=== PATIENT | female | born 1980 | race Caucasian/White ===

== ENCOUNTER 2024-08-20 13:45 | Outpatient (OUT) | payer OTHER, SELFPAY ==
[2024-08-20 15:03] LABS: Estimated Average Glucose 105 mg/dL; Glycohemoglobin A1C 5.3 % (4.5-6.2)
[2024-08-20 15:26] LABS: Alanine Aminotransferase 22 U/L (14-59); Albumin Globulin Ratio 0.9; Albumin Level 3.5 g/dL (3.4-5.0); Alkaline Phosphatase 108 U/L (46-116); Anion Gap 12.3; Aspartate Amino Transferase 14 U/L (15-37); BUN Creatinine Ratio 10.5; Bilirubin Total 0.4 mg/dL (0.2-1.0); Calcium 8.8 mg/dL (8.5-10.1); Carbon Dioxide 28.8 mmol/L (21.0-32.0); Chloride 105 mmol/L (98-107); Chol HDL Ratio 4.4; Cholesterol 207 mg/dL (<=200); Estimated GFR (African America >60 (>=60 mL/min/1.73m^2); Estimated GFR (Non-African Ame >60 (>=60 mL/min/1.73m^2); Globulin 3.8 g/dL; Glucose 90 mg/dL (74-106); HDL Cholesterol 47 mg/dL (40-60); Potassium 4.1 mmol/L (3.5-5.1); Sodium 142 mmol/L (136-145); Thyroid Stimulating Hormone 1.487 uIU/mL (0.358-3.740); Total Protein 7.3 g/dL (6.4-8.2); Triglycerides 109 mg/dL (<=150); VLDL CHOLESTEROL 21.8 mg/dL
[2024-08-21 03:07] LABS: Insulin 10.7 uIU/mL (2.6-24.9)
[2024-08-21 04:07] LABS: FSH 9.7 mIU/mL (.); Luteinizing Hormone(LH) 5.6 mIU/mL (.); Progesterone 0.1 ng/mL (.); Triiodothyronine (T3) 106 ng/dL (71-180)
== END 2024-08-20 13:46 | disposition home or self-care (01) ==
LOC: LAB 13:48
PROVIDERS: PCP Nurse Practitioner Family; Visit Provider Nurse Practitioner Family
DX: R63.5 Abnormal weight gain (principal)
CPT/HCPCS: 36415; 80053; 80061; 82533; 82670; 83001; 83002; 83036; 83525; 84144; 84436; 84443; 84480

== ENCOUNTER 2024-11-16 23:18 | Emergency (ER) | payer OTHER, SELFPAY ==
[2024-11-16 23:24] VITALS: BP 136/98; PULSE 78; TEMP 36.7; O2SAT 100; BMI 47.7
--- OUTSIDE RECORDS SUMMARY | 2024-11-16 23:24 | XMS_ITS | CCD ---
Author Organization [facility] Care Team Providers Care Bike Shop Manager Name Role Phone ANA CORDOVA Primary Care Unavailable MARKER, DR FREGOSO Admitting Unavailable MARKER, DR FREGOSO Attending Unavailable MARKER, DR FREGOSO Consulting Unavailable AHDOEREN CHET Consulting Unavailable ANA CORDOVA Admitting Unavailable ANA CORDOVA Attending Unavailable ANA CORDOVA Primary Care Unavailable ANA CORDOVA Consulting Unavailable Ana Cordova Unavailable Sheba Bustillo Unavailable ANA CORDOVA Primary Care Physician ANA CORDOVA Admitting Unavailable ANA CORDOVA Primary Care Unavailable ANA CORDOVA Attending Unavailable ANA CORDOVA Referring Unavailable ANA CORDOVA Admitting Unavailable ANA CORDOVA Attending Unavailable Nataprki, DO Teagan J. Referring Unavaila ANA Farley Primary Care Unavailable Nataprshaera, DO Teagan J. Admitting Unavaila ble Nataprawira, DO Teagan J. Attending Unavaila ble Nataprki DO Teagan J. Admitting Unavaila ble Nataprawira, DO Teagan J. Attending Unavaila ble Nataprawira, DO Teagan J. Referring Unavaila ANA Farley Primary Care Unavailable Rudy Taylor MD Primary Care Provider YOSELYN HALLMAN Attending Unavailable NATAPRTEAGAN EMERSON J Attending Unavailable NATAPRKI, TEAGAN J Attending Unavailable NATAPRKI, TEAGAN J Attending Unavailable Allergies Allergy Classification Reported Allergen(s) Allergy Type Date of Onset Reaction(s) Facility (1 source) natural latex rubber Drug allergy (disorder) [facility] Repository (7 sources) Latex; Translations: [Latex] Drug allergy Itching, Rash [facility] (1 source) No Known Medication Allergies; Translations: [No Known Medication Allergies] Propensity to adverse reactions (disorder) [facility] Repository Medications Current Medications Medication Drug Class(es) Dates Sig (Normalized) Sig (Original) [id number] 200 actuat albuterol 0.09 mg/actuat metered dose inhaler (1 source) beta2-Adrenergic Agonist Start: 07-24-2022 take 2 puff(s) by inhalation every four hours as needed Albuterol Sulfate HFA 108 (90 Base) MCG/ACT 2 puffs as needed Inhalation every 4 hrs Jul, Active amoxicillin 875 mg / clavulanate 125 mg oral tablet (2 sources) Penicillin-class Antibacterial Start: 10-06-2024 End: 10-16-2024 take 1 tablet by mouth in the morning amoxicillin-clav ulanate (Augmentin) 875-125 MG tablet Indications: Sinus pressure , Acute non-recurrent maxillary sinusitis Take 1 tablet (875 mg) by mouth in the morning and 1 tablet (875 mg) before bedtime. Do all this for 10 days. 20 tablet 10/06/2024 10/16/2024 Active clotrimazole 0.01 mg/mg topical ointment (4 sources) Azole Antifungal Start: 02-21-2021 Start: 02-21-2021 Alevazol 1 % 1 application Externally Twice a day for 10 day(s) Mar, Active DULoxetine 60 mg oral capsule (9 sources) Serotonin and Norepinephrine Reuptake Inhibitor Start: 02-16-2020 take 1 capsule by mouth twice daily DULoxetine HCl 60 MG 1 capsule Orally Twice a day for 90 days Feb, Active Start: 02-16-2020 DULoxetine (Cymb benjamin) [address] capsule 1 capsule 1 (one) time each day at the same time Active duloxetine 60 mg Cap-DR (2 sources) Start: 04-09-2024 take 1 tablet by mouth twice daily duloxetine 60 mg Cap-DR 1 tab, Oral, BID, Refills(s) 0, Anxiety Start Date: 04/09/24 Status: Ordered ergocalciferol 1.25 mg oral capsule (9 sources) Provitamin D2 Compound Start: 01-06-2024 ergocalciferol (Vitamin D-2) 1.25 MG (26230 UT) capsule 01/06/2024 Active Start: 06-13-2021 take 1 capsule by mo [facility] every week Ergocalciferol 1.25 MG (43059 UT) 1 capsule Orally weekly for 30 day(s) Jun, Active hydrOXYzine hydrochloride 25 mg oral tablet (11 sources) Antihistamine Start: 01-08-2024 take 1 tablet by mouth twice daily hydrOXYzine hydrochloride 25 mg Tab 25 mg = 1 tab(s), Oral, BID, Refills(s) 0, Anxiety Start Date: 04/09/24 Status: Ordered Start: 05-17-2020 hydrOXYzine HC l 10 MG as directed Orally at bedtime for 30 day(s) May, Not-Taking methylPREDNISolone 4 mg oral tablet (1 source) Corticosteroid Start: 07-24-2022 methylPREDNISolone 4 MG as directed Orally Once a day for 6 days Jul, Active OLANZapine 2.5 mg oral tablet (2 sources) Atypical Antipsychotic Start: 08-18-2024 OLANZapine (ZyPREXA) 2.5 MG tablet 1 (one) time each day at the same time 08/18/2024 Active Vitamin D (2 sources) Start: 04-09-2024 Vitamin D Oral, qWeek, Refills(s) 0, Prophylaxis Start Date: 04/09/24 Status: Ordered Completed/Discontinued Medications Medication Drug Class(es) Dates Sig (Normalized) Sig (Original) Dosoquin 5500-200 UNIT-MCG (5 sources) Start: 12-01-2019 Start: 12-01-2019 [facility] Dosoquin 5500-200 UNIT-MCG 1 tablet daily with food Orally daily for 90 days Nov, Not-Taking Folinic-Plus 4-50-2 MG (5 sources) take 1 tablet by mouth in the mo rning Folinic-Plus 4-50-2 MG 1 tablet Orally in the morning for 90 days Not-Taking Problems Active Problems Problem Classification Problem Date Documented Date Episodic/Chronic Allergic reactions (5 sources) Atopic dermatitis; Translations: [Other atopic dermatitis] Chronic Anxiety disorders (14 sources) Panic attack; Translations: [Panic disorder [episodic paroxysmal anxiety]] Onset: 06-13-2021 Resolved: 09-14-2021 Chronic Asthma (2 sources) Childhood asthma 04-09-2024 Chronic Chronic obstructive pulmonary disease and bronchiectasis (1 source) Bronchitis, not specified as acute or chronic Episodic Genitourinary symptoms and ill-defined conditions (3 sources) Dysuria; Translations: [Dysuria] Onset: 10-09-2021 Resolved: 10-09-2021 Episodic Immunizations and screening for infectious disease (3 sources) Contact with and (suspected) exposure to other viral communicable diseases; Translations: [Suspected clinical finding] Onset: 08-26-2021 Resolved: 08-26-2021 Episodic Influenza (1 source) Influenza due to other identified influenza virus with other respiratory manifestations Episodic Menstrual disorders (4 sources) Menorrhagia; Translations: [Excessive and frequent menstruation with regular cycle] 04-02-2024 Chronic Miscellaneous mental health disorders (4 sources) Psychophysiologic insomnia; Translations: [Psychophysiologic insomnia] Onset: 09-14-2021 Resolved: 09-14-2021 Chronic Nutritional deficiencies (7 sources) Vitamin D deficiency; Translations: [Vitamin D deficiency, unspecified] Onset: 06-13-2021 Resolved: 09-14-2021 Chronic Other diseases of kidney and ureters (1 source) Hydronephrosis with renal and ureteral calculous obstruction; Translations: [HYDRONPHROS RENL AND URETRL CALCUL OBST] Onset: 10-06-2021 Episodic Other nutritional; endocrine; and metabolic disorders (1 source) Body mass index (BMI) 45.0-49.9, adult; Translations: [BODY MASS INDEX BMI 45.0-49.9 ADULT] Onset: 10-06-2021 Chronic Other nutritional; endocrine; and metabolic disorders (1 source) Obesity, unspecified; Translations: [OBESITY UNSPECIFIED] Onset: 10-06-2021 Chronic Other upper respiratory disease (2 sources) Other specified disorders of nose and nasal sinuses; Translations: [Other disease of nasal cavity and sinuses] 10-06-2024 Episodic Other upper respiratory infections (3 sources) Acute upper respiratory infection, unspecified; Translations: [Acute maxillary sinusitis] Onset: 08-26-2021 Resolved: 08-26-2021 Episodic Residual codes; unclassified (5 sources) Insomnia; Translations: [Insomnia, unspecified] Episodic Substance-related disorders (1 source) Nicotine dependence, cigarettes, uncomplicated; Translations: [NICOTINE DEPEND CIGARETTES UNCOMP] Onset: 10-06-2021 Chronic Past or Other Problems Problem Classification Problem Date Documented Da te Episodic/Chronic Abdominal pain (5 sources) Right lower quadrant pain; Translations: [Pain in female pelvis] Onset: 10-04-2021 Episodic Calculus of urinary tract (2 sources) Personal history of urinary calculi; Translations: [PERSONAL HISTORY OF URINARY CALCULI] Onset: 10-06-2021 Resolved: 10-09-2021 Episodic Residual codes; unclassified (1 source) Insomnia, unspecified Onset: 06-13-2021 Resolved: 06-13-2021 Episodic Urinary tract infections (1 source) Acute cystitis with hematuria Onset: 10-09-2021 Resolved: 10-09-2021 Episodic Results Test Name Value Interpretation Reference Range Facility XR Chest 2 Viewson XR Chest 2 Views Exam Date/Time: 04/09/2024 09:07 EDT Reason for Exam: P.A.T. Report IMPRESSION: NO EVIDENCE OF ACTIVE CHEST DISEASE. CLINICAL HISTORY: P.A.T.. COMMENT: The heart is normal in size. The mediastinum is unremarkable. The lungs appear clear. No infiltration nor pleural effusion is evident. Ordering Provider: Varinder Guerrero FINAL REPORT Dictated: 04/13/2024 8:50 am Sushant Yu M.D. Signed (Electronic Signature): 04/13/2024 8:50 am Signed by: Sushant Yu M.D. Transcribed by: KEN Technologist: BONNIE Technical Comments Radiation Dose: Ka,r in mGy = na DAP = na Normal [facility] ABO/Rh Retypeon 04-09-2024 ABO/Rh Retype Interp Positive Invalid Interpretation Code [facility] Comment on above: Performed By: #### 1 [id number] #### [facility] [address] [place] [address] BLOOD BANKOrdered By: Debo Galindo on 04-09-2024 ABO/Rh Retype Interp Positive Invalid Interpretation Code [facility] BB Subsection BMPon 04-09-2024 Anion gap [Moles/Vol] 9 mmol/L Normal 6-16 [facility] Comment on above: Performed By: #### 2 [id number] #### [facility] [address] [place] [address] Calcium [Mass/Vol] 9.2 mg/dL Normal 8.9-11.1 [facility] Comment on above: Performed By: #### 2 [id number] #### [facility] [address] [place] [address] Chloride [Moles/Vol] 106 mmol/L Normal 101-111 [facility] Comment on above: Performed By: #### 2 513856 #### [facility] [address] [place] [address] CO2 [Moles/Vol] 27 mmol/L Normal 21-31 [facility] Comment on above: Performed By: #### 2 [id number] #### [facility] [address] [place] [address] Creatinine [Mass/Vol] 0.8 mg/dL Normal 0.5-1.3 [facility] Comment on above: Performed By: #### 2 [id number] #### [facility] [address] [place] [address] Glucose [Mass/Vol] 79 mg/dL Normal 55-199 [facility] Comment on above: Performed By: #### 2 [id number] #### [facility] [address] [place] [address] Potassium [Moles/Vol] 4.1 mmol/L Normal 3.5-5.3 [facility] Comment on above: Performed By: #### 2 358049 #### [facility] [address] [place] [address] Sodium [Moles/Vol] 138 mmol/L Normal 135-145 [facility] Comment on above: Performed By: #### 2 946927 #### [facility] [address] [place] [address] Urea nitrogen [Mass/Vol] 11 mg/dL Normal 5-21 [facility] Comment on above: Performed By: #### 2 [id number] #### [facility] [address] [place] [address] Urea nitrogen/Creatinine [Mass ratio] 14 No Units Normal 10-20 [facility] Comment on above: Performed By: #### 2 863272 #### [facility] [address] [place] [address] CBC w/ Auto Diffon 4 Basophils/100 WBC (Bld) 0.6 % Normal 0.0-2.0 [facility] Comment on above: Performed By: #### 2 309055 #### [facility] [address] [place] [address] Basophils/Leukocytes Auto (Bld) [Pure # fraction] 0.0 E9/L Normal 0.0-0.2 [facility] Comment on above: Performed By: #### 2 591119 #### [facility] [address] [place] [address] Eosinophils (Bld) [#/Vol] 0.2 E9/L Normal 0.0-0.5 [facility] Comment on above: Performed By: #### 2 709056 #### [facility] [address] [place] [address] Eosinophils/100 WBC (Bld) 2.5 % Normal 0.0-8.0 [facility] Comment on above: Performed By: #### 2 620875 #### [facility] [address] [place] [address] Erythrocyte distribution width (RBC) [Ratio] 13.6 % Normal 10.9-14.2 [facility] Comment on above: Performed By: #### 2 056155 #### [facility] [address] [place] [address] Hematocrit (Bld) [Volume fraction] 41.6 % Normal 34.0-46.0 [facility] Comment on above: Performed By: #### 2 747879 #### [facility] [address] [place] [address] Hemoglobin (Bld) [Mass/Vol] 13.8 g/dL Normal 12.0-16.0 [facility] Comment on above: Performed By: #### 2 847774 #### [facility] [address] [place] [address] Lymphocytes (Bld) [#/Vol] 2.2 E9/L Normal 1.0-4.0 [facility] Comment on above: Performed By: #### 2 080149 #### [facility] [address] [place] [address] Lymphocytes/100 WBC (Bld) 31.2 % Normal 14.0-50.0 [facility] Comment on above: Performed By: #### 2 257645 #### [facility] [address] [place] [address] MCH (RBC) [Entitic mass] 28.0 pg Normal 27.0-34.0 [facility] Comment on above: Performed By: #### 2 513798 #### [facility] [address] [place] [address] MCHC (RBC) [Mass/Vol] 33.1 g/dL Normal 31.4-36.0 [facility] Comment on above: Performed By: #### 2 615100 #### [facility] [address] [place] [address] MCV (RBC) [Entitic vol] 84.6 fL Normal 80.0-100.0 [facility] Comment on above: Performed By: #### 2 855866 #### [facility] [address] [place] [address] Monocytes (Bld) [#/Vol] 0.6 E9/L Normal 0.2-1.0 [facility] Comment on above: Performed By: #### 2 184082 #### [facility] [address] [place] [address] Neutrophils (Bld) [#/Vol] 3.9 E9/L Normal 2.0-7.5 [facility] Comment on above: Performed By: #### 2 232271 #### [facility] [address] [place] [address] Neutrophils/100 WBC (Bld) 56.5 % Normal 36.0-75.0 [facility] Comment on above: Performed By: #### 2 016471 #### [facility] [address] [place] [address] Platelet mean volume (Bld) [Entitic vol] 7.9 fL Normal 6.4-10.8 [facility] Comment on above: Performed By: #### 2 068709 #### [facility] [address] [place] [address] Platelets (Bld) [#/Vol] 339.0 E9/L Normal 150.0-500.0 [facility] Comment on above: Performed By: #### 2 210255 #### [facility] [address] [place] [address] RBC (Bld) [#/Vol] 4.9 E12/L Normal 4.3-5.9 [facility] Comment on above: Performed By: #### 2 716385 #### [facility] [address] [place] [address] WBC corrected for nucl RBC Auto (Bld) [#/Vol] 6.9 E9/L Normal 4.0-11.0 [facility] Comment on above: Performed By: #### 2 446028 #### [facility] [address] [place] [address] CHEMISTRYOrdered By: SYSTEM SYSTEM on 04-09-2024 Anion gap [Moles/Vol] 9 mmol/L Normal 6 - 16 mEq/L R emisol Chem Calcium [Mass/Vol] 9.2 mg/dL Normal 8.9 - 11. 1 mg/dL [facility] Chloride [Moles/Vol] 106 mmol/L Normal 101 - 1 11 mmol/L [facility] CO2 [Moles/Vol] 27 mmol/L Normal 21 - 31 mmol/L [facility] Creatinine [Mass/Vol] 0.8 mg/dL Normal 0.5 - 1.3 mg/dL [facility] eGFR 94 mL/min/1.73 m2 Normal >=59mL/min /1 .73 m2 [facility] Glucose [Mass/Vol] 79 mg/dL Normal 55 - 199 mg/dL [facility] Potassium [Moles/Vol] 4.1 mmol/L Normal 3.5 - 5.3 mmol/L [facility] Sodium [Moles/Vol] 138 mmol/L Normal 135 - 145 mmol/L [facility] Urea nitrogen [Mass/Vol] 11 mg/dL Normal 5 - 21 mg/dL [facility] Urea nitrogen/Creatinine [Mass ratio] 14 mg/mg Normal 10 - 20 [facility] HEMATOLOGYOrdered By: SYSTEM SYSTEM on 04-09-2024 Basophils/100 WBC (Bld) 0.6 % Normal 0.0 - 2.0 % [facility] Basophils/Leukocytes Auto (Bld) [Pure # fraction] 0.0 E9/L Normal 0.0 - 0.2 E9/L [facility] Eosinophils (Bld) [#/Vol] 0.2 E9/L Normal 0.0 - 0.5 E9/L [facility] Eosinophils/100 WBC (Bld) 2.5 % Normal 0.0 - 8.0 % [facility] Erythrocyte distribution width (RBC) [Ratio] 13.6 % Normal 10.9 - 14.2 % [facility] Hematocrit (Bld) [Volume fraction] 41.6 % Normal 34.0 - 46.0 % [facility] Hemoglobin (Bld) [Mass/Vol] 13.8 g/dL Normal 12.0 - 16.0 gm/dL [facility] Lymphocytes (Bld) [#/Vol] 2.2 E9/L Normal 1.0 - 4.0 E9/L [facility] Lymphocytes/100 WBC (Bld) 31.2 % Normal 14.0 - 50.0 % [facility] MCH (RBC) [Entitic mass] 28.0 pg Normal 27.0 - 34.0 pg [facility] MCHC (RBC) [Mass/Vol] 33.1 g/dL Normal 31.4 - 36.0 gm/dL [facility] MCV (RBC) [Entitic vol] 84.6 fL Normal 80.0 - 100.0 fL [facility] Monocytes (Bld) [#/Vol] 0.6 E9/L Normal 0.2 - 1.0 E9/L [facility] Monocytes/100 WBC (Bld) 9.2 % Normal 4.0 - 14.0 % [facility] Neutrophils (Bld) [#/Vol] 3.9 E9/L Normal 2.0 - 7.5 E9/L [facility] Neutrophils/100 WBC (Bld) 56.5 % Normal 36.0 - 75.0 % [facility] Platelet mean volume (Bld) [Entitic vol] 7.9 fL Normal 6.4 - 10.8 fL [facility] Platelets (Bld) [#/Vol] 339.0 E9/L Normal 150.0 - 500.0 E9/L [facility] RBC (Bld) [#/Vol] 4.9 E12/L Normal 4.3 - 5.9 E12/L [facility] WBC corrected for nucl RBC Auto (Bld) [#/Vol] 6.9 E9/L Normal 4.0 - 11.0 E9/L [facility] eGFRon 04-09-2024 eGFR 94 mL/min/1.73 m2 Normal >=59 [facility] Comment on above: Order Comment: Order added by Discern Expert. Performed By: #### 1 [id number] #### [facility] [address] [place] [address] US Pelvis Non-OB Completeon 10-22-2023 US Pelvis Non-OB Complete Exam Date/Time: 10/21/2023 12:23 EDT Reason for Exam: R10.2, N92.1, N94.6 Report IMPRESSION: NEGATIVE ULTRASOUND OF THE PELVIS. CLINICAL HISTORY: R10.2, N92.1, N94.6. Pelvic cramping. COMMENT: Transabdominal images were obtained. The uterus measurements and an estimated volume are: Uterus Length: 9.8 cm Uterus Width: 5.5 cm Uterus Height: 3.7 cm Uterus Volume: 103.0 cm3 Endometrium Thickness: 1.5 cm No abnormality of the echo pattern of the uterus is noted. No uterine mass is evident. The right ovary measurements and an estimated volume are: Right Ovary Length: 1.8 cm Right Ovary Width: 2.0 cm Right Ovary Height: 1.2 cm Right Ovary Volume: 2.2 cm3 The left ovary measurements and an estimated volume are: Left Ovary Length: 2.7 cm Left Ovary Width: 2.4 cm Left Ovary Height: 2.2 cm Left Ovary Volume: 7.6 cm3 There is an approximately 1 cm diameter left ovarian cyst. No large cyst nor adnexal mass is evident. On color flow Doppler images, there is vascular flow to each ovary. There is no free fluid in the cul-de-sac. Ordering Provider: , FINAL REPORT Dictated: 10/22/2023 2:10 pm Sushant Yu M.D. Signed (Electronic Signature): 10/22/2023 2:10 pm Signed by: Sushant Yu M.D. Transcribed by: KEN Technologist: MCKAYLA Technical Comments Transabdominal Ultrasound Performed Normal [facility] Physician Orderon 10-16-2023 Physician Order [id number] #[id number] Normal [facility] and [facility] 10-11-2023 Follitropin Qn 12.7 m[IU]/mL Invalid Interpretation Code [facility] Comment on above: Result Comment: Adul t Female Range Follicular phase 3.5 - 12.5 Ovulation phase 4.7 - 21.5 Luteal phase 1.7 - 7.7 Postmenopausal 25.8 - 134.8 Performed at: [address] [id number] PhD Ngozi Mendoza Performed By: #### 2 [id number], [id number], 0872187, 34985909, [id number] #### [facility] [address] [place] [address] Lutropin Qn 3.9 m[IU]/mL Invalid Interpretation Code [facility] Comment on above: Result Comment: Adul t Female Range Follicular phase 2.4 - 12.6 Ovulation phase 14.0 - 95.6 Luteal phase 1.0 - 11.4 Postmenopausal 7.7 - 58.5 Performed By: #### 2 468838, 57934459, 5823376, 49560261, 51736467 #### [facility] [address] [place] [address] CBC w/ Auto Diffon 03-06-202 4 Basophils/100 WBC (Bld) 0.4 % Normal 0.0-2.0 [facility] Comment on above: Performed By: #### 2 221716, 54520542, 0782208, 29678983, 45761760 #### [facility] [address] [place] [address] Basophils/Leukocytes Auto (Bld) [Pure # fraction] 0.0 E9/L Normal 0.0-0.2 [facility] Comment on above: Performed By: #### 2 432514, [id number], 2026860, 81054284, 81888645 #### [facility] [address] [place] [address] Eosinophils (Bld) [#/Vol] 0.1 E9/L Normal 0.0-0.5 [facility] Comment on above: Performed By: #### 2 709070, 87759855, 6544359, 84434280, 83369262 #### [facility] [address] [place] [address] Eosinophils/100 WBC (Bld) 1.1 % Normal 0.0-8.0 [facility] Comment on above: Performed By: #### 2 206860, 01229321, 6019442, 76899655, 71764715 #### [facility] [address] [place] [address] Erythrocyte distribution width (RBC) [Ratio] 15.3 % High 10.9-14.2 [facility] Comment on above: Performed By: #### 2 126862, 18973814, 9137820, 97175602, 84030262 #### [facility] [address] [place] [address] Hematocrit (Bld) [Volume fraction] 42.7 % Normal 34.0-46.0 [facility] Comment on above: Performed By: #### 2 409184, 10521703, 6076130, 81799330, 32318187 #### [facility] [address] [place] [address] Hemoglobin (Bld) [Mass/Vol] 13.6 g/dL Normal 12.0-16.0 [facility] Comment on above: Performed By: #### 2 155875, 32148535, 5282050, 09747682, 71431246 #### [facility] [address] [place] [address] Lymphocytes (Bld) [#/Vol] 1.9 E9/L Normal 1.0-4.0 [facility] Comment on above: Performed By: #### 2 473358, 81299767, 6788885, 97047175, 46518121 #### [facility] [address] [place] [address] Lymphocytes/100 WBC (Bld) 27.7 % Normal 14.0-50.0 [facility] Comment on above: Performed By: #### 2 954432, 02744564, 5821471, 95281934, 45860779 #### [facility] [address] [place] [address] MCH (RBC) [Entitic mass] 28.1 pg Normal 27.0-34.0 [facility] Comment on above: Performed By: #### 2 683413, 18504514, 9864680, 86088397, 94758094 #### [facility] [address] [place] [address] MCHC (RBC) [Mass/Vol] 31.8 g/dL Normal 31.4-36.0 [facility] Comment on above: Performed By: #### 2 114548, 97013594, 2890462, 05066993, 04273092 #### [facility] [address] [place] [address] MCV (RBC) [Entitic vol] 88.3 fL Normal 80.0-100.0 [facility] Comment on above: Performed By: #### 2 700145, 70691115, 4155041, 64798780, 73541253 #### [facility] [address] [place] [address] Monocytes (Bld) [#/Vol] 0.4 E9/L Normal 0.2-1.0 [facility] Comment on above: Performed By: #### 2 496221, 92533322, 9467816, 34774072, 03781940 #### [facility] [address] [place] [address] Neutrophils (Bld) [#/Vol] 4.5 E9/L Normal 2.0-7.5 [facility] Comment on above: Performed By: #### 2 678185, 65290046, 5017123, 52304051, 82845353 #### [facility] [address] [place] [address] Neutrophils/100 WBC (Bld) 65.3 % Normal 36.0-75.0 [facility] Comment on above: Performed By: #### 2 843789, 57116153, 5934425, 58662839, 65785770 #### [facility] [address] [place] [address] Platelet mean volume (Bld) [Entitic vol] 8.2 fL Normal 6.4-10.8 [facility] Comment on above: Performed By: #### 2 275350, 51173636, 2785612, 43831859, 48532101 #### [facility] [address] [place] [address] Platelets (Bld) [#/Vol] 372.0 E9/L Normal 150.0-500.0 [facility] Comment on above: Performed By: #### 2 757306, 40769089, 7630063, 91492243, 70244583 #### [facility] [address] [place] [address] RBC (Bld) [#/Vol] 4.8 E12/L Normal 4.3-5.9 [facility] Comment on above: Performed By: #### 2 476947, 73820903, 3804252, 71776553, 63461796 #### [facility] [address] [place] [address] WBC corrected for nucl RBC Auto (Bld) [#/Vol] 6.9 E9/L Normal 4.0-11.0 [facility] Comment on above: Performed By: #### 2 108020, 19662530, 8027816, 86856726, 08598688 #### [facility] [address] [place] [address] CMPon 10-09-2023 Albumin [Mass/Vol] 4.4 g/dL Normal 3.3-5.0 [facility] Comment on above: Performed By: #### 2 750710, 85787248, 9053486, 60752092, 33738353 #### [facility] [address] [place] [address] Albumin/Globulin (S) [Mass conc ratio] 1.8 Normal 1.1-2.2 [facility] Comment on above: Performed By: #### 2 832339, 91106683, 0787526, 45509854, 01166384 #### [facility] [address] [place], [place] [address] ALP [Catalytic activity/Vol] 82 Int._Unit/L Normal 21-98 [facility] Comment on above: Performed By: #### 2 611533, 51745184, 2061555, 39788186, [id number] #### [facility] [address] [place], [place] [id number] ALT No additional P-5'-P [Catalytic activity/Vol] 13 Int._Unit/L Normal 6-46 [facility] Comment on above: Performed By: #### 2 668225, [id number], 7738258, [id number], [id number] #### [facility] [address] [place] [address] Anion gap [Moles/Vol] 12 mmol/L Normal 6-16 [facility] Comment on above: Performed By: #### 2 944962, [id number], 0326453, 12144851, [id number] #### [facility] [address] [place] [address] AST [Catalytic activity/Vol] 14 Int._Unit/L Normal 5-43 [facility] Comment on above: Performed By: #### 2 123633, [id number], 6413362, 02081281, [id number] #### [facility] [address] [place] [address] Bilirubin [Mass/Vol] 0.4 mg/dL Normal 0.0-1.1 [facility] Comment on above: Performed By: #### 2 738593, 51356300, 7147623, 51411011, [id number] #### [facility] [address] [place] [address] Calcium [Mass/Vol] 9.4 mg/dL Normal 8.9-11.1 [facility] Comment on above: Performed By: #### 2 949176, 14262113, 2726096, 14091246, 58647117 #### [facility] [address] [place] [address] Chloride [Moles/Vol] 103 mmol/L Normal 101-111 [facility] Comment on above: Performed By: #### 2 826045, 04339148, 1769771, 62019326, [id number] #### [facility] [address] [place] [address] CO2 [Moles/Vol] 27 mmol/L Normal 21-31 [facility] Comment on above: Performed By: #### 2 809711, 04545521, 4855213, 99509422, 42631275 #### [facility] [address] [place] [address] Creatinine [Mass/Vol] 0.8 mg/dL Normal 0.5-1.3 [facility] Comment on above: Performed By: #### 2 907482, 08335205, 7360248, 98272578, [id number] #### [facility] [address] [place] [address] Globulin (S) [Mass/Vol] 2.5 g/dL Normal 1.4-4.0 [facility] Comment on above: Performed By: #### 2 821776, 78275131, 5298221, 72380731, 25967284 #### [facility] [address] [place] [address] Glucose [Mass/Vol] 86 mg/dL Normal 55-199 [facility] Comment on above: Performed By: #### 2 331996, 23343763, 7281391, 25762003, 06941642 #### [facility] [address] [place] [address] Potassium [Moles/Vol] 4.6 mmol/L Normal 3.5-5.3 [facility] Comment on above: Performed By: #### 2 959440, 05797630, 1330391, 90224935, 70614337 #### [facility] [address] [place] [address] Protein [Mass/Vol] 6.9 g/dL Normal 6.0-7.8 [facility] Comment on above: Performed By: #### 2 936032, 78375263, 5791588, 60362783, 78254220 #### [facility] [address] [place] [address] Sodium [Moles/Vol] 137 mmol/L Normal 135-145 [facility] Comment on above: Performed By: #### 2 801366, 81325770, 3928830, 36890154, 15527040 #### [facility] [address] [place] [address] Urea nitrogen [Mass/Vol] 12 mg/dL Normal 5-21 [facility] Comment on above: Performed By: #### 2 967143, 75992579, 9514119, 44035466, 97143023 #### [facility] [address] [place] [address] Urea nitrogen/Creatinine [Mass ratio] 15 No Units Normal 10-20 [facility] Comment on above: Performed By: #### 2 922557, 36105085, 2633581, 24541184, 10710651 #### [facility] [address] [place] [address] Physician Orderon 10-09-2023 Physician Order [id number] 2#[id number] Normal [facility] T4 & TSHon 10-09-2023 TSH Qn 1.72 m[IU]/L Normal 0.34-5.60 [facility] Comment on above: Performed By: #### 2 847842, 03247913, 9539513, 61858151, 99940292 #### [facility] [address] [place] [address] T4 [Mass/Vol] 10.1 microgram/dL High 4.6-9.1 [facility] Comment on above: Performed By: #### 2 577072, 86162932, 5439934, 25065758, 68389842 #### [facility] [address] [place] [address] eGFRon 10-09-2023 eGFR 94 mL/min/1.73 m2 Normal >=59 [facility] Comment on above: Order Comment: Order added by Discern Expert. Performed By: #### 2 322871, 08658548, 4482684, 23868361, 26418628 #### [facility] [address] [place] [address] COVID + FLU Quick Testingon 07-24-2022 SARS-CoV-2 (COVID-19) RNA YOUSUF+probe Ql (Unsp spec) Negative [employer] Other COVID + FLU Quick Testing Positive [employer] Other COVID + FLU Quick Testing Negative [employer] Other Urinalysis - AUTOMATEDon Appearance (U) cloudy [employer] Other Bilirubin Ql (U) Negative [employer] Other Color (U) dark yellow [employer] Other Glucose Ql (U) Negative [employer] Other Hemoglobin Ql (U) moderate Clean PET [employer] Other Ketones Ql (U) Negative [employer] Other Leukocyte esterase Test strip Ql (U) trace [employer] Other Nitrite Ql (U) Negative [employer] Other pH (U) 6.0 [pH] [employer] Other Protein Ql (U) Negative [employer] Other Specific gravity (U) [Rel density] 1.025 [employer] Other Urobilinogen (U) [Mass/Vol] 1.0 mg/dL [employer] Other Urinalysis - AUTOMATED [employer] Other CULTURE URINEon 10-07-2021 CULTURE URINE Isolate 1 Escherichia coli >100,000 cfu/mL of ORGANISM 1 Escherichia coli ANTIBIOTIC M.I.C RX STATUS Ampicillin 4 S F Ampicillin/Sulbactam <=2 S F Piperacillin/Tazobac castro <=4 S F Cefazolin <=4 S F Ceftazidime <=1 S F Ceftriaxone <=1 S F Ertapenem <=0.5 S F Imipenem <=0.25 S F Amikacin <=2 S F Gentamicin <=1 S F Tobramycin <=1 S F Ciprofloxacin <=0.25 S F Levofloxacin <=0.12 S F Nitrofurantoin <=16 S F Trimethoprim/Sulfame thoxazole <=20 S F Normal [facility] Comment on above: Performed By: #### U RCX #### [facility] [address] [place], [place] [id number] Dr. Jolanta Alvarado CT ABD/PELVIS WO CONon 10-05 CT ABD/PELVIS WO CON EXAMINATION: CT ABD/PELVIS WO CON, 10/04/2021 9:17 PM EST HISTORY: CALCULUS OF KIDNEY COMPARISON: None. TECHNIQUE: CT scan of the abdomen and pelvis was performed without IV contrast. CT dose reduction technique was used, including Automated Exposure Control. FINDINGS: The lung bases are clear. Heart size is normal. The liver, gallbladder, spleen, pancreas and bilateral adrenal glands appear unremarkable on this noncontrast examination. Mild right hydronephrosis and hydroureter is seen. A punctate calculus seen in the distal right ureter, best seen on image 55 of coronal series 5. Thickening of the urothelium of the right proximal and mid ureter is seen with adjacent mesenteric fat stranding and tiny adjacent free fluid, suggestive of inflammatory/infecti ous process and right ureteritis. Punctate calculus is seen in the midpole of the left kidney. The left kidney has an otherwise unremarkable noncontrast appearance. There is no evidence for left hydronephrosis. No left ureteral calculus is seen. The urinary bladder appears unremarkable. The stomach and duodenum appear unremarkable. Nonobstructive bowel pattern is seen. Normal-appearing appendix is visualized. No significant bowel wall thickening is seen. No abnormal fluid collection is seen in the abdomen and pelvis. The vascular structures demonstrate normal caliber. Tiny fat-containing umbilical hernia is seen. No acute osseous abnormality is seen. IMPRESSION: Mild right hydronephrosis and hydroureter is seen with a punctate calculus seen in the distal right ureter. Thickening of the urothelium of the right proximal and mid ureter is seen with adjacent mesenteric fat stranding and tiny adjacent free fluid, suggestive of inflammatory/infecti ous process and right ureteritis. Punctate nonobstructive left renal calculus. Normal-appearing appendix is visualized. Electronically authenticated by: CHET HARP Date: 2021-10-04 22:37 Normal [facility] ER URINE PROFILEon 2 Bilirubin Ql (U) Negative Normal NEGATIVE [facility] Comment on above: Performed By: #### U MICRO, ERUR, PREGU #### [facility] [address] [place], [place] [address] Dr. Jolanta Alvarado Clarity (U) SL CLOUDY Abnormal CLEAR [facility] Comment on above: Performed By: #### U MICRO, ERUR, PREGU #### [facility] [address] [place] [address] [address] Jolanta Alvarado Color (U) YELLOW Normal YELLOW [facility] Comment on above: Performed By: #### U MICRO, ERUR, PREGU #### [facility] [address] [place] [address] [address] Jolanta FOX A micrscopic examination will be performed if indicated. Normal [facility] Comment on above: Performed By: #### U MICRO, ERUR, PREGU #### [facility] [address] [place] [address] [address] Jolanta Alvarado Glucose Ql (U) Negative Normal NEGATIVE [facility] Comment on above: Performed By: #### U MICRO, ERUR, PREGU #### [facility] [address] [place] [address] [address] Jolanta Alvarado Hemoglobin Ql (U) LARGE Abnormal NEGATIVE [facility] Comment on above: Performed By: #### U MICRO, ERUR, PREGU #### [facility] [address] [place] [address] [address] Jolanta Alvarado Ketones Ql (U) TRACE Abnormal NEGATIVE [facility] Comment on above: Performed By: #### U MICRO, ERUR, PREGU #### [facility] [address] [place] [address] [address] Jolanta Alvarado LEUKOCYTES Negative Normal NEGATIVE [facility] Comment on above: Performed By: #### U MICRO, ERUR, PREGU #### [facility] [address] [place] [address] [address] Jolanta Alvarado Nitrite Ql (U) Positive Abnormal NEGATIVE [facility] Comment on above: Performed By: #### U MICRO, ERUR, PREGU #### [facility] [address] [place] [address] [address] Jolanta Alvarado pH (U) 5.5 [pH] Normal 5-9 [facility] Comment on above: Performed By: #### U MICRO, ERUR, PREGU #### [facility] [address] [place] [address] [address] Jolanta Alvarado SPEC GRAVITY >=1.030 Abnormal 1.005-<=1.02 5 [facility] Comment on above: Performed By: #### U MICRO, ERUR, PREGU #### [facility] [address] [place] [address] [address] Jolanta Alvarado UA PROTEIN TRACE Normal NEGATIVE/ TRACE [facility] Comment on above: Performed By: #### U MICRO, ERUR, PREGU #### [facility] [address] [place] [address] Dr. Jolanta Alvarado UR MICRO IND INDICATED Normal [facility] Comment on above: Performed By: #### U MICRO, ERUR, PREGU #### [facility] [address] [place] [address] Dr. Jolanta Alvarado Urobilinogen Qn (U) 0.2 {Loyd'U}/dL Normal 0.2 - 1. 0 [facility] Comment on above: Performed By: #### U MICRO, ERUR, PREGU #### [facility] [address] [place] [address] Dr. Jolanta Alvarado URon 10-04-2021 , QUAL Negative Normal NEGATIVE [facility] Comment on above: Performed By: #### U MICRO, ERUR, PREGU #### [facility] [address] [place] [address] Dr. Jolanta Alvarado URINE MICROSCOPIC ONLYon BACTERIA LARGE Abnormal NONE SEEN [facility] Comment on above: Performed By: #### U MICRO, ERUR, PREGU #### [facility] [address] [place] [address] Dr. Jolanta Alvarado Bacteria identified Cx Nom (U) INDICATED Normal [facility] Comment on above: Performed By: #### U MICRO, ERUR, PREGU #### [facility] [address] [place] [address] Dr. Jolanta Alvarado CAST NONE SEEN Normal NONE SEEN [facility] Comment on above: Performed By: #### U MICRO, ERUR, PREGU #### [facility] [address] [place] [address] [address] Jolanta Alvarado Crystals LM Nom (Urine sed) NONE SEEN Normal NONE SEEN [facility] Comment on above: Performed By: #### U MICRO, ERUR, PREGU #### [facility] [address] [place] [address] [address] Jolanta Alvarado Epithelial cells LM Ql (Urine sed) FEW Abnormal NONE SEEN /RARE [facility] Comment on above: Performed By: #### U MICRO, ERUR, PREGU #### [facility] [address] [place] [address] Dr. Jolanta Alvarado MUCOUS SMALL Abnormal NONE SEEN [facility] Comment on above: Performed By: #### U MICRO, ERUR, PREGU #### [facility] [address] [place] [address] Dr. Jolanta Alvarado RBC (U) [#/Vol] /uL Abnormal 0-2 [facility] Comment on above: Performed By: #### U MICRO, ERUR, PREGU #### [facility] [address] [place] [address] Dr. Jolanta Alvarado WBC 10-20 Abnormal NONE SEEN [facility] Comment on above: Performed By: #### U MICRO, ERUR, PREGU #### [facility] [address] [place] [address] Dr. Jolanta Alvarado COVID Quick Testingon 2021 Result Negative [employer] Other Quick Fluon 08-26-2021 FLUAV Ab CF (S) [Titer] Negative [facility] Other FLUBV Ab CF (S) [Titer] Negative [employer] Other FREE T4on 03-21-2021 Free T4 [Mass/Vol] 0.81 ng/dL Normal 0.78-2.19 [facility] Comment on above: Performed By: #### F T4 #### [facility] [address] [place] [address] Jojomaria victoria Simonen GLYCOHEMOGLOBIN A1Con 2020 ADA RECOMMENDATION ADA THERAPEUTIC TARGET 6.0 - 7.0 ACTION SUGGESTED > 7.0 Normal [facility] Comment on above: Performed By: #### A 1C #### [facility] [address] [place] [id number] Jojo Samia Glucose [Mass/Vol] 105 mg/dL Normal [facility] Comment on above: Performed By: #### A 1C #### [facility] [address] [place], [place] [address] Jojo Samia HbA1c (Bld) [Mass fraction] 5.3 % Normal <=6.0 [facility] Comment on above: Performed By: #### A 1C #### [facility] [address] [place] [id number] Jojo Samia LIPID PROFILEon 03-21-2021 CHOL-HDL RATIO NORM SEE BELOW Normal [facility] Comment on above: Result Comment: 3.3 - 4.4 LOW RISK 4.4 - 7.1 AVERAGE RISK 7.1 - 11.0 MODERATE RISK >11.0 HIGH RISK Performed By: #### C MP, LIPID, TSH #### [facility] [address] [address] Jojo Samia Cholesterol [Mass/Vol] 165 mg/dL Normal <=200 [facility] Comment on above: Performed By: #### C MP, LIPID, TSH #### [facility] [address] [place] [address] Jojo Samia Cholesterol in HDL [Mass/Vol] 42 mg/dL Normal [facility] Comment on above: Performed By: #### C MP, LIPID, TSH #### [facility] [address] [place] [address] Jojo Samia Cholesterol in LDL [Mass/Vol] 109.6 mg/dL Normal [facility] Comment on above: Performed By: #### C MP, LIPID, TSH #### [facility] [address] [address] Jojo Samia Cholesterol.total/Cho lesterol in HDL [Mass ratio] 3.9 {ratio} Normal [facility] Comment on above: Performed By: #### C MP, LIPID, TSH #### [facility] [address] [place] [address] Jojo Samia HDL NORMAL > or = 60 mg/dl - LOW CARDIOVASCULAR RISK <40 mg/dl - HIGH CARDIOVASCULAR RISK Normal [facility] Comment on above: Performed By: #### C MP, LIPID, TSH #### [facility] [address] [place] [address] Jojo Samia LDL CALC NORMAL SEE BELOW Normal [facility] Comment on above: Result Comment: <100 mg/dl OPTIMAL 100 - 129 mg/dl NEAR OR ABOVE OPTIMAL 130 - 159 mg/dl BORDERLINE HIGH 160 - 189 mg/dl HIGH >190 mg/dl VERY HIGH Performed By: #### C MP, LIPID, TSH #### [facility] [address] [address] Jojo Samia Triglyceride [Mass/Vol] 67 mg/dL Normal <=150 [facility] Comment on above: Performed By: #### C MP, LIPID, TSH #### [facility] [address] [place] [address] Jojo Samia VLDL CALC 13.4 mg/dL Normal [facility] Comment on above: Performed By: #### C MP, LIPID, TSH #### [facility] [address] [address] Jojomaria victoria Gracia PROF 14(COMP METB)on 021 Albumin [Mass/Vol] 3.7 g/dL Normal 3.5-5.0 [facility] Comment on above: Performed By: #### C MP, LIPID, TSH #### [facility] [address] [address] Jojo Samia Albumin/Globulin [Mass ratio] 1.0 {ratio} Normal [facility] Comment on above: Performed By: #### C MP, LIPID, TSH #### [facility] [address] [address] Jojo Samia ALP [Catalytic activity/Vol] 102 U/L Normal 38-126 [facility] Comment on above: Performed By: #### C MP, LIPID, TSH #### [facility] [address] [address] Jojo Samia ALT [Catalytic activity/Vol] 33 U/L Normal 9-52 [facility] Comment on above: Performed By: #### C MP, LIPID, TSH #### [facility] [address] [address] Jojo Samia Anion gap [Moles/Vol] 11.7 mmol/L Normal Th [facility] Comment on above: Performed By: #### C MP, LIPID, TSH #### [facility] [address] [address] Jjoo Samia AST [Catalytic activity/Vol] 24 U/L Normal 14-36 [facility] Comment on above: Performed By: #### C MP, LIPID, TSH #### [facility] [address] [place], [place] [address] Jojo Samia Bilirubin [Mass/Vol] 0.4 mg/dL Normal 0.2-1.3 [facility] Comment on above: Performed By: #### C MP, LIPID, TSH #### [facility] [address] [place] [address] Jojo Samia Calcium [Mass/Vol] 8.9 mg/dL Normal 8.4-10.2 [facility] Comment on above: Performed By: #### C MP, LIPID, TSH #### [facility] [address] [place], [place] [address] Jojo Samia Chloride [Moles/Vol] 103 mmol/L Normal 98-107 [facility] Comment on above: Performed By: #### C MP, LIPID, TSH #### [facility] [address] [place], [place] [address] Jojo Samia CO2 [Moles/Vol] 29.2 mmol/L Normal 22.0-30.0 [facility] Comment on above: Performed By: #### C MP, LIPID, TSH #### [facility] [address] [place], [place] [address] Jojo Samia Creatinine [Mass/Vol] 0.89 mg/dL Normal 0.52-1.04 [facility] Comment on above: Performed By: #### C MP, LIPID, TSH #### [facility] [address] [place], [place] [address] Jojo Samia EGFR-AF SLOVENIAN >60 Normal >=60 [facility] Comment on above: Performed By: #### C MP, LIPID, TSH #### [facility] [address] [place], [place] [address] Jojo Samia EGFR-NON AF SLOVENIAN >60 Normal >=60 [facility] Comment on above: Performed By: #### C MP, LIPID, TSH #### [facility] [address] [address] Jojo Samia Globulin (S) [Mass/Vol] 3.7 g/dL Normal [facility] Comment on above: Performed By: #### C MP, LIPID, TSH #### [facility] [address] [place] [address] Jojo Samia Glucose [Mass/Vol] 108 mg/dL Critically high 74-106 [facility] Comment on above: Performed By: #### C MP, LIPID, TSH #### [facility] [address] [place] [address] Jojo Samia Potassium [Moles/Vol] 3.9 mmol/L Normal 3.4-5.0 [facility] Comment on above: Performed By: #### C MP, LIPID, TSH #### [facility] [address] [place], [place] [address] Jojo Samia Protein [Mass/Vol] 7.4 g/dL Normal 6.1-8.2 [facility] Comment on above: Performed By: #### C MP, LIPID, TSH #### [facility] [address] [place], [place] [address] Jojo Samia Sodium [Moles/Vol] 140 mmol/L Normal 137-145 [facility] Comment on above: Performed By: #### C MP, LIPID, TSH #### [facility] [address] [place] [address] Jojo Samia Urea nitrogen [Mass/Vol] 12.0 mg/dL Normal 7.0-17.0 [facility] Comment on above: Performed By: #### C MP, LIPID, TSH #### [facility] [address] [place], [place] [address] Jojo Samia Urea nitrogen/Creatinine [Mass ratio] 13.5 mg/mg Normal [facility] Comment on above: Performed By: #### C MP, LIPID, TSH #### [facility] [address] [place], [place] [address] Jojo Gracia TSHon 03-21-2021 TSH 1.654 uIU/mL Normal 0.470-4.680 [facility] Comment on above: Performed By: #### C MP, LIPID, TSH #### [facility] [address] [place], [place] [address] Jojo Gracia TSH RANGE SEE BELOW Normal [facility] Comment on above: Result Comment: <0.3 4 UIU/ml HYPERTHYROID 0.34-5.60 UIU/ml EUTHYROID >5.60 UIU/ml HYPOTHYROID Performed By: #### C MP, LIPID, TSH #### [facility] [address] [place], [place] [address] Jojo Gracia Pap, GC/Chlam/Trich rfx HPV HRon 03-18-2021 PAP Chlamydia YOUSUF. Negative Normal Negative [facility] Comment on above: Order Comment: Reaso n for Exam Well woman exam with routine gynecological exam Specimen Comment: [id number] LMP OR MENOPAUSE DATE: 03/05/2021 Performed By: #### P AP [id number] #### [facility] , PAP Gonococcus. Negative Normal Negative [facility] Comment on above: Order Comment: Reaso n for Exam Well woman exam with routine gynecological exam Specimen Comment: [id number] LMP OR MENOPAUSE DATE: 03/05/2021 Performed By: #### P AP [id number] #### [facility] , Pap Image Guided Note Normal . [facility] Comment on above: Order Comment: Reaso n for Exam Well woman exam with routine gynecological exam Specimen Comment: [id number] LMP OR MENOPAUSE DATE: 03/05/2021 Result Comment: TEST S RESULT FLAG UNITS REF RANGE LAB Clinician Provided Cytology Information No. of containers..01 ThinPrep Vial DIAGNOSIS: 01 NEGATIVE FOR INTRAEPITHELIAL LESION OR MALIGNANCY. 01 Satisfactory for evaluation. No endocervical component is identified. 01 Adelaida Alfonso, Mainframe Architect (ASCP) 01 Note 01 The Pap smear is a screening test designed to aid in the detection of premalignant and malignant conditions of the uterine cervix. It is not a diagnostic procedure and should not be used as the sole means of detecting cervical cancer. Both false-positive and false-negative reports do occur. Test Methodology: Note 01 This liquid based ThinPrep(R) pap test was screened with the use of an image guided system. . 01 The HPV DNA reflex criteria were not met with this specimen result therefore, no HPV testing was performed. FLAG LEGEND: L-Low Normal,H-High Normal,LL-Alert Low,HH-Alert High <-Panic Low,>-Panic High,A-Abnormal,AA-Critical Abnormal Performed at: [address] [facility] [place] [address] Alona Silver MD, Performed By: #### P AP [id number] #### [facility] , PAP Trichomonas Vaginalis Negative Normal Negative [facility] Comment on above: Order Comment: Reaso n for Exam Well woman exam with routine gynecological exam Specimen Comment: [id number] LMP OR MENOPAUSE DATE: 03/05/2021 Result Comment: Perf ormed at: - [facility] [place] [id number] Mold Closer Helper: Alona Silver MD, Phone: [phone] Performed at: =[facility], [place] [id number] Mold Closer Helper: Alona Silver MD, Phone: [phone] PERFORMED BY: [place] [address] PATHOLOGIST FINANCIAL OPERATIONS CLERK BEAU VARGHESE M.D. Performed By: #### P AP [id number] #### [facility] , Aerobic Cultureon 02-21-2021 Aerobic Culture Reason for Exam Rash Buttock Result Tab Codes Heavy Mixed Allison Including Mixed Gram Negative Bacilli Reason for Exam Rash Buttock Light mixed anaerobic allison 3 Days Reason for Exam Rash Buttock Gram Stain Result 1+ Gram Positive Cocci Rare Gram Positive Bacilli PERFORMED BY: [place] [id number] PATHOLOGIST FINANCIAL OPERATIONS CLERK BEAU VARGHESE M.D. [facility] Comment on above: Performed By: #### A ERC, GS #### [place] [id number] [facility] Gram Stainon 02-21-2021 Microscopic observation Gram stain Nom (Unsp spec) Reason for Exam Rash Buttock Gram Stain Result 1+ Gram Positive Cocci Rare Gram Positive Bacilli PERFORMED BY: [place] [id number] PATHOLOGIST FINANCIAL OPERATIONS CLERK BEAU VARGHESE M.D. [facility] Comment on above: Performed By: #### A ERC, GS #### [place] [id number] [facility] Vital Signs Date Time Vital Sign Value Performing Clinician Facility 10-06-2024 16:03-0500 Body temperature 98.71 [degF] Yoselyn Hallman PETROLOGY TEACHER Work Phone: [facility] 10-06-2024 16:03-0500 Body weight 114.31 kg Yoselyn Hallman PETROLOGY TEACHER Work Phone: [facility] 10-06-2024 16:03-0500 Heart rate 88 /min Yoselyn Hallman PETROLOGY TEACHER Work Phone: [facility] 10-06-2024 16:03-0500 SaO2% (BldA) [Mass fraction] 98 % Yoselyn Hallman NP Work Phone: [facility] 04-09-2024 08:38-0400 Blood Pressure Location Teagan Nataprawira [facility] 04-09-2024 08:38-0400 Diastolic blood pressure 98 mm[Hg] Teagan Nataprawira [facility] 04-09-2024 08:38-0400 Heart rate 80 /min Teagan Nataprawira [facility] 04-09-2024 08:38-0400 Mean blood pressure 116 mm[Hg] Teagan Nataprawira [facility] 04-09-2024 08:38-0400 Systolic blood pressure 153 mm[Hg] Teagan Nataprawira [facility] 04-09-2024 08:37-0400 Heart rate 80 /min Teagan Nataprawira [facility] 04-09-2024 08:37-0400 SaO2% (BldA) [Mass fraction] 98 % Teagan Nataprawira [facility] 04-09-2024 08:37-0400 Respiratory rate 18 /min Teagan Nataprawira [facility] 04-09-2024 08:37-0400 Blood Pressure Location Teagan Nataprawira [facility] 04-09-2024 08:37-0400 Diastolic blood pressure 92 mm[Hg] Teagan Nataprawira [facility] 04-09-2024 08:37-0400 Mean blood pressure 112 mm[Hg] Teagan Nataprawira [facility] 04-09-2024 08:37-0400 Systolic blood pressure 152 mm[Hg] Teagan Nataprawira [facility] 04-09-2024 08:36-0400 Body temperature 97.88 [degF] Teagan Nataprawira [facility] 04-07-2024 08:34-0400 Body weight 109.77 kg Teagan Nataprawira DO Work Phone: [facility] 04-07-2024 08:34-0400 Diastolic blood pressure 80 mm[Hg] Teagan Nataprawira DO Work Phone: [facility] 04-07-2024 08:34-0400 Systolic blood pressure 132 mm[Hg] Teagan Nataprawira DO Work Phone: [facility] 07-24-2022 17:30-0500 Body height 154.94 cm Ana Cordova Other [facility] Other 07-24-2022 17:30-0500 Body mass index (BMI) [Ratio] 40.62 kg/m2 Ana Cordova Other [facility] Other 07-24-2022 17:30-0500 Body temperature 98.6 [degF] Ana Cordova Other [facility] Other 07-24-2022 17:30-0500 Body weight 97.52 kg Ana Cordova Other [facility] Other 07-24-2022 17:30-0500 Respiratory rate 18 /min Ana Cordova Other [facility] Other 07-24-2022 17:30-0500 SaO2% (BldA) [Mass fraction] 100 % Ana Cordova Other [facility] Other 10-09-2021 14:00-0500 Body height 154.94 cm Ana Cordova Other [facility] Other 10-09-2021 14:00-0500 Body mass index (BMI) [Ratio] 43.83 kg/m2 Ana Cordova Other [facility] Other 10-09-2021 14:00-0500 Body temperature 97.2 [degF] Ana Cordova Other [facility] Other 10-09-2021 14:00-0500 Body weight 105.24 kg Ana Cordova Other [facility] Other 10-09-2021 14:00-0500 Diastolic blood pressure 92 mm[Hg] Ana Cordova Other [facility] Other 10-09-2021 14:00-0500 Respiratory rate 18 /min Ana Cordova Other [facility] Other 10-09-2021 14:00-0500 SaO2% (BldA) [Mass fraction] 100 % Ana Cordova Other [facility] Other 10-09-2021 14:00-0500 Systolic blood pressure 141 mm[Hg] Ana Cordova Other [facility] Other 09-14-2021 11:30-0500 Body height 154.94 cm Ana Cordova Other [facility] Other 09-14-2021 11:30-0500 Body mass index (BMI) [Ratio] 45.34 kg/m2 Ana Tasha Other [facility] Other 09-14-2021 11:30-0500 Body temperature 96.8 [degF] Ana Cordova Other [facility] Other 09-14-2021 11:30-0500 Body weight 108.86 kg Ana Cordova Other [facility] Other 09-14-2021 11:30-0500 Diastolic blood pressure 84 mm[Hg] Ana Cordova Other [facility] Other 09-14-2021 11:30-0500 Respiratory rate 20 /min Ana Cordova Other [facility] Other 09-14-2021 11:30-0500 SaO2% (BldA) [Mass fraction] 99 % Ana Cordova Other [facility] Other 09-14-2021 11:30-0500 Systolic blood pressure 134 mm[Hg] Ana Cordova Other [facility] Other 08-26-2021 14:15-0500 Body height 154.94 cm Sheba Faithmond Other [facility] Other 08-26-2021 14:15-0500 Body mass index (BMI) [Ratio] 45.91 kg/m2 Sheba Iwona Other [facility] Other 08-26-2021 14:15-0500 Body temperature 97.7 [degF] Sheba Iwona Other [facility] Other 08-26-2021 14:15-0500 Body weight 110.22 kg Sheba Bustillo Other [facility] Other 08-26-2021 14:15-0500 Respiratory rate 18 /min Sheba Bustillo Other [facility] Other 08-26-2021 14:15-0500 SaO2% (BldA) [Mass fraction] 98 % Sheba Bustillo Other [facility] Other 06-13-2021 12:30-0500 Body height 154.94 cm Ana Wallaceault Other [facility] Other 06-13-2021 12:30-0500 Body mass index (BMI) [Ratio] 45.91 kg/m2 Ana Tasha Other [facility] Other 06-13-2021 12:30-0500 Body temperature 97.5 [degF] Ana Tasha Other [facility] Other 06-13-2021 12:30-0500 Body weight 110.22 kg Ana Tasha Other [facility] Other 06-13-2021 12:30-0500 Diastolic blood pressure 84 mm[Hg] Ana Tasha Other [facility] Other 06-13-2021 12:30-0500 Respiratory rate 18 /min Ana Tasha Other [facility] Other 06-13-2021 12:30-0500 SaO2% (BldA) [Mass fraction] 99 % Ana Cordova Other [facility] Other 06-13-2021 12:30-0500 Systolic blood pressure 136 mm[Hg] Ana Cordova Other [facility] Other Encounters Encounter Date Encounter Type Care Provider Facility Start: 10-06-2024 End: 10-06-2024 Office outpatient visit 25 minutes Yoselyn Hallman PETROLOGY TEACHER Work Phone: [facility] Comment on above: Sinus pressure (Prim juwan Dx); Acute non-recurrent maxillary sinusitis Start: 10-06-2024 End: 10-06-2024 ambulatory YOSELYN HALLMAN Not Available Start: 04-09-2024 End: 04-09-2024 ambulatory DO Teagan Gamez Facility:[facility] Start: 04-09-2024 End: 04-09-2024 Patient encounter procedure Teagan Gamez [facility] Start: 04-07-2024 End: 04-07-2024 Office outpatient visit 25 minutes Teagan Gamez DO Work Phone: [facility] Comment on above: Menorrhagia with reg ular cycle (Primary Dx); Dysmenorrhea; Pelvic pain in female; History of tubal ligation Start: 04-07-2024 End: 04-07-2024 ambulatory TEAGAN GAMEZ Not Available Start: 02-19-2024 End: 04-24-2024 Pre-admission assessment Teagan Gamez [facility] Start: 02-04-2024 End: 02-04-2024 ambulatory TEAGAN GAMEZ Not Available Start: 01-13-2024 End: 01-13-2024 ambulatory TEAGAN GAMEZ Not Available Start: 10-21-2023 End: 10-21-2023 ambulatory ANA CORDOVA Facility:[facility] Start: 10-21-2023 End: 10-21-2023 Patient encounter procedure ANA CORDOVA [facility] Start: 10-08-2023 End: 10-08-2023 ambulatory ANA TASHA Facility:[facility] Start: 07-24-2022 End: 07-24-2022 ambulatory Ana Tasha Other [facility] Other Start: 07-24-2022 Office outpatient vi sit 15 minutes Ana Cordova [facility] Start: 10-09-2021 End: 10-09-2021 ambulatory Ana Cordova Other [facility] Other Start: 10-09-2021 Office outpatient vi sit 15 minutes Anaalex Cordova [facility] Start: 10-04-2021 End: 10-05-2021 ambulatory ANA CORDOVA Facility: Start: 09-14-2021 End: 09-14-2021 ambulatory Ana Tasha Other [facility] Other Start: 09-14-2021 Office outpatient vi sit 15 minutes Ana Cordova [facility] Start: 08-26-2021 (URG) Urgent Care Visit Sheba mendoza [facility] Start: 08-26-2021 End: 08-26-2021 ambulatory Sheba Bustillo Other [facility] Other Start: 06-13-2021 End: 06-13-2021 ambulatory Ana Tasha Other [facility] Other Start: 06-13-2021 Office outpatient vi sit 15 minutes Anaalex Cordova [facility] Start: 04-09-2021 Encounter for gynecological examination (general) (routine) without abnormal findings ANA CORDOVA [facility] Start: 03-21-2021 End: 03-22-2021 ambulatory ANA CORDOVA Facility:[facility] Start: 03-21-2021 End: 03-22-2021 Encounter for gynecological examination (general) (routine) without abnormal findings ANA CORDOVA Facility:[facility] Procedures Date Procedure Procedure Detail Performing Clinician Start: 01-13-2024 Microscopic observat ion [Identifier] in Cervix by Cyto stain Teagan Gamez DO Work Phone: Bilateral tubal ligation Mauricio Gamez H/O: tubal ligation History of t ubal ligation Teagan Gamez DO Work Phone: Plan of Treatment Date Care Activity Detail Author Start: 01-12-2027 Screening for malign ant neoplasm of cervix [facility] Start: 05-28-2024 End: 05-28-2024 Patient encounter procedure 05/28/2024 3:15 PM EDT Office Visit [facility] [address] [facility] [address] [address] Teagan Gamez DO [address] [address] [facility] Start: 04-23-2024 End: 04-23-2024 Patient encounter procedure 04/23/2024 9:00 AM EDT Procedure Visit [facility] Teagan Gamez DO [address] [address] [facility] Start: 04-05-2024 Influenza vaccination Influenza Vacc ine (#1) [facility] Start: 2021 Screening for malign ant neoplasm of breast Mammogram [facility] Start: 12-08-2011 Screening for malign ant neoplasm of cervix HPV/Cotest [facility] Immunizations Immunization Date Immunization Notes Care Provider Fa cili 08-01-2007 influenza virus vaccine, unspecified formulation Teagan Gamez DO Work Phone: [facility] Payers Date Payer Category Payer Medicaid [employer] [place] [employer] [id number] 2024-Present [address] [place] [address] [id number] 2024 Medicaid (Managed Care) [employer] [id number] 2023 Medicaid [id number] 2023 Self-pay 1981 Unknown [id number] 1981 Unknown [id number] 1981 Unknown [id number] 7 1981 Unknown [id number] 727 1981 Unknown [id number] 72 1981 Unknown [id number] 72 1981 Unknown [id number] 9 1981 Unknown [id number]. 1259 1981 Unknown [id number]. 1259 1981 Unknown [id number] 1259 1959 Unknown [id number] Social History Date Type Detail Facility Start: 02-04-2024 End: 04-07-2024 Sex Assigned At [facility] Tobacco smoking status No Smokin g Status Entered [facility] Tobacco Current vaping o r e-cigarette use Smokeless Tobacco Use:. Vaping [facility] Start: 01-13-2024 Tobacco smoking stat us AZIS Ex-smoker [facility] Start: 2000 History of tobacco use Current smoke r [facility] Start: 2000 History of tobacco use Cigarette Smo ker [facility] Start: 01-13-2024 End: 02-04-2024 Cigarettes smoked current (pack per day) - Reported 2 [facility] Start: 01-13-2024 Tobacco use and exposure Smokeless tobacco non-user [facility] Start: 04-07-2024 End: 10-06-2024 Alcoholic beverage intake Current drinker of alcohol (finding) [facility] Start: 1981 Sex assigned at Female [facility] Start: 01-06-2024 Gender identity Identifies as female gender (finding) [facility] Functional Status Date Assessment Result Facility 04-09-2024 Functional Status No [facility] Clinical Notes 06-13-2021 to 10-06-2024 Yoselyn Hallman, PETROLOGY TEACHER - 10/06/2024 4:00 PM Nadia Gamez DO - 04/07/2024 8:30 AM EDT Note Date & Type Note Facility 10-06-2024 History of Presen t illness Narrative Images from the original note were not included. [address], [address] [facility], [address] P: [phone] F: [phone] HPI Historian of HPI: patient Yaquelin Hermosillo is a 43 y.o. female who presents today to the Urgent Care with the following complaints and denials which have been present for 3 week(s) pt denies any V/D/N at this time. Pt states her appetite has been normal and is pushing fluids. Pt states she did miss work today and will need a work note. C/O Denies Symptom Comments [x] [] Runny Nose [] [x] Difficulty Swallowing [] [x] Sore Throat [] [x] Cough [x] [] Ear Pain Left ear pain [x] [] Fever Low grade fevers on and off not currently [] [x] Chills [x] [] Nasal Congestion [x] [] Myalgia Just very tired [x] [] Sinus Pain [] [x] Sinus Pressure Additional Comments: pt has taken tylenol cold and flu OTC medication with relief ROS A complete system ROS was performed and negative aside from the pertinent positives noted in the HPI and PE. Visit Vitals Pulse 88 Temp 98.7 F Wt 252 lb SpO2 98% OB Status Having periods Smoking Status Former IH Testing: PHYSICAL EXAM Physical Exam Vitals reviewed. Constitutional: General: She is not in acute distress. Appearance: Normal appearance. HENT: Head: Normocephalic. Right Ear: Hearing, ear canal and external ear normal. A middle ear effusion is present. Left Ear: Hearing, tympanic membrane, ear canal and external ear normal. Nose: Nasal tenderness, congestion and rhinorrhea present. Rhinorrhea is purulent. Right Turbinates: Enlarged and swollen. Left Turbinates: Enlarged and swollen. Right Sinus: Maxillary sinus tenderness present. Left Sinus: Maxillary sinus tenderness and frontal sinus tenderness present. Mouth/Throat: Mouth: Mucous membranes are moist. Pharynx: Oropharynx is clear. Eyes: Extraocular Movements: Extraocular movements intact. Conjunctiva/sclera: Conjunctivae normal. Pupils: Pupils are equal, round, and reactive to light. Cardiovascular: Rate and Rhythm: Normal rate and regular rhythm. Pulses: Normal pulses. Heart sounds: Normal heart sounds. Pulmonary: Effort: Pulmonary effort is normal. No respiratory distress. Breath sounds: No wheezing, rhonchi or rales. Musculoskeletal: General: Normal range of motion. Cervical back: Normal range of motion and neck supple. Skin: General: Skin is warm and dry. Findings: No rash. Neurological: General: No focal deficit present. Mental Status: She is alert and oriented to person, place, and time. Psychiatric: Mood and Affect: Mood normal. TREATMENT PLAN 1. Sinus pressure (Primary) Symptoms x 3 weeks. New medication as directed. Acetaminophen or Ibuprofen for reduction of fever and pain. Increase fluids. Good handwashing. Discussed warning signs of worsening infection and when to report to ER. New toothbrush in 24 hours. Call office if symptoms have not started to improve within the next 72 hours. Patient verbalized understanding of instructions. Work note provided. - amoxicillin-clavulanate (Augmentin) 875-125 MG tablet; Take 1 tablet (875 mg) by mouth in the morning and 1 tablet (875 mg) before bedtime. Do all this for 10 days. Dispense: 20 tablet; Refill: 0 2. Acute non-recurrent maxillary sinusitis Will treat with ATBx given duration of sx. Medication, implications, and side effects discussed. Report any side effects to PCP immediately. Take with food. Change or sterilize toothbrush 24 hours after starting ATB. OTC meds symptomatically and push fluids. The patient will let us know if sx worsen, change, or fail to improve in the next 5-7 days. Signs/symptoms and red flags of when to seek emergent medical attention discussed. Patient expressed an understanding. - amoxicillin-clavulanate (Augmentin) 875-125 MG tablet; Take 1 tablet (875 mg) by mouth in the morning and 1 tablet (875 mg) before bedtime. Do all this for 10 days. Dispense: 20 tablet; Refill: 0 documented in this encounter [facility] 04-07-2024 History of Presen t illness Narrative Images from the original note were not included. Subjective Yaquelin Hermosillo is a 43 y.o. female HPI Chief Complaint Patient presents with Pre-op Visit Patient here for pre-op visit. Patient states that she would like to proceed with definitive surgical management with hysterectomy. Consent form signed and reviewed. LMP 03/20/24. Patient initially reports that she has a period every month lasting 6-7 days with heavy bleeding and severe cramping like labor pains. Changing tampons every 1-2 hours. Has her tubes tied after her last child. Denies any changes to urinary or bowel habits. Pelvic ultrasound done 10/21/23 at [facility] revealed uterus measuring 9.8x5.5x3.7cm. Endometrial thickness measuring 1.5cm. Right ovary measuring 1.8x2.0x1.2cm. Left ovary measuring 2.7x2.4x2.2cm. 1cm in diameter left ovarian cyst noted. No free fluid in the pelvis and good blood flow to both ovaries. NILM pap-smear with negative High risk HPV (01/13/2024) Benign endometrial pathology (02/04/2024) Past Medical History: Diagnosis Date Irregular menses October Urinary tract infection Past Surgical History: Procedure Laterality Date TUBAL LIGATION VAGINAL DELIVERY x3 Family History Problem Relation Name Age of Onset Migraines Mother Jigna Hermosillo Cancer Father Adam Hermosillo Social History Tobacco Use Smoking status: Former Current packs/day: 2.00 Average packs/day: 2.0 packs/day for 23.3 years (46.7 ttl pk-yrs) Types: Cigarettes Start date: 2000 Smokeless tobacco: Never Vaping Use Vaping status: Every Day Substances: Nicotine Substance Use Topics Alcohol use: Yes Alcohol/week: 1.0 standard drink of alcohol Types: 1 Glasses of wine per week Drug use: Never OB History Para Term AB Living 3 3 SAB IAB Ectopic Multiple Live Births # Outcome Date GA Lbr Godwin/2nd Weight Sex Type Anes PTL Lv 3 Para 2 Para 1 Para Allergies Allergen Reactions Latex Itching and Rash Current Outpatient Medications on File Prior to Visit Medication Sig Dispense Refill DULoxetine (Cymbalta) [address] capsule 1 capsule 1 (one) time each day at the same time ergocalciferol (Vitamin D-2) 1.25 MG (66260 UT) capsule hydrOXYzine HCl (Atarax) 25 MG tablet No current facility-administered medications on file prior to visit. Review of Systems Constitutional: Negative for chills and fever. Respiratory: Negative for shortness of breath. Cardiovascular: Negative for chest pain. Gastrointestinal: Negative for nausea and vomiting. Genitourinary: Negative for dysuria, pelvic pain and vaginal discharge. Neurological: Negative for dizziness and headaches. Objective BP 132/80 Wt 242 lb LMP 03/20/2024 Physical Exam Constitutional: Appearance: Normal appearance. She is well-developed. HENT: Head: Normocephalic and atraumatic. Cardiovascular: Rate and Rhythm: Normal rate and regular rhythm. Pulmonary: Effort: Pulmonary effort is normal. Breath sounds: Normal breath sounds. Musculoskeletal: Right lower leg: No edema. Left lower leg: No edema. Neurological: General: No focal deficit present. Mental Status: She is alert and oriented to person, place, and time. Skin: General: Skin is warm and dry. Psychiatric: Mood and Affect: Mood and affect normal. Assessment/Plan 1. Menorrhagia with regular cycle Robot Assisted Total Laparoscopic Hysterectomy with bilateral Salpingectomy procedure discussed. Risks of but not limited to pain, bleeding, infections, and injury to surrounding structures (bladder, bowel, ureter, vagina, etc.) discussed. Patient voiced understanding and informed consent signed 2. Dysmenorrhea 3. Pelvic pain in female 4. History of tubal ligation documented in this encounter [facility] 07-24-2022 Evaluation note Encounter Date Diagnosis Assessment Notes Jul, Contact with and (suspected) exposure to other viral communicable diseases (ICD-10 - Z20.828) Jul, Influenza A (ICD-10 - J10.1) Symptoms presented today are related to the Flu. May use OTC medications such as Mucinex DM, Flu meds, etc. Kids can use Dimatapp or Delsym. Continue tylenol/ibu for general discomfort. Encourage fluids. Antibiotics will not treat the flu. Symptoms should improve within the next 4-7 days., Influenza material was printed Jul, Bronchitis (ICD-10 - J40) Take medications as directed. Rest and increase fluid intake. Take meds with food to prevent stomach upset. Use inhaler as needed for coughing spells and SOB. It is better to use inhaler a few times a day over the next 2-3 days. Follow up with primary care provider if symptoms do not improve with treatment plan, although it may take a few weeks for the cough to go away [facility] Other 03-07-2022 Evaluation note* Encounter Date Diagnosis Assessment Notes Treatment Notes Treatment Clinical Notes Oct, Dysuria (ICD-10 - R30.0) Oct, Acute cystitis with hematuria (ICD-10 - N30.01) UA in office appears improved from ER visit. Patient states symptoms have greatly improved. Oct, H/O renal calculi (ICD-10 - Z87.442) Symptoms of pain have decreased greatly. Patient should contact office or seek emergency treatment of symptoms of pain, unable to urinate were to return [facility] Other 02-10-2022 Evaluation note* Encounter Date Diagnosis Assessment Notes Treatment Notes Treatment Clinical Notes Sep, YAMINI (generalized anx iety disorder) (ICD-10 - F41.1) Today during the appointment we discussed depression and emotions. We talked about treatment options that include both counseling and medication interventions. When we first start treatment, it is common to have to be seen more frequently as we figure out the best treatment regimen that fits you as an individual. We will be able to space out appointments more once we find what works for you. If at any time you feel like your symptoms have increased in severity or you want to hurt yourself, please never hesitate to contact us and we will get you in to be seen. Also always know the [facility] Emergency Number is 24 hours a day available, even on holidays there is someone you can reach out to. Also we will check other labs yearly to screen for other health issues. Please remember we are a team and your opinion is very important in all of your healthcare decisions Sep, Vitamin D deficiency (ICD-10 - E55.9) Sep, Psychophysiological insomnia (ICD-10 - F51.04) [facility] Other 11-09-2021 Evaluation note* Encounter Date Diagnosis Assessment Notes Treatment Notes Treatment Clinical Notes Jun, Vitamin D deficiency (ICD-10 - E55.9) Jun, Insomnia, unspecified type (ICD-10 - G47.00) Jun, YAMINI (generalized anxiety disorder) (ICD-10 - F41.1) Today during the appointment we discussed depression and emotions. We talked about treatment options that include both counseling and medication interventions. When we first start treatment, it is common to have to be seen more frequently as we figure out the best treatment regimen that fits you as an individual. We will be able to space out appointments more once we find what works for you. If at any time you feel like your symptoms have increased in severity or you want to hurt yourself, please never hesitate to contact us and we will get you in to be seen. Also always know the [facility] Emergency Number is 24 hours a day available, even on holidays there is someone you can reach out to. Also we will check other labs yearly to screen for other health issues. Please remember we are a team and your opinion is very important in all of your healthcare decisions [facility] Other Evaluation + Plan note No data available for this section [facility] Future Appointments Appointment Date:04/23/2024 09:00:00 AM Scheduled Provider: Location:[facility] App[facility] Type:[facility] [facility] Evaluation noteNort [employer] Other Evaluation note* Diagnosis Menorrhagia with regular cycle- Primary Dysmenorrhea Pelvic pain in female Unspecified symptom associated with female genital organs History of tubal ligation Tubal ligation status documented in this encounter [facility] Diagnosis Sinus pressure- Primary Other diseases of nasal cavity and sinuses Acute non-recurrent maxillary sinusitis documented in this encounter [facility] HealthcareHistory general Narrative - Reported* Type Description Date Medical History anxiety Surgical History tubal ligation [facility] Other History general Narrative - ReportedNortD[facility] Other Hospital Discharge instructions No data available for this section [facility] No data available for this section [facility] Summary Purpose Family History No Family History Records FoundNo Family History Records Found No data available for this section No Family History Records FoundNo Family History Records FoundNo Family History Records FoundNo Family History Records Found No data available for this section No data available for this section No Family History Records FoundNo Family History Records Found Advance Directives No Advanced Directives Records FoundNo Advanced Directives Records FoundNo Advanced Directives Records FoundNo Advanced Directives Records FoundNo Advanced Directives Records FoundNo Advanced Directives Records FoundNo Advanced Directives Records FoundNo Advanced Directives Records Found Additional Source Comments INFORMATION SOURCE (unrecogn ized section and content) DATE CREATED AUTHOR 09/20/2021 [facility] DATE CREATED AUTHOR AUTHOR'S ORGANIZ ATION 10/07/2021 [facility] DATE CREATED AUTHOR AUTHOR'S ORGANIZ ATION 04/10/2024 [place] [facility] DATE CREATED AUTHOR AUTHOR'S ORGANIZ ATION 04/11/2024 [place] [facility] ical Center DATE CREATED AUTHOR AUTHOR'S ORGANIZ ATION 05/10/2024 [place] [facility] ica Center DATE CREATED AUTHOR AUTHOR'S ORGANIZ ATION 10/08/2024 [facility] Specialists EPIC REASON FOR VISIT (unrecogniz ed section and content) Reason Comments Pre-op Visit Patient here for pre -op visit. Patient states that she would like to proceed with definitive surgical management with hysterectomy. Consent form signed and reviewed. LMP 03/20/24.Patient initially reports that she has a period every month lasting 6-7 days with heavy bleeding and severe cramping like labor pains. Changing tampons every 1-2 hours. Has her tubes tied after her last child. Denies any changes to urinary or bowel habits. Patient Care team informatio n (unrecognized section and content) Bike Shop Manager Relationship Specialty Start Date End Date Rudy Taylor MD [address] [place] [address] PCP - General Family Medicine 01/13/24 Bike Shop Manager Relationship Specialty Start Date End Date Rudy Taylor MD [address] [place] [address] PCP - General Family Medicine 01/13/24 FOR RECORDS PERTAINING TO PATIENTS WHO ARE OR HAVE BEEN ENROLLED IN A CHEMICAL DEPENDENCY/SUBSTANCEABUSE PROGRAM, SOME INFORMATION MAY BE OMITTED. This clinical summary was aggregated from multiple sources. Caution should be exercised in using it in the provision of clinical care. This summary normalizes information from multiple sources, and as a consequence, information in this document may materially change the coding, format and clinical context of patient data. In addition, data may be omitted in some cases. CLINICAL DECISIONS SHOULD BE BASED ON THE PRIMARY CLINICAL RECORDS. [facility] [employer] [facility]. provides no warranty or guarantee of the accuracy or completeness of information in this document.
--- NOTE | 2024-11-17 01:28 | ED.FEMALEGU1 ---
HPI - Female Genitourinary General Chief complaint: Urogenital-Female Stated complaint: VAGINAL FOREIGN OBJECT Time Seen by Provider: 11/17/24 01:18 Source: patient Mode of arrival: walk-in Limitations: no limitations History of Present Illness HPI Narrative: patient presents concerned she may have tampon stuck in her vagina since yesterday AM. She admits she is not certain the tampon is there but wanted to be checked. States she is also bleeding again. Denies due to past tubal ligation. Mild abdominal cramping. No fever and doesn't feel ill Related Data Allergies Allergy/AdvReac Type Severity Reaction Status Date / Time latex AdvReac Mild itching Verified 11/16/24 23:24 Review of Systems ROS Status of ROS 10 or more systems reviewed and unremarkable except as noted in history and below Exam Constitutional Vital Signs, click to edit/add: Last Vital Signs Temp 98.0 F 11/16/24 23:24 Pulse 78 11/16/24 23:24 Resp 18 11/16/24 23:24 BP 136/98 H 11/16/24 23:24 Pulse Ox 100 11/16/24 23:24 O2 Del Method Room Air 11/16/24 23:24 Common normals: no apparent distress, average body habitus, oriented x3, no limitations, healthy appearing, alert and well nourished [facility] Common normals: normocephalic and head/scalp atraumatic Respiratory Common normals: normal respiratory effort, no retractions, no use of accessory muscles and clear to auscultation bilaterally Cardio Common normals: regular rate, regular rhythm, S1 normal heart sound and S2 normal heart sound GI Common normals: Normal to inspection, nondistended, normoactive bowel sounds present, soft to palpation and non-tender Common normals: external appearance normal Other: small amount of blood noted. No FB seen Extremity Common normals: normal to inspection and full ROM Neuro Common normals: oriented x3, CN's II-XII intact bilaterally, moves all extremities and no focal motor deficits Psych Appearance: grossly normal Course Vital Signs Vital signs: Vital Signs Temperature 98.0 F 11/16/24 23:24 Pulse Rate 78 11/16/24 23:24 Respiratory Rate 18 11/16/24 23:24 Blood Pressure 136/98 H 11/16/24 23:24 Pulse Oximetry 100 11/16/24 23:24 Oxygen Delivery Method Room Air 11/16/24 23:24 Temperature 98.0 F 11/16/24 23:24 Pulse Rate 78 11/16/24 23:24 Respiratory Rate 18 11/16/24 23:24 Blood Pressure 136/98 H 11/16/24 23:24 Pulse Oximetry 100 11/16/24 23:24 Oxygen Delivery Method Room Air 11/16/24 23:24 MDM - Female Genitourinary MDM Narrative Medical decision making narrative: patient presents with abnormal vaginal bleed. States this is her 2nd menstrual bleed this month. Has mild abdominal cramping . Unsure if she left a tampon in her vagina. Exam of the vagina neg for FB and only small amount of blood. Patient discharged home in good condition to follow up with her clinical appeals specialist Discharge Plan Discharge Chief Complaint: Urogenital-Female Clinical Impression: Vaginal bleeding Patient Disposition: Home, Self-Care Print Language: Swedish Instructions: Abnormal (Dysfunctional) Uterine Bleeding (ED) Additional Instructions: follow up with your clinical appeals specialist Referrals: JAYSHREE CORDOVA [Primary Care Provider] - 1 week
[2024-11-17 01:50] VITALS: BP 134/74; PULSE 74; O2SAT 99
[2024-11-17 01:51] VITALS: O2SAT 99
== END 2024-11-17 01:54 | disposition home or self-care (01) ==
PROVIDERS: Emergency Provider Internal Medicine; PCP Nurse Practitioner Family
DX: N93.9 Abnormal uterine and vaginal bleeding, unspecified (principal)
CPT/HCPCS: 99284

== ENCOUNTER 2025-02-01 14:10 | Outpatient (REF) | payer OTHER, SELFPAY ==
--- OUTSIDE RECORDS SUMMARY | 2025-02-01 15:30 | XMS_ITS | Encounter Summary ---
Author Organization [facility] Address [address] [place] [address] Care Team Providers Care Dry Sand Molder Name Role Phone Rudy Taylor MD Primary Care Provider [phone] Reason for Visit * Reason Comments Pre-op Visit EMBX Encounter Details Date Type Department Care Team ([facility] st Contact Info) Description 02/01/2025 3:30 PM EDT Procedure Visit [facility] [address] [place] [phone] Misael Mahajan, DO [address] [place] [address] Pre-op examination; Menorrhagia with regular cycle; Pelvic pain; Abnormal uterine bleeding (AUB) Social History Tobacco Use Types Packs/Day Years Used Date Smoking Tobacco: Former Cigarettes 2 24.2 S tarted: 2000 Smokeless Tobacco: Never Alcohol Use Standard Drinks/Week Comments Yes 1 (1 standard drink = 0.6 oz pur e alcohol) PHQ-2 Answer Date Recorded Patient Health Questionnaire-2 Score 0 02/04/2024 Comments No Sex and Gender Information Value Date Recorded Sex Assigned at Female 01/06/2024 12:12 PM EDT Legal Sex Female 10:59 PM EDT Gender Identity Female 01/06/2024 12:12 PM EDT Sexual Orientation Not on file documented as of this encounter Last Filed Vital Signs Vital Sign Reading Time Taken Comments Blood Pressure 130/80 02/01/2025 3:47 PM EDT Pulse - - Temperature - - Respiratory Rate - - Oxygen Saturation - - Inhaled Oxygen Concentration - - Weight 118 kg (259 lb 1.9 oz) 02/01/2025 3:47 PM EDT Height - - Body Mass Index 47.39 12/23/2024 1:36 PM EDT documented in this encounter Progress Notes * María Valery - 02/01/2025 3:30 PM EDT Reason for Appointment: Patient ID: Yaquelin Hermosillo is a 44 y.o. female who presents for Pre-op Visit and EMBX Patient presents today for Pre Op/Endometrial Biopsy appointment. Patient is scheduled to undergo Endometrial Ablation with Jamia on 02-26-[address] Mahajan at [facility]. MEDICATIONS Current Outpatient Medications Medication Instructions DULoxetine (Cymbalta) [address] capsule 1 capsule, Every 24 hours ergocalciferol (Vitamin D-2) 1.25 MG (64431 UT) capsule hydrOXYzine HCl (Atarax) 25 MG tablet OLANZapine (ZyPREXA) 2.5 MG tablet Every 24 hours ALLERGIES Allergies Allergen Reactions Latex Itching and Rash PROBLEMS Active Ambulatory Problems Diagnosis Date Noted No Active Ambulatory Problems Resolved Ambulatory Problems Diagnosis Date Noted No Resolved Ambulatory Problems Past Medical History: Diagnosis Date Irregular menses October Urinary tract infection HISTORY PAST MEDICAL HISTORY SOCIAL HISTORY Past Medical History: Diagnosis Date Irregular menses October Urinary tract infection Social History Tobacco Use Smoking status: Former Current packs/day: 2.00 Average packs/day: 2.0 packs/day for 24.2 years (48.3 ttl pk-yrs) Types: Cigarettes Start date: 2000 Smokeless tobacco: Never Vaping Use Vaping status: Every Day Substances: Nicotine Substance Use Topics Alcohol use: Yes Alcohol/week: 1.0 standard drink of alcohol Types: 1 Glasses of wine per week Drug use: Never FAMILY HISTORY Family History Problem Relation Name Age of Onset Migraines Mother Jigna Hermosillo Cancer Father Adam Hermosillo SURGICAL HISTORY Past Surgical History: Procedure Laterality Date DILATION AND CURETTAGE OF UTERUS TUBAL LIGATION VAGINAL DELIVERY x3 REVIEW OF SYSTEMS Review of Systems: Review of Systems Constitutional: Negative. HENT: Negative. Eyes: Negative. Respiratory: Negative. Cardiovascular: Negative. Gastrointestinal: Negative. Genitourinary: Negative. Musculoskeletal: Negative. Skin: Negative. Neurological: Negative. All other systems reviewed and are negative. Hematological: Negative. Endocrine: Negative. Allergic/Immunologic: Negative. OBJECTIVE Objective: OBGyn Exam Vitals: Estimated body mass index is 48.43 kg/m?? as calculated from the following: Height as of 12/23/24: 5' 2 . Weight as of 12/23/24: 264 lb 12.8 oz. BP: No LMP recorded. ASSESSMENT & PLAN ICD-10-CM 1. Pre-op examination Z01.818 2. Menorrhagia with regular cycle N92.0 3. Pelvic pain R10.2 4. Abnormal uterine bleeding (AUB) N93.9 Documented by Samia Clancy LPN on behalf of: Misael Mahajan DO documented in this encounter Plan of Treatment Upcoming Encounters Date Type Department Care Team (Late st Contact Info) Description 03/15/2025 3:30 PM EDT Office Visit [facility] [address] [place] [address] Candy Lindsey PA [address] [place] [address] Scheduled Orders Name Type Priority Associated Diagnoses Orde r Schedule Biopsy endometrium Procedures Routine Menorrhagia with regular cycle Pelvic pain Abnormal uterine bleeding (AUB) Ordered: 02/01/2025 documented as of this encounter Procedures Procedure Name Priority Date/Time Associated Diagnosis Comments POCT , URINE Routine 02/01/2025 3:56 PM EDT Menorrhagia with regular cycle documented in this encounter Results * POCT , urine manually resulted (02/01/2025 3:56 PM EDT) Preg Test, Ur Negative Negative Urine 02/01/2025 3:56 PM EDT Misael Mahajan DO POINT OF CARE TEST ENTER/EDIT OR DERABLES Final Result documented in this encounter Visit Diagnoses Diagnosis Pre-op examination Menorrhagia with regular cycle Pelvic pain Abnormal uterine bleeding (AUB) documented in this encounter Care Teams Dry Sand Molder Relationship Specialty Start Date End Date Rudy Taylor MD [address] [place] [address] PCP - General Family Medicine 01/13/24 documented as of this encounter
--- OUTSIDE RECORDS SUMMARY | 2025-02-02 20:34 | XMS_ITS | Continuity of Care Document ---
Author Organization [facility] Address [address] [place] [address] Phone Care Team Providers Care Vp Scientific Name Role Phone Misael Mahajan DO Attending Provider [phone] Care Teams Patient Care Team Team Status: Inactive Member Role Status Dates Misael Mahajan DO Attending Provider Active Start : February 01, 2025 End: February 01, 2025 Chief Complaint and Reason for Visit Chief Complaint Admit Date Unknown February 01, 2025 9:00 am Social History Smoking Status Unknown if ever smoked Observation Status Observation Response Date of Response Legal Sex Female (finding) Sex Assigned At Female [birth year] 07[birth year] 982 Family History Relationship Condition Age at Onset Recorded Date/T bernardo father Hypertension Unknown Advance Directives Advance Directive Response Recorded Date/ Time Advance Directives No October 26 9:26am Insurance Providers Guarantor Brennen Wyman Address [address] [address] Contact Info. Home Phone: Payer Policy Id Subscriber's Name Subscriber Id Effectiv e Date Expiration Date [employer] [id number] Encounters Encounter Location(s) Arrival/Admit Date Discharge/Depart Date Provider(s) Departed Referred -LAB [facility] February 01, 2025 9:00am February 01, 2025 9:01am Misael Mahajan Plan of Treatment Future Tests Future scheduled test information is unavailable Pending Tests Test Name Ordered Date Scheduled Date Miscellaneous Pathology Test February 01, 2025 12: 00am Future Visits Future appointment information is unavailable Referrals to Other Providers Referral information is unavailable Future Procedures Procedure Name Ordered Date Scheduled Date Pathology Request for Lab El[facility] February 02, 2025 1: 35pm February 01, 2025 12:00am Future Medications Future medication information is unavailable Patient Instructions Patient instructions are unavailable
--- OUTSIDE RECORDS SUMMARY | 2025-02-10 14:30 | XMS_ITS | Encounter Summary ---
Author Organization [facility] Address [address] [facility] [place] [address] Care Team Providers Care Nutrition Teacher Name Role Phone Rudy Taylor MD Primary Care Provider [phone] Encounter Details Date Type Department Care Team (Late Contact Info) Description 02/01/2025 External Result Encounter [facility] External Department Unsolicited Misael Mahajan, DO [address] [place] [address] Social History Tobacco Use Types Packs/Day Years [...] on file documented as of this encounter Plan of Treatment Upcoming Encounters Date Type Department Care Team (Late Contact Info) Description 03/15/2025 3:30 PM EDT Office Visit [facility] [address] [place] [phone] Candy Lindsey PA [address] [place] [address] documented as of this encounter Procedures Procedure Name Priority Date/Time Associated Diagnosis Comments PATHOLOGY REQUEST FOR LAB ARLIN Routine 02/01/2025 12:00 AM EDT documented in this encounter Results * PATHOLOGY REQUEST FOR LAB ARLIN (02/01/2025 12:00 AM EDT) PATHOLOGY REQUEST FOR LAB ARLIN 02/09/2025 7:56 AM EDT [facility] Comment:See report. Scanned copy available in EMR. Other Topography unknown / Unknown 02/01/2025 02/02/2025 1:34 PM EDT Narrative [facility] - 02/09/2025 7:56 AM EDT EMB us Misael Keyshawn DO LAB BLOOD ORDERABLES Final Resul t [facility] [address] [place] [address], [facility] [address] [place] [address] documented in this encounter Visit Diagnoses Not on filedocumented in this encounter Care Teams Nutrition Teacher Relationship Specialty Start Date End Date Rudy Taylor MD [address] [place] [address] PCP - General Family Medicine 01/13/24 documented as of this encounter
--- OUTSIDE RECORDS SUMMARY | 2025-02-10 14:30 | XMS_ITS | Encounter Summary ---
Author Organization [facility] Address [address] [place] [facility] [place] [place] [address] Care Team Providers Care Information Management Officer Name Role Phone Rudy Taylor MD Primary Care Provider [phone] Encounter Details Date Type Department Care Team (Late Contact Info) Description 02/11/2024 Orders Only [facility] [address] MARISA Be [address] [phone] Connie Mesa MA History of tubal ligation Social History Tobacco Use Types Packs/Day Years [...] EDT Office Visit [facility] [address] [place] [phone] Candy Lindsey PA [address] [place] [address] documented as of this encounter Visit Diagnoses Diagnosis History of tubal ligation Tubal ligation status documented in this encounter Care Teams Information Management Officer Relationship Specialty Start Date End Date Rudy Taylor MD [address] [place] [address] PCP - General Family Medicine 01/13/24 documented as of this encounter
--- OUTSIDE RECORDS SUMMARY | 2025-02-10 14:30 | XMS_ITS | Clinical Summary ---
Author Organization [facility] Address [address] [place] [address] Care Team Providers Care Tea Plantation Worker Name Role Phone Rudy Taylor MD Primary Care Provider [phone] Allergies Active Allergy Reactions Criticality Noted Date Comments Latex Itching,Rash Low 01/06/2024 Medications ergocalciferol (Vitamin D-2) 1.25 MG (70973 UT) capsule 01/06/2024 Active DULoxetine (Cymbalta) [address] capsule 1 capsule 1 (one) time each day at the same time Active hydrOXYzine HCl (Atarax) 25 MG tablet 01/08/2024 Active OLANZapine (ZyPREXA) 2.5 MG tablet 1 (one) time each day at the same time 08/18/2024 Active Encounters Date Type Department Care Team Description 02/01/2025 3:30 PM EDT Procedure Visit [facility] [address] [place] [address] Misael Mahajan DO Pre-op examination; Menorrhagia with regular cycle; Pelvic pain; Abnormal uterine bleeding (AUB) 02/01/2025 External Result Encounter [facility] External Department Unsolicited Misael Mahajan DO 12/24/2024 Abstract [facility] [address] [place] [address] Misael Mahajan DO 12/23/2024 1:10 PM EDT Office Visit [facility] [address] [facility] [place] [address] Misael Mahajan DO Menorrhagia with irregular cycle 12/23/2024 Bamboo flowsheet [facility] [address] [place] [address] Misael Mahajan DO from Last 3 Months Family History Medical History Relation Name Comments Cancer Father Adam Hermosillo Migraines Mother Jigna Hermosillo Relation Name Status Comments Father Adam Hermosillo Alive Mother Jigna Hermosillo Alive Social History Tobacco Use Types Packs/Day Years Used Date Smoking Tobacco: Former Cigarettes 2 24.2 S tarted: 2000 Smokeless Tobacco: Never Tobacco Cessation:Counseling Given: Not Answered Alcohol Use Standard Drinks/Week Comments Yes 1 (1 standard drink = 0.6 oz pur e alcohol) PHQ-2 Answer Date Recorded Patient Health Questionnaire-2 Score 0 02/04/2024 Comments No Sex and Gender Information Value Date Recorded Sex Assigned at Female 01/06/2024 12:12 PM EDT Legal Sex Female 10:59 PM EDT Gender Identity Female 01/06/2024 12:12 PM EDT Sexual Orientation Not on file Last Filed Vital Signs Vital Sign Reading Time Taken Comments Blood Pressure 130/80 02/01/2025 3:47 PM EDT Pulse 88 10/06/2024 4:03 PM EST Temperature 37.1 C (98.7 F) 10/06/2024 4:03 PM EST Respiratory Rate - - Oxygen Saturation 98% 10/06/2024 4:03 PM EST Inhaled Oxygen Concentration - - Weight 118 kg (259 lb 1.9 oz) 02/01/2025 3:47 PM EDT Height 157.5 cm (5' 2 ) 12/23/2024 1:36 PM EDT Body Mass Index 47.39 12/23/2024 1:36 PM EDT Plan of Treatment Upcoming Encounters Date Type Department Care Team (Late st Contact Info) Description 03/15/2025 3:30 PM EDT Office Visit [facility] [address] [facility] [place] [address] Candy Lindsey PA [address] [place] [address] [place] [address] Health Maintenance Due Date Last Done Comments HPV/Cotest 12/08/2011 Mammogram 2021 Influenza Vaccine (#1) 2025 08/01/2007 Cervical Cancer Screening 01/12/2027 Pap Smear 01/12/2027 01/13/2024 Procedures Procedure Name Priority Date/Time Associated Diagnosis Comments POCT , URINE Routine 02/01/2025 3:56 PM EDT Menorrhagia with regular cycle PATHOLOGY REQUEST FOR LAB [facility] Routine 02/01/2025 12:00 AM EDT POCT URINALYSIS DIPSTICK Routine 12/23/2024 1:43 PM EDT Menorrhagia with irregular cycle THINPREP TIS PAP AND HPV MRNA E6/E7 WITH REFLEX TO HPV 16,18/45 Routine 01/13/2024 12:00 AM EDT Screening for malignant neoplasm of cervix Encounter for screening for human papillomavirus (HPV) from Last 3 Months or Most Recently Relevant to Health Maintenance Results * POCT , urine manually resulted (02/01/2025 3:56 PM EDT) Preg Test, Ur Negative Negative Urine 02/01/2025 3:56 PM EDT Misael Mahajan DO POINT OF CARE TEST ENTER/EDIT OR DERABLES Final Result * PATHOLOGY REQUEST FOR LAB ARLIN (02/01/2025 12:00 AM EDT) PATHOLOGY REQUEST FOR LAB ARLIN 02/09/2025 7:56 AM EDT [facility] Comment:See report. Scanned copy available in EMR. Other Topography unknown / Unknown 02/01/2025 02/02/2025 1:34 PM EDT Narrative [facility] 02/09/2025 7:56 AM EDT EMB Misael Mahajan DO LAB BLOOD ORDERABLES Final Resul t [facility] [address] [place] [address], [facility] [address] [place] [address] * (ABNORMAL) POCT urinalysis dipstick manually resulted (12/23/2024 1:43 PM EDT) Color, UA Yellow Clarity, UA Clear Glucose, UA Negative Negative - 2000(110) ++++ mg/dL Bilirubin, UA Negative Negative - 4(70) +++ mg/dL Ketones, UA Negative Negative - 160(16) ++++ mg/dL Spec Grav, UA 1.020 1 - 1.03 Blood, UA Positive Negative - 50 Jah/mcL Comment:trace-intact pH, UA 7.5 5 - 9 Protein, UA Negative Negative - 2000(20) ++++ mg/dL Urobilinogen, UA 1.0 0.2 - 12 mg/dL Leukocytes, UA Negative Negative - 500+++ Amy/mcL Nitrite, UA Negative Negative - Positive Urine 12/23/2024 1:43 PM EDT Misael Mahajan DO POINT OF CARE TEST ENTER/EDIT OR DERABLES Final Result * THINPREP TIS PAP AND HPV MRNA E6/E7 WITH REFLEX TO HPV 16,18/45 (01/13/2024 12:00 AM EDT) CLINICAL INFORMATION [facility] Comment:None given LMP [facility] Comment:None given PREV. PAP [facility] Comment:None given PREV. BX [facility] Comment:None given SOURCE [facility] Comment:None given STATEMENT OF ADEQUACY [facility] Comment: Satisfactory for evaluation. Endocervical/transformation zone component present. INTERPRETATION/RESU LT [facility] Comment: Cytology Results: Negative for intraepithelial lesion or malignancy. COMMENT [facility] Comment: This Pap test has been evaluated with computer assisted technology. POWER PLANT SUPERVISOR [facility] Comment: SPS, CT(ASCP) CT Screening Location: [facility], [address] [place] [address], [place] [address] (ALWAYS MESSAGE) [facility] Comment: EXPLANATORY NOTE: The Pap is a screening test for cervical cancer. It is not a diagnostic test and is subject to false negative and false positive results. It is most reliable when a satisfactory sample, regularly obtained, is submitted with relevant clinical findings and history, and when the Pap result is evaluated along with historic and current clinical information. HPV MRNA E6/E7 Not Detected Not Detected [facility] Comment: Methodology: Clearing Supervisor-Mediated Amplification This assay detects E6/E7 viral messenger RNA (mRNA) from 14 high-risk HPV types (16,18,31,33,35,39,45,51,52,56,58,59,66,68). Cervical sources are required for HPV testing. If a vaginal source from a patient who has had a total hysterectomy with removal of cervix was submitted, please contact the testing laboratory for alternative testing options. For additional information, please refer to http://education.[employer]/faq/HLR208o0 (This link if provided for information/ educational purposes only.) Swab (specimen) 01/13/2024 4 2:42 AM EDT Narrative Resulting Agency Comment Performing Organization Information Site ID: [id number] Name: [facility] Address: [address] [place] [address], [address] [place] [id number] Director: Ranjeet Palumbo MD Teagan Gamez DO LAB CYTOLOGY ORDERABLES Fi nal Result [facility] from Last 3 Months or Most Recently Relevant to Health Maintenance Insurance [employer] Care Teams Tea Plantation Worker Relationship Specialty Start Date End Date Rudy Taylor MD [address] [facility] [address] [place] [address] PCP - General Family Medicine 01/13/24
--- OUTSIDE RECORDS SUMMARY | 2025-02-10 14:30 | XMS_ITS | Patient Health Record ---
Author Organization [facility] Address [address] [place] [address] Care Team Providers Care Fitter'S Assistant Name Role Phone Vernell Hopper Primary Care Provider DorianAna Unavailable [phone] Allergies No Known Allergies Results Component Value Reference Range Notes Urinalysis automated Reviewed date:03/23/2024 09:52:36 AM Interpretation: Performing Lab: Notes/Report: Urine-Color yellow Appearance clear Specific [place] 1.030 pH 5.5 Glucose neg Protein neg Occult Blood neg Bilirubin neg Urobilinogen,Semi-Qn 0.2 Nitrite, Urine neg Ketones 5mg/dl WBC Esterase 15 brian/ul GNURI - Genitourinary Infect ion (HTRx) Reviewed date:03/25/2024 07:41:11 AM Interpretation: Performing Lab: Notes/Report: Real-Time polymerase chain reaction (TaqMan qPCR) was utilized for detection for all tested organisms and resistance genes. COVID-19 testing separately performed using [employer]Path COVID-19 Combo kit. Initiation of antimicrobial therapy prior to testing may affect results and can lead to the detection of non-living microorganisms. Detection of microbes must be correlated with current/recent antibiotic usage and patient signs and symptoms. Microbial sensitivity testing is not performed at this lab. Liner Helper to CFU/mL equivalent thresholds were established based on studies using known CFU/mL urine specimens performed at [facility] in [place], [place]. Testing performed by [facility] ([address] [place] [address]; CLIA# [id number]; Personnel Security Specialist Denice Ortega, PhD, [facility])). This test was developed, and its performance characteristics determined by [facility]. It has not been cleared or approved by the FDA. However, such approval/clearance is not required, as the laboratory is regulated and qualified under CLIA to perform high-complexity testing. This test is used for clinical purposes and should not be regarded as investigational or for research. *Approximate copies of target nucleic acid per &micro;L (Low: <2,500 copies/&micro;L, Moderate: 2,500-50,000 copies/&micro;L, High: >50,000 copies/&micro;L) National Infectious Disease Consensus Data Potentially effective oral antibiotics, based on presence of detected microbes, antimicrobial resistance genes, and national antimicrobial sensitivity data (see Summary Antibiogram). Acinetobacter baumannii 0.000 19.961 - 24.689 p pm Acinetobacter baumannii Not Detected 19.961 - 24.689 p pm Atopobium vaginae 0.000 19.961 - 24.689 ppm Atopobium vaginae Not Detected 19.961 - 24.689 ppm BVAB 2,3 (bacterial vaginosi s associated bacteria 2, 3); Mobiluncus spp 0.000 19.961 - 24.689 ppm BVAB 2,3 (bacterial vaginosi s associated bacteria 2, 3); Mobiluncus spp Not Detected 19.961 - 24.689 ppm Melissa albicans, parapsilosis, tropicalis 0.000 19.961 - 30.770 ppm Melissa albicans, parapsilosis, tropicalis Not Detecte d 19.961 - 30.770 ppm Melissa glabrata 0.000 23.000 - 32.138 ppm Melissa glabrata Not Detected 23.000 - 32.138 ppm Melissa krusei 0.000 23.000 - 32.271 ppm Melissa krusei Not Detected 23.000 - 32.271 ppm Chlamydia trachomatis 0.000 23.000 - 31.467 ppm Chlamydia trachomatis Not Detected 23.000 - 31.467 ppm Citrobacter freundii 0.000 23.000 - 31.881 ppm Citrobacter freundii Not Detected 23.000 - 31.881 ppm Enterobacter aerogenes, cloacae 0.000 23.000 - 31.535 ppm Enterobacter aerogenes, cloacae Not Detected 23.000 - 31.535 ppm Enterococcus faecalis, faecium 0.000 26.000 - 3 1.575 ppm Enterococcus faecalis, faecium Not Detected 26.000 - 3 1.575 ppm Escherichia coli 19.451 23.000 - 28.500 ppm Escherichia coli Detected 23.000 - 28.500 ppm Gardnerella vaginalis 0.000 19.961 - 24.689 ppm Gardnerella vaginalis Not Detected 19.961 - 24.689 ppm Klebsiella pneumoniae, oxytoca 0.000 23.000 - 3 0.500 ppm Klebsiella pneumoniae, oxytoca Not Detected 23.000 - 3 0.500 ppm Megasphaera (Types 1, 2) 0.000 19.961 - 24.689 ppm Megasphaera (Types 1, 2) Not Detected 19.961 - 24.689 ppm Morganella morganii 0.000 19.961 - 24.689 ppm Morganella morganii Not Detected 19.961 - 24.689 ppm Neisseria gonorrhoeae 0.000 23.000 - 32.117 ppm Neisseria gonorrhoeae Not Detected 23.000 - 32.117 ppm Proteus mirabilis, vulgaris 0.000 23.000 - 28.5 00 ppm Proteus mirabilis, vulgaris Not Detected 23.000 - 28.5 00 ppm Pseudomonas aeruginosa 0.000 23.000 - 28.500 pp m Pseudomonas aeruginosa Not Detected 23.000 - 28.500 pp m Serratia marcescens 0.000 23.000 - 31.204 ppm Serratia marcescens Not Detected 23.000 - 31.204 ppm Staphylococcus aureus 0.000 26.000 - 30.902 ppm Staphylococcus aureus Not Detected 26.000 - 30.902 ppm Streptococcus agalactiae (Group B Strep) 0.000 26.000 - 32.222 ppm Streptococcus agalactiae (Group B Strep) Not Detected 26.000 - 32.222 ppm Streptococcus pyogenes (Group A strep) 0.000 19 .961 - 24.689 ppm Streptococcus pyogenes (Group A strep) Not Detected 19 .961 - 24.689 ppm Trichomonas vaginalis 0.000 23.000 - 32.119 ppm Trichomonas vaginalis Not Detected 23.000 - 32.119 ppm tet B, tet M 26.649 23.000 - 27.778 ppm tet B, tet M Detected 23.000 - 27.778 ppm Staphylococcus epidermidis, haemolyticus, lugdunensis 0.000 19.961 - 24.689 ppm Staphylococcus epidermidis, haemolyticus, lugdunensis Not Detected 19.961 - 24.689 ppm Staphylococcus saprophyticus 0.000 19.961 - 24. 689 ppm Staphylococcus saprophyticus Not Detected 19.961 - 24. 689 ppm Mycoplasma genitalium 0.000 19.961 - 24.689 ppm Mycoplasma genitalium Not Detected 19.961 - 24.689 ppm Mycoplasma hominis 0.000 19.961 - 24.689 ppm Mycoplasma hominis Not Detected 19.961 - 24.689 ppm Ureaplasma parvum 29.027 19.961 - 24.689 ppm Ureaplasma parvum Detected 19.961 - 24.689 ppm Ureaplasma urealyticum 0.000 19.961 - 24.689 pp m Ureaplasma urealyticum Not Detected 19.961 - 24.689 pp m Insulin Lvl Reviewed date:09/20/2024 09:40:24 AM Interpretation: Performing Lab: Notes/Report: HgbA1c Reviewed date:09/20/2024 09:41:39 AM Interpretation: Performing Lab: Notes/Report: CMP Reviewed date:09/20/2024 09:41:09 AM Interpretation: Performing Lab: Notes/Report: Reason For Referral No Information Medications Medication SIG (Take, Route, Frequency, Duration) Notes Start Date End Date Status Trulicity 0.75 MG/0.5ML 1 dose Subcutane ous once week; Duration: 28 days 12/15/2024 06/01/2025 Active hydrOXYzine HCl 25 MG 1-2 tablets as nee ded Orally twice a day; Duration: 30 days 11/14/2022 Active DULoxetine HCl 60 MG 1 capsule Orally Tw ice a day; Duration: 30 days Active OLANZapine 2.5 MG 1 tablet Orally Once a day; Duration: 30 days 08/18/2024 Active Cortisporin-TC 3.3-3-10-0.5 MG/ML 5 drops into affected ear Otic twice a day; Duration: 10 days 01/22/2025 Active Vitamin D (Ergocalciferol) 1.25 MG (70707 UT) Take 1 capsule by mouth once a week; Duration: 28 days Active Spironolactone 100 MG 1 tablet Orally On ce a day; Duration: 30 days 10/20/2024 06/13/2025 Active Social History Tobacco Use: Social History Observation Description Date Details (start date - stop date) Unknown AUDIT-C (Standard) Question Answer Notes Did you have a drink containing alcohol in the p ast year? No Points 0 Interpretation Negative Tobacco Control (Standard) Question Answer Notes Tobacco use: Uses tobacco in other forms Section Notes: Vapes. Vapes. Vapes. Vapes. Vapes. Vapes. Vapes. Vapes. Vapes. Vapes. Vapes. Problems Problem Type SNOMED Code ICD Code Onset Dates Problem Status W/U Status Risk Notes Problem Tobacco user (641736736) Nicotine dependence, unspecified, uncomplicated (F17.200) Active confirmed Problem Left side sciatica (605451431135634) Sciatica, left side (M54.32) Active confirmed Problem Dysmenorrhea (082724311) Dysmenorrhea (N94.6) Active confirmed Problem Intermenstrual bleeding - irregular (50972676) Menorrhagia with irregular cycle (N92.1) Active confirmed Problem Generalized anxiety disorder (11587665) YAMINI (generalized anxiety disorder) (F41.1) Active confirmed Problem Hyperinsulinemia (33596652) Hyperinsulinemia (E16.1) Active confirmed Vital Signs Heart Rate 91 /min 01/22/2025 Temperature 98 degrees Fahrenheit 01/22/2025 Respiratory Rate 20 /min 01/22/2025 Oximetry 95 % 01/22/2025 Blood pressure diastolic 89 mm Hg 01/22/2025 Height 62 in 01/22/2025 Blood pressure systolic 143 mm Hg 01/22/2025 Weight 260 lbs 01/22/2025 BMI 47.55 kg/m2 01/22/2025 Encounters Encounter Location Date Provider Diagnosis [facility] [address] [place] [address] 03/23/2024 Ana Alarcon UTI symptoms R39.9 ; Nicotine dependence, unspecified, uncomplicated F17.200 ; YAMINI (generalized anxiety disorder) F41.1 ; Menorrhagia with irregular cycle N92.1 and Acute diffuse otitis externa of both ears H60.313 [address] [place] [address] 08/18/2024 Ana Alarcon Unintended weight ga in R63.5 ; YAMINI (generalized anxiety disorder) F41.1 and Nicotine dependence, unspecified, uncomplicated F17.200 [address] [place] [address] 10/20/2024 Ana Alarcon Nicotine dependence, unspecified, uncomplicated F17.200 ; YAMINI (generalized anxiety disorder) F41.1 ; Menorrhagia with irregular cycle N92.1 ; Dysmenorrhea N94.6 and Hyperinsulinemia E16.1 [address] [place] [address] 12/15/2024 Ana Alarcon Hyperinsulinemia E16 .1 ; Menorrhagia with irregular cycle N92.1 and Nicotine dependence, unspecified, uncomplicated F17.200 [address] [place] [address] 01/22/2025 Vernell Hopper YAMINI (generalized anx iety disorder) F41.1 ; Ear itching L29.9 and Hyperinsulinemia E16.1 [facility] [address] [place] [address] 01/25/2025 Vernell Hopper YAMINI (generalized anx iety disorder) F41.1 [facility] [address] [place] [address] 01/26/2025 Vernell Hopper Ear itching L29.9 [facility] [address] [place] [address] 01/29/2025 Vernell Hopper YAMINI (generalized anx iety disorder) F41.1 [facility] [address] [place] [address] 07/24/2024 Ana Alarcon YAMINI (generalized anx iety disorder) F41.[address] [place] [address] 07/30/2024 Ana Alarcon YAMINI (generalized anx iety disorder) F41.1 [address] [place] [address] 08/27/2024 Ana [facility] [address] [place] [address] 09/20/2024 [facility] [address] [place] [address] 12/23/2024 Anaalex Alarcon [facility] [address] [place] [address] 01/08/2025 Vernell Hopper YAMINI (generalized anx iety disorder) F41.1 [facility] [address] [place] [address] 02/21/2024 Ana Alarcon YAMINI (generalized anx iety disorder) F41.1 Assessments Encounter Date Diagnosis (ICD Code) Assessment Notes Treatment Notes Treatment Clinical Notes Section Notes 02/21/2024 YAMINI (generalized anxiety disorder) (ICD-10 - F41.1) 03/23/2024 Nicotine dependence, unspecified, uncomplicated (ICD-10 - F17.200) 03/23/2024 UTI symptoms (ICD-10 - R39.9) Take medication as directed. Urine analysis shows abnormalities today in office. Urine culture will be sent to lab. Will call with results if resistance present to antibiotic. Increase fluid intake. Follow hygiene guidelines such as wiping front to back, avoid using perfumed lotions, bath beads, bubble bath. Prevention tips include urinating after sexual intercourse. Follow up with our office or microfilming document preparer if no improvement of symptoms. 08/18/2024 YAMINI (generalized anxiety disorder) (ICD-10 - F41.1) Made changes to medications as we discussed to help with increased symptoms. Will have patient follow up in 2-3 months or sooner if she feels needed. 08/18/2024 Unintended weight gain (ICD-10 - R63.5) Discussed weigh issues, problems with losing weight, history of diets tried, lifestyle changes that they have tried over the years and successful weight loss and how much and how long the weight has stayed off. Discussed tests, treatment options and costs. Patient states understanding. Today we plan on doing labwork here in office as first steps. 10/20/2024 Nicotine dependence, unspecified, uncomplicated (ICD-10 - F17.200) 07/24/2024 YAMINI (generalized anxiety disorder) (ICD-10 - F41.1) 07/30/2024 YAMINI (generalized anxiety disorder) (ICD-10 - F41.1) 10/20/2024 YAMINI (generalized anxiety disorder) (ICD-10 - F41.1) Will continue medications today since patient states that she feels stable on doses 12/15/2024 Hyperinsulinemia (ICD-10 - E16.1) Continue medication as discussed and making better choices and lifestyle changes. Encouraged to gently push yourself with increasing activity and trying healthy lifestyle options. FOllow up in 3 month as discussed 01/08/2025 YAMINI (generalized anxiety disorder) (ICD-10 - F41.1) 01/22/2025 Ear itching (ICD-10 - L29.9) Exam consistent with eczema. Ear drops prescribed and educated to use as directed. Patient verbalized understanding. 01/22/2025 YAMINI (generalized anxiety disorder) (ICD-10 - F41.1) Anxiety stable. Will continue current medication. F/U 3 months & PRN 01/25/2025 YAMINI (generalized anxiety disorder) (ICD-10 - F41.1) 01/26/2025 Ear itching (ICD-10 - L29.9) 01/29/2025 YAMINI (generalized anxiety disorder) (ICD-10 - F41.1) 10/20/2024 Menorrhagia with irregular cycle (ICD-10 - N92.1) Continue to follow up with INDEX EDITOR due to severity of bleeding 12/15/2024 Menorrhagia with irregular cycle (ICD-10 - N92.1) Keep appt with INDEX EDITOR as we discussed today in office as they can best discuss the best measures to help with the symptoms you are experiencing 01/22/2025 Hyperinsulinemia (ICD-10 - E16.1) Continue medication treatment. Follow up in 3 months. 08/18/2024 Nicotine dependence, unspecified, uncomplicated (ICD-10 - F17.200) 03/23/2024 YAMINI (generalized anxiety disorder) (ICD-10 - F41.1) Will continue medications today since patient states that she feels stable on doses 03/23/2024 Menorrhagia with irregular cycle (ICD-10 - N92.1) Patient has scheduled hysterectomy next month 10/20/2024 Dysmenorrhea (ICD-10 - N94.6) Recommend follow up with microfilming document preparer and discussed severity of pain and effect on daily living 12/15/2024 Nicotine dependence, unspecified, uncomplicated (ICD-10 - F17.200) 10/20/2024 Hyperinsulinemia (ICD-10 - E16.1) Obesity medication as discussed and making better choices and lifestyle changes. Encouraged to gently push yourself with increasing activity and trying healthy lifestyle options. FOllow up in 2 month as discussed 03/23/2024 Acute diffuse otitis externa of both ears (ICD-10 - H60.313) 03/23/2024 Other Body Mass Index : Care Instructions material was printed 08/18/2024 Other Body Mass Index : Care Instructions material was printed 10/20/2024 Other Body Mass Index : Care Instructions material was printed 12/15/2024 Other Body Mass Index : Care Instructions material was printed Plan Of Treatment Pending Test Test Name Order Date Cortisol 08/18/2024 Estradiol 08/18/2024 FSH and LH 08/18/2024 Lipid Panel 08/18/2024 Progesterone 08/18/2024 T3 Total 08/18/2024 T4 & TSH 08/18/2024 Next Appt Details Provider Name:Vernell Hopper, 03/17/2025 03:45:00 PM, [address] [place], [address], Insurance Providers Payer Name Payer Address Payer Phone Subscriber Number Group Number Insured Name Patient Relationship to Insured Coverage Start Date Coverage End Date [employer] [place] Medicaid [address] [place] [address] [id number] NAYE REED Self - patient is the insured 4 4 [employer] [place] Medicaid [address] CLAIMS [place] [address] [id number] NAYE REED Self - patient is the insured 4 [employer] [facility] [address] [place] [address] [id number] JEREMYSTELLA NAYE Self - patient is the insured 4 4 [employer] [facility] [address] [place] [address] [id number] NAYE REED Self - patient is the insured 4 [place] [address] [place] [address] [phone] [id number] NAYE REED Self - patient is the insured 4 Medical (General) History Medical History History ICD Code PANIC ATTACKS dysmenorrhea hyperinsulinemia sciatica Surgical History Surgery Date(Month/Year) TUBAL LIGATION Hospitalization History Reason Date(Month/Year) child x3 see surgical
--- OUTSIDE RECORDS SUMMARY | 2025-02-10 14:30 | XMS_ITS | Encounter Summary ---
Author Organization [facility] Address [address] [facility] [place] [address] Care Team Providers Care Collision Estimator Name Role Phone Rudy Taylor MD Primary Care Provider [phone]- [phone] Encounter Details Date Type Department Care Team (Late Contact Info) Description 12/24/2024 Abstract [facility] [address] [facility] [place] [phone] Misael Mahajan, [address] [place] [address] Social History Tobacco Use Types Packs/Day Years [...] 03/15/2025 3:30 PM EDT Office Visit [facility] [address] [facility] [place] [phone] Candy Lindsey PA [address] [place] [address] [place] [address] documented as of this encounter Visit Diagnoses Not on filedocumented in this encounter Care Teams Collision Estimator Relationship Specialty Start Date End Date Rudy Taylor MD [address] [facility] [address] [place] [address] PCP - General Family Medicine 01/13/24 documented as of this encounter
--- OUTSIDE RECORDS SUMMARY | 2025-02-10 14:30 | XMS_ITS | Encounter Summary ---
Author Organization [facility] Address [address] [place] [address] Care Team Providers Care Transfer Station Operator Name Role Phone Rudy Taylor MD Primary Care Provider [phone]- [phone] Encounter Details Date Type Department Care Team (Late Contact Info) Description 04/15/2024 Orders Only [facility] [address] MARISA D [address] [phone] Teagan Gamez, DO [address] [phone] Social History Tobacco Use Types Packs/Day Years [...] EDT Office Visit [facility] [address] [place] [phone] Candy Lindsey PA [address] [facility] [place] [address] documented as of this encounter Procedures Procedure Name Priority Date/Time Associated Diagnosis Comments CBC WITH AUTO DIFFERENTIAL Routine 04/09/2024 7:56 AM EDT COMPREHENSIVE METABOLIC PANEL Routine 04/09/2024 7:56 AM EDT documented in this encounter Results * CBC auto differential (04/09/2024 7:56 AM EDT) Blood Venous blood specimen / Unknown Teagan Gamez DO LAB BLOOD ORDERABLES Final Result * Comprehensive metabolic panel (04/09/2024 7:56 AM EDT) Blood Venous blood specimen / Unknown Teagan J Natradha DO LAB BLOOD ORDERABLES Final Result documented in this encounter Visit Diagnoses Not on filedocumented in this encounter Care Teams Transfer Station Operator Relationship Specialty Start Date End Date Rudy Taylor MD [address] [place] [address] PCP - General Family Medicine 01/13/24 documented as of this encounter
--- OUTSIDE RECORDS SUMMARY | 2025-02-10 20:57 | XMS_ITS | CCD ---
Author Organization [facility] Care Team Providers Care Grain Buyer Name Role Phone ANA CORDOVA Primary Care Unavailable MARKER, DR FREGOSO Admitting Unavailable MARKER, DR FREGOSO Attending Unavailable MARKER, DR FREGOSO Consulting Unavailable CHET HARP Consulting Unavailable ANA CORDOVA Admitting Unavailable ANA CORDOVA Attending Unavailable ANA CORDOVA Primary Care Unavailable ANA CORDOVA Consulting Unavailable Ana Cordova Unavailable Sheba Bustillo Unavailable ANA CORDOVA Primary Care Physician ANA CORDOVA Admitting Unavailable ANA CORDOVA Primary Care Unavailable ANA CORDOVA Attending Unavailable ANA CORDOVA Referring Unavailable ANA CORDOVA Admitting Unavailable ANA CORDOVA Attending Unavailable DO Teagan Gamez Referring Unavaila ANA Farley Primary Care Unavailable DO Teagan Gamez. Admitting Unavaila DO Teagan Gastelum. Attending Unavaila DO Teagan Gastelum. Admitting Unavaila ble DO Teagan Gamez. Attending Unavaila ble DO Teagan Gamez Referring Unavaila ANA Farley Primary Care Unavailable Claudia BLUNT, Rduy Zhang Primary Care Provider [phone] YOSELYN HALLMAN Attending Unavailable DENINS MAHAJAN Attending Unavailable TEAGAN GAMEZ Attending Unavailable TEAGAN GAMEZ Attending Unavailable DENNIS MAHAJAN Attending Unavailable Dennis Mahajan DO Attending Provider [phone] Dennis Mahajan Attending Unavailable Dennis Mahajan Admitting Unavailable Allergies Allergy Classification Reported Allergen(s) Allergy Type Date of Onset Reaction(s) Facility (1 source) natural latex rubber Drug allergy (disorder) [facility] Repository (11 sources) Latex; Translations: [Latex] Drug allergy 4 Itching, Rash [facility] (1 source) No Known Medication Allergies; Translations: [No Known Medication Allergies] Propensity to adverse reactions (disorder) [facility] Repository Medications Current Medications Medication Drug Class(es) Dates Sig (Normalized) Sig (Original) [id number] 200 actuat albuterol 0.09 mg/actuat metered dose [...] Mar, Active DULoxetine 60 mg oral capsule (13 sources) Serotonin and Norepinephrine Reuptake Inhibitor Start: [...] Status: Ordered ergocalciferol 1.25 mg oral capsule (13 sources) Provitamin D2 Compound Start: 01-06-2024 ergocalciferol (Vitamin D-2) 1.25 MG (83860 UT) capsule 01/06/2024 Active Start: 06-13-2021 take 1 capsule by mo [facility] every week Ergocalciferol 1.25 MG (20468 UT) 1 capsule Orally weekly for 30 day(s) Jun, Active hydrOXYzine hydrochloride 25 mg oral tablet (15 sources) Antihistamine Start: 01-08-2024 hydrOXYzine HC l (Atarax) 25 MG tablet 01/08/2024 Active Start: 05-17-2020 hydrOXYzine HC l 10 MG as directed Orally at bedtime for 30 day(s) May, Not-Taking methylPREDNISolone 4 mg oral tablet (1 source) Corticosteroid Start: 07-24-2022 methylPREDNISolone 4 MG as directed Orally Once a day for 6 days Jul, Active OLANZapine 2.5 mg oral tablet (6 sources) Atypical Antipsychotic Start: 08-18-2024 OLANZapine (ZyPREXA) 2.5 MG tablet 1 (one) time each day at the same time 08/18/2024 Active Vitamin D (2 sources) Start: 04-09-2024 Vitamin D Oral, qWeek, Refills(s) 0, Prophylaxis Start Date: 04/09/24 Status: Ordered Completed/Discontinued Medications Medication Drug Class(es) Dates Sig (Normalized) Sig (Original) Dosoquin 5500-200 UNIT-MCG (5 sources) Start: 12-01-2019 Start: 12-01-2019 take 1 tablet by [facility] once daily at mealtime Dosoquin 5500-200 UNIT-MCG 1 tablet daily with food Orally daily for 90 days Nov, Not-Taking Folinic-Plus 4-50-2 MG (5 sources) take 1 tablet by mouth in the mo rning Folinic-Plus 4-50-2 MG 1 tablet Orally in the morning for 90 days Not-Taking Problems Active Problems Problem Classification Problem Date Documented Date Episodic/Chronic Abdominal pain (6 sources) Right lower quadrant pain; Translations: [Pain in female pelvis] Onset: 10-04-2021 Episodic Allergic reactions (5 sources) Atopic dermatitis; Translations: [...] with other respiratory manifestations Episodic Menstrual disorders (7 sources) Menorrhagia; Translations: [Excessive and frequent menstruation [...] URETRL CALCUL OBST] Onset: 10-06-2021 Episodic Other female genital disorders (1 source) Abnormal uterine bleeding; Translations: [Abnormal uterine and vaginal bleeding, unspecified] 02-01-2025 Chronic Other nutritional; endocrine; and metabolic disorders [...] Classification Problem Date Documented Da te Episodic/Chronic Calculus of urinary tract (2 sources) Personal history of urinary calculi; Translations: [PERSONAL HISTORY OF URINARY CALCULI] Onset: 10-06-2021 Resolved: 10-09-2021 Episodic Residual codes; unclassified (1 source) Insomnia, unspecified Onset: 06-13-2021 Resolved: 06-13-2021 Episodic Urinary tract infections (1 source) Acute cystitis with hematuria Onset: 10-09-2021 Resolved: 10-09-2021 Episodic Results Test Name Value Interpretation Reference Range Facility HCG ( test) Ql (U)O rdered By: Arely Sosa on 02-01-2025 Interpretation and review of laboratory results Normal [facility] Healthcare Work Phone: Preg Test, Ur Negative Negative [facility] Health care Work Phone: [facility] Work Phone: Urinalysis macro (dipstick) panel (U)on 12-23-2024 Bilirubin, UA Negative Negative - 4(70) +++ mg/dL [facility] Blood, UA Positive Negative - 50 Jah/mcL [facility] Comment on above: trace-intact Clarity, UA Clear [facility] Color, UA Yellow [facility] Glucose, UA Negative Negative - 1999(110) ++++ mg/dL [facility] Interpretation and review of laboratory results Abnormal [facility] Ketones, UA Negative Negative - 160(16) ++++ mg/dL [facility] Leukocytes, UA Negative Negative - 500+++ Amy/mcL [facility] Nitrite, UA Negative Negative - Positive [facility] pH, UA 7.5 5 - 9 [facility] Protein, UA Negative Negative - 1999(20) ++++ mg/dL [facility] Spec Grav, UA 1.02 1 - 1.03 [facility] Urobilinogen, UA 1.0 0.2 - 12 mg/dL [facility] XR Chest 2 Viewson 4 XR Chest 2 Views Exam Date/Time: 04/09/2024 [...] mGy = na DAP = na Normal [facility] ABO/Rh Retypeon 04-09-2024 ABO/Rh Retype Interp Positive Invalid Interpretation Code [facility] Comment on above: Performed By: #### 1 [id number] #### [facility] [address] [place] [address] BLOOD BANKOrdered By: Debo Galindo on 04-09-2024 ABO/Rh Retype Interp Positive Invalid Interpretation Code [facility] BB Subsection BMPon 04-09-2024 Anion gap [Moles/Vol] 9 mmol/L Normal 6-16 [facility] Comment on above: Performed By: #### 2 [id number] #### [facility] [address] [place] [address] Calcium [Mass/Vol] 9.2 mg/dL Normal 8.9-11.1 [facility] Comment on above: Performed By: #### 2 147214 #### [facility] [address] [place] [address] Chloride [Moles/Vol] 106 mmol/L Normal 101-111 [facility] Comment on above: Performed By: #### 2 425729 #### [facility] [address] [place] [address] CO2 [Moles/Vol] 27 mmol/L Normal 21-31 [facility] Comment on above: Performed By: #### 2 736880 #### [facility] [address] [place] [address] Creatinine [Mass/Vol] 0.8 mg/dL Normal 0.5-1.3 [facility] Comment on above: Performed By: #### 2 309634 #### [facility] [address] [place] [address] Glucose [Mass/Vol] 79 mg/dL Normal 55-199 [facility] Comment on above: Performed By: #### 2 706273 #### [facility] [address] [place] [address] Potassium [Moles/Vol] 4.1 mmol/L Normal 3.5-5.3 [facility] Comment on above: Performed By: #### 2 192551 #### [facility] [address] [place] [address] Sodium [Moles/Vol] 138 mmol/L Normal 135-145 [facility] Comment on above: Performed By: #### 2 075845 #### [facility] [address] [place] [address] Urea nitrogen [Mass/Vol] 11 mg/dL Normal 5-21 [facility] Comment on above: Performed By: #### 2 674156 #### [facility] [address] [place] [address] Urea nitrogen/Creatinine [Mass ratio] 14 No Units Normal 10-20 [facility] Comment on above: Performed By: #### 2 046957 #### [facility] [address] [place] [address] CBC w/ Auto Diffon 4 Basophils/100 WBC (Bld) 0.6 % Normal 0.0-2.0 [facility] Comment on above: Performed By: #### 2 146958 #### [facility] [address] [place] [address] Basophils/Leukocytes Auto (Bld) [Pure # fraction] 0.0 E9/L Normal 0.0-0.2 [facility] Comment on above: Performed By: #### 2 698882 #### [facility] [address] [place] [address] Eosinophils (Bld) [#/Vol] 0.2 E9/L Normal 0.0-0.5 [facility] Comment on above: Performed By: #### 2 812796 #### [facility] [address] [place] [address] Eosinophils/100 WBC (Bld) 2.5 % Normal 0.0-8.0 [facility] Comment on above: Performed By: #### 2 489755 #### [facility] [address] [place] [address] Erythrocyte distribution width (RBC) [Ratio] 13.6 % Normal 10.9-14.2 [facility] Comment on above: Performed By: #### 2 214325 #### [facility] [address] [place] [address] Hematocrit (Bld) [Volume fraction] 41.6 % Normal 34.0-46.0 [facility] Comment on above: Performed By: #### 2 974747 #### [facility] [address] [place] [address] Hemoglobin (Bld) [Mass/Vol] 13.8 g/dL Normal 12.0-16.0 [facility] Comment on above: Performed By: #### 2 442340 #### [facility] [address] [place] [address] Lymphocytes (Bld) [#/Vol] 2.2 E9/L Normal 1.0-4.0 [facility] Comment on above: Performed By: #### 2 096962 #### [facility] [address] [place] [address] Lymphocytes/100 WBC (Bld) 31.2 % Normal 14.0-50.0 [facility] Comment on above: Performed By: #### 2 983684 #### [facility] [address] [place] [address] MCH (RBC) [Entitic mass] 28.0 pg Normal 27.0-34.0 [facility] Comment on above: Performed By: #### 2 925937 #### [facility] [address] [place] [address] MCHC (RBC) [Mass/Vol] 33.1 g/dL Normal 31.4-36.0 [facility] Comment on above: Performed By: #### 2 955646 #### [facility] [address] [place] [address] MCV (RBC) [Entitic vol] 84.6 fL Normal 80.0-100.0 [facility] Comment on above: Performed By: #### 2 336915 #### [facility] [address] [place] [address] Monocytes (Bld) [#/Vol] 0.6 E9/L Normal 0.2-1.0 [facility] Comment on above: Performed By: #### 2 403927 #### [facility] [address] [place] [address] Neutrophils (Bld) [#/Vol] 3.9 E9/L Normal 2.0-7.5 [facility] Comment on above: Performed By: #### 2 421448 #### [facility] [address] [place] [address] Neutrophils/100 WBC (Bld) 56.5 % Normal 36.0-75.0 [facility] Comment on above: Performed By: #### 2 760289 #### [facility] [address] [place] [address] Platelet mean volume (Bld) [Entitic vol] 7.9 fL Normal 6.4-10.8 [facility] Comment on above: Performed By: #### 2 771936 #### [facility] [address] [place] [address] Platelets (Bld) [#/Vol] 339.0 E9/L Normal 150.0-500.0 [facility] Comment on above: Performed By: #### 2 195943 #### [facility] [address] [place] [address] RBC (Bld) [#/Vol] 4.9 E12/L Normal 4.3-5.9 [facility] Comment on above: Performed By: #### 2 076164 #### [facility] [address] [place] [address] WBC corrected for nucl RBC Auto (Bld) [#/Vol] 6.9 E9/L Normal 4.0-11.0 [facility] Comment on above: Performed By: #### 2 369005 #### [facility] [address] [place] [address] CHEMISTRYOrdered By: SYSTEM SYSTEM on 04-09-2024 Anion [...] Chem eGFR 94 mL/min/1.73 m2 Normal >=59mL/min /1. 73 m2 Remisol Chem Glucose [Mass/Vol] 79 mg/dL [...] 04-09-2024 eGFR 94 mL/min/1.73 m2 Normal >=59 [facility] Comment on above: Order Comment: Order added by Discern Expert. Performed By: #### 1 [id number] #### [facility] [address] [place] [address] US Pelvis Non-OB Completeon 10-22-2023 US Pelvis [...] MCKAYLA Technical Comments Transabdominal Ultrasound Performed Normal [facility] Physician Orderon 10-16-2023 Physician Order [id number]#[id number] Normal [facility] FSH and LHon 10-11-2023 Follitropin Qn 12.7 m[IU]/mL Invalid Interpretation Code [facility] Comment on above: Result Comment: Adul t Female Range Follicular phase 3.5 - 12.5 Ovulation phase 4.7 - 21.5 Luteal phase 1.7 - 7.7 Postmenopausal 25.8 - 134.8 Performed at: [address] [id number] PhD Ngozi Mendoza Performed By: #### 2 390779, [id number], 8759718, 18576580, 16461609 #### [facility] [address] [place] [address] Lutropin Qn 3.9 m[IU]/mL Invalid Interpretation Code [facility] Comment on above: Result Comment: Adul t Female Range Follicular phase 2.4 - 12.6 Ovulation phase 14.0 - 95.6 Luteal phase 1.0 - 11.4 Postmenopausal 7.7 - 58.5 Performed By: #### 2 528072, 56893055, 9240676, 26366786, 09166091 #### [facility] [address] [place] [address] CBC w/ Auto Diffon 4 Basophils/100 WBC (Bld) 0.4 % Normal 0.0-2.0 [facility] Comment on above: Performed By: #### 2 661328, 33692889, 0242845, 34782704, 61146030 #### [facility] [address] [place] [address] Basophils/Leukocytes Auto (Bld) [Pure # fraction] 0.0 E9/L Normal 0.0-0.2 [facility] Comment on above: Performed By: #### 2 109819, 17688473, 4277710, 34282750, 11846187 #### [facility] [address] [place] [address] Eosinophils (Bld) [#/Vol] 0.1 E9/L Normal 0.0-0.5 [facility] Comment on above: Performed By: #### 2 470607, 91344224, 4904691, 58214064, 62950030 #### [facility] [address] [place] [address] Eosinophils/100 WBC (Bld) 1.1 % Normal 0.0-8.0 [facility] Comment on above: Performed By: #### 2 735159, 46763175, 2545116, 43893835, 32071898 #### [facility] [address] [place] [address] Erythrocyte distribution width (RBC) [Ratio] 15.3 % High 10.9-14.2 [facility] Comment on above: Performed By: #### 2 980502, 73548104, 1107780, 32456177, 62423034 #### [facility] [address] [place] [address] Hematocrit (Bld) [Volume fraction] 42.7 % Normal 34.0-46.0 [facility] Comment on above: Performed By: #### 2 143464, 41560153, 3336481, 66381201, 64061892 #### [facility] [address] [place] [address] Hemoglobin (Bld) [Mass/Vol] 13.6 g/dL Normal 12.0-16.0 [facility] Comment on above: Performed By: #### 2 224283, 17748804, 5896314, 10088697, 22789486 #### [facility] [address] [place] [address] Lymphocytes (Bld) [#/Vol] 1.9 E9/L Normal 1.0-4.0 [facility] Comment on above: Performed By: #### 2 810754, 08315838, 7476183, 32877677, 74638596 #### [facility] [address] [place] [address] Lymphocytes/100 WBC (Bld) 27.7 % Normal 14.0-50.0 [facility] Comment on above: Performed By: #### 2 733765, 89142303, 5149000, 78000647, 48517934 #### [facility] [address] [place] [address] MCH (RBC) [Entitic mass] 28.1 pg Normal 27.0-34.0 [facility] Comment on above: Performed By: #### 2 318118, 61788847, 7245059, 13781278, 68719988 #### [facility] [address] [place] [address] MCHC (RBC) [Mass/Vol] 31.8 g/dL Normal 31.4-36.0 [facility] Comment on above: Performed By: #### 2 920198, 62815311, 1066654, 31052053, 63086043 #### [facility] [address] [place] [address] MCV (RBC) [Entitic vol] 88.3 fL Normal 80.0-100.0 [facility] Comment on above: Performed By: #### 2 548483, 96527236, 2340786, 96071501, 80758613 #### [facility] [address] [place], [place] [address] Monocytes (Bld) [#/Vol] 0.4 E9/L Normal 0.2-1.0 [facility] Comment on above: Performed By: #### 2 535718, 16987985, 9432805, 36703777, 44810920 #### [facility] [address] [place] [address] Neutrophils (Bld) [#/Vol] 4.5 E9/L Normal 2.0-7.5 [facility] Comment on above: Performed By: #### 2 931854, 12940137, 3982906, 44802119, 57875128 #### [facility] [address] [place] [address] Neutrophils/100 WBC (Bld) 65.3 % Normal 36.0-75.0 [facility] Comment on above: Performed By: #### 2 214388, 66182989, 1740121, 91955690, 30222787 #### [facility] [address] [place] [address] Platelet mean volume (Bld) [Entitic vol] 8.2 fL Normal 6.4-10.8 [facility] Comment on above: Performed By: #### 2 804828, 27210833, 1085753, 77187261, 01967853 #### [facility] [address] [place] [address] Platelets (Bld) [#/Vol] 372.0 E9/L Normal 150.0-500.0 [facility] Comment on above: Performed By: #### 2 295734, 29793912, 7968884, 39498467, 71008322 #### [facility] [address] [place] [address] RBC (Bld) [#/Vol] 4.8 E12/L Normal 4.3-5.9 [facility] Comment on above: Performed By: #### 2 023570, 94045093, 8765182, 00774543, 09852481 #### [facility] [address] [place] [address] WBC corrected for nucl RBC Auto (Bld) [#/Vol] 6.9 E9/L Normal 4.0-11.0 [facility] Comment on above: Performed By: #### 2 424103, 27197048, 3661172, 55110305, 82384899 #### [facility] [address] [place] [address] CMPon 10-09-2023 Albumin [Mass/Vol] 4.4 g/dL Normal 3.3-5.0 [facility] Comment on above: Performed By: #### 2 005499, 62882367, 8724496, 46469710, 27897342 #### [facility] [address] [place] [address] Albumin/Globulin (S) [Mass conc ratio] 1.8 Normal 1.1-2.2 [facility] Comment on above: Performed By: #### 2 914991, 48383522, 2722228, 20017942, 63472645 #### [facility] [address] [place] [address] ALP [Catalytic activity/Vol] 82 Int._Unit/L Normal 21-98 [facility] Comment on above: Performed By: #### 2 011431, 86370734, 8054481, 05665425, 22277416 #### [facility] [address] [place] [address] ALT No additional P-5'-P [Catalytic activity/Vol] 13 Int._Unit/L Normal 6-46 [facility] Comment on above: Performed By: #### 2 491531, 44326845, 4309987, 97816198, 17073399 #### [facility] [address] [place] [address] Anion gap [Moles/Vol] 12 mmol/L Normal 6-16 [facility] Comment on above: Performed By: #### 2 026645, 66663913, 1502697, 77765355, 26908445 #### [facility] [address] [place] [address] AST [Catalytic activity/Vol] 14 Int._Unit/L Normal 5-43 [facility] Comment on above: Performed By: #### 2 839354, 25103085, 8629377, 95543477, 07006973 #### [facility] [address] [place] [address] Bilirubin [Mass/Vol] 0.4 mg/dL Normal 0.0-1.1 [facility] Comment on above: Performed By: #### 2 758106, 42168800, 3073014, 98276668, 63231861 #### [facility] [address] [place] [address] Calcium [Mass/Vol] 9.4 mg/dL Normal 8.9-11.1 [facility] Comment on above: Performed By: #### 2 478422, 28395856, 9025165, 66959671, 69269270 #### [facility] [address] [place] [address] Chloride [Moles/Vol] 103 mmol/L Normal 101-111 [facility] Comment on above: Performed By: #### 2 229050, 12222597, 3607295, 62906796, 32237127 #### [facility] [address] [place] [address] CO2 [Moles/Vol] 27 mmol/L Normal 21-31 [facility] Comment on above: Performed By: #### 2 198854, 30579814, 4014566, 43778884, 69056985 #### [facility] [address] [place] [address] Creatinine [Mass/Vol] 0.8 mg/dL Normal 0.5-1.3 [facility] Comment on above: Performed By: #### 2 667681, 79323281, 2180365, 19895316, 65183146 #### [facility] [address] [place] [address] Globulin (S) [Mass/Vol] 2.5 g/dL Normal 1.4-4.0 [facility] Comment on above: Performed By: #### 2 630726, 79266579, 9010741, 98154506, 81132804 #### [facility] [address] [place] [address] Glucose [Mass/Vol] 86 mg/dL Normal 55-199 [facility] Comment on above: Performed By: #### 2 959421, 38266091, 3747157, 08525104, 62336311 #### [facility] [address] [place] [address] Potassium [Moles/Vol] 4.6 mmol/L Normal 3.5-5.3 [facility] Comment on above: Performed By: #### 2 650034, 04818200, 1744755, 65041862, 94468627 #### [facility] [address] [place] [address] Protein [Mass/Vol] 6.9 g/dL Normal 6.0-7.8 [facility] Comment on above: Performed By: #### 2 105281, 04615585, 0527739, 02127222, 26464385 #### [facility] [address] [place] [address] Sodium [Moles/Vol] 137 mmol/L Normal 135-145 [facility] Comment on above: Performed By: #### 2 001836, 87658476, 0585150, 31674911, 95765224 #### [facility] [address] [place] [address] Urea nitrogen [Mass/Vol] 12 mg/dL Normal 5-21 [facility] Comment on above: Performed By: #### 2 294135, 38503609, 3188920, 71245951, 40382590 #### [facility] [address] [place] [address] Urea nitrogen/Creatinine [Mass ratio] 15 No Units Normal 10-20 [facility] Comment on above: Performed By: #### 2 358053, 67602773, 5336091, 32288648, 03192999 #### [facility] [address] [place] [address] Physician Orderon 10-09-2023 Physician Order [id number] Normal [facility] T4 & TSHon 10-09-2023 TSH Qn 1.72 m[IU]/L Normal 0.34-5.60 [facility] Comment on above: Performed By: #### 2 932226, 98748577, 0541054, 35819166, 86713958 #### [facility] [address] [place] [address] T4 [Mass/Vol] 10.1 microgram/dL High 4.6-9.1 [facility] Comment on above: Performed By: #### 2 837463, 52035020, 1079551, 63306548, 24416683 #### [facility] [address] [place] [address] eGFRon 10-09-2023 eGFR 94 mL/min/1.73 m2 Normal >=59 [facility] Comment on above: Order Comment: Order added by Discern Expert. Performed By: #### 2 042371, 12825916, 0891882, 71062674, 84559598 #### [facility] [address] [place] [address] COVID + FLU Quick Testingon 07-24-2022 SARS-CoV-2 (COVID-19) RNA YOUSUF+probe Ql (Unsp spec) Negative [employer] Other COVID + FLU Quick Testing Positive [employer] Other COVID + FLU Quick Testing Negative [employer] Other Urinalysis - AUTOMATEDon Appearance (U) cloudy [employer] Other Bilirubin Ql (U) Negative [employer] Other Color (U) dark yellow [employer] Other Glucose Ql (U) Negative [employer] Other Hemoglobin Ql (U) moderate [employer] Other Ketones Ql (U) Negative [employer] Other Leukocyte esterase Test strip Ql (U) trace [employer] Other Nitrite Ql (U) Negative [employer] Other pH (U) 6.0 [pH] [employer] Other Protein Ql (U) Negative [employer] Other Specific gravity (U) [Rel density] 1.025 [employer] Other Urobilinogen (U) [Mass/Vol] 1.0 mg/dL [employer] Other Urinalysis - AUTOMATED [employer] Other CULTURE URINEon 10-07-2021 CULTURE URINE Isolate 1 Escherichia coli >100,000 cfu/mL of ORGANISM 1 Escherichia coli ANTIBIOTIC M.I.C RX STATUS Ampicillin 4 S F Ampicillin/Sulbact am <=2 S F Piperacillin/Tazob actam <=4 S F Cefazolin <=4 S F Ceftazidime <=1 S F Ceftriaxone <=1 S F Ertapenem <=0.5 S F Imipenem <=0.25 S F Amikacin <=2 S F Gentamicin <=1 S F Tobramycin <=1 S F Ciprofloxacin <=0.25 S F Levofloxacin <=0.12 S F Nitrofurantoin <=16 S F Trimethoprim/Sulfa methoxazole <=20 S F Normal [facility] Comment on above: Performed By: #### U RCX #### [facility] [address] [place] [address] ABD/PELVIS WO CONon [...] and tiny adjacent free fluid, suggestive of inflammatory/infec tious process and right ureteritis. Punctate calculus is [...] and tiny adjacent free fluid, suggestive of inflammatory/infec tious process and right ureteritis. Punctate nonobstructive left renal calculus. Normal-appearing appendix is visualized. Electronically authenticated by: CHET HARP Date: 2021-10-04 22:37 Normal [facility] ER URINE PROFILEon 2 Bilirubin Ql (U) Negative Normal NEGATIVE The [facility] [place] Comment on above: Performed By: #### U MICRO, ERUR, PREGU #### [facility] [address] [address] [address] Jolanta Alvarado Clarity (U) SL CLOUDY Abnormal CLEAR [facility] Comment on above: Performed By: #### U MICRO, ERUR, PREGU #### [facility] [address] [address] [address] Jolanta Alvarado Color (U) YELLOW Normal YELLOW [facility] Comment on above: Performed By: #### U MICRO, ERUR, PREGU #### [facility] [address] [address] [address] Jolanta Alvarado ERUAHD A micrscopic examination will be performed if indicated. Normal [facility] Comment on above: Performed By: #### U MICRO, ERUR, PREGU #### [facility] [address] [address] [address] Jolanta Alvarado Glucose Ql (U) Negative Normal NEGATIVE The [facility] [place] Comment on above: Performed By: #### U MICRO, ERUR, PREGU #### [facility] [address] [address] [address] Jolanta Alvarado Hemoglobin Ql (U) LARGE Abnormal NEGATIVE The [facility] Comment on above: Performed By: #### U MICRO, ERUR, PREGU #### [facility] [address] [address] [address] Jolanta Alvarado Ketones Ql (U) TRACE Abnormal NEGATIVE The [facility] [place] Comment on above: Performed By: #### U MICRO, ERUR, PREGU #### [facility] [address] [address] [address] Jolanta Alvarado LEUKOCYTES Negative Normal NEGATIVE [facility] Comment on above: Performed By: #### U MICRO, ERUR, PREGU #### [facility] [address] [address] [address] Jolanta Alvarado Nitrite Ql (U) Positive Abnormal NEGATIVE The [facility] [place] Comment on above: Performed By: #### U MICRO, ERUR, PREGU #### [facility] [address] [address] [address] Jolanta Alvarado pH (U) 5.5 [pH] Normal 5-9 [facility] Comment on above: Performed By: #### U MICRO, ERUR, PREGU #### [facility] [address] [address] [address] Jolanta Alvarado SPEC GRAVITY >=1.030 Abnormal 1.005-<=1.025 The [place] [facility] Comment on above: Performed By: #### U MICRO, ERUR, PREGU #### [facility] [address] [address] [address] Jolanta Alvarado UA PROTEIN TRACE Normal NEGATIVE/ TRACE [facility] Comment on above: Performed By: #### U MICRO, ERUR, PREGU #### [facility] [address] [address] [address] Jolanta Alvarado UR MICRO IND INDICATED Normal [facility] Comment on above: Performed By: #### U MICRO, ERUR, PREGU #### [facility] [address] [place] [address] Dr. Jolanta Alvarado Urobilinogen Qn (U) 0.2 {Loyd'U}/dL Normal 0.2 - 1. 0 [facility] Comment on above: Performed By: #### U MICRO, ERUR, PREGU #### [facility] [address] [place] [address] Dr. Jolanta Alvarado URon 10-04-2021 , QUAL Negative Normal NEGATIVE The [place] [facility] Comment on above: Performed By: #### U MICRO, ERUR, PREGU #### [facility] [address] [place] [address] Dr. Jolanta Alvarado URINE MICROSCOPIC ONLYon BACTERIA LARGE Abnormal NONE SEEN [facility] Comment on above: Performed By: #### U MICRO, ERUR, PREGU #### [facility] [address] [place] [address] Dr. Jolanta Alvarado Bacteria identified Cx Nom (U) INDICATED Normal [facility] Comment on above: Performed By: #### U MICRO, ERUR, PREGU #### [facility] [address] [place] [address] Dr. Jolanta Alvarado CAST NONE SEEN Normal NONE SEEN [facility] Comment on above: Performed By: #### U MICRO, ERUR, PREGU #### [facility] [address] [place] [address] Dr. Jolanta Alvarado Crystals LM Nom (Urine sed) NONE SEEN Normal NONE SEEN [facility] Comment on above: Performed By: #### U MICRO, ERUR, PREGU #### [facility] [address] [place] [address] Dr. Jolanta Alvarado Epithelial cells LM Ql (Urine sed) FEW Abnormal NONE SEEN /RARE [facility] Comment on above: Performed By: #### U MICRO, ERUR, PREGU #### [facility] [address] [place] [address] Dr. Jolanta Alvarado MUCOUS SMALL Abnormal NONE SEEN [facility] Comment on above: Performed By: #### U MICRO, ERUR, PREGU #### [facility] [address] [place] [address] Dr. Jolanta Alvarado RBC (U) [#/Vol] /uL Abnormal 0-2 The [place] [facility] Comment on above: Performed By: #### U MICRO, ERUR, PREGU #### [facility] [address] [place] [address] Dr. Jolanta Alvarado WBC 10-20 Abnormal NONE SEEN [facility] Comment on above: Performed By: #### U MICRO, ERUR, PREGU #### [facility] [address] [place] [address] Dr. Jolanta Alvarado COVID Quick Testingon 2021 Result Negative Cognection [facility] [employer] Other Quick Fluon 08-26-2021 FLUAV Ab CF (S) [Titer] Negative [facility] Other FLUBV Ab CF (S) [Titer] Negative [facility] Other FREE T4on 03-21-2021 Free T4 [Mass/Vol] 0.81 ng/dL Normal 0.78-2.19 The [place] [facility] Comment on above: Performed By: #### F T4 #### [facility] [address] [place] [address] Jojo Samia GLYCOHEMOGLOBIN A1Con 2020 ADA RECOMMENDATION ADA THERAPEUTIC TARGET 6.0 - 7.0 ACTION SUGGESTED > 7.0 Normal [facility] Comment on above: Performed By: #### A 1C #### [facility] [address] [place] [address] Jojo Samia Glucose [Mass/Vol] 105 mg/dL Normal [facility] [place] [facility] Comment on above: Performed By: #### A 1C #### [facility] [address] [place] [address] Jojo Samia HbA1c (Bld) [Mass fraction] 5.3 % Normal <=6.0 [facility] Comment on above: Performed By: #### A 1C #### [facility] [address] [place], [place] [address] Jojo Samia LIPID PROFILEon 03-21-2021 CHOL-HDL RATIO NORM SEE BELOW Normal [facility] Comment on above: Result Comment: 3.3 - 4.4 LOW RISK 4.4 - 7.1 AVERAGE RISK 7.1 - 11.0 MODERATE RISK >11.0 HIGH RISK Performed By: #### C MP, LIPID, TSH #### [facility] [address] [place], [place] [address] Jojo Samia Cholesterol [Mass/Vol] 165 mg/dL Normal <=200 [facility] Comment on above: Performed By: #### C MP, LIPID, TSH #### [facility] [address] [place], [place] [address] Jojo Samia Cholesterol in HDL [Mass/Vol] 42 mg/dL Normal [facility] Comment on above: Performed By: #### C MP, LIPID, TSH #### [facility] [address] [place], [place] [address] Jojo Samia Cholesterol in LDL [Mass/Vol] 109.6 mg/dL Normal [facility] Comment on above: Performed By: #### C MP, LIPID, TSH #### [facility] [address] [place], [place] [address] Jojo Samia Cholesterol.total/Cho lesterol in HDL [Mass ratio] 3.9 {ratio} Normal [facility] Comment on above: Performed By: #### C MP, LIPID, TSH #### [facility] [address] [place], [place] [address] Jojo Samia HDL NORMAL > or = 60 mg/dl - LOW CARDIOVASCULAR RISK <40 mg/dl - HIGH CARDIOVASCULAR RISK Normal [facility] Comment on above: Performed By: #### C MP, LIPID, TSH #### [facility] [address] [place], [place] [address] Jojo Samia LDL CALC NORMAL SEE BELOW Normal [facility] Comment on above: Result Comment: <100 mg/dl OPTIMAL 100 - 129 mg/dl NEAR OR ABOVE OPTIMAL 130 - 159 mg/dl BORDERLINE HIGH 160 - 189 mg/dl HIGH >190 mg/dl VERY HIGH Performed By: #### C MP, LIPID, TSH #### [facility] [address] [place], [place] [address] Jojo Samia Triglyceride [Mass/Vol] 67 mg/dL Normal <=150 [facility] Comment on above: Performed By: #### C MP, LIPID, TSH #### [facility] [address] [place], [place] [address] Jojo Samia VLDL CALC 13.4 mg/dL Normal [facility] Comment on above: Performed By: #### C MP, LIPID, TSH #### [facility] [address] [place], [place] [address] Jojo Samia PROF 14(COMP METB)on 021 Albumin [Mass/Vol] 3.7 g/dL Normal 3.5-5.0 [facility] Comment on above: Performed By: #### C MP, LIPID, TSH #### [facility] [address] [id number] Jojo Samia Albumin/Globulin [Mass ratio] 1.0 {ratio} Normal [facility] Comment on above: Performed By: #### C MP, LIPID, TSH #### [facility] [address] [id number] Jojo Samia ALP [Catalytic activity/Vol] 102 U/L Normal 38-126 [facility] Comment on above: Performed By: #### C MP, LIPID, TSH #### [facility] [address] [id number] Jojo Samia ALT [Catalytic activity/Vol] 33 U/L Normal 9-52 [facility] Comment on above: Performed By: #### C MP, LIPID, TSH #### [facility] [address] [place], [place] [address] Jojo Samia Anion gap [Moles/Vol] 11.7 mmol/L Normal [facility] Comment on above: Performed By: #### C MP, LIPID, TSH #### [facility] [address] [place], [place] [address] Jojo Samia AST [Catalytic activity/Vol] 24 U/L Normal 14-36 [facility] Comment on above: Performed By: #### C MP, LIPID, TSH #### [facility] [address] [id number] Jojo Samia Bilirubin [Mass/Vol] 0.4 mg/dL Normal 0.2-1.3 [facility] Comment on above: Performed By: #### C MP, LIPID, TSH #### [facility] [address] [place] [address] Jojo Samia Calcium [Mass/Vol] 8.9 mg/dL Normal 8.4-10.2 [facility] Comment on above: Performed By: #### C MP, LIPID, TSH #### [facility] [address] [place] [address] Jojo Samia Chloride [Moles/Vol] 103 mmol/L Normal 98-107 [facility] Comment on above: Performed By: #### C MP, LIPID, TSH #### [facility] [address] [place] [address] Jojo Samia CO2 [Moles/Vol] 29.2 mmol/L Normal 22.0-30.[address] [facility] Comment on above: Performed By: #### C MP, LIPID, TSH #### [facility] [address] [place] [address] Jojo Samia Creatinine [Mass/Vol] 0.89 mg/dL Normal 0.52-1.04 [facility] Comment on above: Performed By: #### C MP, LIPID, TSH #### [facility] [address] [place] [address] Jojo Samia EGFR-AF LITHUANIAN >60 Normal >=60 [facility] [place] Comment on above: Performed By: #### C MP, LIPID, TSH #### [facility] [address] [place] [address] Jojo Samia EGFR-NON AF LITHUANIAN >60 Normal >=60 [facility] Comment on above: Performed By: #### C MP, LIPID, TSH #### [facility] [address] [place] [address] Jojo Samia Globulin (S) [Mass/Vol] 3.7 g/dL Normal [facility] Comment on above: Performed By: #### C MP, LIPID, TSH #### [facility] [address] [place] [address] Jojo Samia Glucose [Mass/Vol] 108 mg/dL Critically high 74-106 [facility] Comment on above: Performed By: #### C MP, LIPID, TSH #### [facility] [address] [place] [address] Jojo Samia Potassium [Moles/Vol] 3.9 mmol/L Normal 3.4-5.0 [facility] Comment on above: Performed By: #### C MP, LIPID, TSH #### [facility] [address] [place] [address] Jojo Samia Protein [Mass/Vol] 7.4 g/dL Normal 6.1-8.2 [facility] Comment on above: Performed By: #### C MP, LIPID, TSH #### [facility] [address] [place] [address] Jojo Samia Sodium [Moles/Vol] 140 mmol/L Normal 137-145 [facility] Comment on above: Performed By: #### C MP, LIPID, TSH #### [facility] [address] [place] [address] Jojo Samia Urea nitrogen [Mass/Vol] 12.0 mg/dL Normal 7.0-17.0 [facility] Comment on above: Performed By: #### C MP, LIPID, TSH #### [facility] [address] [place] [address] Jojo Samia Urea nitrogen/Creatinine [Mass ratio] 13.5 mg/mg Normal [facility] Comment on above: Performed By: #### C MP, LIPID, TSH #### [facility] [address] [place], [place] [id number] Jojo Samia TSHon 03-21-2021 TSH 1.654 uIU/mL Normal 0.470-4.680 [facility] Comment on above: Performed By: #### C MP, LIPID, TSH #### [facility] [address] [place] [address] Jojo Samia TSH RANGE SEE BELOW Normal [facility] Comment on above: Result Comment: <0.3 4 UIU/ml HYPERTHYROID 0.34-5.60 UIU/ml EUTHYROID >5.60 UIU/ml HYPOTHYROID Performed By: #### C MP, LIPID, TSH #### [facility] [address] [place], [place] [address] Jojo Gracia Vital Signs Date Time Vital Sign Value Performing Clinician Facility 02-01-2025 15:47-0400 Body mass index (BMI) [Ratio] 47.39 kg/m2 Dennis Keyshawn DO Work Phone: [facility] 02-01-2025 15:47-0400 Body weight 117.54 kg Dennis Keyshawn DO Work Phone: [facility] 02-01-2025 15:47-0400 Diastolic blood pressure 80 mm[Hg] Dennis Keyshawn DO Work Phone: [facility] 02-01-2025 15:47-0400 Systolic blood pressure 130 mm[Hg] Dennis Keyshawn DO Work Phone: [facility] 12-23-2024 13:36-0400 Body height 157.5 cm Dennis Keyshawn DO Work Phone: [facility] 12-23-2024 13:36-0400 Body mass index (BMI) [Ratio] 48.43 kg/m2 Dennis Keyshawn DO Work Phone: [facility] 12-23-2024 13:36-0400 Body weight 120.11 kg Dennis Keyshawn DO Work Phone: [facility] 12-23-2024 13:36-0400 Diastolic blood pressure 82 mm[Hg] Dennis Keyshawn DO Work Phone: [facility] 12-23-2024 13:36-0400 Systolic blood pressure 120 mm[Hg] Dennis Keyshawn DO Work Phone: [facility] 10-06-2024 16:03-0500 Body temperature 98.71 [degF] Yoselyn Halmlan FUR MACHINE OPERATOR Work Phone: [facility] 10-06-2024 16:03-0500 Body weight 114.31 kg Yoselyn Hallman FUR MACHINE OPERATOR Work Phone: [facility] 10-06-2024 16:03-0500 Heart rate 88 /min Yoselyn Hallman FUR MACHINE OPERATOR Work Phone: [facility] 10-06-2024 16:03-0500 SaO2% (BldA) [Mass fraction] 98 % Yoselyn Hallman FUR MACHINE OPERATOR Work Phone: [facility] 04-09-2024 08:38-0400 Blood Pressure Location Teagan Nataprawira [facility] 04-09-2024 08:38-0400 Diastolic blood pressure 98 mm[Hg] Teagan Nataprawira [facility] 04-09-2024 08:38-0400 Heart rate 80 /min Teagan Nataprawira [facility] 04-09-2024 08:38-0400 Mean blood pressure 116 mm[Hg] Teagan Nataprawira [facility] 04-09-2024 08:38-0400 Systolic blood pressure 153 mm[Hg] Teagan Nataprawira [facility] 04-09-2024 08:37-0400 Heart rate 80 /min Teagan Nataprawira [facility] 04-09-2024 08:37-0400 SaO2% (BldA) [Mass fraction] 98 % Teagan Nataprawira [facility] 04-09-2024 08:37-0400 Respiratory rate 18 /min Teagan Nataprawira [facility] 04-09-2024 08:37-0400 Blood Pressure Location Teagan Nataprawira [facility] 04-09-2024 08:37-0400 Diastolic blood pressure 92 mm[Hg] Teagan Nataprawira [facility] 04-09-2024 08:37-0400 Mean blood pressure 112 mm[Hg] Teagan Nataprawira [facility] 04-09-2024 08:37-0400 Systolic blood pressure 152 mm[Hg] Teagan Nataprawira [facility] 04-09-2024 08:36-0400 Body temperature 97.88 [degF] Teagan Nataprawira [facility] 04-07-2024 08:34-0400 Body weight 109.77 kg Teagan Nataprawira DO Work Phone: [facility] 04-07-2024 08:34-0400 Diastolic blood pressure 80 mm[Hg] Teagan Nataprawira DO Work Phone: [facility] 04-07-2024 08:34-0400 Systolic blood pressure 132 mm[Hg] Teagan Nataprawira DO Work Phone: [facility] [employer] 07-24-2022 17:30-0500 Body height 154.94 cm Ana Cordova Other [facility] Other 07-24-2022 17:30-0500 Body mass index (BMI) [Ratio] 40.62 kg/m2 Ana Cordova Other [facility] Other 07-24-2022 17:30-0500 Body temperature 98.6 [degF] Ana Cordova Other [facility] Other 07-24-2022 17:30-0500 Body weight 97.52 kg Ana Cordova Other [facility] Other 07-24-2022 17:30-0500 Respiratory rate 18 /min Ana Cordova Other [facility] Other 07-24-2022 17:30-0500 SaO2% (BldA) [Mass fraction] 100 % Ana Cordova Other [facility] Other 10-09-2021 14:00-0500 Body height 154.94 cm Ana Cordova Other [facility] Other 10-09-2021 14:00-0500 Body mass index (BMI) [Ratio] 43.83 kg/m2 Ana Cordova Other [facility] Other 10-09-2021 14:00-0500 Body temperature 97.2 [degF] Ana Cordova Other [facility] Other 10-09-2021 14:00-0500 Body weight 105.24 kg Ana Cordova Other [facility] Other 10-09-2021 14:00-0500 Diastolic blood pressure 92 mm[Hg] Ana Cordova Other [facility] Other 10-09-2021 14:00-0500 Respiratory rate 18 /min Ana Cordova Other [facility] Other 10-09-2021 14:00-0500 SaO2% (BldA) [Mass fraction] 100 % Ana Woodwardault Other [facility] Other 10-09-2021 14:00-0500 Systolic blood pressure 141 mm[Hg] Ana Woodwardault Other [facility] Other 09-14-2021 11:30-0500 Body height 154.94 cm Ana Cordova Other [facility] Other 09-14-2021 11:30-0500 Body mass index (BMI) [Ratio] 45.34 kg/m2 Ana Cordova Other [facility] Other 09-14-2021 11:30-0500 Body temperature 96.8 [degF] Ana Cordova Other [facility] Other 09-14-2021 11:30-0500 Body weight 108.86 kg Ana Cordova Other [facility] Other 09-14-2021 11:30-0500 Diastolic blood pressure 84 mm[Hg] Ana Cordova Other [facility] Other 09-14-2021 11:30-0500 Respiratory rate 20 /min Ana Cordova Other [facility] Other 09-14-2021 11:30-0500 SaO2% (BldA) [Mass fraction] 99 % Ana Cordova Other [facility] Other 09-14-2021 11:30-0500 Systolic blood pressure 134 mm[Hg] Ana Cordova Other [facility] Other 08-26-2021 14:15-0500 Body height 154.94 cm Sheba Bustillo Other [facility] Other 08-26-2021 14:15-0500 Body mass index (BMI) [Ratio] 45.91 kg/m2 Sheba Bustillo Other [facility] Other 08-26-2021 14:15-0500 Body temperature 97.7 [degF] Sheba Bustillo Other [facility] Other 08-26-2021 14:15-0500 Body weight 110.22 kg Sheba Bustillo Other [facility] Other 08-26-2021 14:15-0500 Respiratory rate 18 /min Sheba Bustillo Other [facility] Other 08-26-2021 14:15-0500 SaO2% (BldA) [Mass fraction] 98 % Sheba Bustillo Other [facility] Other 06-13-2021 12:30-0500 Body height 154.94 cm Ana Woodwardault Other [facility] Other 06-13-2021 12:30-0500 Body mass index (BMI) [Ratio] 45.91 kg/m2 Ana Tasha Other [facility] Other 06-13-2021 12:30-0500 Body temperature 97.5 [degF] Ana Tasha Other [facility] Other 06-13-2021 12:30-0500 Body weight 110.22 kg Ana Tasha Other [facility] Other 06-13-2021 12:30-0500 Diastolic blood pressure 84 mm[Hg] Ana Tasha Other [facility] Other 06-13-2021 12:30-0500 Respiratory rate 18 /min Ana Cordova Other [facility] Other 06-13-2021 12:30-0500 SaO2% (BldA) [Mass fraction] 99 % Ana Cordova Other [facility] Other 06-13-2021 12:30-0500 Systolic blood pressure 136 mm[Hg] Ana Cordova Other [facility] Other Encounters Encounter Date Encounter Type Care Provider Facility Start: 02-01-2025 End: 02-01-2025 Office outpatient visit 15 minutes Dennis Keyshawn DO Work Phone: [facility] Comment on above: Pre-op examination; Menorrhagia with regular cycle; Pelvic pain; Abnormal uterine bleeding (AUB) Start: 02-01-2025 End: 02-01-2025 Preprocedural examination done Dennis Keyshawn DO Work Phone: [facility] Start: 02-01-2025 End: 02-01-2025 ambulatory DENNIS KEYSHAWN Not Available Start: 02-01-2025 End: 02-01-2025 Departed Referred Dennis Keyshawn -[facility] Start: 12-23-2024 End: 12-23-2024 Bamboo flowsheet Dennis Keyshawn DO Work Phone: [facility] Start: 12-23-2024 End: 12-23-2024 Bamboo flowsheet Dennis Keyshawn DO Work Phone: [facility] Start: 12-23-2024 End: 12-23-2024 ambulatory DENNIS KEYSHAWN Not Available Start: 12-23-2024 End: 12-23-2024 Office outpatient visit 15 minutes Dennis Keyshawn DO Work Phone: [facility] Comment on above: Menorrhagia with irr egular cycle Start: 10-06-2024 End: 10-06-2024 Office outpatient visit 25 minutes Yoselyn Hallman FUR MACHINE OPERATOR Work Phone: [facility] Comment on above: Sinus pressure (Prim juwan Dx); Acute non-recurrent maxillary sinusitis Start: 10-06-2024 End: 10-06-2024 ambulatory YOSELYN Hubert HALLMAN Not Available Start: 04-09-2024 End: 04-09-2024 ambulatory DO Teagan Gamez Facility:[facility] Start: 04-09-2024 End: 04-09-2024 Patient encounter procedure Teagan Gamez [facility] Start: 04-07-2024 End: 04-07-2024 Office outpatient visit 25 minutes Teagan Gamez DO Work Phone: [facility] Comment on above: Menorrhagia with reg ular cycle (Primary Dx); Dysmenorrhea; Pelvic pain in female; History of tubal ligation Start: 04-07-2024 End: 04-07-2024 ambulatory TEAGAN GAMEZ Not Available Start: 02-19-2024 End: 04-24-2024 Pre-admission assessment Teagan Vargasshae [facility] Start: 02-04-2024 End: 02-04-2024 ambulatory TEAGAN GAMEZ Not Available Start: 10-21-2023 End: 10-21-2023 ambulatory ANA CORDOVA Facility:[facility] Start: 10-21-2023 End: 10-21-2023 Patient encounter procedure ANA CORDOVA [facility] Start: 10-08-2023 End: 10-08-2023 ambulatory ANA CORDOVA Facility:[facility] Start: 07-24-2022 End: 07-24-2022 ambulatory Ana Cordova Other [facility] Other Start: 07-24-2022 Office outpatient vi sit 15 minutes Ana Cordova [facility] Start: 10-09-2021 End: 10-09-2021 ambulatory Ana Cordova Other [facility] Other Start: 10-09-2021 Office outpatient vi sit 15 minutes Ana Tasha [facility] Start: 10-04-2021 End: 10-05-2021 ambulatory ANA TASHA Facility:[facility] Start: 09-14-2021 End: 09-14-2021 ambulatory Anajosr Cordova Other [facility] Other Start: 09-14-2021 Office outpatient vi sit 15 minutes Ana Tasha [facility] Start: 08-26-2021 (URG) Urgent Care Visit Sheba Lavinia mendoza [facility] Start: 08-26-2021 End: 08-26-2021 ambulatory Sheba Bustillo Other [facility] Other Start: 06-13-2021 End: 06-13-2021 ambulatory Ana Cordova Other [facility] Other Start: 06-13-2021 Office outpatient vi sit 15 minutes Ana Tasha [facility] Family Medicine Varinder Start: 04-09-2021 Encounter for gynecological examination (general) (routine) without abnormal findings ANA CORDOVA [facility] Start: 03-21-2021 End: 03-22-2021 ambulatory ANA WOODWARDAULT Facility:H1 Start: 03-21-2021 End: 03-22-2021 Encounter for gynecological examination (general) (routine) without abnormal findings ANA CORDOVA Facility:H1 Procedures Date Procedure Procedure Detail Performing Clinician Start: 02-01-2025 Urine test visual color cmprsn meths Dennis Keyshawn DO Work Phone: Start: 12-23-2024 Urnls dip stick/tabl et rgnt non-auto w/o micrscp Dennis Keyshawn DO Work Phone: Start: 01-13-2024 Microscopic observat ion [Identifier] in Cervix by Cyto stain Teagan Vera DO Work Phone: Bilateral tubal ligation Mauricio zhang Aliciashae H/O: tubal ligation History of t ubal ligation Teagan Nuñez Vera DO Work Phone: Plan of Treatment Date Care Activity Detail Author Start: 01-12-2027 Screening for malign ant neoplasm of cervix [facility] Start: 04-05-2025 Influenza vaccination [facility] Start: 03-15-2025 End: 03-15-2025 Patient encounter procedure 03/15/2025 3:30 PM EDT Office Visit [facility] [address] [place] [address] Candy Lindsey PA [address] [place], [place] [address] [facility] Start: 02-01-2025 End: 02-01-2025 Patient encounter procedure 02/01/2025 3:30 PM EDT Procedure Visit [facility] [address] [place] [address] Dennis Mahajan DO [address] Thomas Hernandez, [facility] Start: 02-01-[address] [facility] Start: 05-28-2024 End: 05-28-2024 Patient encounter procedure 05/28/2024 3:15 PM EDT Office Visit [facility] [address] MARISA D [address] [address] Teagan Gamez DO [address] [address] [facility] Start: 04-23-2024 End: 04-23-2024 Patient encounter procedure 04/23/2024 9:00 AM EDT Procedure Visit [facility] EXT DEP Nataprawira, Teagan J, DO [address] [address] [facility] Start: 04-05-2024 Influenza vaccination Influenza Vacc ine (#1) [facility] Start: 2021 Screening for malign ant neoplasm of breast Mammogram [facility] Start: 12-08-2011 Screening for malign ant neoplasm of cervix HPV/Cotest [facility] Biopsy endometrium Biopsy endome trium Procedures Routine Menorrhagia with regular cycle Pelvic pain Abnormal uterine bleeding (AUB) Ordered: 02/01/2025 [facility] Work Phone: Comment on above: Ordered: 02/01/2025 Immunizations Immunization Date Immunization Notes Care Provider Fa [facility] 08-01-2007 influenza virus vaccine, unspecified formulation Teagan Gamez DO Work Phone: [facility] Payers Date Payer Category Payer Medicaid [employer] [place] [employer] [id number] 2024-Present [address] [place] [id number] 2024 Medicaid (Managed Care) [facility] MEDICAID [id number] 2023 Medicaid [id number] 2023 Self-pay 1981 Unknown [id number]. 593 1981 Unknown [id number] 2.16.840.1.615824.3.579.2. 593 1981 Unknown [id number] 2.16.840.1.857945.3.579.2. 727 1981 Unknown [id number] 2.16.840.1.554752.3.579.2. 727 1981 Unknown [id number] 2.16.840.1.635819.3.579.2. 727 1981 Unknown [id number] 2.16.840.1.333243.3.579.2. 72 1981 Unknown [id number] 2.16.840.1.713281.3.579.2. 1259 1981 Unknown [id number] 2.16.840.1.604706.3.579.2. 1258 1981 Unknown [id number] 2.16.840.1.723296.3.579.2. 9 1981 Unknown [id number] 2.16.840.1.860877.3.579.2. 1258 1981 Unknown [id number] 2.16.840.1.375794.3.579.2. 1259 1959 Unknown [id number] Unknown [id number] [id number]. 531 Social History Date Type Detail Facility Start: 02-04-2024 End: 04-07-2024 Sex Assigned At [facility] Tobacco smoking status No Smokin g Status Entered [facility] Tobacco Current vaping o r e-cigarette use Smokeless Tobacco Use:. Vaping [facility] Start: 01-13-2024 [facility] Start: 2000 History of tobacco use Current smoke r [facility] Start: 2000 History of tobacco use Cigarette Smo ker [facility] Start: 01-13-2024 End: 02-04-2024 Cigarettes smoked current (pack per day) - Reported 2 [facility] Start: 01-13-2024 Tobacco use and exposure Smokeless tobacco non-user [facility] Start: 04-07-2024 End: 02-01-2025 Alcoholic beverage intake Current drinker of alcohol (finding) [facility] Start: 1980 Sex assigned at Female [facility] Start: 01-06-2024 Gender identity Identifies as female gender (finding) [facility] Tobacco smoking stat [facility] Unknown if ever smoked [facility] Work Phone: Sex Female (finding) [facility] Functional Status Date Assessment Result Facility 04-09-2024 Functional Status No [facility] Clinical Notes 06-13-2021 to 02-01-2025 María Rasmussen - 02/01/2025 3:30 PM Luisito Clancy LPN - 12/23/2024 1:10 PM Katharine Hallman NP - 10/06/2024 4:00 PM Nadia Gamez DO - 04/07/2024 8:30 AM EDT Note Date & Type Note Facility 02-01-2025 History of Presen t illness Narrative Reason for Appointment: Patient ID: Yaquelin Hermosillo is a 44 y.o. female who presents for Pre-op Visit and EMBX Patient presents today for Pre Op/Endometrial Biopsy appointment. Patient is scheduled to undergo Endometrial Ablation with Jamia on 02-26-[address] Mahajan at [facility]. MEDICATIONS Current Outpatient Medications Medication Instructions DULoxetine (Cymbalta) [address] capsule 1 capsule, Every 24 hours ergocalciferol (Vitamin D-2) 1.25 MG (26934 UT) capsule hydrOXYzine HCl (Atarax) 25 MG tablet OLANZapine (ZyPREXA) 2.5 MG tablet Every 24 hours ALLERGIES Allergies Allergen Reactions Latex Itching and Rash PROBLEMS Active Ambulatory Problems Diagnosis Date Noted No Active Ambulatory Problems Resolved Ambulatory Problems Diagnosis Date Noted No Resolved Ambulatory Problems Past Medical History: Diagnosis Date Irregular menses March Urinary tract infection HISTORY PAST MEDICAL HISTORY SOCIAL HISTORY Past Medical History: Diagnosis Date Irregular menses March Urinary tract infection Social History Tobacco Use [...] Vitals: Estimated body mass index is 48.43 kg/m as calculated from the following: Height as of 12/23/24: 5' 2 . Weight as of 12/23/24: 264 lb 12.8 oz. BP: No LMP recorded. ASSESSMENT & PLAN ICD-10-CM 1. Pre-op examination Z01.818 2. Menorrhagia with regular cycle N92.0 3. Pelvic pain R10.2 4. Abnormal uterine bleeding (AUB) N93.9 Documented by Samia Clancy LPN on behalf of: Dennis Mahajan DO documented in this encounter [facility] 12-23-2024 History of Presen t illness Narrative Reason for Appointment: Patient ID: Yaquelin Hermosillo is a 44 y.o. female who presents for Menstrual Problem Patient presents today for Acute Visit. and Consult appointment. MEDICATIONS Current Outpatient Medications Medication Instructions DULoxetine (Cymbalta) [address] capsule 1 capsule, Every 24 hours ergocalciferol (Vitamin D-2) 1.25 MG (02806 UT) capsule hydrOXYzine HCl (Atarax) 25 MG [...] packs/day: 2.00 Average packs/day: 2.0 packs/day for 24.0 years (48.1 ttl pk-yrs) Types: Cigarettes Start date: 2000 [...] Respiratory: Negative. Cardiovascular: Negative. Gastrointestinal: Negative. Genitourinary: Positive for menstrual problem. Musculoskeletal: Negative. Skin: Negative. Neurological: Negative. All other systems reviewed and are negative. Hematological: Negative. Endocrine: Negative. Allergic/Immunologic: Negative. OBJECTIVE Objective: Physical Exam Constitutional: Appearance: Normal appearance. She is well-developed. Cardiovascular: Rate and Rhythm: Normal rate and regular rhythm. Pulmonary: Effort: Pulmonary effort is normal. Breath sounds: Normal breath sounds. Abdominal: General: Bowel sounds are normal. There is no distension. Palpations: Abdomen is soft. Tenderness: There is no abdominal tenderness. There is no guarding or rebound. Musculoskeletal: General: No swelling. Normal range of motion. Right lower leg: No edema. Left lower leg: No edema. Neurological: Mental Status: She is alert and oriented to person, place, and time. Skin: General: Skin is warm and dry. Psychiatric: Mood and Affect: Mood normal. Behavior: Behavior normal. Vitals and nursing note reviewed. Exam conducted with a tooth cutter present. Vitals: Estimated body mass index is 48.43 kg/m as calculated from the following: Height as of this encounter: 5' 2 . Weight as of this encounter: 264 lb 12.8 oz. BP: 120/82 Patient's last menstrual period was 12/11/2024. ASSESSMENT & PLAN ICD-10-CM 1. Menorrhagia with irregular cycle N92.1 POCT urinalysis dipstick manually resulted Pt presents with complaints of heavy menstrual periods. Pt had labs and ultrasound done will get results. Pt desires surgical management. Pt to be scheduled for endometrial ablation, and return for preop/embx. Pt considering future hysterectomy. Documented by Samia Clancy LPN on behalf of: Dennis Mahajan DO documented in this encounter [facility] 10-06-2024 History of Presen t illness Narrative Images from the original note were not included. [address] , [address] [facility], [address] P: [phone] F: [phone] HPI Historian of HPI: patient Yaquelin Hermosillo [...] tablet; Refill: 0 documented in this encounter [facility] 04-07-2024 History of Presen t illness Narrative [...] bowel habits. Pelvic ultrasound done 10/21/23 at [facility] revealed uterus measuring 9.8x5.5x3.7cm. Endometrial thickness measuring 1.5cm. Right ovary measuring 1.8x2.0x1.2cm. Left ovary measuring 2.7x2.4x2.2cm. 1cm in diameter left ovarian cyst noted. No free fluid in the pelvis and good blood flow to both ovaries. NILM pap-smear with negative High risk HPV (01/13/2024) Benign endometrial pathology (02/04/2024) Past Medical History: Diagnosis Date Irregular menses March Urinary tract infection Past Surgical History: Procedure [...] same time ergocalciferol (Vitamin D-2) 1.25 MG (23379 UT) capsule hydrOXYzine HCl (Atarax) 25 MG [...] of tubal ligation documented in this encounter [facility] 07-24-2022 Evaluation note Encounter Date Diagnosis Assessment [...] weeks for the cough to go away [employer] Other 03-07-2022 Evaluation note* Encounter Date Diagnosis [...] pain, unable to urinate were to return [employer] Other 02-10-2022 Evaluation note* Encounter Date Diagnosis [...] to be seen. Also always know the [facility] Emergency Number is 24 hours a day available, even on holidays there is someone you can reach out to. Also we will check other labs yearly to screen for other health issues. Please remember we are a team and your opinion is very important in all of your healthcare decisions Sep, Vitamin D deficiency (ICD-10 - E55.9) Sep, Psychophysiological insomnia (ICD-10 - F51.04) [facility] Other 11-09-2021 Evaluation note* Encounter Date Diagnosis [...] to be seen. Also always know the [facility] Emergency Number is 24 hours a day available, even on holidays there is someone you can reach out to. Also we will check other labs yearly to screen for other health issues. Please remember we are a team and your opinion is very important in all of your healthcare decisions [facility] Other Evaluation + Plan note No data available for this section [facility] Future Appointments Appointment Date:04/23/2024 09:00:00 AM Scheduled Provider: Location:[facility] Appointment Type:Surgery FT [facility] Evaluation noteNort [employer] Other Evaluation note* Diagnosis Menorrhagia with regular cycle- Primary Dysmenorrhea Pelvic pain in female Unspecified symptom associated with female genital organs History of tubal ligation Tubal ligation status documented in this encounter [facility]* Diagnosis Sinus pressure- Primary Other diseases of nasal cavity and sinuses Acute non-recurrent maxillary sinusitis documented in this encounter [facility] Healthcare[facility] note* Diagnosis Menorrhagia with irregular cycle documented in this encounter [facility] HealthcareEvaluation noteNo assessment information available[facility] [employer] Work Phone: Evaluation note* Diagnosis Pre-op examination Menorrhagia with regular cycle Pelvic pain Abnormal uterine bleeding (AUB) documented in this [facility] Narrative - Reported* Type Description Date Medical History anxiety Surgical History tubal ligation [facility] [employer] Other History general [facility] - [facility] [employer] Other Hospital Discharge instructions No data available for this section [facility] No data available for this section [facility]Reason for referral (narrative)No reason for referral information availableMarietta [facility] Work Phone: Summary Purpose Family History Relationship Condition Age at Onset Recorded Date/T bernardo father Hypertension Unknown Advance Directives Advance Directive Response Recorded Date/ Time Advance Directives No October 26, 020 9:26am Additional Source Comments INFORMATION SOURCE (unrecogn ized section and content) DATE CREATED AUTHOR 10/07/2021 [facility] pital DATE CREATED AUTHOR AUTHOR'S ORGANIZ ATION 04/10/2024 [employer] [facility] DATE CREATED AUTHOR AUTHOR'S ORGANIZ ATION 04/11/2024 [place] [facility] DATE CREATED AUTHOR AUTHOR'S ORGANIZ ATION 05/10/2024 [place] [facility] DATE CREATED AUTHOR AUTHOR'S ORGANIZ ATION 02/02/2025 [facility] DATE CREATED AUTHOR AUTHOR'S ORGANIZ ATION 02/04/2025 [facility] REASON FOR VISIT (unrecogniz ed section and [...] any changes to urinary or bowel habits. Reason Comments Menstrual Problem Reason Comments Pre-op Visit EMBX Patient Care team informatio n (unrecognized section and content) Grain Buyer Relationship Specialty Start Date End Date Rudy Taylor MD [address] [place] [address] PCP - General Family Medicine 01/13/24 Grain Buyer Relationship Specialty Start Date End Date Rudy Taylor MD [address] [place] [address] PCP - General Family Medicine 01/13/24 Grain Buyer Relationship Specialty Start Date End Date Rudy Taylor MD [address] [place] [address] PCP - General Family Medicine 01/13/24 Grain Buyer Relationship Specialty Start Date End Date Rudy Taylor MD [address] [place] [address] PCP - General Family Medicine 01/13/24 Team Status: Inactive Member Role Status Dates Dennis Mahajan DO Attending Provider Active Start : February 01, 2025 End: February 01, 2025 Grain Buyer Relationship Specialty Start Date End Date Rudy Taylor MD [address] [place] [address] PCP - General Family Medicine 01/13/24 Goals (unrecognized section and content) Goals may be documented in a n alternate section FOR RECORDS PERTAINING TO PATIENTS WHO ARE [...] BE BASED ON THE PRIMARY CLINICAL RECORDS. [facility]. provides no warranty or guarantee of the accuracy or completeness of information in this document.
== END 2025-02-01 14:11 | disposition home or self-care (01) ==
LOC: LAB 14:10
PROVIDERS: PCP Family Medicine; Visit Provider Obstetrics & Gynecology
DX: N92.1 Excessive and frequent menstruation with irregular cycle (principal)

== ENCOUNTER 2025-02-18 12:26 | Outpatient (OUT) | payer OTHER, SELFPAY ==
--- OUTSIDE RECORDS SUMMARY | 2025-02-18 12:30 | XMS_ITS | Clinical Summary ---
Author Organization [facility] Address [address] [place] [address] Care Team Providers Care Admissions Manager Name Role Phone Rudy Taylor MD Primary Care Provider Allergies Active Allergy Reactions Criticality Noted Date Comments Latex Itching,Rash Low 01/06/2024 Medications ergocalciferol (Vitamin D-2) 1.25 MG (46229 UT) capsule 01/06/2024 Active DULoxetine (Cymbalta) [address] capsule 1 capsule 1 (one) time each day at the same time Active hydrOXYzine HCl (Atarax) 25 MG tablet 01/08/2024 Active OLANZapine (ZyPREXA) 2.5 MG tablet 1 (one) time each day at the same time 08/18/2024 Active Encounters Date Type Department Care Team Description 02/17/2025 Telephone [facility] [address] [phone] Yaquelin Simon LPN 02/10/2025 Abstract [facility] [address] [place] [address] Felicita Duarte MA 02/01/2025 3:30 PM EDT Procedure Visit [facility] [address] [place] [address] Misael Mahajan DO Pre-op examination; Menorrhagia with regular cycle; Pelvic pain; Abnormal uterine bleeding (AUB) 02/01/2025 External Result Encounter [facility] External Department Unsolicited Misael Mahajan DO 12/24/2024 Abstract [facility]OM[facility] [address] [place] [address] Misael Mahajan DO 12/23/2024 1:10 PM EDT Office Visit [facility] [address] [place] [address] Misael Mahajan DO Menorrhagia with irregular cycle 12/23/2024 Bamboo flowsheet NOM[facility] [address] [place] [address] Misael Mahajan DO from Last 3 Months [...] [facility] [place] [address] Candy Lindsey PA [address] [place] [address] Health Maintenance Due Date Last Done Comments [...] Negative Urine 02/01/2025 3:56 PM EDT Misael Keyshawn DO POINT OF CARE TEST ENTER/EDIT OR DERABLES Final Result * PATHOLOGY REQUEST FOR LAB ARLIN (02/01/2025 12:00 AM EDT) Pathologist [facility] PATHOLOGY REQUEST FOR LAB ARLIN 02/09/2025 7:56 AM EDT [facility] Comment:See report. Scanned copy available in EMR. Other Topography unknown / Unknown 02/01/2025 02/02/2025 1:34 PM EDT Narrative [facility] - 02/09/2025 7:56 AM EDT EMB Misael Keyshawn DO LAB BLOOD ORDERABLES Final Resul t [facility] [address] [place] [address], [facility] [address] [place] [id number] * (ABNORMAL) POCT urinalysis dipstick manually resulted (12/23/2024 1:43 PM EDT) [facility] Color, UA Yellow Clarity, UA Clear Glucose, [...] - Positive Urine 12/23/2024 1:43 PM EDT Swipesensezio DO POINT OF CARE TEST ENTER/EDIT OR DERABLES Final Result * THINPREP TIS PAP AND HPV MRNA E6/E7 WITH REFLEX TO HPV 16,18/45 (01/13/2024 12:00 AM EDT) Pathologist [facility] CLINICAL INFORMATION [facility] Comment:None given LMP [facility] Comment:None given PREV. PAP [facility] Comment:None given PREV. BX [facility] Comment:None given SOURCE [facility] Comment:None given STATEMENT OF ADEQUACY [facility] Comment: Satisfactory for evaluation. Endocervical/transformation zone component present. INTERPRETATION/RESU LT [facility] Comment: Cytology Results: Negative for intraepithelial lesion or malignancy. COMMENT [facility] Comment: This Pap test has been evaluated with computer assisted technology. HOSE SEAMER [facility] Comment: SPS, CT(ASCP) CT Screening Location: [facility], [address] [place] [id number] (ALWAYS MESSAGE) [facility] Comment: EXPLANATORY NOTE: The [...] Not Detected Not Detected [facility] Comment: Methodology: Assistant Refinery Operator-Mediated Amplification This assay detects E6/E7 viral messenger RNA (mRNA) from 14 high-risk HPV types (16,18,31,33,35,39,45,51,52,56,58,59,66,68). Cervical sources are required for HPV testing. If a vaginal source from a patient who has had a total hysterectomy with removal of cervix was submitted, please contact the testing laboratory for alternative testing options. For additional information, please refer to http://education.Gravity R&D/faq/WEJ746j5 (This link if provided for information/ educational purposes only.) Swab (specimen) 01/13/2024 4 2:42 AM EDT Narrative Resulting Agency Comment Performing Organization Information Site ID: [id number] Name: [facility] Address: [address] [place] [address], [address] [place] [id number] Director: Ranjeet Palumbo MD us Teagan Gamez DO LAB CYTOLOGY ORDERABLES Fi nal Result [facility] from Last 3 Months or Most Recently Relevant to Health Maintenance Insurance [employer] Care Teams Admissions Manager Relationship Specialty Start Date End Date Rudy Taylor MD [address] [place] [address] PCP - General Family Medicine 01/13/24
--- OUTSIDE RECORDS SUMMARY | 2025-02-18 12:30 | XMS_ITS | Encounter Summary ---
Author Organization [facility] Address [address] [facility] [place] [address] Care Team Providers Care Soap Slabber Name Role Phone Rudy Taylor MD Primary Care Provider [phone] Encounter Details Date Type Department Care Team (Late Contact Info) Description 02/01/2025 External Result Encounter [facility] External Department Unsolicited Misael Mahajan, DO [address] [place] [address] Social History Tobacco Use Types Packs/Day Years [...] EDT Office Visit [facility] [address] [facility] [place] [phone] Candy Lindsey PA [address] [place] [address] documented as of this encounter Procedures Procedure Name Priority Date/Time Associated Diagnosis Comments PATHOLOGY REQUEST FOR LAB ARLIN Routine 02/01/2025 12:00 AM EDT documented in this encounter Results * PATHOLOGY REQUEST FOR LAB ARLIN (02/01/2025 12:00 AM EDT) PATHOLOGY REQUEST FOR LAB ARLIN 02/09/2025 7:56 AM EDT [facility] Comment:See report. Scanned copy available in EMR. Other Topography unknown / Unknown 02/01/2025 02/02/2025 1:34 PM EDT Narrative [facility] - 02/09/2025 7:56 AM EDT EMB us Misael Keyshawn DO LAB BLOOD ORDERABLES Final Resul t [facility] [address] [place] [address], [facility] [address] [place] [address] documented in this encounter Visit Diagnoses Not on filedocumented in this encounter Care Teams Soap Slabber Relationship Specialty Start Date End Date Rudy Taylor MD [address] [place] [address] PCP - General Family Medicine 01/13/24 documented as of this encounter
--- OUTSIDE RECORDS SUMMARY | 2025-02-18 12:30 | XMS_ITS | Encounter Summary ---
Author Organization [facility] Address [address] [facility] [place] [address] Care Team Providers Care Ebd Teacher Name Role Phone Rudy Taylor MD Primary Care Provider +1- [phone] Encounter Details Date Type Department Care Team (Late Contact Info) Description 12/24/2024 Abstract [facility] [address] [facility] [place] [phone] Misael Mahajan, [address] [place] [address] Social History Tobacco Use Types Packs/Day Years [...] 03/15/2025 3:30 PM EDT Office Visit [facility] [address] [facility] [place] [address] Candy Lindsey PA [address] [place] [address] [place] [address] documented as of this encounter Visit Diagnoses Not on filedocumented in this encounter Care Teams Ebd Teacher Relationship Specialty Start Date End Date Rudy Taylor MD [address] [facility] [address] [place] [address] PCP - General Family Medicine 01/13/24 documented as of this encounter
--- OUTSIDE RECORDS SUMMARY | 2025-02-18 12:30 | XMS_ITS | Encounter Summary ---
Author Organization [facility] Address [address] [place] [address] Care Team Providers Care Food Taster Name Role Phone Rudy Taylor MD Primary Care Provider [phone]- [phone] Encounter Details Date Type Department Care Team ([facility] Contact Info) Description 02/17/2025 Telephone [facility] OB [address] [place] D [address] [phone] Yaquelin Simon LPN Social History Tobacco Use Types Packs/Day Years [...] on file documented as of this encounter Miscellaneous Notes * Telephone Encounter - Yaquelin Simon LPN - 02/17/2025 11:12 AM EDT Erroneous encounter documented in this encounter Plan of Treatment Upcoming Encounters Date Type Department Care Team ([facility] st Contact Info) Description 03/15/2025 3:30 PM EDT Office Visit [facility] OB [address] [facility] [place] [phone] Candy Lindsey PA [address] [facility] [place] [address] documented as of this encounter Visit Diagnoses Not on filedocumented in this encounter Care Teams Food Taster Relationship Specialty Start Date End Date Rudy Taylor MD [address] [place] [address] PCP - General Family Medicine 01/13/24 documented as of this encounter
--- OUTSIDE RECORDS SUMMARY | 2025-02-18 12:30 | XMS_ITS | Encounter Summary ---
Author Organization [facility] Address [address] [place] [address] Care Team Providers Care Modeler Name Role Phone Rudy Taylor MD Primary Care Provider +1- [phone] Encounter Details Date Type Department Care Team (Late Contact Info) Description 04/15/2024 Orders Only [facility] OB [address] MARISA D [address] [phone] Teagan Gamez, DO [address] [phone] Social History Tobacco Use Types Packs/Day Years [...] BCP OB [address] [place] [address] Candy Lindsey PA [address] [facility] [place] [address] documented as of this encounter Procedures Procedure [...] on filedocumented in this encounter Care Teams Modeler Relationship Specialty Start Date End Date Rudy Taylor MD [address] [place] [address] PCP - General Family Medicine 01/13/24 documented as of this encounter
--- OUTSIDE RECORDS SUMMARY | 2025-02-18 12:30 | XMS_ITS | Encounter Summary ---
Author Organization [facility] Address [address] [place] [facility] [address] Care Team Providers Care Tool Maker Name Role Phone Rudy Taylor MD Primary Care Provider +1- [phone] Encounter Details Date Type Department Care Team (Late Contact Info) Description 02/11/2024 Orders Only [facility] OB [address] MARISA Be [address] [phone] Connie Mesa MA History of tubal ligation [...] EDT Office Visit [facility] OB [address] [facility] [place] [phone] Candy Lindsey PA [address] [facility] [place] [address] documented as of this encounter Visit Diagnoses Diagnosis History of tubal ligation Tubal ligation status documented in this encounter Care Teams Tool Maker Relationship Specialty Start Date End Date Rudy Taylor MD [address] [place] [address] PCP - General Family Medicine 01/13/24 documented as of this encounter
--- OUTSIDE RECORDS SUMMARY | 2025-02-18 12:30 | XMS_ITS | Encounter Summary ---
Author Organization [facility] Address [address] [place] [facility] [place] [address] Care Team Providers Care Narrow Gauge Brakeman Name Role Phone Rudy Taylor MD Primary Care Provider +1- [phone] Encounter Details Date Type Department Care Team (Late Contact Info) Description 02/10/2025 Abstract [facility] OB [address] [facility] [place] [address] Felicita Duarte MA Social History Tobacco Use Types Packs/Day Years [...] 03/15/2025 3:30 PM EDT Office Visit [facility] [address] [place] [address] Candy Lindsey PA [address] [facility] [address] [place], [place] [phone] documented as of this encounter Visit Diagnoses Not on filedocumented in this encounter Care Teams Narrow Gauge Brakeman Relationship Specialty Start Date End Date Rudy Taylor MD [address] [place] [address] PCP - General Family Medicine 01/13/24 documented as of this encounter
--- NOTE | 2025-02-18 12:39 | XR_ITS ---
The [address] [address] Patient Name: NAYE REED MRN: [id number] date: 1980 Sex: F Assigned Patient Location: [facility] Current Patient Location: [facility] Accession/Order Number: [id number] Exam Date: 02/18/2025 14:56 Report Date: 02/18/2025 14:56 At the request of: DENNIS GEORGE DO Procedure: XR chest 2V PA AND LATERAL CHEST: CLINICAL HISTORY: Preop exam COMPARISON: None FINDINGS: Unremarkable cardiomediastinal. Lungs clear. No effusion or pneumothorax. XR/XR chest 2V IMPRESSION: NO ACUTE CARDIOPULMONARY ABNORMALITY. Impression dictated by: Jean Villarreal M.D. 02/18/2025 2:56 PM Dictation Location: [place] [address] Electronically authenticated by: [id number] Date: 02/18/2025 14:56
--- OUTSIDE RECORDS SUMMARY | 2025-02-18 12:50 | XMS_ITS | CCD ---
Author Organization [facility] Care Team Providers Care Inspector [employer] Name Role Phone ANA CORDOVA Primary Care Unavailable MARKER, DR FREGOSO Admitting Unavailable MARKER, DR FREGOSO Attending Unavailable MARKER, DR FREGOSO Consulting Unavailable CHET HARP Consulting Unavailable ANA CORDOVA Admitting Unavailable ANA CORDOVA Attending Unavailable ANA CORDOVA Primary Care Unavailable ANA CORDOVA Consulting Unavailable Ana Cordova Unavailable Sheba Bustillo Unavailable ANA CORDOVA Primary Care Physician [phone] ANA CORDOVA Admitting Unavailable ANA CORDOVA Primary [...] ANA Farley Primary Care Unavailable Claudia BLUNT, Rudy Fuentes Primary Care Provider [phone] YOSELYN HALLMAN Attending Unavailable DENNIS MAHAJAN Attending Unavailable TEAGAN GAMEZ Attending Unavailable TEAGAN GAMEZ Attending Unavailable DENNIS MAHAJAN Attending Unavailable Dennis Mahajan DO Attending Provider Dennis Mahajan Attending Unavailable Dennis Mahajan Admitting Unavailable Allergies Allergy Classification Reported Allergen(s) Allergy Type Date of Onset Reaction(s) Facility (1 source) natural latex rubber Drug allergy (disorder) [facility] Repository (12 sources) Latex; Translations: [Latex] Drug allergy Itching, Rash [facility] (1 source) No Known Medication Allergies; Translations: [No Known Medication Allergies] Propensity to adverse reactions (disorder) [facility] Repository Medications Current Medications Medication Drug Class(es) Dates Sig (Normalized) Sig (Original) [id number] 200 actuat albuterol 0.09 mg/actuat metered dose [...] Mar, Active DULoxetine 60 mg oral capsule (14 sources) Serotonin and Norepinephrine Reuptake Inhibitor Start: [...] Status: Ordered ergocalciferol 1.25 mg oral capsule (14 sources) Provitamin D2 Compound Start: 01-06-2024 ergocalciferol (Vitamin D-2) 1.25 MG (72553 UT) capsule 01/06/2024 Active Start: 06-13-2021 take 1 capsule by mo [facility] every week Ergocalciferol 1.25 MG (16394 UT) 1 capsule Orally weekly for 30 day(s) Jun, Active hydrOXYzine hydrochloride 25 mg oral tablet (16 sources) Antihistamine Start: 01-08-2024 hydrOXYzine HC l (Atarax) 25 MG tablet 01/08/2024 Active Start: 05-17-2020 hydrOXYzine HC l 10 MG as directed Orally at bedtime for 30 day(s) May, Not-Taking methylPREDNISolone 4 mg oral tablet (1 source) Corticosteroid Start: 07-24-2022 methylPREDNISolone 4 MG as directed Orally Once a day for 6 days Jul, Active OLANZapine 2.5 mg oral tablet (7 sources) Atypical Antipsychotic Start: 08-18-2024 OLANZapine (ZyPREXA) 2.5 MG tablet 1 (one) time each day at the same time 08/18/2024 Active Vitamin D (2 sources) Start: 04-09-2024 Vitamin D Oral, qWeek, Refills(s) 0, Prophylaxis Start Date: 04/09/24 Status: Ordered Completed/Discontinued Medications Medication Drug Class(es) Dates Sig (Normalized) Sig (Original) Dosoquin 5500-200 UNIT-MCG (5 sources) Start: 12-01-2019 Start: 12-01-2019 [facility] 1 tablet by [facility] daily at mealtime Dosoquin 5500-200 [...] Test Name Value Interpretation Reference Range Facility PATHOLOGY REQUEST FOR LAB CO RPon 02-09-2025 PATHOLOGY REQUEST FOR LAB ARLIN [facility] Comment on above: See report. Scanned copy available in EMR. EMB [facility] HCG ( test) Ql (U)O rdered By: Arely Sosa on 02-01-2025 Interpretation and review of laboratory results Normal [facility] Work Phone: Preg Test, Ur Negative Negative [facility] Health care Work Phone: [facility] [employer] Work Phone: Pathology Request for Lab Co rpon 02-01-2025 Pathology Request for Lab Arlin Normal [facility] Comment on above: Order Comment: EMB Result Comment: See report. Scanned copy available in EMR. PERFORMED BY: [place] [address] PATHOLOGIST CORPORATE RELATIONS DIRECTOR LUIS ANTONIO OLEA M.D. Performed By: #### P ATH TO [facility] #### [address] Urinalysis macro (dipstick) panel (U)on 12-23-2024 Bilirubin, UA Negative Negative - 4(70) +++ mg/dL [facility] Blood, UA Positive Negative - 50 Jah/mcL [facility] Comment on above: trace-intact Clarity, UA Clear [facility] re Color, UA Yellow [facility] Health[facility] e Glucose, UA Negative Negative - 1999(110) ++++ mg/dL [facility] Interpretation and review of laboratory results Abnormal [facility] Ketones, UA Negative Negative - 160(16) ++++ mg/dL [facility] Leukocytes, UA Negative Negative - 500+++ Amy/mcL [facility] Nitrite, UA Negative Negative - Positive [facility] pH, UA 7.5 5 - 9 [facility] e Protein, UA Negative Negative - 1999(20) ++++ mg/dL [facility] Spec Grav, UA 1.02 1 - 1.03 [facility] Urobilinogen, UA 1.0 0.2 - 12 mg/dL [facility] Health[facility] e XR Chest 2 Viewson XR Chest 2 [...] mGy = na DAP = na Normal [facility] ABO/Rh Retypeon 04-09-2024 ABO/Rh Retype Interp Positive Invalid Interpretation Code [facility] Comment on above: Performed By: #### 1 [id number] #### [facility] Laboratory [address] [place] [address] BLOOD BANKOrdered By: Debo Galindo on 04-09-2024 ABO/Rh Retype Interp Positive Invalid Interpretation Code [facility] BB Subsection BMPon 04-09-2024 Anion gap [Moles/Vol] 9 mmol/L Normal 6-16 [facility] Comment on above: Performed By: #### 2 [id number] #### [facility] Laboratory [address] [place] [address] Calcium [Mass/Vol] 9.2 mg/dL Normal 8.9-11.1 [facility] Comment on above: Performed By: #### 2 315245 #### [facility] Laboratory [address] [place] [address] Chloride [Moles/Vol] 106 mmol/L Normal 101-111 [facility] Comment on above: Performed By: #### 2 112010 #### [facility] Laboratory [address] [place] [address] CO2 [Moles/Vol] 27 mmol/L Normal 21-31 [facility] Comment on above: Performed By: #### 2 562762 #### [facility] Laboratory [address] [place] [address] Creatinine [Mass/Vol] 0.8 mg/dL Normal 0.5-1.3 [facility] Comment on above: Performed By: #### 2 203009 #### [facility] Laboratory [address] [place] [address] Glucose [Mass/Vol] 79 mg/dL Normal 55-199 [facility] Comment on above: Performed By: #### 2 677060 #### [facility] Laboratory [address] [place] [address] Potassium [Moles/Vol] 4.1 mmol/L Normal 3.5-5.3 [facility] Comment on above: Performed By: #### 2 579249 #### [facility] Laboratory [address] [place] [address] Sodium [Moles/Vol] 138 mmol/L Normal 135-145 [facility] Comment on above: Performed By: #### 2 553234 #### [facility] Laboratory [address] [place] [address] Urea nitrogen [Mass/Vol] 11 mg/dL Normal 5-21 [facility] Comment on above: Performed By: #### 2 142038 #### [facility] Laboratory [address] [place] [address] Urea nitrogen/Creatinine [Mass ratio] 14 No Units Normal 10-20 [facility] Comment on above: Performed By: #### 2 088669 #### [facility] Laboratory [address] [place] [address] CBC w/ Auto Diffon 4 Basophils/100 WBC (Bld) 0.6 % Normal 0.0-2.0 [facility] Comment on above: Performed By: #### 2 251647 #### [facility] Laboratory [address] [place] [address] Basophils/Leukocytes Auto (Bld) [Pure # fraction] 0.0 E9/L Normal 0.0-0.2 [facility] Comment on above: Performed By: #### 2 752491 #### [facility] Laboratory [address] [place] [address] Eosinophils (Bld) [#/Vol] 0.2 E9/L Normal 0.0-0.5 [facility] Comment on above: Performed By: #### 2 290836 #### [facility] Laboratory [address] [place] [address] Eosinophils/100 WBC (Bld) 2.5 % Normal 0.0-8.0 [facility] Comment on above: Performed By: #### 2 291153 #### [facility] Laboratory [address] [place] [address] Erythrocyte distribution width (RBC) [Ratio] 13.6 % Normal 10.9-14.2 [facility] Comment on above: Performed By: #### 2 881523 #### [facility] Laboratory [address] [place] [address] Hematocrit (Bld) [Volume fraction] 41.6 % Normal 34.0-46.0 [facility] Comment on above: Performed By: #### 2 133273 #### [facility] Laboratory [address] [place] [address] Hemoglobin (Bld) [Mass/Vol] 13.8 g/dL Normal 12.0-16.0 [facility] Comment on above: Performed By: #### 2 895852 #### [facility] Laboratory [address] [place] [address] Lymphocytes (Bld) [#/Vol] 2.2 E9/L Normal 1.0-4.0 [facility] Comment on above: Performed By: #### 2 799716 #### [facility] Laboratory [address] [place] [address] Lymphocytes/100 WBC (Bld) 31.2 % Normal 14.0-50.0 [facility] Comment on above: Performed By: #### 2 440274 #### [facility] Laboratory [address] [place] [address] MCH (RBC) [Entitic mass] 28.0 pg Normal 27.0-34.0 [facility] Comment on above: Performed By: #### 2 503282 #### [facility] Laboratory [address] [place] [address] MCHC (RBC) [Mass/Vol] 33.1 g/dL Normal 31.4-36.0 [facility] Comment on above: Performed By: #### 2 268887 #### [facility] Laboratory [address] [place] [address] MCV (RBC) [Entitic vol] 84.6 fL Normal 80.0-100.0 [facility] Comment on above: Performed By: #### 2 017341 #### [facility] Laboratory [address] [place] [address] Monocytes (Bld) [#/Vol] 0.6 E9/L Normal 0.2-1.0 [facility] Comment on above: Performed By: #### 2 841525 #### [facility] Laboratory [address] [place] [address] Neutrophils (Bld) [#/Vol] 3.9 E9/L Normal 2.0-7.5 [facility] Comment on above: Performed By: #### 2 487342 #### [facility] Laboratory [address] [place] [address] Neutrophils/100 WBC (Bld) 56.5 % Normal 36.0-75.0 [facility] Comment on above: Performed By: #### 2 755102 #### [facility] Laboratory [address] [place] [address] Platelet mean volume (Bld) [Entitic vol] 7.9 fL Normal 6.4-10.8 [facility] Comment on above: Performed By: #### 2 819482 #### [facility] Laboratory [address] [place] [address] Platelets (Bld) [#/Vol] 339.0 E9/L Normal 150.0-500.0 [facility] Comment on above: Performed By: #### 2 026301 #### [facility] Laboratory [address] [place] [address] RBC (Bld) [#/Vol] 4.9 E12/L Normal 4.3-5.9 [facility] Comment on above: Performed By: #### 2 490747 #### [facility] Laboratory [address] [place] [address] WBC corrected for nucl RBC Auto (Bld) [#/Vol] 6.9 E9/L Normal 4.0-11.0 [facility] Comment on above: Performed By: #### 2 987996 #### [facility] Laboratory [address] [place] [address] CHEMISTRYOrdered By: SYSTEM SYSTEM on 04-09-2024 Anion [...] 04-09-2024 eGFR 94 mL/min/1.73 m2 Normal >=59 [facility] Comment on above: Order Comment: Order added by Discern Expert. Performed By: #### 1 [id number] #### [facility] Laboratory [address] [place] [address] US Pelvis Non-OB Completeon 10-22-2023 US Pelvis [...] MCKAYLA Technical Comments Transabdominal Ultrasound Performed Normal [facility] Physician Orderon 10-16-2023 Physician Order [id number] Normal [facility] FSH and LHon 10-11-2023 Follitropin Qn 12.7 m[IU]/mL Invalid Interpretation Code [facility] Comment on above: Result Comment: Adul t Female Range Follicular phase 3.5 - 12.5 Ovulation phase 4.7 - 21.5 Luteal phase 1.7 - 7.7 Postmenopausal 25.8 - 134.8 Performed at: [address] [id number] PhD Ngozi Mendoza Performed By: #### 2 822669, 91481295, 5883762, 87968348, 77418538 #### [facility] Laboratory [address] [place] [address] Lutropin Qn 3.9 m[IU]/mL Invalid Interpretation Code [facility] Comment on above: Result Comment: Adul t Female Range Follicular phase 2.4 - 12.6 Ovulation phase 14.0 - 95.6 Luteal phase 1.0 - 11.4 Postmenopausal 7.7 - 58.5 Performed By: #### 2 155649, 80168275, 1765192, 35189725, 55526355 #### [facility] Laboratory [address] [place] [address] CBC w/ Auto Diffon 4 Basophils/100 WBC (Bld) 0.4 % Normal 0.0-2.0 [facility] Comment on above: Performed By: #### 2 885884, 80777196, 8827049, 30848584, 75900810 #### [facility] Laboratory [address] [place] [address] Basophils/Leukocytes Auto (Bld) [Pure # fraction] 0.0 E9/L Normal 0.0-0.2 [facility] Comment on above: Performed By: #### 2 145446, 44354973, 0640082, 08636086, 99195993 #### [facility] Laboratory [address] [place] [address] Eosinophils (Bld) [#/Vol] 0.1 E9/L Normal 0.0-0.5 [facility] Comment on above: Performed By: #### 2 700026, 14364635, 9642151, 13003107, 81699439 #### [facility] Laboratory [address] [place], [place] [address] Eosinophils/100 WBC (Bld) 1.1 % Normal 0.0-8.0 [facility] Comment on above: Performed By: #### 2 071040, 27872340, 2566028, 30059942, 01257275 #### [facility] Laboratory [address] [place], [place] [address] Erythrocyte distribution width (RBC) [Ratio] 15.3 % High 10.9-14.2 [facility] Comment on above: Performed By: #### 2 318203, 66196178, 0705467, 39127005, 95800684 #### [facility] Laboratory [address] [place], [place] [address] Hematocrit (Bld) [Volume fraction] 42.7 % Normal 34.0-46.0 [facility] Comment on above: Performed By: #### 2 136542, 73816778, 8679207, 76089219, 17696961 #### [facility] Laboratory [address] [place] [address] Hemoglobin (Bld) [Mass/Vol] 13.6 g/dL Normal 12.0-16.0 [facility] Comment on above: Performed By: #### 2 584767, 15113652, 7473175, 49152956, 55492335 #### [facility] Laboratory [address] [place] [address] Lymphocytes (Bld) [#/Vol] 1.9 E9/L Normal 1.0-4.0 [facility] Comment on above: Performed By: #### 2 654697, 95176580, 1824143, 85163565, 29624551 #### [facility] Laboratory [address] [place] [address] Lymphocytes/100 WBC (Bld) 27.7 % Normal 14.0-50.0 [facility] Comment on above: Performed By: #### 2 852281, 89693537, 8214631, 79982744, 37667451 #### [facility] Laboratory [address] [place] [address] MCH (RBC) [Entitic mass] 28.1 pg Normal 27.0-34.0 [facility] Comment on above: Performed By: #### 2 138889, 23751168, 8708240, 52145477, 45015392 #### [facility] Laboratory [address] [place] [address] MCHC (RBC) [Mass/Vol] 31.8 g/dL Normal 31.4-36.0 [facility] Comment on above: Performed By: #### 2 553422, 11210373, 4170405, 04404769, 65537070 #### [facility] Laboratory [address] [place] [address] MCV (RBC) [Entitic vol] 88.3 fL Normal 80.0-100.0 [facility] Comment on above: Performed By: #### 2 074520, 68490186, 7573081, 26135512, 50050453 #### [facility] Laboratory [address] [place] [address] Monocytes (Bld) [#/Vol] 0.4 E9/L Normal 0.2-1.0 [facility] Comment on above: Performed By: #### 2 259985, 76309023, 6525287, 65895553, 26432816 #### [facility] Laboratory [address] [place] [address] Neutrophils (Bld) [#/Vol] 4.5 E9/L Normal 2.0-7.5 [facility] Comment on above: Performed By: #### 2 165906, 78473082, 3654606, 12980091, 23949114 #### [facility] Laboratory [address] [place] [address] Neutrophils/100 WBC (Bld) 65.3 % Normal 36.0-75.0 [facility] Comment on above: Performed By: #### 2 130580, 88850341, 8638977, 28672695, 34953861 #### [facility] Laboratory [address] [place] [address] Platelet mean volume (Bld) [Entitic vol] 8.2 fL Normal 6.4-10.8 [facility] Comment on above: Performed By: #### 2 406276, 22798261, 2382068, 30655058, 43004296 #### [facility] Laboratory [address] [place] [address] Platelets (Bld) [#/Vol] 372.0 E9/L Normal 150.0-500.0 [facility] Comment on above: Performed By: #### 2 659897, 79977923, 4200479, 23504735, 92479593 #### [facility] Laboratory [address] [place] [address] RBC (Bld) [#/Vol] 4.8 E12/L Normal 4.3-5.9 [facility] Comment on above: Performed By: #### 2 870761, 55884400, 0237767, 32655057, 96431429 #### [facility] Laboratory [address] [place] [address] WBC corrected for nucl RBC Auto (Bld) [#/Vol] 6.9 E9/L Normal 4.0-11.0 [facility] Comment on above: Performed By: #### 2 671596, 62023144, 7360664, 93422330, 75154238 #### [facility] Laboratory [address] [address] CMPon 10-09-2023 Albumin [Mass/Vol] 4.4 g/dL Normal 3.3-5.0 [facility] Comment on above: Performed By: #### 2 389009, 29617266, 9756465, 61515398, 93420035 #### [facility] Laboratory [address] [place] [address] Albumin/Globulin (S) [Mass conc ratio] 1.8 Normal 1.1-2.2 [facility] Comment on above: Performed By: #### 2 493827, 45176779, 0207509, 83097711, 97939226 #### [facility] Laboratory [address] [place], [place] [address] ALP [Catalytic activity/Vol] 82 Int._Unit/L Normal 21-98 [facility] Comment on above: Performed By: #### 2 509288, 78842218, 5855476, 89539021, 53264486 #### [facility] Laboratory [address] [place] [address] ALT No additional P-5'-P [Catalytic activity/Vol] 13 Int._Unit/L Normal 6-46 [facility] Comment on above: Performed By: #### 2 461136, 60172540, 8994077, 42721938, 54477652 #### [facility] Laboratory [address] [place] [address] Anion gap [Moles/Vol] 12 mmol/L Normal 6-16 [facility] Comment on above: Performed By: #### 2 607011, 64642400, 1654795, 58538359, 89988802 #### [facility] Laboratory [address] [place] [address] AST [Catalytic activity/Vol] 14 Int._Unit/L Normal 5-43 [facility] Comment on above: Performed By: #### 2 770403, 45476993, 4037581, 42439274, 62039268 #### [facility] Laboratory [address] [place] [address] Bilirubin [Mass/Vol] 0.4 mg/dL Normal 0.0-1.1 [facility] Comment on above: Performed By: #### 2 010582, 97559253, 0361727, 13990600, 00560587 #### [facility] Laboratory [address] [place] [address] Calcium [Mass/Vol] 9.4 mg/dL Normal 8.9-11.1 [facility] Comment on above: Performed By: #### 2 944424, 24703553, 9457215, 09888452, 10637647 #### [facility] Laboratory [address] [place] [address] Chloride [Moles/Vol] 103 mmol/L Normal 101-111 [facility] Comment on above: Performed By: #### 2 033736, 06379585, 9861206, 29923919, 24019714 #### [facility] Laboratory [address] [place] [address] CO2 [Moles/Vol] 27 mmol/L Normal 21-31 [facility] Comment on above: Performed By: #### 2 567744, 70868827, 0319172, 38449408, 52763156 #### [facility] Laboratory [address] [place] [address] Creatinine [Mass/Vol] 0.8 mg/dL Normal 0.5-1.3 [facility] Comment on above: Performed By: #### 2 121627, 14327506, 6354099, 06893679, 64340499 #### [facility] Laboratory [address] [place] [address] Globulin (S) [Mass/Vol] 2.5 g/dL Normal 1.4-4.0 [facility] Comment on above: Performed By: #### 2 907565, 56633099, 3153554, 12065382, 20092533 #### [facility] Laboratory [address] [place] [address] Glucose [Mass/Vol] 86 mg/dL Normal 55-199 [facility] Comment on above: Performed By: #### 2 193796, 92086163, 3057799, 99157562, 15884023 #### [facility] Laboratory [address] [place] [address] Potassium [Moles/Vol] 4.6 mmol/L Normal 3.5-5.3 [facility] Comment on above: Performed By: #### 2 212732, 06229965, 2037555, 79847605, 71867261 #### [facility] Laboratory [address] [place] [address] Protein [Mass/Vol] 6.9 g/dL Normal 6.0-7.8 [facility] Comment on above: Performed By: #### 2 089173, 71347568, 3143026, 35625298, 64036339 #### [facility] Laboratory [address] [place] [address] Sodium [Moles/Vol] 137 mmol/L Normal 135-145 [facility] Comment on above: Performed By: #### 2 283533, 36991348, 7686332, 81960681, 42810613 #### [facility] Laboratory [address] [place] [address] Urea nitrogen [Mass/Vol] 12 mg/dL Normal 5-21 [facility] Comment on above: Performed By: #### 2 [id number], [id number] #### [facility] [address] [place] [address] Urea nitrogen/Creatinine [Mass ratio] 15 No Units Normal 10-20 [facility] Comment on above: Performed By: #### 2 [id number], [id number], [id number], [id number] #### [facility] [address] [place] [address] Physician Orderon 10-09-2023 Physician Order [id number] Normal [facility] T4 & TSHon 10-09-2023 TSH Qn 1.72 m[IU]/L Normal 0.34-5.60 [facility] Comment on above: Performed By: #### 2 [id number] #### [facility] [address] [place] [address] T4 [Mass/Vol] 10.1 microgram/dL High 4.6-9.1 [facility] Comment on above: Performed By: #### 2 [id number], [id number], [id number] #### [facility] [address] [place] [address] eGFRon 10-09-2023 eGFR 94 mL/min/1.73 m2 Normal >=59 [facility] Comment on above: Order Comment: Order added by Discern Expert. Performed By: #### 2 [id number], [id number] #### [facility] [address] [place] [address] COVID + FLU Quick Testingon 07-24-2022 SARS-CoV-2 (COVID-19) RNA YOUSUF+probe Ql (Unsp spec) Negative [facility] Other COVID + FLU Quick Testing Positive [facility] Other COVID + FLU Quick Testing Negative [facility] Other Urinalysis - AUTOMATEDon Appearance (U) cloudy [employer] Other Bilirubin Ql (U) Negative [employer] Other Color (U) dark yellow [facility] Other Glucose Ql (U) Negative [employer] Other Hemoglobin Ql (U) moderate [employer] Other Ketones Ql (U) Negative [employer] Other Leukocyte esterase Test strip Ql (U) trace [employer] Other Nitrite Ql (U) Negative [employer] Other pH (U) 6.0 [pH] [employer] Other Protein Ql (U) Negative [employer] Other Specific gravity (U) [Rel density] 1.025 [employer] Other Urobilinogen (U) [Mass/Vol] 1.0 mg/dL [facility] Other Urinalysis - AUTOMATED [facility] Other CULTURE URINEon 10-07-2021 CULTURE URINE Isolate [...] F Trimethoprim/Sulfa methoxazole <=20 S F Normal [facility] Comment on above: Performed By: #### U RCX #### [facility] [address] [place], [place] [address] ABD/PELVIS WO CONon [...] CHET HARP Date: 2021-10-04 22:37 Normal The [facility] ER URINE PROFILEon 2 Bilirubin Ql (U) Negative Normal NEGATIVE The [facility] Comment on above: Performed By: #### U MICRO, ERUR, PREGU #### [facility] [address] [address] [address] Jolanta Alvarado Clarity (U) SL CLOUDY Abnormal CLEAR The [facility] Comment on above: Performed By: #### U MICRO, ERUR, PREGU #### [facility] [address] [address] [address] Jolanta Alvarado Color (U) YELLOW Normal YELLOW The [facility] Comment on above: Performed By: #### U MICRO, ERUR, PREGU #### [facility] [address] [address] [address] Jolanta FOX A micrscopic examination will be performed if indicated. Normal The [facility] Comment on above: Performed By: #### U MICRO, ERUR, PREGU #### [facility] [address] [place] [address] Dr. Jolanta Alvarado Glucose Ql (U) Negative Normal NEGATIVE The [facility] Comment on above: Performed By: #### U MICRO, ERUR, PREGU #### [facility] [address] [address] [address] Jolanta Alvarado Hemoglobin Ql (U) LARGE Abnormal NEGATIVE The [facility] Comment on above: Performed By: #### U MICRO, ERUR, PREGU #### [facility] [address] [place] [address] Dr. Jolanta Alvarado Ketones Ql (U) TRACE Abnormal NEGATIVE The [facility] Comment on above: Performed By: #### U MICRO, ERUR, PREGU #### [facility] [address] [address] [address] Jolanta Alvarado LEUKOCYTES Negative Normal NEGATIVE The [facility] Comment on above: Performed By: #### U MICRO, ERUR, PREGU #### [facility] [address] [address] [address] Jolanta Alvarado Nitrite Ql (U) Positive Abnormal NEGATIVE The [facility] Comment on above: Performed By: #### U MICRO, ERUR, PREGU #### [facility] [address] [place] [address] Dr. Jolanta Alvarado pH (U) 5.5 [pH] Normal 5-9 [facility] Comment on above: Performed By: #### U MICRO, ERUR, PREGU #### [facility] [address] [address] [address] Jolanta Alvarado SPEC GRAVITY >=1.030 Abnormal 1.005-<=1.025 The [facility] Comment on above: Performed By: #### U MICRO, ERUR, PREGU #### [facility] [address] [address] [address] Jolanta Alvarado UA PROTEIN TRACE Normal NEGATIVE/ TRACE The [facility] Comment on above: Performed By: #### U MICRO, ERUR, PREGU #### [facility] [address] [address] [address] Jolanta Alvarado UR MICRO IND INDICATED Normal The [facility] Comment on above: Performed By: #### U MICRO, ERUR, PREGU #### [facility] [address] [place] [address] Dr. Jolanta Alvarado Urobilinogen Qn (U) 0.2 {Loyd'U}/dL Normal 0.2 - 1. 0 [facility] Comment on above: Performed By: #### U MICRO, ERUR, PREGU #### [facility] [address] [address] [address] Jolanta Alvarado URon 10-04-2021 , QUAL Negative Normal NEGATIVE The [facility] Comment on above: Performed By: #### U MICRO, ERUR, PREGU #### [facility] [address] [address] [address] Jolanta Alvarado URINE MICROSCOPIC ONLYon BACTERIA LARGE Abnormal NONE SEEN The [facility] Comment on above: Performed By: #### U MICRO, ERUR, PREGU #### [facility] [address] [address] [address] Jolanta Alvarado Bacteria identified Cx Nom (U) INDICATED Normal The [facility] Comment on above: Performed By: #### U MICRO, ERUR, PREGU #### [facility] [address] [address] [address] Joalnta Alvarado CAST NONE SEEN Normal NONE SEEN The [facility] Comment on above: Performed By: #### U MICRO, ERUR, PREGU #### [facility] [address] [address] [address] Jolanta Alvarado Crystals LM Nom (Urine sed) NONE SEEN Normal NONE SEEN The [facility] Comment on above: Performed By: #### U MICRO, ERUR, PREGU #### [facility] [address] [address] [address] Jolanta Alvarado Epithelial cells LM Ql (Urine sed) FEW Abnormal NONE SEEN /RARE The [facility] Comment on above: Performed By: #### U MICRO, ERUR, PREGU #### [facility] [address] [place] [address] Dr. Jolanta Alvarado MUCOUS SMALL Abnormal NONE SEEN [facility] Comment on above: Performed By: #### U MICRO, ERUR, PREGU #### [facility] [address] [place] [address] Dr. Jolanta Alvarado RBC (U) [#/Vol] /uL Abnormal 0-2 The [facility] Comment on above: Performed By: #### U MICRO, ERUR, PREGU #### [facility] [address] [place] [address] Dr. Jolanta Alvarado WBC 10-20 Abnormal NONE SEEN The [facility] Comment on above: Performed By: #### U MICRO, ERUR, PREGU #### [facility] [address] [place] [address] Dr. Jolanta Alvarado COVID Quick Testingon 2021 Result Negative [facility] Other Quick Fluon 08-26-2021 FLUAV Ab CF (S) [Titer] Negative [facility] Other FLUBV Ab CF (S) [Titer] Negative [facility] Other FREE T4on 03-21-2021 Free T4 [Mass/Vol] 0.81 ng/dL Normal 0.78-2.19 [facility] Comment on above: Performed By: #### F T4 #### [facility] [address] [place] [address] Jojo Gracia GLYCOHEMOGLOBIN A1Con 2020 ADA RECOMMENDATION ADA THERAPEUTIC TARGET 6.0 - 7.0 ACTION SUGGESTED > 7.0 Normal [facility] Comment on above: Performed By: #### A 1C #### [facility] [address], [place] [address] Jojo Gracia Glucose [Mass/Vol] 105 mg/dL Normal [facility] Comment on above: Performed By: #### A 1C #### [facility] [address], [place] [address] Jojo Gracia HbA1c (Bld) [Mass fraction] 5.3 % Normal <=6.0 [facility] Comment on above: Performed By: #### A 1C #### [facility] [address], [place] [address] Jojo Gracia LIPID PROFILEon 03-21-2021 CHOL-HDL RATIO NORM SEE BELOW Normal [facility] Comment on above: Result Comment: 3.3 - 4.4 LOW RISK 4.4 - 7.1 AVERAGE RISK 7.1 - 11.0 MODERATE RISK >11.0 HIGH RISK Performed By: #### C MP, LIPID, TSH #### [facility] [address], [place] [address] Jojo Samia Cholesterol [Mass/Vol] 165 mg/dL Normal <=200 [facility] Comment on above: Performed By: #### C MP, LIPID, TSH #### [facility] [address], [place] [address] Jojo Samia Cholesterol in HDL [Mass/Vol] 42 mg/dL Normal [facility] Comment on above: Performed By: #### C MP, LIPID, TSH #### [facility] [address], [place] [address] Jojo Samia Cholesterol in LDL [Mass/Vol] 109.6 mg/dL Normal [facility] Comment on above: Performed By: #### C MP, LIPID, TSH #### [facility] [address], [place] [address] Jojo Samia Cholesterol.total/Cho lesterol in HDL [Mass ratio] 3.9 {ratio} Normal [facility] Comment on above: Performed By: #### C MP, LIPID, TSH #### [facility] [address] [id number] Jojo Samia HDL NORMAL > or = 60 mg/dl - LOW CARDIOVASCULAR RISK <40 mg/dl - HIGH CARDIOVASCULAR RISK Normal [facility] Comment on above: Performed By: #### C MP, LIPID, TSH #### [facility] [address] [id number] Jojo Samia LDL CALC NORMAL SEE BELOW Normal The [facility] Comment on above: Result Comment: <100 mg/dl OPTIMAL 100 - 129 mg/dl NEAR OR ABOVE OPTIMAL 130 - 159 mg/dl BORDERLINE HIGH 160 - 189 mg/dl HIGH >190 mg/dl VERY HIGH Performed By: #### C MP, LIPID, TSH #### [facility] [address] [address] Jojo Samia Triglyceride [Mass/Vol] 67 mg/dL Normal <=150 [facility] Comment on above: Performed By: #### C MP, LIPID, TSH #### [facility] [address] [address] Jojo Samia VLDL CALC 13.4 mg/dL Normal [facility] Comment on above: Performed By: #### C MP, LIPID, TSH #### [facility] [address] [id number] Jojo Samia PROF 14(COMP METB)on 021 Albumin [Mass/Vol] 3.7 g/dL Normal 3.5-5.0 [facility] Comment on above: Performed By: #### C MP, LIPID, TSH #### [facility] [address] [place], [place] [id number] Jojo Samia Albumin/Globulin [Mass ratio] 1.0 {ratio} Normal [facility] Comment on above: Performed By: #### C MP, LIPID, TSH #### [facility] [address] [place] [address] Jojo Samia ALP [Catalytic activity/Vol] 102 U/L Normal 38-126 [facility] Comment on above: Performed By: #### C MP, LIPID, TSH #### [facility] [address] [address] Jojo Samia ALT [Catalytic activity/Vol] 33 U/L Normal 9-52 [facility] Comment on above: Performed By: #### C MP, LIPID, TSH #### [facility] [address] [id number] Jojo Samia Anion gap [Moles/Vol] 11.7 mmol/L Normal Th e [facility] Comment on above: Performed By: #### C MP, LIPID, TSH #### [facility] [address] [address] Jojo Samia AST [Catalytic activity/Vol] 24 U/L Normal 14-36 [facility] Comment on above: Performed By: #### C MP, LIPID, TSH #### [facility] [address] [address] Jojo Samia Bilirubin [Mass/Vol] 0.4 mg/dL Normal 0.2-1.3 [facility] Comment on above: Performed By: #### C MP, LIPID, TSH #### [facility] [address] [address] Jojo Samia Calcium [Mass/Vol] 8.9 mg/dL Normal 8.4-10.2 [facility] [place] [facility] Comment on above: Performed By: #### C MP, LIPID, TSH #### [facility] [address] [address] Jojo Samia Chloride [Moles/Vol] 103 mmol/L Normal 98-107 [facility] Comment on above: Performed By: #### C MP, LIPID, TSH #### [facility] [address] [place] [address] Jojo Samia CO2 [Moles/Vol] 29.2 mmol/L Normal 22.0-30.[address] [facility] Comment on above: Performed By: #### C MP, LIPID, TSH #### [facility] [address] [address] Jojo Samia Creatinine [Mass/Vol] 0.89 mg/dL Normal 0.52-1.04 [facility] Comment on above: Performed By: #### C MP, LIPID, TSH #### [facility] [address], [place] [address] Jojo Samia EGFR-AF CZECH >60 Normal >=60 [facility] Comment on above: Performed By: #### C MP, LIPID, TSH #### [facility] [address] [id number] Jojo Samia EGFR-NON AF CZECH >60 Normal >=60 [facility] Comment on above: Performed By: #### C MP, LIPID, TSH #### [facility] [address] [id number] Jojo Samia Globulin (S) [Mass/Vol] 3.7 g/dL Normal [facility] Comment on above: Performed By: #### C MP, LIPID, TSH #### [facility] [address] [address] Jojo Samia Glucose [Mass/Vol] 108 mg/dL Critically high 74-106 T [facility] Comment on above: Performed By: #### C MP, LIPID, TSH #### [facility] [address] [address] Jojo Samia Potassium [Moles/Vol] 3.9 mmol/L Normal 3.4-5.0 [facility] Comment on above: Performed By: #### C MP, LIPID, TSH #### [facility] [address] [id number] Jojo Samia Protein [Mass/Vol] 7.4 g/dL Normal 6.1-8.2 [facility] [place] [facility] Comment on above: Performed By: #### C MP, LIPID, TSH #### [facility] [address] [id number] Jojo Samia Sodium [Moles/Vol] 140 mmol/L Normal 137-145 [facility] [place] [facility] Comment on above: Performed By: #### C MP, LIPID, TSH #### [facility] [address] [id number] Jojo Samia Urea nitrogen [Mass/Vol] 12.0 mg/dL Normal 7.0-17.0 [facility] Comment on above: Performed By: #### C MP, LIPID, TSH #### [facility] [address], [place] [address] Jojo Gracia Urea nitrogen/Creatinine [Mass ratio] 13.5 mg/mg Normal [facility] Comment on above: Performed By: #### C MP, LIPID, TSH #### [facility] [address], [place] [address] Jojo Gracia TSHon 03-21-2021 TSH 1.654 uIU/mL Normal 0.470-4.680 [facility] Comment on above: Performed By: #### C MP, LIPID, TSH #### [facility] [address], [place] [address] Jojo Gracia TSH RANGE SEE BELOW Normal [facility] Comment on above: Result Comment: <0.3 4 UIU/ml HYPERTHYROID 0.34-5.60 UIU/ml EUTHYROID >5.60 UIU/ml HYPOTHYROID Performed By: #### C MP, LIPID, TSH #### [facility] [address], [place] [address] Jojo Gracia Vital Signs Date Time Vital Sign Value Performing Clinician Facility 02-01-2025 15:47-0400 Body mass index (BMI) [Ratio] 47.39 kg/m2 [employer] Work Phone: [facility] 02-01-2025 15:47-0400 Body weight 117.54 kg [employer] Work Phone: [facility] 02-01-2025 15:47-0400 Diastolic blood pressure 80 mm[Hg] [employer] Work Phone: [facility] 02-01-2025 15:47-0400 Systolic blood pressure 130 mm[Hg] [employer] Work Phone: [facility] 12-23-2024 13:36-0400 Body height 157.5 cm [employer] Work Phone: [facility] 12-23-2024 13:36-0400 Body mass index (BMI) [Ratio] 48.43 kg/m2 [employer] Work Phone: [facility] 12-23-2024 13:36-0400 Body weight 120.11 kg Dennis Keyshawn DO Work Phone: [facility] 12-23-2024 13:36-0400 Diastolic blood pressure 82 mm[Hg] Dennis Keyshawn DO Work Phone: [facility] 12-23-2024 13:36-0400 Systolic blood pressure 120 mm[Hg] Dennis Keyshawn DO Work Phone: [facility] 10-06-2024 16:03-0500 Body temperature 98.71 [degF] Yoselyn Hallman GENERAL AGENT Work Phone: [facility] 10-06-2024 16:03-0500 Body weight 114.31 kg Yoselyn Hallman GENERAL AGENT Work Phone: [facility] 10-06-2024 16:03-0500 Heart rate 88 /min Yoselyn Hallman GENERAL AGENT Work Phone: [facility] 10-06-2024 16:03-0500 SaO2% (BldA) [Mass fraction] 98 % Yoselyn Hallman GENERAL AGENT Work Phone: [facility] 04-09-2024 08:38-0400 Blood Pressure Location Teagan Nataprawira [facility] 04-09-2024 08:38-0400 Diastolic blood pressure 98 mm[Hg] Teagan Nataprawira [facility] 04-09-2024 08:38-0400 Heart rate 80 /min Teagan Nataprawira [facility] 04-09-2024 08:38-0400 Mean blood pressure 116 mm[Hg] Teagan Nataprawira [facility] 04-09-2024 08:38-0400 Systolic blood pressure 153 mm[Hg] Teagan Nataprawira [facility] 04-09-2024 08:37-0400 Heart rate 80 /min Teagan Nataprawira [facility] 04-09-2024 08:37-0400 SaO2% (BldA) [Mass fraction] 98 % Teagan Nataprawira [facility] 04-09-2024 08:37-0400 Respiratory rate 18 /min Teagan Nataprawira [facility] 04-09-2024 08:37-0400 Blood Pressure Location Teagan Nataprawira [facility] 04-09-2024 08:37-0400 Diastolic blood pressure 92 mm[Hg] Teagan Nataprawira [facility] 04-09-2024 08:37-0400 Mean blood pressure 112 mm[Hg] Teagan Nataprawira [facility] 04-09-2024 08:37-0400 Systolic blood pressure 152 mm[Hg] Teagan Nataprawira [facility] 04-09-2024 08:36-0400 Body temperature 97.88 [degF] Teagan Nataprawira [facility] 04-07-2024 08:34-0400 Body weight 109.77 kg Teagan Nataprawira DO Work Phone: [facility] 04-07-2024 08:34-0400 Diastolic blood pressure 80 mm[Hg] Teagan Nataprawira DO Work Phone: [facility] 04-07-2024 08:34-0400 Systolic blood pressure 132 mm[Hg] Teagan Nataprawira DO Work Phone: [facility] 07-24-2022 17:30-0500 Body height 154.94 cm Ana Cordova Other [facility] Other 07-24-2022 17:30-0500 Body mass index (BMI) [Ratio] 40.62 kg/m2 Ana Cordova Other [facility] Other 07-24-2022 17:30-0500 Body temperature 98.6 [degF] Ana Cordova Other [facility] Other 07-24-2022 17:30-0500 Body weight 97.52 kg Ana Cordova Other [facility] Other 07-24-2022 17:30-0500 Respiratory rate 18 /min Ana Cordova Other [facility] Other 07-24-2022 17:30-0500 SaO2% (BldA) [Mass fraction] 100 % Ana Cordova Other [facility] Other 10-09-2021 14:00-0500 Body height 154.94 cm Ana Cordova Other [facility] Other 10-09-2021 14:00-0500 Body mass index (BMI) [Ratio] 43.83 kg/m2 Ana Cordova Other [facility] Other 10-09-2021 14:00-0500 Body temperature 97.2 [degF] Ana Cordova Other [facility] Other 10-09-2021 14:00-0500 Body weight 105.24 kg Ana Cordova Other [facility] Other 10-09-2021 14:00-0500 Diastolic blood pressure 92 mm[Hg] Ana Cordova Other [facility] Other 10-09-2021 14:00-0500 Respiratory rate 18 /min Ana Cordova Other [facility] Other 10-09-2021 14:00-0500 SaO2% (BldA) [Mass fraction] 100 % Ana Cordova Other [facility] Other 10-09-2021 14:00-0500 Systolic blood pressure 141 mm[Hg] Ana Cordova Other [employer] Other 09-14-2021 11:30-0500 Body height 154.94 cm Ana Cordova Other [facility] Other 09-14-2021 11:30-0500 Body mass index (BMI) [Ratio] 45.34 kg/m2 Ana Cordova Other [facility] Other 09-14-2021 11:30-0500 Body temperature 96.8 [degF] Ana Cordova Other [facility] Other 09-14-2021 11:30-0500 Body weight 108.86 kg Ana Cordova Other [employer] Other 09-14-2021 11:30-0500 Diastolic blood pressure 84 mm[Hg] Ana Cordova Other [employer] Other 09-14-2021 11:30-0500 Respiratory rate 20 /min Ana Cordova Other [facility] Other 09-14-2021 11:30-0500 SaO2% (BldA) [Mass fraction] 99 % Ana Woodwardault Other [facility] Other 09-14-2021 11:30-0500 Systolic blood pressure 134 mm[Hg] Ana Tasha Other [facility] Other 08-26-2021 14:15-0500 Body height 154.94 cm Sheba Bustillo Other [facility] Other 08-26-2021 14:15-0500 Body mass index (BMI) [Ratio] 45.91 kg/m2 Sheba Bustillo Other [facility] Other 08-26-2021 14:15-0500 Body temperature 97.7 [degF] Sheba Bustillo Other [facility] Other 08-26-2021 14:15-0500 Body weight 110.22 kg Sheba Bustillo Other [facility] Other 08-26-2021 14:15-0500 Respiratory rate 18 /min Sheba Bustillo Other [facility] Other 08-26-2021 14:15-0500 SaO2% (BldA) [Mass fraction] 98 % Sheba Bustillo Other [facility] Other 06-13-2021 12:30-0500 Body height 154.94 cm Ana Tasha Other [facility] Other 06-13-2021 12:30-0500 Body mass index (BMI) [Ratio] 45.91 kg/m2 Ana Cordova Other [facility] Other 06-13-2021 12:30-0500 Body temperature 97.5 [degF] Ana Cordova Other [facility] Other 06-13-2021 12:30-0500 Body weight 110.22 kg Ana Cordova Other [facility] Other 06-13-2021 12:30-0500 Diastolic blood pressure 84 mm[Hg] Ana Cordova Other [facility] Other 06-13-2021 12:30-0500 Respiratory rate 18 /min Ana Cordova Other [facility] Other 06-13-2021 12:30-0500 SaO2% (BldA) [Mass fraction] 99 % Ana Cordova Other [facility] Other 06-13-2021 12:30-0500 Systolic blood pressure 136 mm[Hg] Ana Cordova Other [employer] Other Encounters Encounter Date Encounter Type Care Provider Facility Start: 02-01-2025 End: 02-01-2025 Office outpatient visit 15 minutes Dennis Keyshawn DO Work Phone: [facility] Comment on above: Pre-op examination; Menorrhagia with regular cycle; Pelvic pain; Abnormal uterine bleeding (AUB) Start: 02-01-2025 End: 02-01-2025 Preprocedural examination done Dennis Keyshawn DO Work Phone: [facility] Start: 02-01-2025 End: 02-09-2025 External Result Encounter Dennis Keyshawn DO Work Phone: [facility] Unsolicited Start: 02-01-2025 End: 02-09-2025 External Result Encounter Dennis Keyshawn DO Work Phone: [facility] Unsolicited Start: 02-01-2025 End: 02-01-2025 ambulatory DENNIS KEYSHAWN Not Available Start: 02-01-2025 End: 02-01-2025 Departed Referred Dennis Keyshawn -LAB [facility] Start: 12-23-2024 End: 12-23-2024 Bamboo flowsheet Dennis Keyshawn DO Work Phone: [facility] Start: 12-23-2024 End: 12-23-2024 Bamboo flowsheet Dennis Keyshawn DO Work Phone: [facility] Start: 12-23-2024 End: 12-23-2024 ambulatory DENNIS KEYSHAWN Not Available Start: 12-23-2024 End: 12-23-2024 Office outpatient visit 15 minutes Dennis Keyshawn DO Work Phone: [facility] Comment on above: Menorrhagia with irr egular cycle Start: 10-06-2024 End: 10-06-2024 Office outpatient visit 25 minutes Yoselyn Hallman GENERAL AGENT Work Phone: [facility] Comment on above: Sinus pressure (Prim juwan Dx); Acute non-recurrent maxillary sinusitis Start: 10-06-2024 End: 10-06-2024 ambulatory YOSELYN HALLMAN Not Available Start: 04-09-2024 End: 04-09-2024 ambulatory DO Teagan Gamez Facility:[facility] Start: 04-09-2024 End: 04-09-2024 Patient encounter procedure Teagan Gamez [facility] Start: 04-07-2024 End: 04-07-2024 Office outpatient visit 25 minutes Teagan Gamez DO Work Phone: [facility] Comment on above: Menorrhagia with reg ular cycle (Primary Dx); Dysmenorrhea; Pelvic pain in female; History of tubal ligation Start: 04-07-2024 End: 04-07-2024 ambulatory TEAGAN GAMEZ Not Available Start: 02-19-2024 End: 04-24-2024 Pre-admission assessment Teagan Prater Aliciashae [facility] Start: 02-04-2024 End: 02-04-2024 ambulatory TEAGAN GAMEZ Not Available Start: 10-21-2023 End: 10-21-2023 ambulatory ANA CORDOVA Facility:[facility] Start: 10-21-2023 End: 10-21-2023 Patient encounter procedure ANA CORDOVA [facility] Start: 10-08-2023 End: 10-08-2023 ambulatory ANAJOSR CORDOVA Facility:[facility] Start: 07-24-2022 End: 07-24-2022 ambulatory Ana Tasha Other [facility] Other Start: 07-24-2022 Office outpatient vi sit 15 minutes Ana Tasha [facility] Start: 10-09-2021 End: 10-09-2021 ambulatory Ana Tasha Other [facility] Other Start: 10-09-2021 Office outpatient vi sit 15 minutes Ana Tasha [facility] Start: 10-04-2021 End: 10-05-2021 ambulatory ANA TASHA Facility: Start: 09-14-2021 End: 09-14-2021 ambulatory Ana Tasha Other [facility] Other Start: 09-14-2021 Office outpatient vi sit 15 minutes Ana Tasha [facility] Start: 08-26-2021 (URG) Urgent Care Visit Sheba Lavinia mendoza [facility] Start: 08-26-2021 End: 08-26-2021 ambulatory Sheba Bustillo Other [facility] Other Start: 06-13-2021 End: 06-13-2021 ambulatory Ana Tasha Other [facility] [employer] Other Start: 06-13-2021 Office outpatient vi sit 15 minutes Ana Cordova [facility] Start: 04-09-2021 Encounter for gynecological examination (general) (routine) without abnormal findings ANA CORDOVA [facility] Start: 03-21-2021 End: 03-22-2021 ambulatory ANA TASHA Facility:[facility] Start: 03-21-2021 End: 03-22-2021 Encounter for gynecological examination (general) (routine) without abnormal findings ANA TASHA Facility:[facility] Procedures Date Procedure Procedure Detail Performing Clinician Start: 02-01-2025 Urine test visual color cmprsn meths [facility] DO Work Phone: Start: 02-01-2025 PATHOLOGY REQUEST FO R LAB ARLIN [employer] [facility] DO Work Phone: Start: 12-23-2024 Urnls dip stick/tabl et rgnt non-auto w/o micrscp [employer] [facility] DO Work Phone: Start: 01-13-2024 Microscopic observat ion [Identifier] in Cervix by Cyto stain Teagan Gamez DO Work Phone: Bilateral tubal ligation Mauricio Gamez H/O: tubal ligation History of t ubal ligation Teagan Gamez DO Work Phone: Plan of Treatment Date Care Activity Detail Author Start: 01-12-2027 Screening for malign ant neoplasm of cervix [facility] Start: 04-05-2025 Influenza vaccination [facility] Start: 03-15-2025 End: 03-15-2025 Patient encounter procedure 03/15/2025 3:30 PM EDT Office Visit [facility] [address] [place] [address] Candy Lindsey PA [address] [place] [address] [facility] Start: 02-01-2025 End: 02-01-2025 Patient encounter procedure 02/01/2025 3:30 PM EDT Procedure Visit [facility] [address] [place] [address] Dennis Mahajan DO [address] [place] [address] [facility] Start: 02-01-2025 [facility] Start: 05-28-2024 End: 05-28-2024 Patient encounter procedure 05/28/2024 3:15 PM EDT [facility] [address] [facility] [address] [address] Teagan Gamez DO [address] [facility] D [address] [address] [facility] Start: 04-23-2024 End: 04-23-2024 Patient encounter procedure 04/23/2024 9:00 AM EDT Procedure Visit [facility] Teagan Gamez DO [address] [facility] D [address] [address] [facility] Start: 04-05-2024 Influenza vaccination Influenza Vacc ine (#1) [facility] Start: 2021 Screening for malign ant neoplasm of breast Mammogram [facility] Start: 12-08-2011 Screening for malign ant neoplasm of cervix HPV/Cotest [facility] Biopsy endometrium Biopsy endome trium Procedures Routine Menorrhagia with regular cycle Pelvic pain Abnormal uterine bleeding (AUB) Ordered: 02/01/2025 [facility] Work Phone: Comment on above: Ordered: 02/01/2025 Immunizations Immunization Date Immunization Notes Care Provider Fa [facility] 08-01-2007 influenza virus vaccine, unspecified formulation Teagan Gamez DO Work Phone: [facility] Payers Date Payer Category Payer Medicaid [facility] MEDICAID [facility] MEDICAID [id number] 2024-Present [address] [place] [address] [id number] 2024 Medicaid (Managed Care) [facility] MEDICAID [id number] 2023 Medicaid [id number] 2023 Self-pay 1980 Unknown [id number]. 593 1981 Unknown [id number] [id number]. 593 1981 Unknown [id number] [id number]. 72 1981 Unknown [id number] [id number]. 72 1981 Unknown [id number] [id number]. 72 1981 Unknown [id number] [id number]. 72 1981 Unknown [id number] [id number]. 1259 1981 Unknown [id number] [id number]. 1259 1981 Unknown [id number] 2.16.840.1.969675.3.579.2. 1258 1981 Unknown [id number] 2.16.840.1.469637.3.579.2. 1258 1981 Unknown [id number] [id number]. 1259 1959 Unknown [id number] Unknown [id number]. 531 Social History Date Type Detail Facility Start: 02-04-2024 End: 04-07-2024 Sex Assigned At [facility] Tobacco smoking status No Smokin g Status Entered [facility] Tobacco Current vaping o r e-cigarette use Smokeless Tobacco Use:. Vaping [facility] Start: 01-13-2024 Tobacco smoking stat [facility] Ex-smoker [facility] Start: 2000 History of tobacco use Current smoke r [facility] Start: 2000 History of tobacco use Cigarette Smo ker [facility] Start: 01-13-2024 End: 02-04-2024 Cigarettes smoked current (pack per day) - Reported 2 [facility] Start: 01-13-2024 Tobacco use and exposure Smokeless tobacco non-user [facility] Start: 04-07-2024 End: 02-01-2025 Alcoholic beverage intake Current drinker of alcohol (finding) [facility] Start: 1980 Sex assigned at Female [facility] Start: 01-06-2024 Gender identity Identifies as female gender (finding) [facility] Tobacco smoking stat [facility] Unknown if ever smoked [facility] Work Phone: Sex Female (finding) [facility] Functional Status Date Assessment Result Facility 04-09-2024 Functional Status No [facility] Clinical Notes 06-13-2021 to 02-01-2025 María Rasmussen - 02/01/2025 3:30 PM Luisito Clancy LPN - 12/23/2024 1:10 PM Katharine Hallman, ELENA - 10/06/2024 4:00 PM Nadia Gamez DO [...] on 02-26-[address] Mahajan at [facility]. MEDICATIONS Current Outpatient Medications Medication Instructions DULoxetine (Cymbalta) [address] capsule 1 capsule, Every 24 hours ergocalciferol (Vitamin D-2) 1.25 MG (79789 UT) capsule hydrOXYzine HCl (Atarax) 25 MG [...] Dennis Mahajan DO documented in this encounter [facility] 12-23-2024 History of Presen t illness Narrative Reason for Appointment: Patient ID: Yaquelin Hermosillo is a 44 y.o. female who presents for Menstrual Problem Patient presents today for Acute Visit. and Consult appointment. MEDICATIONS Current Outpatient Medications Medication Instructions DULoxetine (Cymbalta) [address] capsule 1 capsule, Every 24 hours ergocalciferol (Vitamin D-2) 1.25 MG (47333 UT) capsule hydrOXYzine HCl (Atarax) 25 MG [...] nursing note reviewed. Exam conducted with a paint maker present. Vitals: Estimated body mass index is [...] Dennis Mahajan DO documented in this encounter [facility] 10-06-2024 History of Presen t illness Narrative Images from the original note were not included. [address] , [address] [facility], [address] P: [phone] F: [phone] [facility] Historian of HPI: patient Yaqueiln Hermosillo is a 43 y.o. female who [...] tablet; Refill: 0 documented in this encounter [facility] 04-07-2024 History of Presen [...] bowel habits. Pelvic ultrasound done 10/21/23 at [facility] revealed uterus measuring 9.8x5.5x3.7cm. Endometrial thickness measuring [...] same time ergocalciferol (Vitamin D-2) 1.25 MG (31358 UT) capsule hydrOXYzine HCl (Atarax) 25 MG [...] of tubal ligation documented in this encounter [facility] 07-24-2022 Evaluation note Encounter [...] weeks for the cough to go away [facility] Other 03-07-2022 Evaluation note* Encounter Date Diagnosis [...] pain, unable to urinate were to return [facility] Other 02-10-2022 Evaluation note* Encounter Date Diagnosis [...] to be seen. Also always know the [facility] Emergency Number is 24 hours a [...] E55.9) Sep, Psychophysiological insomnia (ICD-10 - F51.04) [facility] Other 11-09-2021 Evaluation note* Encounter Date Diagnosis [...] to be seen. Also always know the [facility] Emergency Number is 24 hours a day available, even on holidays there is someone you can reach out to. Also we will check other labs yearly to screen for other health issues. Please remember we are a team and your opinion is very important in all of your healthcare decisions [facility] Other Evaluation + Plan note No data available for this section [facility] Future Appointments Appointment Date:04/23/2024 09:00:00 AM Scheduled Provider: Location:[facility] Services Appointment Type:Surgery FT [facility] Evaluation noteNort [employer] Other Evaluation note* Diagnosis Menorrhagia with regular cycle- Primary Dysmenorrhea Pelvic pain in female Unspecified symptom associated with female genital organs History of tubal ligation Tubal ligation status documented in this encounter [facility] note* Diagnosis Sinus pressure- Primary Other diseases of nasal cavity and sinuses Acute non-recurrent maxillary sinusitis documented in this encounter [facility] Healthcare[facility] note* Diagnosis Menorrhagia with irregular cycle documented in this encounter [facility] HealthcareEvaluation noteNo assessment information availablePromedica Defiance [facility] Work Phone: Evaluation note* Diagnosis Pre-op examination Menorrhagia with regular cycle Pelvic pain Abnormal uterine bleeding (AUB) [facility] N[facility]ative - Reported* Type Description Date Medical History anxiety Surgical History tubal ligation [facility] Other History general Narrative - ReportedNort [employer] Other Hospital Discharge instructions No data available for this section [facility] No data available for this section [facility] for referral (narrative)No reason for referral information availablePromedica Defiance Regional Hospital Work Phone: Summary Purpose Family History No Family History Records Found Relationship Condition Age at Onset Recorded Date/T bernardo father Hypertension Unknown Advance Directives No Advanced Directives Records Found Advance Directive Response Recorded Date/ Time Advance Directives No October 26, 2 020 9:26am Additional Source Comments INFORMATION SOURCE (unrecogn ized section and content) DATE CREATED AUTHOR 10/07/2021 [facility] DATE CREATED AUTHOR AUTHOR'S ORGANIZ ATION 04/10/2024 [facility] DATE CREATED AUTHOR AUTHOR'S ORGANIZ ATION 04/11/2024 [facility] DATE CREATED AUTHOR AUTHOR'S ORGANIZ ATION 05/10/2024 [facility] DATE CREATED AUTHOR AUTHOR'S ORGANIZ ATION 02/02/2025 [facility] EPIC DATE CREATED AUTHOR AUTHOR'S ORGANIZ ATION 02/13/2025 [facility] REASON FOR VISIT (unrecogniz ed [...] team informatio n (unrecognized section and content) [employer] Relationship Specialty Start Date End Date Rudy Taylor MD [address] [place] [address] PCP - General Family Medicine 01/13/24 [employer] Relationship Specialty Start Date End Date Rudy Taylor MD [address] [place] [address] PCP - General Family Medicine 01/13/24 [employer] Relationship Specialty Start Date End Date Rudy Taylor MD [address] [place] [address] PCP - General Family Medicine 01/13/24 [employer] Relationship Specialty Start Date End Date Rudy Taylor MD [address] [facility] [place] [address] PCP - General Family Medicine 01/13/24 Team Status: Inactive Member Role Status Dates Dennis Mahajan DO Attending Provider Active Start : February 01, 2025 End: February 01, 2025 [employer] Relationship Specialty Start Date End Date Rudy Taylor MD [address] [address] PCP - General Family Medicine 01/13/24 [employer] Relationship Specialty Start Date End Date Rudy Taylor MD [address] [address] PCP - General Family Medicine 01/13/24 Goals [...] BE BASED ON THE PRIMARY CLINICAL RECORDS. [facility]. provides no warranty or guarantee of the accuracy or completeness of information in this document.
--- NOTE | 2025-02-18 13:04 | ECG_ITS ---
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
[2025-02-18 13:41] LABS: Anion Gap 7.6; Blood Urea Nitrogen 11.0 mg/dL (7.0-18.0); Calcium 8.9 mg/dL (8.5-10.1); Carbon Dioxide 28.8 mmol/L (21.0-32.0); Chloride 105 mmol/L (98-107); Estimated GFR (African America >60 (>=60 mL/min/1.73m^2); Estimated GFR (Non-African Ame >60 (>=60 mL/min/1.73m^2); Glucose 91 mg/dL (74-106); Potassium 4.4 mmol/L (3.5-5.1); Sodium 137 mmol/L (136-145)
== END 2025-02-18 12:27 | disposition home or self-care (01) ==
PROVIDERS: PCP Student in an Organized Health Care Education/Training Program; Visit Provider Obstetrics & Gynecology
DX: Z01.810 Encounter for preprocedural cardiovascular examination (principal); Z01.812 Encounter for preprocedural laboratory examination; N92.0 Excessive and frequent menstruation with regular cycle; N93.9 Abnormal uterine and vaginal bleeding, unspecified; R10.2 Pelvic and perineal pain
CPT/HCPCS: 71046; 80048; 93005

== ENCOUNTER 2025-02-26 08:00 | Day surgery (SDC) | payer OTHER, SELFPAY ==
[2025-02-18 12:53] VITALS: BP 138/98; PULSE 87; TEMP 36.5; O2SAT 98; BMI 48.3
[2025-02-26 08:06] VITALS: BP 159/100; PULSE 78; TEMP 36.1; O2SAT 98; BMI 47.8
[2025-02-26 08:08] LABS: Hematocrit 42.6 % (36.0-48.0); Hemoglobin 14.0 g/dL (12.0-16.0); Immature Granulocytes Abs Auto 0.02 10^3/uL (0.00-0.03); Immature Granulocytes Pct Auto 0.2 % (0.0-0.5); Lymphocytes Absolute Auto 3.6 10^3/uL (1.2-3.8); Mean Corpuscular HGB Conc 32.9 g/dL (29.9-35.2); Mean Corpuscular Hemoglobin 28.7 pg (26.7-34.0); Mean Corpuscular Volume 87.3 fL (81.0-99.0); Platelet Count 358 10^3/uL (150-450); Red Blood Count 4.88 10^6/uL (4.20-5.40); White Blood Count 8.3 10^3/uL (4.0-11.0)
--- OUTSIDE RECORDS SUMMARY | 2025-02-26 08:11 | XMS_ITS | CCD ---
Author Organization [facility] Care Team Providers Care Edge Worker Name Role Phone ANA CORDOVA Primary Care Unavailable MARKER, DR FREGOSO Admitting Unavailable MARKER, DR FREGOSO Attending Unavailable MARKER, DR FREGOSO Consulting Unavailable CHET HARP Consulting Unavailable ANA CORDOVA Admitting Unavailable ANA CORDOVA Attending Unavailable ANA CORDOVA Primary Care Unavailable ANA CORDOVA Consulting Unavailable Ana Cordova Unavailable Sheba Bustillo Unavailable ANA CORDOVA Primary Care Physician [phone] ANA CORDOVA Admitting Unavailable ANA CORDOVA Primary [...] Claudia BLUNT, Rudy Fuentes Primary Care Provider YOSELYN HALLMAN Attending Unavailable DENNIS MAHAJAN Attending Unavailable TEAGAN GAMEZ Attending Unavailable TEAGAN GAMEZ Attending Unavailable DENNIS MAHAJAN Attending Unavailable Dennis Mahajan DO Attending Provider [phone] Dennis Mahajan Attending Unavailable Dennis Mahajan Admitting Unavailable Allergies Allergy Classification Reported Allergen(s) Allergy Type Date of Onset Reaction(s) Facility (1 source) natural latex rubber Drug allergy (disorder) [facility] Repository (15 sources) Latex; Translations: [Latex] Drug allergy Itching, Rash [facility] (1 source) No Known Medication Allergies; Translations: [No Known Medication Allergies] Propensity to adverse reactions (disorder) [facility] Repository Medications Current Medications Medication Drug Class(es) Dates Sig (Normalized) Sig (Original) [id number] actuat albuterol 0.09 mg/actuat metered dose [...] Mar, Active DULoxetine 60 mg oral capsule (17 sources) Serotonin and Norepinephrine Reuptake Inhibitor Start: [...] Status: Ordered ergocalciferol 1.25 mg oral capsule (17 sources) Provitamin D2 Compound Start: 01-06-2024 ergocalciferol (Vitamin D-2) 1.25 MG (86410 UT) capsule 01/06/2024 Active Start: 06-13-2021 take 1 capsule by mo [facility] every week Ergocalciferol 1.25 MG (82108 UT) 1 capsule Orally weekly for 30 day(s) Jun, Active hydrOXYzine hydrochloride 25 mg oral tablet (19 sources) Antihistamine Start: 01-08-2024 hydrOXYzine HC l (Atarax) 25 MG tablet 01/08/2024 Active Start: 05-17-2020 hydrOXYzine HC l 10 MG as directed Orally at bedtime for 30 day(s) May, Not-Taking methylPREDNISolone 4 mg oral tablet (1 source) Corticosteroid Start: 07-24-2022 methylPREDNISolone 4 MG as directed Orally Once a day for 6 days Jul, Active OLANZapine 2.5 mg oral tablet (10 sources) Atypical Antipsychotic Start: 08-18-2024 OLANZapine (ZyPREXA) 2.5 MG tablet 1 (one) time each day at the same time 08/18/2024 Active Vitamin D (2 sources) Start: 04-09-2024 Vitamin D Oral, qWeek, Refills(s) 0, Prophylaxis Start Date: 04/09/24 Status: Ordered Completed/Discontinued Medications Medication Drug Class(es) Dates Sig (Normalized) Sig (Original) Dosoquin 5500-200 UNIT-MCG (5 sources) Start: 12-01-2019 Start: 12-01-2019 take 1 tablet by [facility] once daily at mealtime Dosoquin 5500-200 UNIT-MCG [...] Test Name Value Interpretation Reference Range Facility ECG 12-LEADon 02-19-2025 [place] [address] Electrocardiograph Report Signed Patient: YAQUELIN REED MR#: [id number] : 1980 Acct:[id number] Age/Sex: 44 / F ADM Date: 02/18/25 Loc: PST Attending Dr: Dennis Mahajan D.O. Ordering Physician: Dennis Mahajan D.O. Date of Service: 02/18/25 Procedure(s): ECG 12 lead Accession Number(s): [id number] cc: [facility] Test Date: 2025-02-18 Pat Name: YAQUELIN REED Department: Room: - Gender: Female Medical Concierge: : 1980 Requested By: DENNIS MAHAJAN Order Number: [id number] Reading MD: ZEB OLIVEIRA Measurements Intervals [place] Rate: 61 P: 39 SC: 185 QRS: 30 QRSD: 102 T: 50 QT: 425 QTc: 430 Interpretive Statements SINUS RHYTHM No previous ECG available for comparison Electronically Signed On 02-19-2025 9:59:38 EDT by ZEB OLIVEIRA Dictated By: Zeb Oliveira M.D. Signed By: 02/19/25 0959 DD/ 06 TD/TT: Master Sonar Technician: [facility] Radiology, Radiologist, - 02/19/2025 [place] [address] Electrocardiograph Report Signed Patient: YAQUELIN REED MR#: [id number] : 1980 Acct:[id number] Age/Sex: 44 / F ADM Date: 02/18/25 Loc: PST Attending Dr: Dennis Mahajan D.O. Ordering Physician: Dennis Mahajan D.O. Date of Service: 02/18/25 Procedure(s): ECG 12 lead Accession Number(s): [id number] cc: [facility] Test Date: 2025-02-18 Pat Name: YAQUELIN REED Department: Room: - Gender: Female Medical Concierge: : 1980 Requested By: DENNIS MAHAJAN Order Number: [id number] Reading MD: ZEB OLIVEIRA Measurements Intervals [place] Rate: 61 P: 39 SC: 185 QRS: 30 QRSD: 102 T: 50 QT: 425 QTc: 430 Interpretive Statements SINUS RHYTHM No previous ECG available for comparison Electronically Signed On 02-19-2025 9:59:38 EDT by ZEB OLIVEIRA Dictated By: Zeb Oliveira M.D. Signed By: 02/19/25 0959 DD/ 06 TD/TT: Master Sonar Technician: [facility] ECG 12-LEADOrdered By: Radio logist Radiology on 02-19-2025 [facility] [employer] Work Phone: ALL BASIC METABOLIC PANELon 02-18-2025 Anion gap [Moles/Vol] 7.6 mmol/L [facility] Calcium [Mass/Vol] 8.9 mg/dL 8.5 - 10. 1 mg/dL [facility] Chloride [Moles/Vol] 105 mmol/L 98 - 10 7 mmol/L [facility] CO2 [Moles/Vol] 28.8 mmol/L 21.0 - 32.0 mmol/L [facility] Creatinine [Mass/Vol] 0.74 mg/dL 0.55 - 1.02 mg/dL [facility] GFR/1.73 sq M.predicted CKD-EPI (S/P/Bld) [Vol rate/Area] >60 >=60 mL/min/1.73m 2 [facility] Glucose [Mass/Vol] 91 mg/dL 74 - 106 mg/dL [facility] Potassium [Moles/Vol] 4.4 mmol/L 3.5 - 5.1 mmol/L [facility] Sodium [Moles/Vol] 137 mmol/L 136 - 145 mmol/L [facility] TBH EGFR-NON AF [place] >60 >=60 mL/min/1.73m 2 [facility] Urea nitrogen [Mass/Vol] 11 mg/dL 7.0 - 18.0 mg/dL [facility] Urea nitrogen/Creatinine [Mass ratio] 14.9 mg/mg [facility]-18-[facility]25 Radiology Study observation (narrative) [facility] XR CHEST 2Von 02-18-2025 [place] [address] XRay Report Signed Patient: YAQUELIN REED MR#: [id number] : 1980 Acct:[id number] Age/Sex: 44 / F ADM Date: 02/18/25 Loc: [facility] Attending Dr: Dennis Mahajan D.O. Ordering Physician: Dennis Mahajan D.O. Date of Service: 02/18/25 Procedure(s): XR chest 2V Accession Number(s): [id number] cc: Dennis Mahajan D.O.; SHAMA SLAUGHTER [place] [id number] Patient Name: YAQUELIN REED MRN: [id number] date: 1980 Sex: F Assigned Patient Location: [facility] Current Patient Location: [facility] Accession/Order Number: [id number] Exam Date: 02/18/2025 14:56 Report Date: 02/18/2025 14:56 At the request of: DENNIS MAHAJAN DO Procedure: XR chest 2V PA AND LATERAL CHEST: CLINICAL HISTORY: Preop exam COMPARISON: None FINDINGS: Unremarkable cardiomediastinal. Lungs clear. No effusion or pneumothorax. XR/XR chest 2V IMPRESSION: NO ACUTE CARDIOPULMONARY ABNORMALITY. Impression dictated by: Jean Villarreal M.D. 02/18/2025 2:56 PM Dictation Location: [place] [address] Electronically authenticated by: [id number] Y Date: 02/18/2025 14:56 Dictated By: Jean Villarreal M.D. Signed By: 02/18/25 1459 DD/ 1456 TD/TT: Master Sonar Technician: [facility] Radiology, Radiologist, MD - 02/18/2025 [place] [address] XRay Report Signed Patient: YAQUELIN REED MR#: [id number] : 1980 Acct:[id number] Age/Sex: 44 / F ADM Date: 02/18/25 Loc: [facility] Attending Dr: Dennis Mahajan D.O. Ordering Physician: Dennis Mahajan D.O. Date of Service: 02/18/25 Procedure(s): XR chest 2V Accession Number(s): [id number] cc: Dennis Mahajan D.O.; SHAMA SLAUGHTER [place] [id number] Patient Name: YAQUELIN REED MRN: [facility]:[id number] date: 1980 Sex: F Assigned Patient Location: [facility] Current Patient Location: [facility] Accession/Order Number: [id number] Exam Date: 02/18/2025 14:56 Report Date: 02/18/2025 14:56 At the request of: DENNIS MAHAJAN DO Procedure: XR chest 2V PA AND LATERAL CHEST: CLINICAL HISTORY: Preop exam COMPARISON: None FINDINGS: Unremarkable cardiomediastinal. Lungs clear. No effusion or pneumothorax. XR/XR chest 2V IMPRESSION: NO ACUTE CARDIOPULMONARY ABNORMALITY. Impression dictated by: Jean Villarreal M.D. 02/18/2025 2:56 PM Dictation Location: [place] [address] Electronically authenticated by: [id number] Y Date: 02/18/2025 14:56 Dictated By: Jean Villarreal M.D. Signed By: 02/18/25 1459 DD/ 1456 TD/TT: Master Sonar Technician: [facility] Radiology Study observation (narrative) [facility] XR CHEST 2VOrdered By: Radio logist Radiology on 02-18-2025 [facility] Work Phone: PATHOLOGY REQUEST FOR LAB CO RPon 02-09-2025 PATHOLOGY REQUEST FOR LAB ARLIN [facility] [employer] Comment on above: See report. Scanned copy available in EMR. EMB [facility] HCG ( test) Ql (U)O rdered By: Arely Sosa on 02-01-2025 Interpretation and review of laboratory results Normal [facility] Work Phone: Preg Test, Ur Negative Negative [facility] Health care Work Phone: [employer] [facility] Work Phone: Pathology Request for Lab Co rpon 02-01-2025 Pathology Request for Lab Arlin Normal [facility] Comment on above: Order Comment: EMB Result Comment: See report. Scanned copy available in EMR. PERFORMED BY: [place] [address] PATHOLOGIST BOILER HOUSE OPERATOR LUIS ANTONIO OLEA M.D. Performed By: #### P ATH TO [facility] #### [address] Urinalysis macro (dipstick) panel (U)on 12-23-2024 Bilirubin, UA Negative Negative - 4(70) +++ mg/dL [facility] Blood, UA Positive Negative - 50 Jah/mcL [facility] Comment on above: trace-intact Clarity, UA Clear [facility] Color, UA Yellow [facility] Glucose, UA Negative Negative - 2000(110) ++++ mg/dL [facility] Interpretation and review of laboratory results Abnormal [facility] Ketones, UA Negative Negative - 160(16) ++++ mg/dL [facility] Leukocytes, UA Negative Negative - 500+++ Amy/mcL [facility] Nitrite, UA Negative Negative - Positive [facility] pH, UA 7.5 5 - 9 [facility] Protein, UA Negative Negative - 1999(20) ++++ mg/dL [facility] Spec Grav, UA 1.02 1 - 1.03 [facility] Urobilinogen, UA 1.0 0.2 - 12 mg/dL [facility] XR Chest 2 Viewson XR [...] mGy = na DAP = na Normal [facility] ABO/Rh Retypeon 04-09-2024 ABO/Rh Retype Interp Positive Invalid Interpretation Code [facility] Comment on above: Performed By: #### 1 [id number] #### [facility] [address] [place] [address] BLOOD BANKOrdered By: Debo Galindo on 04-09-2024 ABO/Rh Retype Interp Positive Invalid Interpretation Code [facility] BB Subsection BMPon 04-09-2024 Anion gap [Moles/Vol] 9 mmol/L Normal 6-16 [facility] Comment on above: Performed By: #### 2 [id number] #### [facility] [address] [place] [address] Calcium [Mass/Vol] 9.2 mg/dL Normal 8.9-11.1 [facility] Comment on above: Performed By: #### 2 252014 #### [facility] [address] [place] [address] Chloride [Moles/Vol] 106 mmol/L Normal 101-111 [facility] Comment on above: Performed By: #### 2 415524 #### [facility] [address] [place] [address] CO2 [Moles/Vol] 27 mmol/L Normal 21-31 [facility] Comment on above: Performed By: #### 2 585553 #### [facility] [address] [place] [address] Creatinine [Mass/Vol] 0.8 mg/dL Normal 0.5-1.3 [facility] Comment on above: Performed By: #### 2 058361 #### [facility] [address] [place] [address] Glucose [Mass/Vol] 79 mg/dL Normal 55-199 [facility] Comment on above: Performed By: #### 2 123711 #### [facility] [address] [place] [address] Potassium [Moles/Vol] 4.1 mmol/L Normal 3.5-5.3 [facility] Comment on above: Performed By: #### 2 682211 #### [facility] [address] [place] [address] Sodium [Moles/Vol] 138 mmol/L Normal 135-145 [facility] Comment on above: Performed By: #### 2 015872 #### [facility] [address] [place] [address] Urea nitrogen [Mass/Vol] 11 mg/dL Normal 5-21 [facility] Comment on above: Performed By: #### 2 126232 #### [facility] [address] [place] [address] Urea nitrogen/Creatinine [Mass ratio] 14 No Units Normal 10-20 [facility] Comment on above: Performed By: #### 2 187274 #### [facility] [address] [place] [address] CBC w/ Auto Diffon 4 Basophils/100 WBC (Bld) 0.6 % Normal 0.0-2.0 [facility] Comment on above: Performed By: #### 2 460411 #### [facility] [address] [place] [address] Basophils/Leukocytes Auto (Bld) [Pure # fraction] 0.0 E9/L Normal 0.0-0.2 [facility] Comment on above: Performed By: #### 2 525813 #### [facility] [address] [place] [address] Eosinophils (Bld) [#/Vol] 0.2 E9/L Normal 0.0-0.5 [facility] Comment on above: Performed By: #### 2 542722 #### [facility] [address] [place] [address] Eosinophils/100 WBC (Bld) 2.5 % Normal 0.0-8.0 [facility] Comment on above: Performed By: #### 2 477791 #### [facility] [address] [place] [address] Erythrocyte distribution width (RBC) [Ratio] 13.6 % Normal 10.9-14.2 [facility] Comment on above: Performed By: #### 2 064314 #### [facility] [address] [place] [address] Hematocrit (Bld) [Volume fraction] 41.6 % Normal 34.0-46.0 [facility] Comment on above: Performed By: #### 2 701989 #### [facility] [address] [place] [address] Hemoglobin (Bld) [Mass/Vol] 13.8 g/dL Normal 12.0-16.0 [facility] Comment on above: Performed By: #### 2 502624 #### [facility] [address] [place] [address] Lymphocytes (Bld) [#/Vol] 2.2 E9/L Normal 1.0-4.0 [facility] Comment on above: Performed By: #### 2 461243 #### [facility] [address] [place] [address] Lymphocytes/100 WBC (Bld) 31.2 % Normal 14.0-50.0 [facility] Comment on above: Performed By: #### 2 373985 #### [facility] [address] [place] [address] MCH (RBC) [Entitic mass] 28.0 pg Normal 27.0-34.0 [facility] Comment on above: Performed By: #### 2 875650 #### [facility] [address] [place] [address] MCHC (RBC) [Mass/Vol] 33.1 g/dL Normal 31.4-36.0 [facility] Comment on above: Performed By: #### 2 124358 #### [facility] [address] [place] [address] MCV (RBC) [Entitic vol] 84.6 fL Normal 80.0-100.0 [facility] Comment on above: Performed By: #### 2 376124 #### [facility] [address] [place] [address] Monocytes (Bld) [#/Vol] 0.6 E9/L Normal 0.2-1.0 [facility] Comment on above: Performed By: #### 2 880164 #### [facility] [address] [place] [address] Neutrophils (Bld) [#/Vol] 3.9 E9/L Normal 2.0-7.5 [facility] Comment on above: Performed By: #### 2 465526 #### [facility] [address] [place] [address] Neutrophils/100 WBC (Bld) 56.5 % Normal 36.0-75.0 [facility] Comment on above: Performed By: #### 2 397455 #### [facility] [address] [place] [address] Platelet mean volume (Bld) [Entitic vol] 7.9 fL Normal 6.4-10.8 [facility] Comment on above: Performed By: #### 2 479843 #### [facility] [address] [place] [address] Platelets (Bld) [#/Vol] 339.0 E9/L Normal 150.0-500.0 [facility] Comment on above: Performed By: #### 2 986662 #### [facility] [address] [place] [address] RBC (Bld) [#/Vol] 4.9 E12/L Normal 4.3-5.9 [facility] Comment on above: Performed By: #### 2 963075 #### [facility] [address] [place] [address] WBC corrected for nucl RBC Auto (Bld) [#/Vol] 6.9 E9/L Normal 4.0-11.0 [facility] Comment on above: Performed By: #### 2 285324 #### [facility] [address] [place] [address] CHEMISTRYOrdered By: SYSTEM SYSTEM on 04-09-2024 Anion [...] 04-09-2024 eGFR 94 mL/min/1.73 m2 Normal >=59 [facility] Comment on above: Order Comment: Order added by Discern Expert. Performed By: #### 1 [id number] #### [facility] [address] [place] [address] US Pelvis Non-OB Completeon 10-22-2023 US Pelvis [...] MCKAYLA Technical Comments Transabdominal Ultrasound Performed Normal [facility] Physician Orderon 10-16-2023 Physician Order [id number]#[id number] Normal [facility] FSH and LHon 10-11-2023 Follitropin Qn 12.7 m[IU]/mL Invalid Interpretation Code [facility] Comment on above: Result Comment: Adul t Female Range Follicular phase 3.5 - 12.5 Ovulation phase 4.7 - 21.5 Luteal phase 1.7 - 7.7 Postmenopausal 25.8 - 134.8 Performed at: [address] [id number] PhD Ngozi Mendoza Performed By: #### 2 529192, 65408529, 7400115, 93533671, 69683260 #### [facility] [address] [place] [address] Lutropin Qn 3.9 m[IU]/mL Invalid Interpretation Code [facility] Comment on above: Result Comment: Adul t Female Range Follicular phase 2.4 - 12.6 Ovulation phase 14.0 - 95.6 Luteal phase 1.0 - 11.4 Postmenopausal 7.7 - 58.5 Performed By: #### 2 670197, 80301211, 9469007, 23167342, 59955667 #### [facility] [address] [place] [address] CBC w/ Auto Diffon 4 Basophils/100 WBC (Bld) 0.4 % Normal 0.0-2.0 [facility] Comment on above: Performed By: #### 2 263981, 85313681, 5085938, 01340111, 81766686 #### [facility] [address] [place] [address] Basophils/Leukocytes Auto (Bld) [Pure # fraction] 0.0 E9/L Normal 0.0-0.2 [facility] Comment on above: Performed By: #### 2 540561, 24490308, 0869839, 70458455, 76588600 #### [facility] [address] [place] [address] Eosinophils (Bld) [#/Vol] 0.1 E9/L Normal 0.0-0.5 [facility] Comment on above: Performed By: #### 2 760325, 07653825, 3535413, 05502993, 11965361 #### [facility] [address] [place] [address] Eosinophils/100 WBC (Bld) 1.1 % Normal 0.0-8.0 [facility] Comment on above: Performed By: #### 2 064111, 05183537, 0371636, 76980869, 96065344 #### [facility] [address] [place] [address] Erythrocyte distribution width (RBC) [Ratio] 15.3 % High 10.9-14.2 [facility] Comment on above: Performed By: #### 2 449062, 88858031, 1720423, 79831915, 74050374 #### [facility] [address] [place] [address] Hematocrit (Bld) [Volume fraction] 42.7 % Normal 34.0-46.0 [facility] Comment on above: Performed By: #### 2 437192, 88367516, 2242516, 71820191, 96984396 #### [facility] [address] [place] [address] Hemoglobin (Bld) [Mass/Vol] 13.6 g/dL Normal 12.0-16.0 [facility] Comment on above: Performed By: #### 2 731268, 34835940, 5322390, 72858234, 06347900 #### [facility] [address] [place] [address] Lymphocytes (Bld) [#/Vol] 1.9 E9/L Normal 1.0-4.0 [facility] Comment on above: Performed By: #### 2 079402, 38437435, 3794235, 49213215, 93577767 #### [facility] [address] [place] [address] Lymphocytes/100 WBC (Bld) 27.7 % Normal 14.0-50.0 [facility] Comment on above: Performed By: #### 2 598374, 06425682, 3707135, 00404590, 75589706 #### [facility] [address] [place], [place] [address] MCH (RBC) [Entitic mass] 28.1 pg Normal 27.0-34.0 [facility] Comment on above: Performed By: #### 2 276417, 65688779, 6981918, 52978312, 80137272 #### [facility] [address] [place] [address] MCHC (RBC) [Mass/Vol] 31.8 g/dL Normal 31.4-36.0 [facility] Comment on above: Performed By: #### 2 937966, 53651255, 4046494, 65355038, 79950218 #### [facility] [address] [place], [place] [address] MCV (RBC) [Entitic vol] 88.3 fL Normal 80.0-100.0 [facility] Comment on above: Performed By: #### 2 001722, 50785777, 4022335, 29234149, 90126073 #### [facility] [address] [place] [address] Monocytes (Bld) [#/Vol] 0.4 E9/L Normal 0.2-1.0 [facility] Comment on above: Performed By: #### 2 775563, 51055114, 3235121, 51683459, 41480416 #### [facility] [address] [place] [address] Neutrophils (Bld) [#/Vol] 4.5 E9/L Normal 2.0-7.5 [facility] Comment on above: Performed By: #### 2 538789, 67407904, 0151757, 70722964, 09290102 #### [facility] [address] [place] [address] Neutrophils/100 WBC (Bld) 65.3 % Normal 36.0-75.0 [facility] Comment on above: Performed By: #### 2 041698, 18001057, 7619607, 77972598, 50187090 #### [facility] [address] [place] [address] Platelet mean volume (Bld) [Entitic vol] 8.2 fL Normal 6.4-10.8 [facility] Comment on above: Performed By: #### 2 934175, 53077533, 2471757, 96516224, 61035749 #### [facility] [address] [place] [address] Platelets (Bld) [#/Vol] 372.0 E9/L Normal 150.0-500.0 [facility] Comment on above: Performed By: #### 2 433728, 32058705, 2653268, 30930545, 16183598 #### [facility] [address] [place] [address] RBC (Bld) [#/Vol] 4.8 E12/L Normal 4.3-5.9 [facility] Comment on above: Performed By: #### 2 795428, 75642340, 9324962, 46375595, 92504231 #### [facility] [address] [place] [address] WBC corrected for nucl RBC Auto (Bld) [#/Vol] 6.9 E9/L Normal 4.0-11.0 [facility] Comment on above: Performed By: #### 2 415513, 96021314, 6710680, 07663073, 94926498 #### [facility] [address] [place] [address] CMPon 10-09-2023 Albumin [Mass/Vol] 4.4 g/dL Normal 3.3-5.0 [facility] Comment on above: Performed By: #### 2 432797, 32206582, 2529388, 71971905, 37580060 #### [facility] [address] [place] [address] Albumin/Globulin (S) [Mass conc ratio] 1.8 Normal 1.1-2.2 [facility] Comment on above: Performed By: #### 2 955991, 32802164, 5568049, 94462753, 30734439 #### [facility] [address] [place] [address] ALP [Catalytic activity/Vol] 82 Int._Unit/L Normal 21-98 [facility] Comment on above: Performed By: #### 2 217201, 76597346, 5732796, 62712558, 64269782 #### [facility] [address] [place] [address] ALT No additional P-5'-P [Catalytic activity/Vol] 13 Int._Unit/L Normal 6-46 [facility] Comment on above: Performed By: #### 2 [id number], [id number], 8901589, [id number], [id number] #### [facility] [address] [place] [address] Anion gap [Moles/Vol] 12 mmol/L Normal 6-16 [facility] Comment on above: Performed By: #### 2 040614, [id number], 8921545, [id number], [id number] #### [facility] [address] [place] [address] AST [Catalytic activity/Vol] 14 Int._Unit/L Normal 5-43 [facility] Comment on above: Performed By: #### 2 712019, [id number], 2343975, [id number], [id number] #### [facility] [address] [place] [address] Bilirubin [Mass/Vol] 0.4 mg/dL Normal 0.0-1.1 [facility] Comment on above: Performed By: #### 2 454188, [id number], 3975048, 19944040, [id number] #### [facility] [address] [place] [address] Calcium [Mass/Vol] 9.4 mg/dL Normal 8.9-11.1 [facility] Comment on above: Performed By: #### 2 473758, 93375707, 0788230, 74998482, 88446238 #### [facility] [address] [place] [address] Chloride [Moles/Vol] 103 mmol/L Normal 101-111 [facility] Comment on above: Performed By: #### 2 543712, 95314525, 6868770, 18194314, 73335023 #### [facility] [address] [place] [address] CO2 [Moles/Vol] 27 mmol/L Normal 21-31 [facility] Comment on above: Performed By: #### 2 763343, 66127047, 6832597, 82676088, 94593690 #### [facility] [address] [place] [address] Creatinine [Mass/Vol] 0.8 mg/dL Normal 0.5-1.3 [facility] Comment on above: Performed By: #### 2 642842, 61202155, 0459192, 99806414, 88966868 #### [facility] [address] [place] [address] Globulin (S) [Mass/Vol] 2.5 g/dL Normal 1.4-4.0 [facility] Comment on above: Performed By: #### 2 442606, 87108216, 6113901, 67594285, [id number] #### [facility] [address] [place] [address] Glucose [Mass/Vol] 86 mg/dL Normal 55-199 [facility] Comment on above: Performed By: #### 2 901623, 90664169, 1395387, 85303554, [id number] #### [facility] [address] [place] [address] Potassium [Moles/Vol] 4.6 mmol/L Normal 3.5-5.3 [facility] Comment on above: Performed By: #### 2 062985, 73020091, 5047647, 34765461, [id number] #### [facility] [address] [place] [address] Protein [Mass/Vol] 6.9 g/dL Normal 6.0-7.8 [facility] Comment on above: Performed By: #### 2 086337, 16805698, 3715106, 86589742, 13064462 #### [facility] [address] [place] [address] Sodium [Moles/Vol] 137 mmol/L Normal 135-145 [facility] Comment on above: Performed By: #### 2 667916, 21066759, 0572135, 62770242, 78215343 #### [facility] [address] [place] [address] Urea nitrogen [Mass/Vol] 12 mg/dL Normal 5-21 [facility] Comment on above: Performed By: #### 2 460271, 06671613, 6053091, 04245889, 75447951 #### [facility] [address] [place] [address] Urea nitrogen/Creatinine [Mass ratio] 15 No Units Normal 10-20 [facility] Comment on above: Performed By: #### 2 241318, 34243405, 1952932, 49277190, 31022896 #### [facility] [address] [place] [address] Physician Orderon 10-09-2023 Physician Order [id number] Normal [facility] T4 & TSHon 10-09-2023 TSH Qn 1.72 m[IU]/L Normal 0.34-5.60 [facility] Comment on above: Performed By: #### 2 843130, 31058845, 4572979, 54380160, 53063253 #### [facility] [address] [place] [address] T4 [Mass/Vol] 10.1 microgram/dL High 4.6-9.[address] [facility] Comment on above: Performed By: #### 2 272722, 52654343, 8869778, 76052215, [id number] #### [facility] [address] [place] [address] eGFRon 10-09-2023 eGFR 94 mL/min/1.73 m2 Normal >=59 [facility] Comment on above: Order Comment: Order added by Discern Expert. Performed By: #### 2 603520, 27219449, 8075577, 91907437, [id number] #### [facility] [address] [place] [address] COVID + FLU Quick Testingon 07-24-2022 SARS-CoV-2 (COVID-19) RNA YOUSUF+probe Ql (Unsp spec) Negative [employer] Other COVID + FLU Quick Testing Positive [employer] Other COVID + FLU Quick Testing Negative [employer] Other Urinalysis - AUTOMATEDon Appearance (U) cloudy [employer] Other Bilirubin Ql (U) Negative [employer] Other Color (U) dark yellow [employer] Other Glucose Ql (U) Negative [employer] Other Hemoglobin Ql (U) moderate [facility] [employer] Other Ketones Ql (U) Negative [employer] Other Leukocyte esterase Test strip Ql (U) trace [employer] Other Nitrite Ql (U) Negative [employer] Other pH (U) 6.0 [pH] [employer] Other Protein Ql (U) Negative [employer] Other Specific gravity (U) [Rel density] 1.025 [employer] Other Urobilinogen (U) [Mass/Vol] 1.0 mg/dL [employer] Other Urinalysis - AUTOMATED [employer] Other CULTURE URINEon 10-07-2021 CULTURE URINE Isolate 1 Escherichia coli >100,000 cfu/mL of ORGANISM 1 Escherichia coli ANTIBIOTIC M.I.C RX STATUS Ampicillin 4 S F Ampicillin/Sulbacta m <=2 S F Piperacillin/Tazoba ctam <=4 S F Cefazolin <=4 S F Ceftazidime <=1 S F Ceftriaxone <=1 S F Ertapenem <=0.5 S F Imipenem <=0.25 S F Amikacin <=2 S F Gentamicin <=1 S F Tobramycin <=1 S F Ciprofloxacin <=0.25 S F Levofloxacin <=0.12 S F Nitrofurantoin <=16 S F Trimethoprim/Sulfam ethoxazole <=20 S F Normal [facility] Comment on above: Performed By: #### U RCX #### [facility] [address] [place] [address] ABD/PELVIS WO CONon [...] and tiny adjacent free fluid, suggestive of inflammatory/infect ious process and right ureteritis. Punctate calculus is [...] and tiny adjacent free fluid, suggestive of inflammatory/infect ious process and right ureteritis. Punctate nonobstructive left renal calculus. Normal-appearing appendix is visualized. Electronically authenticated by: CHET HARP Date: 2021-10-04 22:37 Normal [facility] ER URINE PROFILEon 2 Bilirubin Ql (U) Negative Normal NEGATIVE The [facility] Comment on above: Performed By: #### U MICRO, ERUR, PREGU #### [facility] [address] [place], [place] [address] Dr. Jolanta Alvarado Clarity (U) SL CLOUDY Abnormal CLEAR [facility] Comment on above: Performed By: #### U MICRO, ERUR, PREGU #### [facility] [address] [place], [place] [address] Dr. Jolanta Alvarado Color (U) YELLOW Normal YELLOW [facility] Comment on above: Performed By: #### U MICRO, ERUR, PREGU #### [facility] [address] [place] [address] [address] Jolanta FOX A micrscopic examination will be performed if indicated. Normal [facility] Comment on above: Performed By: #### U MICRO, ERUR, PREGU #### [facility] [address] [address] [address] Jolanta Alvarado Glucose Ql (U) Negative Normal NEGATIVE The [facility] Comment on above: Performed By: #### U MICRO, ERUR, PREGU #### [facility] [address] [address] [address] Jolanta Alvarado Hemoglobin Ql (U) LARGE Abnormal NEGATIVE The [facility] Comment on above: Performed By: #### U MICRO, ERUR, PREGU #### [facility] [address] [place] [address] Dr. Jolanta Alvarado Ketones Ql (U) TRACE Abnormal NEGATIVE [facility] Comment on above: Performed By: #### U MICRO, ERUR, PREGU #### [facility] [address] [place] [address] Dr. Jolanta Alvarado LEUKOCYTES Negative Normal NEGATIVE [facility] Comment on above: Performed By: #### U MICRO, ERUR, PREGU #### [facility] [address] [place] [address] Dr. Jolanta Alvarado Nitrite Ql (U) Positive Abnormal NEGATIVE [facility] Comment on above: Performed By: #### U MICRO, ERUR, PREGU #### [facility] [address] [address] [address] Jolanta Alvarado pH (U) 5.5 [pH] Normal 5-9 [facility] Comment on above: Performed By: #### U MICRO, ERUR, PREGU #### [facility] [address] [place] [address] Dr. Jolanta Alvarado SPEC GRAVITY >=1.030 Abnormal 1.005-<=1.02 5 [facility] Comment on above: Performed By: #### U MICRO, ERUR, PREGU #### [facility] [address] [address] [address] Jolanta Alvarado UA PROTEIN TRACE Normal NEGATIVE/ TRACE [facility] Comment on above: Performed By: #### U MICRO, ERUR, PREGU #### [facility] [address] [place] [address] Dr. Jolanta Alvarado UR MICRO IND INDICATED Normal [facility] Comment on above: Performed By: #### U MICRO, ERUR, PREGU #### [facility] [address] [place] [address] Dr. Jolanta Alvarado Urobilinogen Qn (U) 0.2 {Loyd'U}/dL Normal 0.2 - 1. 0 [facility] Comment on above: Performed By: #### U MICRO, ERUR, PREGU #### [facility] [address] [place] [address] Dr. Jolanta Alvarado URon 10-04-2021 , QUAL Negative Normal NEGATIVE The [facility] Comment on above: Performed By: #### U MICRO, ERUR, PREGU #### [facility] [address] [place] [address] Dr. Jolanta Alvarado URINE MICROSCOPIC ONLYon BACTERIA LARGE Abnormal NONE SEEN [facility] Comment on above: Performed By: #### U MICRO, ERUR, PREGU #### [facility] [address] [place] [address] Dr. Jolanta Alvarado Bacteria identified Cx Nom (U) INDICATED Normal [facility] Comment on above: Performed By: #### U MICRO, ERUR, PREGU #### [facility] [address] [place] [address] Dr. Jolanta Alvarado CAST NONE SEEN Normal NONE SEEN [facility] Comment on above: Performed By: #### U MICRO, ERUR, PREGU #### [facility] [address] [place] [address] Dr. Jolanta Alvarado Crystals LM Nom (Urine sed) NONE SEEN Normal NONE SEEN [facility] Comment on above: Performed By: #### U MICRO, ERUR, PREGU #### [facility] [address] [place] [address] Dr. Jolanta Alvarado Epithelial cells LM Ql (Urine sed) FEW Abnormal NONE SEEN /RARE [facility] Comment on above: Performed By: #### U MICRO, ERUR, PREGU #### [facility] [address] [place] [address] Dr. Jolanta Alvarado MUCOUS SMALL Abnormal NONE SEEN [facility] Comment on above: Performed By: #### U MICRO, ERUR, PREGU #### [facility] [address] [place] [address] [address] Jolanta Alvarado RBC (U) [#/Vol] /uL Abnormal 0-2 [facility] Comment on above: Performed By: #### U MICRO, ERUR, PREGU #### [facility] [address] [place] [address] Dr. Jolanta Alvarado WBC 10-20 Abnormal NONE SEEN [facility] Comment on above: Performed By: #### U MICRO, ERUR, PREGU #### [facility] [address] [place] [address] Dr. Jolanta Alvarado COVID Quick Testingon 2021 Result Negative [employer] Other Quick Fluon 08-26-2021 FLUAV Ab CF (S) [Titer] Negative [employer] Other FLUBV Ab CF (S) [Titer] Negative [employer] Other FREE T4on 03-21-2021 Free T4 [Mass/Vol] 0.81 ng/dL Normal 0.78-2.[address] [facility] Comment on above: Performed By: #### F T4 #### [facility] [address] [place] [address] Jojo Samia GLYCOHEMOGLOBIN A1Con 2020 ADA RECOMMENDATION ADA THERAPEUTIC TARGET 6.0 - 7.0 ACTION SUGGESTED > 7.0 Normal [facility] Comment on above: Performed By: #### A 1C #### [facility] [address] [place] [address] Jojo Samia Glucose [Mass/Vol] 105 mg/dL Normal [facility] Comment on above: Performed By: #### A 1C #### [facility] [address] [place], [place] [address] Jojo Samia HbA1c (Bld) [Mass fraction] 5.3 % Normal <=6.0 [facility] Comment on above: Performed By: #### A 1C #### [facility] [address] [place], [place] [address] Jojo Samia LIPID PROFILEon 03-21-2021 CHOL-HDL RATIO NORM SEE BELOW Normal [facility] Comment on above: Result Comment: 3.3 - 4.4 LOW RISK 4.4 - 7.1 AVERAGE RISK 7.1 - 11.0 MODERATE RISK >11.0 HIGH RISK Performed By: #### C MP, LIPID, TSH #### [facility] [address] [place] [address] Jojo Samia Cholesterol [Mass/Vol] 165 mg/dL Normal <=200 [facility] Comment on above: Performed By: #### C MP, LIPID, TSH #### [facility] [address] [place] [address] Jojo Samia Cholesterol in HDL [Mass/Vol] 42 mg/dL Normal [facility] Comment on above: Performed By: #### C MP, LIPID, TSH #### [facility] [address] [place], [place] [address] Jojo Samia Cholesterol in LDL [Mass/Vol] 109.6 mg/dL Normal [facility] Comment on above: Performed By: #### C MP, LIPID, TSH #### [facility] [address] [place] [id number] Jojo Samia Cholesterol.total/Cho lesterol in HDL [Mass ratio] 3.9 {ratio} Normal [facility] Comment on above: Performed By: #### C MP, LIPID, TSH #### [facility] [address] [place] [id number] Jojo Samia HDL NORMAL > or = 60 mg/dl - LOW CARDIOVASCULAR RISK <40 mg/dl - HIGH CARDIOVASCULAR RISK Normal [facility] Comment on above: Performed By: #### C MP, LIPID, TSH #### [facility] [address] [place], [place] [address] Jojo Samia LDL CALC NORMAL SEE BELOW Normal [facility] Comment on above: Result Comment: <100 mg/dl OPTIMAL 100 - 129 mg/dl NEAR OR ABOVE OPTIMAL 130 - 159 mg/dl BORDERLINE HIGH 160 - 189 mg/dl HIGH >190 mg/dl VERY HIGH Performed By: #### C MP, LIPID, TSH #### [facility] [address] [place], [place] [address] Jojo Samia Triglyceride [Mass/Vol] 67 mg/dL Normal <=150 [facility] Comment on above: Performed By: #### C MP, LIPID, TSH #### [facility] [address] [place], [place] [address] Jojo Samia VLDL CALC 13.4 mg/dL Normal [facility] Comment on above: Performed By: #### C MP, LIPID, TSH #### [facility] [address] [place] [id number] Jojomaria victoria Gracia PROF 14(COMP METB)on 021 Albumin [Mass/Vol] 3.7 g/dL Normal 3.5-5.0 [facility] Comment on above: Performed By: #### C MP, LIPID, TSH #### [facility] [address] [id number] Jojo Samia Albumin/Globulin [Mass ratio] 1.0 {ratio} Normal [facility] Comment on above: Performed By: #### C MP, LIPID, TSH #### [facility] [address] [place] [id number] Jojo Samia ALP [Catalytic activity/Vol] 102 U/L Normal 38-126 [facility] Comment on above: Performed By: #### C MP, LIPID, TSH #### [facility] [address] [place] [phone] Jojo Samia ALT [Catalytic activity/Vol] 33 U/L Normal 9-52 [facility] Comment on above: Performed By: #### C MP, LIPID, TSH #### [facility] [address] [place], [place] [address] Jojo Samia Anion gap [Moles/Vol] 11.7 mmol/L Normal [facility] Comment on above: Performed By: #### C MP, LIPID, TSH #### [facility] [address] [place] [phone] Jojo Samia AST [Catalytic activity/Vol] 24 U/L Normal 14-36 [facility] Comment on above: Performed By: #### C MP, LIPID, TSH #### [facility] [address] [place] [phone] Jojo Samia Bilirubin [Mass/Vol] 0.4 mg/dL Normal 0.2-1.3 [facility] Comment on above: Performed By: #### C MP, LIPID, TSH #### [facility] [address] [place] [phone] Jojo Samia Calcium [Mass/Vol] 8.9 mg/dL Normal 8.4-10.2 [facility] Comment on above: Performed By: #### C MP, LIPID, TSH #### [facility] [address] [place] [address] Jojo Samia Chloride [Moles/Vol] 103 mmol/L Normal 98-107 [facility] Comment on above: Performed By: #### C MP, LIPID, TSH #### [facility] [address] [phone] Jojo Samia CO2 [Moles/Vol] 29.2 mmol/L Normal 22.0-30.0 [facility] Comment on above: Performed By: #### C MP, LIPID, TSH #### [facility] [address] [phone] Jojo Samia Creatinine [Mass/Vol] 0.89 mg/dL Normal 0.52-1.04 [facility] Comment on above: Performed By: #### C MP, LIPID, TSH #### [facility] [address] [place], [place] [address] Jojo Samia EGFR-AF MOROCCAN >60 Normal >=60 [facility] Comment on above: Performed By: #### C MP, LIPID, TSH #### [facility] [address] [phone] Jojo Samia EGFR-NON AF MOROCCAN >60 Normal >=60 [facility] Comment on above: Performed By: #### C MP, LIPID, TSH #### [facility] [address] [place], [place] [address] Jojo Samia Globulin (S) [Mass/Vol] 3.7 g/dL Normal [facility] Comment on above: Performed By: #### C MP, LIPID, TSH #### [facility] [address] [place] [phone] Jojo Samia Glucose [Mass/Vol] 108 mg/dL Critically high 74-106 [facility] Comment on above: Performed By: #### C MP, LIPID, TSH #### [facility] [address] [phone] Jojo Samia Potassium [Moles/Vol] 3.9 mmol/L Normal 3.4-5.0 [facility] Comment on above: Performed By: #### C MP, LIPID, TSH #### [facility] [address] [place] [address] Jojo Samia Protein [Mass/Vol] 7.4 g/dL Normal 6.1-8.2 [facility] Comment on above: Performed By: #### C MP, LIPID, TSH #### [facility] [address] [place], [place] [address] Jojo Samia Sodium [Moles/Vol] 140 mmol/L Normal 137-145 [facility] Comment on above: Performed By: #### C MP, LIPID, TSH #### [facility] [address] [place] [address] Jojo Samia Urea nitrogen [Mass/Vol] 12.0 mg/dL Normal 7.0-17.0 [facility] Comment on above: Performed By: #### C MP, LIPID, TSH #### [facility] [address] [place], [place] [address] Jojo Samia Urea nitrogen/Creatinine [Mass ratio] 13.5 mg/mg Normal [facility] Comment on above: Performed By: #### C MP, LIPID, TSH #### [facility] [address] [phone] Jojo Samia TSHon 08-17-2021 TSH 1.654 uIU/mL Normal 0.470-4.680 [facility] Comment on above: Performed By: #### C MP, LIPID, TSH #### [facility] [address] [place], [place] [address] Jojo Gracia TSH RANGE SEE BELOW Normal [facility] Comment on above: Result Comment: <0.3 4 UIU/ml HYPERTHYROID 0.34-5.60 UIU/ml EUTHYROID >5.60 UIU/ml HYPOTHYROID Performed By: #### C MP, LIPID, TSH #### [facility] [address] [place], [place] [address] Jojo Gracia Vital Signs Date Time Vital Sign Value Performing Clinician Facility 02-01-2025 15:47-0400 Body mass index (BMI) [Ratio] 47.39 kg/m2 Dennis Keyshawn DO Work Phone: [facility] 02-01-2025 15:47-0400 Body weight 117.54 kg Dennis Keyshawn DO Work Phone: [facility] 02-01-2025 15:47-0400 Diastolic blood pressure 80 mm[Hg] Dennis Keyshawn DO Work Phone: [facility] 02-01-2025 15:47-0400 Systolic blood pressure 130 mm[Hg] Dennis Keyshawn DO Work Phone: [facility] 12-23-2024 13:36-0400 Body height 157.5 cm Dennis Keyshawn DO Work Phone: [facility] 12-23-2024 13:36-0400 Body mass index (BMI) [Ratio] 48.43 kg/m2 Dennis Keyshawn DO Work Phone: [facility] 12-23-2024 13:36-0400 Body weight 120.11 kg Dennis Keyshawn DO Work Phone: [facility] 12-23-2024 13:36-0400 Diastolic blood pressure 82 mm[Hg] Dennis Keyshawn DO Work Phone: [facility] 12-23-2024 13:36-0400 Systolic blood pressure 120 mm[Hg] Dennis Mahajan DO Work Phone: [facility] 10-06-2024 16:03-0500 Body temperature 98.71 [degF] Yoselyn Hallman BLEACH MACHINE OPERATOR Work Phone: [facility] 10-06-2024 16:03-0500 Body weight 114.31 kg Yoselyn Hallman BLEACH MACHINE OPERATOR Work Phone: [facility] 10-06-2024 16:03-0500 Heart rate 88 /min Yoselyn Hallman BLEACH MACHINE OPERATOR Work Phone: [facility] 10-06-2024 16:03-0500 SaO2% (BldA) [Mass fraction] 98 % Yoselyn Hallman BLEACH MACHINE OPERATOR Work Phone: [facility] 04-09-2024 08:38-0400 Blood Pressure Location Teagan Nataprawira [facility] 04-09-2024 08:38-0400 Diastolic blood pressure 98 mm[Hg] Teagan Nataprawira [facility] 04-09-2024 08:38-0400 Heart rate 80 /min Teagan Nataprawira [facility] 04-09-2024 08:38-0400 Mean blood pressure 116 mm[Hg] Teagan Nataprawira [facility] 04-09-2024 08:38-0400 Systolic blood pressure 153 mm[Hg] Teagan Nataprawira [facility] 04-09-2024 08:37-0400 Heart rate 80 /min Teagan Nataprawira [facility] 04-09-2024 08:37-0400 SaO2% (BldA) [Mass fraction] 98 % Teagan Nataprawira [facility] 04-09-2024 08:37-0400 Respiratory rate 18 /min Teagan Nataprawira [facility] 04-09-2024 08:37-0400 Blood Pressure Location Teagan Nataprawira [facility] 04-09-2024 08:37-0400 Diastolic blood pressure 92 mm[Hg] Teagan Nataprawira [facility] 04-09-2024 08:37-0400 Mean blood pressure 112 mm[Hg] Teagan Nataprawira [facility] 04-09-2024 08:37-0400 Systolic blood pressure 152 mm[Hg] Teagan Nataprawira [facility] 04-09-2024 08:36-0400 Body temperature 97.88 [degF] Teagan Nataprawira [facility] 04-07-2024 08:34-0400 Body weight 109.77 kg Teagan Nataprawira DO Work Phone: [facility] 04-07-2024 08:34-0400 Diastolic blood pressure 80 mm[Hg] Teagan Nataprawira DO Work Phone: [facility] 04-07-2024 08:34-0400 Systolic blood pressure 132 mm[Hg] Teagan Nataprawira DO Work Phone: [facility] 07-24-2022 17:30-0500 Body height 154.94 cm Ana Cordova Other [employer] [facility] Other 07-24-2022 17:30-0500 Body mass index (BMI) [Ratio] 40.62 kg/m2 Ana Cordova Other [employer] Other 07-24-2022 17:30-0500 Body temperature 98.6 [degF] Ana Cordova Other [employer] Other 07-24-2022 17:30-0500 Body weight 97.52 kg Ana Cordova Other [employer] Other 07-24-2022 17:30-0500 Respiratory rate 18 /min Ana Cordova Other [employer] Other 07-24-2022 17:30-0500 SaO2% (BldA) [Mass fraction] 100 % Ana Cordova Other [employer] [employer] Other 10-09-2021 14:00-0500 Body height 154.94 cm Ana Cordova Other [employer] Other 10-09-2021 14:00-0500 Body mass index (BMI) [Ratio] 43.83 kg/m2 Ana Cordova Other [employer] Other 10-09-2021 14:00-0500 Body temperature 97.2 [degF] Ana Cordova Other [employer] Other 10-09-2021 14:00-0500 Body weight 105.24 kg Ana Cordova Other [employer] Other 10-09-2021 14:00-0500 Diastolic blood pressure 92 mm[Hg] Ana Cordova Other [employer] Other 10-09-2021 14:00-0500 Respiratory rate 18 /min Ana Woodwardault Other [employer] Other 10-09-2021 14:00-0500 SaO2% (BldA) [Mass fraction] 100 % Ana Woodwardault Other [employer] Other 10-09-2021 14:00-0500 Systolic blood pressure 141 mm[Hg] Ana Cordova Other [employer] Other 09-14-2021 11:30-0500 Body height 154.94 cm Ana Cordova Other [employer] Other 09-14-2021 11:30-0500 Body mass index (BMI) [Ratio] 45.34 kg/m2 Ana Cordova Other [employer] Other 09-14-2021 11:30-0500 Body temperature 96.8 [degF] Ana Cordova Other [employer] Other 09-14-2021 11:30-0500 Body weight 108.86 kg Ana Cordova Other [employer] Other 09-14-2021 11:30-0500 Diastolic blood pressure 84 mm[Hg] Ana Cordova Other [employer] Other 09-14-2021 11:30-0500 Respiratory rate 20 /min Ana Cordova Other [employer] Other 09-14-2021 11:30-0500 SaO2% (BldA) [Mass fraction] 99 % Ana Cordova Other [employer] Other 09-14-2021 11:30-0500 Systolic blood pressure 134 mm[Hg] Ana Woodwardault Other [employer] Other 08-26-2021 14:15-0500 Body height 154.94 cm Sheba Bustillo Other [employer] Other 08-26-2021 14:15-0500 Body mass index (BMI) [Ratio] 45.91 kg/m2 Sheba Bustillo Other [employer] Other 08-26-2021 14:15-0500 Body temperature 97.7 [degF] Sheba Bustillo Other [employer] Other 08-26-2021 14:15-0500 Body weight 110.22 kg Sheba Bustillo Other [employer] Other 08-26-2021 14:15-0500 Respiratory rate 18 /min Sheba Bustillo Other [employer] Other 08-26-2021 14:15-0500 SaO2% (BldA) [Mass fraction] 98 % Sheba Bustillo Other [employer] Other 06-13-2021 12:30-0500 Body height 154.94 cm Ana Tasha Other [employer] Other 06-13-2021 12:30-0500 Body mass index (BMI) [Ratio] 45.91 kg/m2 Ana Cordova Other [employer] Other 06-13-2021 12:30-0500 Body temperature 97.5 [degF] Ana Cordova Other [employer] Other 06-13-2021 12:30-0500 Body weight 110.22 kg Ana Cordova Other [employer] Other 06-13-2021 12:30-0500 Diastolic blood pressure 84 mm[Hg] Ana Cordova Other [employer] Other 06-13-2021 12:30-0500 Respiratory rate 18 /min Ana Cordova Other [employer] Other 06-13-2021 12:30-0500 SaO2% (BldA) [Mass fraction] 99 % Ana Cordova Other [employer] Other 06-13-2021 12:30-0500 Systolic blood pressure 136 mm[Hg] Ana Cordova Other [employer] Other Encounters Encounter Date Encounter Type Care Provider Facility Start: 02-18-2025 End: 02-19-2025 Clinisync Result Encounter Dennis Keyshawn DO Work Phone: [facility] External Department Unsolicited Start: 02-18-2025 End: 02-19-2025 Clinisync Result Encounter Dennis Keyshawn DO Work Phone: [facility] External Department Unsolicited Start: 02-01-2025 End: 02-01-2025 Office outpatient visit 15 minutes Dennis Keyshawn DO Work Phone: [facility] Comment on above: Pre-op examination; Menorrhagia with regular cycle; Pelvic pain; Abnormal uterine bleeding (AUB) Start: 02-01-2025 End: 02-01-2025 Preprocedural examination done Dennis Keyshawn DO Work Phone: [facility] Start: 02-01-2025 End: 02-09-2025 External Result Encounter Dennis Keyshawn DO Work Phone: [facility] External Department Unsolicited Start: 02-01-2025 End: 02-09-2025 External Result Encounter Dennis Keyshawn DO Work Phone: [facility] External Department Unsolicited Start: 02-01-2025 End: 02-01-2025 [...] Office outpatient visit 25 minutes Yoselyn Hallman BLEACH MACHINE OPERATOR Work Phone: [facility] Comment on above: Sinus pressure (Prim juwan Dx); Acute non-recurrent maxillary sinusitis Start: 10-06-2024 End: 10-06-2024 ambulatory YOSELYN HALLMAN Not Available Start: 04-09-2024 End: 04-09-2024 ambulatory DO Teagan Gamez Facility:[facility] Start: 04-09-2024 End: 04-09-2024 Patient encounter procedure Teagan Gamez [facility] Start: 04-07-2024 End: 04-07-2024 Office outpatient visit 25 minutes Teagan Gamez DO Work Phone: [facility] Comment on above: Menorrhagia with reg ular cycle (Primary Dx); Dysmenorrhea; Pelvic pain in female; History of tubal ligation Start: 04-07-2024 End: 04-07-2024 ambulatory TEAGAN GAMEZ Not Available Start: 02-19-2024 End: 04-24-2024 Pre-admission assessment Teagan JKallie Gamez [facility] Start: 02-04-2024 End: 02-04-2024 ambulatory TEAGAN ROGERSCKKI Not Available Start: 10-21-2023 End: 10-21-2023 ambulatory ANA CORDOVA Facility:[facility] Start: 10-21-2023 End: 10-21-2023 Patient encounter procedure ANA CORDOVA [facility] Start: 10-08-2023 End: 10-08-2023 ambulatory ANAJOSR CORDOVA Facility:[facility] Start: 07-24-2022 End: 07-24-2022 ambulatory Ana Tasha Other [employer] Other Start: 07-24-2022 Office outpatient vi sit 15 minutes Ana Tasha [facility] Start: 10-09-2021 End: 10-09-2021 ambulatory Ana Tasha Other [employer] Other Start: 10-09-2021 Office outpatient vi sit 15 minutes Ana Tasha [facility] Start: 10-04-2021 End: 10-05-2021 ambulatory ANA TASHA Facility: Start: 09-14-2021 End: 09-14-2021 ambulatory Ana Tasha Other [employer] Other Start: 09-14-2021 Office outpatient vi sit 15 minutes Ana Tasha [facility] Start: 08-26-2021 (URG) Urgent Care Visit Shebailan mendoza [facility] Start: 08-26-2021 End: 08-26-2021 ambulatory Sheba Bustillo Other [employer] Other Start: 06-13-2021 End: 06-13-2021 ambulatory Ana Tasha Other [facility] Other Start: 06-13-2021 Office outpatient vi sit 15 minutes Ana Cordova [facility] Start: 04-09-2021 Encounter for gynecological examination (general) (routine) without abnormal findings ANA CORDOVA [facility] Start: 03-21-2021 End: 03-22-2021 ambulatory ANA CORDOVA Facility:[facility] Start: 03-21-2021 End: 03-22-2021 Encounter for gynecological examination (general) (routine) without abnormal findings ANA CORDOVA Facility: Procedures Date Procedure Procedure Detail Performing Clinician Start: 02-18-2025 XR CHEST 2V DennisPoikos o DO Work Phone: Start: 02-18-2025 ALL BASIC METABOLIC PANEL Dennis Keyshawn DO Work Phone: Start: 02-18-2025 ECG 12-LEAD idio DO Work Phone: Start: 02-01-2025 Urine test visual color cmprsn meths Dennis Keyshawn DO Work Phone: Start: 02-01-2025 PATHOLOGY REQUEST FO R LAB ARLIN Dennis Keyshawn DO Work Phone: Start: 12-23-2024 [...] EDT Office Visit [facility] [address] [address] Candy Lindsey PA [address] [place], [place] [id number] [facility] Start: 02-01-2025 End: 02-01-2025 Patient encounter procedure 02/01/2025 3:30 PM EDT Procedure Visit [facility] [address] [phone] Dennis Mahajan DO [address] [place], [place] [id number] [facility] Start: 02-01-2025 [facility] Start: 05-28-2024 End: 05-28-2024 Patient encounter procedure 05/28/2024 3:15 PM EDT Office Visit [facility] [address] [phone] Teagan Gamez DO [address] [phone] [facility] Start: 04-23-2024 End: 04-23-2024 Patient encounter procedure 04/23/2024 9:00 AM EDT Procedure Visit [facility] EXT DEP Teagan Gamez DO [address] [phone] [facility] Start: 04-05-2024 Influenza vaccination Influenza Vacc ine (#1) [facility] Start: 2021 Screening for malign ant neoplasm of breast Mammogram [facility] Start: 12-08-2011 Screening for malign ant neoplasm of cervix HPV/Cotest [facility] Biopsy endometrium Biopsy endome trium Procedures Routine Menorrhagia with regular cycle Pelvic pain Abnormal uterine bleeding (AUB) Ordered: 02/01/2025 [facility] Work Phone: Comment on above: Ordered: 02/01/2025 Immunizations Immunization Date Immunization Notes Care Provider Nidia spain 08-01-2007 influenza virus vaccine, unspecified formulation Teagan Gamez DO Work Phone: [facility] Payers Date Payer Category Payer Medicaid [employer] [place] [employer] [id number] 2024-Present [address] [facility] [place] [address] [id number] 2024 Medicaid (Managed Care) [employer] [id number] 2023 Medicaid [id number] 2023 Self-pay 1980 Unknown [id number]. 1981 Unknown [id number] 59 1981 Unknown [id number] 1981 Unknown [id number] 2.840.1.689662.3.579.2 1981 Unknown [id number] .[id number] 1981 Unknown [id number] [id number]. 727 1981 Unknown [id number] 2.16.840.1.155551.3.579.2. 1258 1981 Unknown [id number] 2.16.840.1.550954.3.579.2. 1258 1981 Unknown [id number] 2.16.840.1.076029.3.579.2. 1258 1981 Unknown [id number] 2.16.840.1.733823.3.579.2. 1258 1981 Unknown [id number] [id number]. 9 1959 Unknown [id number] Unknown [id number]. 531 Social History Date Type Detail Facility Start: 02-04-2024 End: 04-07-2024 Sex Assigned At [facility] Tobacco smoking status No Smokin g Status Entered [facility] Tobacco Current vaping o r e-cigarette use Smokeless Tobacco Use:. Vaping [facility] Start: 01-13-2024 Tobacco smoking stat [facility] Ex-smoker [facility] Start: 2000 History of tobacco use Current smoke r [facility] Start: 2000 History of tobacco use Cigarette Smo ker [facility] Start: 01-13-2024 End: 02-04-2024 Cigarettes smoked current (pack per day) - Reported 2 [facility] Start: 01-13-2024 Tobacco use and exposure Smokeless tobacco non-user [facility] Start: 04-07-2024 End: 02-01-2025 Alcoholic beverage intake Current drinker of alcohol (finding) [facility] Start: 1980 Sex assigned at [facility] Start: 01-06-2024 Gender identity Identifies as female gender (finding) [facility] Tobacco smoking stat [facility] Unknown if ever smoked [facility] Work Phone: Sex Female (finding) [facility] Functional Status Date Assessment Result Facility 04-09-2024 Functional Status No [facility] Clinical Notes 06-13-2021 to 02-01-2025 María Rasmussen - 02/01/2025 3:30 PM Luisito Clancy LPN - 12/23/2024 1:10 PM Katharine Hallman NP - 10/06/2024 4:00 PM Nadia Gamez, DO - 04/07/2024 8:30 AM EDT Note Date & Type Note Facility 02-01-2025 History of Presen t illness Narrative Reason for Appointment: Patient ID: Yaquelin Reed is a 44 y.o. female who presents for Pre-op Visit and EMBX Patient presents today for Pre Op/Endometrial Biopsy appointment. Patient is scheduled to undergo Endometrial Ablation with Jamia on 02-26-[address] Mahajan at [facility]. MEDICATIONS Current Outpatient Medications Medication Instructions DULoxetine (Cymbalta) [address] capsule 1 capsule, Every 24 hours ergocalciferol (Vitamin D-2) 1.25 MG (94909 UT) capsule hydrOXYzine HCl (Atarax) 25 MG [...] Name Age of Onset Migraines Mother Jigna Reed Cancer Father Adam Reed SURGICAL HISTORY Past Surgical History: Procedure Laterality [...] Dennis Mahajan DO documented in this encounter [facility] 12-23-2024 History of Presen t illness Narrative Reason for Appointment: Patient ID: Yaquelin Reed is a 44 y.o. female who presents for Menstrual Problem Patient presents today for Acute Visit. and Consult appointment. MEDICATIONS Current Outpatient Medications Medication Instructions DULoxetine (Cymbalta) [address] capsule 1 capsule, Every 24 hours ergocalciferol (Vitamin D-2) 1.25 MG (20288 UT) capsule hydrOXYzine HCl (Atarax) 25 MG [...] Name Age of Onset Migraines Mother Jigna Reed Cancer Father Adam Reed SURGICAL HISTORY Past Surgical History: Procedure Laterality [...] nursing note reviewed. Exam conducted with a daily sales audit clerk present. Vitals: Estimated body mass index is [...] Dennis Mahajan DO documented in this encounter [facility] 10-06-2024 History of Presen t illness Narrative Images from the original note were not included. [address] , [address] [facility], [address] P: [phone] F: [phone] HPI Historian of HPI: patient Yaquelin Reed is a 43 y.o. female who presents [...] tablet; Refill: 0 documented in this encounter [facility] 04-07-2024 History of Presen t illness Narrative Images from the original note were not included. Subjective Yaquelin Reed is a 43 y.o. female HPI Chief [...] bowel habits. Pelvic ultrasound done 10/21/23 at [facility] revealed uterus measuring 9.8x5.5x3.7cm. Endometrial thickness measuring [...] Name Age of Onset Migraines Mother Jigna Reed Cancer Father Adam Reed Social History Tobacco Use Smoking status: Former [...] same time ergocalciferol (Vitamin D-2) 1.25 MG (48143 UT) capsule hydrOXYzine HCl (Atarax) 25 MG [...] of tubal ligation documented in this encounter [facility] 07-24-2022 Evaluation note Encounter Date [...] weeks for the cough to go away [employer] Other 03-07-2022 Evaluation note* Encounter Date Diagnosis [...] pain, unable to urinate were to return [employer] Other 02-10-2022 Evaluation note* Encounter Date Diagnosis [...] to be seen. Also always know the [facility] Emergency Number is 24 hours a day available, even on holidays there is someone you can reach out to. Also we will check other labs yearly to screen for other health issues. Please remember we are a team and your opinion is very important in all of your healthcare decisions Sep, Vitamin D deficiency (ICD-10 - E55.9) Sep, Psychophysiological insomnia (ICD-10 - F51.04) [employer] Other 11-09-2021 Evaluation note* Encounter Date Diagnosis [...] to be seen. Also always know the [facility] Emergency Number is 24 hours a day available, even on holidays there is someone you can reach out to. Also we will check other labs yearly to screen for other health issues. Please remember we are a team and your opinion is very important in all of your healthcare decisions [facility] Other Evaluation + Plan note No data available for this section [facility] Future Appointments Appointment Date:04/23/2024 09:00:00 AM Scheduled Provider: Location:[facility] Appointment Type:Surgery FT [facility]* Diagnosis Menorrhagia with regular cycle- Primary Dysmenorrhea Pelvic pain in female Unspecified symptom associated with female genital organs History of tubal ligation Tubal ligation status documented in this encounter [facility]* Diagnosis Sinus pressure- Primary Other diseases of nasal cavity and sinuses Acute non-recurrent maxillary sinusitis documented in this encounter [facility]* Diagnosis Menorrhagia with irregular cycle documented in this encounter [facility] HealthcareEvaluation noteNo assessment information available[facility] Work Phone: Evaluation note* Diagnosis Pre-op examination Menorrhagia with regular cycle Pelvic pain Abnormal uterine bleeding (AUB) documented in this encounter [facility] Narrative - Reported* Type Description Date Medical History anxiety Surgical History tubal ligation [facility] Other History general Narrative - [facility] Hospital Discharge instructions No data available for this section [facility] No data available for this section [facility] for [facility] (narrative)No reason for referral information availableSelect [facility] Work Phone: Summary Purpose Family History Relationship Condition Age at Onset Recorded Date/T bernardo father Hypertension Unknown Advance Directives Advance Directive Response Recorded Date/ Time Advance Directives No October 26, 020 9:26am Additional Source Comments INFORMATION SOURCE (unrecogn ized section and content) DATE CREATED AUTHOR 10/07/2021 [facility] DATE CREATED AUTHOR AUTHOR'S ORGANIZ ATION 04/10/2024 [facility] DATE CREATED AUTHOR AUTHOR'S ORGANIZ ATION 04/11/2024 [facility] DATE CREATED AUTHOR AUTHOR'S ORGANIZ ATION 05/10/2024 [facility] DATE CREATED AUTHOR AUTHOR'S ORGANIZ ATION 02/02/2025 [facility] DATE CREATED AUTHOR AUTHOR'S ORGANIZ ATION 02/13/2025 [facility] REASON FOR VISIT (unrecogniz ed [...] team informatio n (unrecognized section and content) Edge Worker Relationship Specialty Start Date End Date Rudy Taylor MD [address] [place] [address] [address] [place] [address] PCP - General Family Medicine 01/13/24 Edge Worker Relationship Specialty Start Date End Date Rudy Taylor MD [address] [place] [address] PCP - General Family Medicine 01/13/24 Edge Worker Relationship Specialty Start Date End Date Rudy Taylor MD [address] [place] [address] PCP - General Family Medicine 01/13/24 Edge Worker Relationship Specialty Start Date End Date Rudy Taylor MD [address] [place] [address] PCP - General Family Medicine 01/13/24 Team Status: Inactive Member Role Status Dates Dennis Mahajan DO Attending Provider Active Start : February 01, 2025 End: February 01, 2025 Edge Worker Relationship Specialty Start Date End Date uRdy Taylor MD [address] [place] [address] PCP - General Family Medicine 01/13/24 Edge Worker Relationship Specialty Start Date End Date Rudy Taylor MD [address] [place] [address] PCP - General Family Medicine 01/13/24 Goals [...] BE BASED ON THE PRIMARY CLINICAL RECORDS. [facility] [employer] [facility]. provides no warranty or guarantee of the accuracy or completeness of information in this document.
[2025-02-26 10:16] VITALS: BP 153/114; PULSE 77; TEMP 36.3; O2SAT 92
--- NOTE | 2025-02-26 10:17 | PM.ONB ---
Brief Operative Note Date of procedure: 02/26/25 Pre-op diagnosis general: menorrhagia Post-op diagnosis: same as pre-op Procedure: NAME OF PROCEDURE: [ ] Jamia endometrial ablation with hysteroscopy. PROCEDURE: The patient was taken back to the OR where she was prepped and draped in the normal sterile fashion after being placed in the dorsal lithotomy position, after being placed under general anesthesia without difficulty.? A weighted speculum was placed into the vagina. The anterior lip was grasped with a single tooth tenaculum. The patient was then sounded to approximated 8cm. The patient?s cervix was gently dilated using hegardilators. The hysteroscope was passed through the cervix into the uterus where both ostia were seen. No gross evidence of polyps, fibroids or malignancy. The cervical length was noted to be 4 cm. The total cavity length is 4cm.? The Jamia ablation apparatus was set to approximately 4cm in length. This was placed through the cervix and into the uterus. After the seal was tested, at that time the total ablation of 120 seconds was performed with the Jamia withoutdifficulty. All instruments were removed from the vagina. Excellent hemostasis noted.? Sponge and lap count correct times 2.? Patient taken to recovery in stable condition. Anesthesia: MAC Surgeon: Misael Mahajan Estimated blood loss (mL): 5 Pathology: none sent Condition: stable Disposition: PACU Urinary Catheter Management Urinary Catheter Management Straight: Cath placed during this visit: no
[2025-02-26 10:31] VITALS: BP 178/102; PULSE 76; O2SAT 93
[2025-02-26 11:01] VITALS: BP 163/103; PULSE 63; O2SAT 96
[2025-02-26 11:31] VITALS: BP 188/105; PULSE 69; O2SAT 99
[2025-02-26 12:01] VITALS: BP 171/105; PULSE 74; O2SAT 98
== END 2025-02-26 12:15 | disposition home or self-care (01) ==
PROVIDERS: PCP Student in an Organized Health Care Education/Training Program; Visit Provider Obstetrics & Gynecology
PROC: (CPT 952; principal; 2025-02-26 09:10)
DX: N92.0 Excessive and frequent menstruation with regular cycle (principal); N93.9 Abnormal uterine and vaginal bleeding, unspecified; R10.2 Pelvic and perineal pain; Z87.440 Personal history of urinary (tract) infections; Z98.51 Tubal ligation status; E66.01 Morbid (severe) obesity due to excess calories; Z68.42 Body mass index [BMI] 45.0-49.9, adult; F17.290 Nicotine dependence, other tobacco product, uncomplicated; J45.909 Unspecified asthma, uncomplicated; K21.9 Gastro-esophageal reflux disease without esophagitis; F41.9 Anxiety disorder, unspecified
CPT/HCPCS: 58563; 36415; 82948; 84702; 85025; J1885; J2250; J2704; J3010

== ENCOUNTER 2025-06-01 19:19 | Outpatient (REF) | payer OTHER, SELFPAY ==
--- OUTSIDE RECORDS SUMMARY | 2024-03-23 11:00 | XMS_ITS ---
Author Organization [facility] Address [address] [address] Care Team Providers Care Enterprise Systems Manager Name Role Phone Vernell Hopper Primary Care Provider Ana Rocha Unavailable [phone] 21 REASON FOR VISIT MED REFILLS Social History Sex Assigned At : Social History Observation Description Sex Assigned At Female Encounters Encounter Location Date Provider [address] [place] [address] 03/23/2024 Ana Rocha Plan Of Treatment Next Appt Details Provider Name:Vernell Hopper, 06/18/2025 11:30:00 AM, [address] [place], [address], Progress Notes * GORDON REEDMCKAYLADOB:1980 ([age] yo F)Acc No.[id number]:03/23/2024 Progress Notes Patient: NAYE GRAHAM :?Ana Alarcon CNPDOB:1980???Age:43 Y ???Sex:FemaleDate:03/23/2024hone:[phone]:[address] [place], [place]Pcp:Vernell Hopper Subjective: * Chief Complaints: * M ED REFILLS * Electronic signature of SUZANNE Gonzalez on 06/01/2025 at 01:43 PM EDTSign off status: Pending * Provider: Anila Alarcon CNP Date: 0 03/23/2024 Generated for Printing/Faxing/eTransmitting on:?06/01/2025 01:43 PM EDT
--- OUTSIDE RECORDS SUMMARY | 2025-03-17 11:45 | XMS_ITS ---
Author Organization [facility] Servic es Address [address] [place] [address] Care Team Providers Care Library Consultant Name Role Phone Vernell Hopper Primary Care Provider [phone] REASON FOR VISIT med recheck; ciara Social History Sex Assigned At : Social History Observation Description Sex Assigned At Female Encounters Encounter Location Date Provider Diagnosis [address] [place] [address] 03/17/2025 Vernell Hopper Plan Of Treatment Next Appt Details Provider Name:Vernell Hopper, 06/18/2025 11:30:00 AM, [address] [place], [address], Progress Notes * BRIANNA NAYEDOB:1980 ([age] yo F)Acc No.[id number]:03/17/2025 Progress Notes Patient: NAYE GRAHAM :?Vernlel RiveraOB:1980???Age:44 Y???Sex: FemaleDate:03/17/2025Phone:[phone]:[address] [place], [place] Subjective: * Chief Complaints: * M ed recheck; ciara * Electronic signature of Vernell Hopper NP on 06/01/2025 at 01:43 PM EDTSign off status: Pending * Provider: Aissatou Hopper Date: 0 03/17/2025 Generated for Printing/Faxing/eTransmitting on:?06/01/2025 01:43 PM EDT
--- OUTSIDE RECORDS SUMMARY | 2025-06-01 14:00 | XMS_ITS | Encounter Summary ---
Author Organization [facility] Address [address] [place] [address] Care Team Providers Care Retail Assistant Name Role Phone Rudy Taylor MD Primary Care Provider [phone] Reason for Visit * ReasonCommentsWell Women Visit Encounter Details DateTypeDepartmentCare Team (Latest Contact Info)Lkmzkyzhksz21/28/2025 2:00 PM EDTProcedure Visit [facility] [address] [place] [address] Candy Lindsey PA [address] [place], [place] [id number] Well woman exam with routine gynecological exam; Encounter for screening mammogram for malignant neoplasm of breast Social History Tobacco UseTypesPacks/DayYears UsedDateSmoking Tobacco: OtddbwBdyrdknsat179.5 Started: 2000Smokeless Tobacco: NeverAlcohol UseStandard Drinks/Week CommentsYes1 (1 standard drink = 0.6 oz pure alcohol)PHQ-2AnswerDate Recorded Patient Health Questionnaire-2 [id number] and Gender InformationValueDate RecordedSex Assigned at NnbxkXmuzvd89/03/2024 12:12 PM EDT Legal MpfPtrodr14/15/2023 10:59 PM EDTGender NymvjlojPioxcx80/03/2024 12:12 PM EDTSexual OrientationNot on filedocumented as of this encounter Last Filed Vital Signs Vital SignReadingTime TakenCommentsBlood Olrwswsm515/801 1:52 PM EDT Pulse--Temperature--Respiratory Rate--Oxygen Saturation--Inhaled Oxygen Concentration--Fflmfl043 kg (255 lb 12 oz)06/01/2025 1:52 PM EDTHeight--Body Mass Index46.7808 3:12 PM EDTdocumented in this encounter Progress Notes * Grazyna Duffy NP - 06/01/2025 2:00 PM EDT Reason for Appointment: Patient ID: Yaquelin Hermosillo is a 44 y.o. female who presents for Well Women Visit Patient presents today for Return OB appointment. MEDICATIONS Current Outpatient Medications Medication Instructions DULoxetine (Cymbalta) [address] capsule 1 capsule, Every 24 hours ergocalciferol (Vitamin D-2) 1.25 MG (22608 UT) capsule hydrOXYzine HCl (Atarax) 25 MG [...] packs/day: 2.00 Average packs/day: 2.0 packs/day for 24.5 years (49.0 ttl pk-yrs) Types: Cigarettes Start date: 2000 [...] Laterality Date DILATION AND CURETTAGE OF UTERUS ENDOMETRIAL ABLATION 02/26/2025 Joycelyn Endometrial Ablation w/hysterscopy TUBAL LIGATION VAGINAL DELIVERY x3 REVIEW OF SYSTEMS Review of Systems: Review of Systems Constitutional: Negative. HENT: Negative. Eyes: Negative. Respiratory: Negative. Cardiovascular: Negative. Gastrointestinal: Negative. Genitourinary: Negative. Musculoskeletal: Negative. Skin: Negative. Neurological: Negative. All other systems reviewed and are negative. Hematological: Negative. Endocrine: Negative. Allergic/Immunologic: Negative. OBJECTIVE Objective: Physical Exam Constitutional: Appearance: Normal appearance. She is well-developed. Genitourinary: Vulva normal. Breasts: Breasts are soft. Right: Normal. Left: Normal. Cardiovascular: Rate and Rhythm: Normal rate and [...] nursing note reviewed. Exam conducted with a coal sampler present. Vitals: Estimated body mass index is 46.78 kg/m?? as calculated from the following: Height as of 03/15/25: 5' 2 . Weight as of this encounter: 255 lb 12 oz. BP: 132/80 No LMP recorded. Patient has had an ablation. Assessment/Plan ICD-10-CM 1. Well woman exam with routine gynecological exam Z01.419 THIN PREP TIS PAP AND HR HPV DNA 2. Encounter for screening mammogram for malignant neoplasm of breast Z12.31 Bilateral screening mammogram Bilateral screening mammogram Annual Exam: Patient presents today for an annual exam. Patient states she is doing well and has no complaints. Pap was obtained without difficulty. Orders Placed This Encounter Procedures Bilateral screening mammogram Follow Up: Patient is to return in one year for annual unless needed otherwise. Documented by Grazyna Duffy NP on behalf of: JOSE LUIS Thakur documented in this encounter Plan of Treatment DateTypeDepartmentCare Team (Latest Contact Info)Amdxrhlpsqq49/02/2026 2:00 PM ESTProcedure Visit [facility] [address] [place] [address] [place] [address] Candy Lindsey PA [address] [place] [address] NameTypePriorityAssociated DiagnosesOrder ScheduleBilateral screening mammogram ImagingRoutine Encounter for screening mammogram for malignant neoplasm of breast Expected: 06/01/2025 (Approximate), Expires: 08/01/2026THIN PREP TIS PAP AND HR HPV DNAPathology and CytologyRoutine Well woman exam with routine gynecological exam Ordered: 06/01/2025documented as of this encounter Visit Diagnoses Diagnosis Well woman exam with routine gynecological exam Routine gynecological examination Encounter for screening mammogram for malignant neoplasm of breast documented in this encounter Care Teams Team MemberRelationshipSpecialtyStart DateEnd Date Rudy Taylor MD [address] [facility] [address] [place] [address] PCP - GeneralFamily Medicine01/13/24documented as of this encounter
--- OUTSIDE RECORDS SUMMARY | 2025-06-01 19:21 | XMS_ITS | CCD ---
Author Organization [facility] Care Team Providers Care Anode Crew Supervisor Name Role Phone ANA CORDOVA Primary Care [...] ANA Farley Primary Care Unavailable DO Teagan Gamez Admitting Unavaila ble DO Teagan Gamez Attending Unavaila DO Teagan Gastelum Admitting Unavaila ble DO Teagan Gamez Attending Unavaila ble DO Teagan Gamez Referring Unavaila ANA Farley Primary Care Unavailable Rudy Taylor MD Primary Care Provider Misael Mahajan DO Attending Provider Misael Mahajan Attending Unavailable Misael Mahajan Admitting Unavailable SY HALLMAN Attending Unavailable MISAEL MAHAJAN Attending Unavailable MISAEL MAHAJAN Attending Unavailable CANDY SANCHEZ Attending Unavailable TEAGAN GAMEZ Attending Unavailable Rudy Taylor MD Primary Care Provider Allergies Allergy ClassificationReported Allergen(s)Allergy TypeDate of OnsetReaction(s) Facility (1 source)natural latex rubberDrug allergy (disorder)[facility] (20 sources)Latex; Translations: [Latex]Drug eacxsoz27-15-5460VmtundpJayne [facility] (1 source)No Known Medication Allergies; Translations: [No Known Medication Allergies]Propensity to adverse reactions (disorder)[facility] Repository Medications Current Medications MedicationDrug Class(es)DatesSig (Normalized)Sig (Original)[id number] 200 actuat albuterol 0.09 mg/actuat metered dose inhaler (1 source)beta2-Adrenergic AgonistStart: 83-51-5409njsz 2 puff(s) by inhalation every four hours as neededAlbuterol Sulfate HFA 108 (90 Base) MCG/ACT 2 puffs as needed Inhalation every 4 hrs Jul, Activeamoxicillin 875 mg / clavulanate 125 mg oral tablet (2 sources)Penicillin-class AntibacterialStart: 10-06-2024 End: 04-03-1004ftvu 1 tablet by mouth in the morningamoxicillin-clavulanate (Augmentin) 875-125 MG tablet Indications: Sinus pressure , Acute non-recurrent maxillary sinusitis Take 1 tablet (875 mg) by mouth in the morning and 1 tablet (875 mg) beforebedtime. Do all this for 10 days. 20 tablet 10/06/2024 10/16/2024 Activeclotrimazole 0.01 mg/mg topical ointment (4 sources)Azole AntifungalStart: 36-25-2204Argdp: 59-26-4447Xejfqxpg 1 % 1 application Externally Twice a day for 10 day(s) Mar, ActiveDULoxetine 60 mg oral capsule (20 sources)Serotonin and Norepinephrine Reuptake InhibitorStart: 41-60-2063dykr 1 capsule by mouth twice dailyDULoxetine HCl 60 MG 1 capsule Orally Twice a day for 90 days Feb, ActiveStart: 28-02-3203AZUyodducn (Cymbalta) [address] capsule 1 capsule 1 (one) time each day at the same time Activeduloxetine 60 mg Cap-DR (2 sources)Start: 04-99-5422cfsb 1 tablet by mouth twice dailyduloxetine 60 mg Cap-DR 1 tab, Oral, BID, Refills(s) 0, Anxiety Start Date: 04/09/24 Status: Orderedergocalciferol 1.25 mg oral capsule (20 sources)Provitamin D2 CompoundStart: 72-71-9500jsbqamolixwatm (Vitamin D-2) 1.25 MG (96027 UT) capsule 01/06/2024 ActiveStart: 16-62-3710cfai 1 capsule by mouth every weekErgocalciferol 1.25 MG (52319 UT) 1 capsule Orally weekly for 30 day(s) Jun, ActivehydrOXYzine hydrochloride 25 mg oral tablet (20 sources)AntihistamineStart: 37-12-1240ockkVDBqdzf HCl (Atarax) 25 MG tablet 01/08/2024 ActiveStart: 01-77-8333lyzpRZUtzdt HCl 10 MG as directed Orally at bedtime for 30 day(s) May, Not-TakingmethylPREDNISolone 4 mg oral tablet (1 source)CorticosteroidStart: 57-99-8116vymgqjLBQZQQFulfry 4 MG as directed Orally Once a day for 6 days Jul, ActiveOLANZapine 2.5 mg oral tablet (16 sources)Atypical AntipsychoticStart: 79-32-2367ETJJSqzbcd (ZyPREXA) 2.5 MG tablet 1 (one) time each day at the same time 08/18/2024 ActiveVitamin D (2 sources)Start: 18-35-2241Vikgdon D Oral, qWeek, Refills(s) 0, Prophylaxis Start Date: 04/09/24 Status: Ordered Completed/Discontinued Medications MedicationDrug Class(es)DatesSig (Normalized)Sig (Original)Dosoquin 5500-200 UNIT-MCG (5 sources)Start: 46-52-2633Lhdba: 27-41-5386bnag 1 tablet by mouth once daily at mealtimeDosoquin 5500-200 UNIT-MCG 1 tablet daily with food Orally daily for 90 days Nov, Ydk-IklbgjYxhtsut-Qsly 4-50-2 MG (5 sources)take 1 tablet by mouth in the morningFolinic-Plus 4-50-2 MG 1 tablet Orally in the morning for 90 days Not-Taking Problems Active Problems Problem ClassificationProblemDateDocumented DateEpisodic/ChronicAbdominal pain (6 sources)Right lower quadrant pain; Translations: [Pain in female pelvis] Onset: 41-92-6784FtvwokhvEtenyctu reactions (5 sources)Atopic dermatitis; Translations: [Other atopic dermatitis]Chronic Anxiety disorders (14 sources)Panic attack; Translations: [Panic disorder [episodic paroxysmal anxiety]]Onset: 06-13-2021 Resolved: 84-33-0359HuvfvjoDznlii (2 sources)Childhood roroxo82-00-4206RfjuxuwAwxxcma obstructive pulmonary disease and bronchiectasis (1 source)Bronchitis, not specified as acute or chronicEpisodicGenitourinary symptoms and ill-defined conditions (3 sources)Dysuria; Translations: [Dysuria]Onset: 10-09-2021 Resolved: 23-81-1292YepqcknhQbukyljlwvqxk and screening for infectious disease (3 sources)Contact with and (suspected) exposure to other viral communicable diseases; Translations: [Suspected clinical finding]Onset: 08-26-2021 Resolved: 98-06-4619LgfuovlpFrehxfkcc (1 source)Influenza due to other identified influenza virus with other respiratory manifestationsEpisodicMenstrual disorders (7 sources)Menorrhagia; Translations: [Excessive and frequent menstruation with regular cycle]01-42-1643FhjjyxyLvgkijjmulcxx mental health disorders (4 sources)Psychophysiologic insomnia; Translations: [Psychophysiologic insomnia]Onset: 09-14-2021 Resolved: 69-67-9785ZysrgsdDioiyupfpsw deficiencies (7 sources)Vitamin D deficiency; Translations: [Vitamin D deficiency, unspecified]Onset: 06-13-2021 Resolved: 72-73-7288EobarcuCzjdf aftercare (2 sources)Postoperative visit; Translations: [Encounter for other specified surgical aftercare]84-80-1434FicpeihjEpycp diseases of kidney and ureters (1 source)Hydronephrosis with renal and ureteral calculous obstruction; Translations: [HYDRONPHROS RENL AND URETRL CALCUL OBST]Onset: 98-43-2265Qpkcpawa Other female genital disorders (1 source)Abnormal uterine bleeding; Translations: [Abnormal uterine and vaginal bleeding, unspecified]51-95-2421VxxvbaiUeipk nutritional; endocrine; and metabolic disorders (1 source)Body mass index (BMI) 45.0-49.9, adult; Translations: [BODY MASS INDEX BMI 45.0-49.9 ADULT]Onset: 64-65-3298DhlurxhPjgef nutritional; endocrine; and metabolic disorders (1 source)Obesity, unspecified; Translations: [OBESITY UNSPECIFIED]Onset: 40-86-5608MbtnqqgPedvv screening for suspected conditions (not mental disorders or infectious disease) (1 source)Patient encounter status; Translations: [Encounter for screening mammogram for malignant neoplasm of breast]68-81-2897FgnmbyziAzplc upper respiratory disease (2 sources)Other specified disorders of nose and nasal sinuses; Translations: [Other disease of nasal cavity and sinuses]97-77-9591YdjcvrrkTzmbj upper respiratory infections (3 sources)Acute upper respiratory infection, unspecified; Translations: [Acute maxillary sinusitis]Onset: 08-26-2021 Resolved: 66-62-8598UjhzkowgRekwkjki codes; unclassified (5 sources)Insomnia; Translations: [Insomnia, unspecified]EpisodicResidual codes; unclassified (2 sources)History of endometrial ablation; Translations: [Other specified postprocedural states]14-12-3994LbfmixiaQmtzpyonp-related disorders (1 source)Nicotine dependence, cigarettes, uncomplicated; Translations: [NICOTINE DEPEND CIGARETTES UNCOMP]Onset: 65-61-4879Obncxig Past or Other Problems Problem ClassificationProblemDateDocumented DateEpisodic/ChronicCalculus of urinary tract (2 sources)Personal history of urinary calculi; Translations: [PERSONAL HISTORY OF URINARY CALCULI]Onset: 10-06-2021 Resolved: 60-34-0087HcucyvtbDuajhxfm codes; unclassified (1 source)Insomnia, unspecifiedOnset: 06-13-2021 Resolved: 43-63-7479CtkquaxuNasqehd tract infections (1 source)Acute cystitis with hematuriaOnset: 10-09-2021 Resolved: 74-90-0627Yvsuvelg Results Test NameValueInterpretationReference RangeFacilityALL CBC WITH AUTO DIFFon 93-71-4665ZXQEKISZW ABSOLUTE AUTO0.1NOMS HealthcareBasophils/100 WBC (Bld)0.6 % 0.2 - 2.0 %NOMS HealthcareEosinophils/100 WBC (Bld)3.6 %0.9 - 7.0 %NOM HealthcareErythrocyte distribution width (RBC) [Ratio]13.4 %11.0 - 15.0 %NOMS HealthcareHematocrit (Bld) [Volume fraction]42.6 %36.0 - 48.0 %[facility] Hemoglobin (Bld) [Mass/Vol]14 g/dL12.0 - 16.0 g/dLNOWV HealthcareIMMATURE GRANULOCYTES ABS AUTO0.02NOWV HealthcareImmature granulocytes/100 WBC (Bld)0.2 % 0.0 - 0.5 %[facility] HealthcareInterpretation and review of laboratory results AbnormalNOWV HealthcareLYMPHOCYTES ABSOLUTE AUTO3.6[facility] Lymphocytes/100 WBC (Bld)43 %20.5 - 60.0 %[facility] HospitalH (RBC) [Entitic mass]28.7 pg26.7 - 34.0 pgNOUniversity of Missouri Health CareMCHC (RBC) [Mass/Vol]32.9 g/dL29.9 - 35.2 g/dLThree Rivers HealthcareMCV (RBC) [Entitic vol]87.3 fL81.0 - 99.0 fLThree Rivers HealthcareMONOCYTES ABSOLUTE AUTO0.8NOMS HealthcareMonocytes/100 WBC (Bld)9.1 % 1.7 - 12.0 %NOM HealthcareNEUTROPHILS ABSOLUTE AUTO3.6NOMS [facility] Neutrophils/100 WBC (Bld)43.5 %43.0 - 75.0 %NOMMercy Mccune-Brooks HospitalPlatelet mean volume (Bld) [Entitic vol]9.1 fLLow9.5 - 13.5 fLNOUniversity of Missouri Health CareTBH EO #0.3NOMS HealthcareTBH FMD988OKRM HealthcareTB RBC4.88NOMS HealthcareTB WBC8.3NOWV HealthcareCLINISYNCNOMS HealthcareECG 12-LEADon 92-81-5283Wwz[address] [address] Electrocardiograph Report Signed Patient: NAYE REED MR#: [id number] : 1980 Acct:[id number] Age/Sex: 44 / F ADM Date: 02/18/25 Loc: PST Attending Dr: Misael Mahajan D.O. Ordering Physician: Misael Mahajan D.O. Date of Service: 02/18/25 Procedure(s): ECG 12 lead Accession Number(s): [id number] cc: [facility] Test Date: 2025-02-18 Pat Name: NAYE REED Department: Room: - Gender: Female Driller Operator: : 1980 Requested By: MISAEL MAHAJAN Order Number: [id number] Reading MD: ZEB OLIVEIRA Measurements Intervals [place] Rate: 61 P: 39 NM: 185 QRS: 30 QRSD: 102 T: 50 QT: 425 QTc: 430 Interpretive Statements SINUS RHYTHM No previous ECG available for comparison Electronically Signed On 02-19-2025 9:59:38 EDT by ZEB OLIVEIRA Dictated By: Zeb Oliveira M.D. Signed By: 02/19/25 0959 DD/ 1107 TD/TT: Doughnut Machine Operator Helper:TBHRadiology, Radiologist, MD - 02/19/2025 [place] [address] Electrocardiograph Report Signed Patient: NAYE REED MR#: [id number] : 1980 Acct:[id number] Age/Sex: 44 / F ADM Date: 02/18/25 Loc: PST Attending Dr: Misael Mahajan D.O. Ordering Physician: Misael Mahajan D.O. Date of Service: 02/18/25 Procedure(s): ECG 12 lead Accession Number(s): [id number] cc: [facility] Test Date: 2025-02-18 Pat Name: NAYE REED Department: Room: - Gender: Female Driller Operator: : 1980 Requested By: MISAEL MAHAJAN Order Number: [id number] Reading MD: ZEB OLIVEIRA Measurements Intervals [place] Rate: 61 P: 39 NM: 185 QRS: 30 QRSD: 102 T: 50 QT: 425 QTc: 430 Interpretive Statements SINUS RHYTHM No previous ECG available for comparison Electronically Signed On 02-19-2025 9:59:38 EDT by ZEB OLIVEIRA Dictated By: Zeb Oliveira M.D. Signed By: 02/19/25 0959 DD/ 1107 TD/TT: Doughnut Machine Operator Helper: AAMIR RaineyG 12-LEADOrdered By: Radiologist Radiology on 87-76-0061[facility] Work Phone: aLL BASIC METABOLIC PANELon 58-78-3094Ytvoy gap [Moles/Vol]7.6 mmol/LNOMS HealthcareCalcium [Mass/Vol]8.9 mg/dL8.5 - 10.1 mg/dL NOMS HealthcareChloride [Moles/Vol]105 mmol/L98 - 107 mmol/LNOMS HealthcareCO2 [Moles/Vol]28.8 mmol/L21.0 - 32.0 mmol/LNOMS HealthcareCreatinine [Mass/Vol]0.74 mg/dL0.55 - 1.02 mg/dLNOMS HealthcareGFR/1.73 sq M.predicted CKD-EPI (S/P/Bld) [Vol rate/Area]>60>=60 mL/min/1.73m 2NOMS HealthcareGlucose [Mass/Vol]91 mg/dL74 - 106 mg/dLNOMS HealthcarePotassium [Moles/Vol]4.4 mmol/L3.5 - 5.1 mmol/LNOMS HealthcareSodium [Moles/Vol]137 mmol/L136 - 145 mmol/LNOMS HealthcareTBH EGFR- NON AF CUBAN>60>=60 mL/min/1.73m 2NOMS HealthcareUrea nitrogen [Mass/Vol]11 mg/dL7.0 - 18.0 mg/dLNOMS HealthcareUrea nitrogen/Creatinine [Mass ratio]14.9 mg/mgNOMS HealthcareCLINISYNCNOMS HealthcareECG 12-LEADon 09-44-1500Axctyxedq Study observation (narrative)AAMIR HealthcareXR CHEST 2Von 64-00-9098Cmb[address] [address] XRay Report Signed Patient: NAYE REED MR#: [id number] : 1980 Acct:[id number] Age/Sex: 44 / F ADM Date: 02/18/25 Loc: PST Attending Dr: Misael Mahajan D.O. Ordering Physician: Misael Mahajan D.O. Date of Service: 02/18/25 Procedure(s): XR chest 2V Accession Number(s): [id number] cc: Misael Mahajan D.O.; SHAMA SLAUGHTER The [place] [id number] Patient Name: NAYE REED MRN: [facility]:[id number] date: 1980 Sex: F [facility] Accession/Order Number: [id number] Exam Date: 02/18/2025 14:56 Report Date: 02/18/2025 14:56 At the request of: MISAEL MAHAJAN DO Procedure: XR chest 2V PA AND LATERAL CHEST: CLINICAL HISTORY: Preop exam COMPARISON: None FINDINGS: Unremarkable cardiomediastinal. Lungs clear. No effusion or pneumothorax. XR/XR chest 2V IMPRESSION: NO ACUTE CARDIOPULMONARY ABNORMALITY. Impression dictated by: Jean Villarreal M.D. 02/18/2025 2:56 PM Dictation Location: [place] [address] Electronically authenticated by: [id number] Y Date: 02/18/2025 14:56 Dictated By: Jean Villarreal M.D. Signed By: 02/18/25 1459 DD/ 1456 TD/TT: Doughnut Machine Operator Helper:TBHRadiology, Radiologist, MD - 02/18/[address] [address] XRay Report Signed Patient: NAYE REED MR#: [id number] : 1980 Acct:[id number] Age/Sex: 44 / F ADM Date: 02/18/25 Loc: PST Attending Dr: Misael Mahajan D.O. Ordering Physician: Misael Mahajan D.O. Date of Service: 02/18/25 Procedure(s): XR chest 2V Accession Number(s): [id number] cc: Misael Mahajan D.O.; SHAMA SLAUGHTER [place] [id number] Patient Name: NAYE REED MRN: [id number] date: 1980 Sex: F Assigned Patient [facility] Accession/Order Number: [id number] Exam Date: 02/18/2025 14:56 Report Date: 02/18/2025 14:56 At the request of: MISAEL MAHAJAN DO Procedure: XR chest 2V PA AND LATERAL CHEST: CLINICAL HISTORY: Preop exam COMPARISON: None FINDINGS: Unremarkable cardiomediastinal. Lungs clear. No effusion or pneumothorax. XR/XR chest 2V IMPRESSION: NO ACUTE CARDIOPULMONARY ABNORMALITY. Impression dictated by: Jean Villarreal M.D. 02/18/2025 2:56 PM Dictation Location: [place] [address] Electronically authenticated by: [id number] Y Date: 02/18/2025 14:56 Dictated By: Jean Villarreal M.D. Signed By: 02/18/25 1459 DD/ 145 TD/TT: Doughnut Machine Operator Helper: AAMIR HealthcareRadiology Study observation (narrative)[facility]XR CHEST 2V Ordered By: Radiologist Radiology on 29-31-8536[facility] Work Phone: PATHOLOGY REQUEST FOR LAB CORPon 28-73-1519GVABKFUER REQUEST FOR LAB CORPBRIGHAM CITY COMM[facility] HealthcareComment on above:See report. Scanned copy available in EMR.[facility] HealthHCG ( test) Ql (U)Ordered By: Arely Sosa on 68-74-3898Pdjeghunwathio and review of laboratory resultsNormalBRIGHAM CITY [facility] Healthcare Work Phone: preg Test, UrNegativeNegativeNOWV Healthcare Work Phone: [facility] Work Phone: pathology Request for Lab Corpon 66-57-6672Skcihkwxg Request for Lab CorpBaptist Health [facility] Physician GroupComment on above:Order Comment: Maci Comment: See report. Scanned copy available in EMR. PERFORMED BY: [place] [address] PATHOLOGIST DORR OPERATOR LUIS ANTONIO OLEA M.D.Performed By: #### PATH TO [facility] #### [place] [address] USAUrinalysis macro (dipstick) panel (U)on 12-23-2024 Bilirubin, UANegativeNegative - 4(70) +++ mg/dLNOMS HealthcareBlood, UAPositive Negative - 50 Jah/mcLNOMS HealthcareComment on above:trace-intactClarity, UA ClearNOMS HealthcareColor, UAYellowNOMS HealthcareGlucose, UANegativeNegative - 2000(110) ++++ mg/dLNOMS HealthcareInterpretation and review of laboratory resultsAbnormalNOMS HealthcareKetones, UANegativeNegative - 160(16) ++++ mg/dL N[facility] HealthcareLeukocytes, UANegativeNegative - 500+++ Amy/mcLNOMS Healthcare Nitrite, UANegativeNegative - PositiveNOMS HealthcarepH, UA7.55 - 9NOMS HealthcareProtein, UANegativeNegative - 2000(20) ++++ mg/dLNOMS HealthcareSpec Grav, UA1.021 - 1.03NOMS HealthcareUrobilinogen, UA1.00.2 - 12 mg/dLNOMS HealthcareNOMS HealthcareXR Chest 2 Viewson 04-59-6905AX Chest 2 ViewsExam Date/Time: 04/09/2024 09:07 EDT Reason for Exam: [...] Ka,r in mGy = na DAP = naNormalLicking Memorial HospitalABO/Rh Retypeon 69-42-0902CBY/Rh Retype InterpPositiveInvalid Interpretation CodeLicking Memorial HospitalComment on above:Performed By: #### [id number] #### [facility] [address], [place] [address]VOQHM BANKOrdered By: Debo Galindo on 70-34-2721FGC/Rh Retype InterpPositiveInvalid Interpretation [facility] BB SubsectionBMPon 52-23-7757Krnbr gap [Moles/Vol]9 mmol/LNormal6-16[facility] HospitalComment on above: Performed By: #### [id number] #### [facility] [address], [place] [address]Zszqmun [Mass/Vol]9.2 mg/dLNormal8.9-11.1FWexner Medical CenterComment on above:Performed By: #### [id number] #### [facility] [address], [place] [address]Rsmiwbpa [Moles/Vol]106 mmol/UAjqjpt592-115KvyscmLicking Memorial HospitalComment on above:Performed By: #### [id number] #### [facility] [address], [place] [address]EK5 [Moles/Vol]27 mmol/ZWplgjx97-08ZnfjanLicking Memorial Hospital Comment on above:Performed By: #### [id number] #### [facility] [address], [place] [address]Xvbuukqkng [Mass/Vol]0.8 mg/dLNormal0.5-1.3FWexner Medical CenterComment on above:Performed By: #### [id number] #### [facility] [address], [place] [address]Bwcjgnu [Mass/Vol]79 mg/hURtrtst33-397EeuwxnLicking Memorial HospitalComment on above:Performed By: #### [id number] #### [facility] [address], [place] [address]Gkxtojfrt [Moles/Vol]4.1 mmol/LNormal3.5-5.3FWexner Medical CenterComment on above:Performed By: #### [id number] #### [facility] [address] [place] [address]Pzwgjk [Moles/Vol]138 mmol/RDatqty145-361NydkgrLicking Memorial HospitalComment on above:Performed By: #### [id number] #### [facility] [address] [place] [address]Atbe nitrogen [Mass/Vol]11 mg/dLNormal5-21[facility] HospitalComment on above:Performed By: #### [id number] #### [facility] [address] [place] [address]Ycov nitrogen/Creatinine [Mass ratio]14 No UlcsuHolyrr21-29 [facility] HospitalComment on above:Performed By: #### [id number] #### [facility] [address] [place] [address]RYV w/ Auto Diffon 73-35-8991Ubgxukakg/100 WBC (Bld)0.6 %Normal 0.0-2.0[facility] HospitalComment on above:Performed By: #### [id number] #### [facility] [address] [place] [address]Rxbirkrye/Leukocytes Auto (Bld) [Pure # fraction]0.0 E9/LNormal 0.0-0.2FWexner Medical CenterComment on above:Performed By: #### [id number] #### [facility] [address] [place] [address]Asgexhvoqhs (Bld) [#/Vol]0.2 E9/LNormal0.0-0.5FWexner Medical CenterComment on above:Performed By: #### [id number] #### [facility] [address] [place] [address]Flkyloyofwx/100 WBC (Bld)2.5 %Normal0.0-8.0[facility] HospitalComment on above:Performed By: #### [id number] #### [facility] [address] [place] [address]Imhjftkelri distribution width (RBC) [Ratio]13.6 %Normal 10.9-14.2FWexner Medical CenterComment on above:Performed By: #### [id number] #### [facility] [address] [place] [address]Vaoiejrodh (Bld) [Volume fraction]41.6 %Whkguj84.0-46.0[facility] HospitalComment on above:Performed By: #### [id number] #### [facility] [address] [place] [address]Vhxitxzfmt (Bld) [Mass/Vol]13.8 g/gMOyysgw96.0-16.0[facility] HospitalComment on above:Performed By: #### [id number] #### [facility] [address] [place] [address]Skiyftfrrvl (Bld) [#/Vol]2.2 E9/LNormal1.0-4.0[facility] HospitalComment on above:Performed By: #### [id number] #### [facility] [address] [place] [address]Ghebmtbegxt/100 WBC (Bld)31.2 %Rzzwpu82.0-50.0[facility] HospitalComment on above:Performed By: #### [id number] #### [facility] [address] [place] [address]UPZ (RBC) [Entitic mass]28.0 ikKjiwww20.0-34.0[facility] HospitalComment on above:Performed By: #### [id number] #### [facility] [address] [place] [address]DOJK (RBC) [Mass/Vol]33.1 g/yKVvulmw16.4-36.0[facility] HospitalComment on above:Performed By: #### [id number] #### [facility] [address] [place] [address]ZCQ (RBC) [Entitic vol]84.6 vWNrfnfe60.0-100.0[facility] HospitalComment on above:Performed By: #### [id number] #### [facility] [address] [place] [address]Aeelcbewy (Bld) [#/Vol]0.6 E9/LNormal0.2-1.0[facility] HospitalComment on above:Performed By: #### [id number] #### [facility] [address] [place] [address]Tmetfnlnthp (Bld) [#/Vol]3.9 E9/LNormal2.0-7.5FWexner Medical CenterComment on above:Performed By: #### [id number] #### [facility] [address] [place] [address]Osjiqcfmwhz/100 WBC (Bld)56.5 %Yqygof08.0-75.0[facility] HospitalComment on above:Performed By: #### [id number] #### [facility] [address] [place] [address]Ppeaugwc mean volume (Bld) [Entitic vol]7.9 fLNormal6.4-10.8 [facility] HospitalComment on above:Performed By: #### [id number] #### [facility] [address] [place] [address]Sipakusjd (Bld) [#/Vol]339.0 E9/QNoqskk664.0-500.0[facility] HospitalComment on above:Performed By: #### [id number] #### [facility] [address] [place] [address]QSX (Bld) [#/Vol]4.9 E12/LNormal4.3-5.9[facility] HospitalComment on above:Performed By: #### [id number] #### [facility] [address], [place] [address]JZD corrected for nucl RBC Auto (Bld) [#/Vol]6.9 E9/LNormal 4.0-11.0Formerly [facility] Hospitaler R [facility] Shock Trauma CenterComment on above:Performed By: #### [id number] #### [facility] [address], [place] [address]AZLHLXXWFIaxpmfx By: SYSTEM SYSTEM on 06-37-0019Tqgqz gap [Moles/Vol]9 mmol/LNormal6 - 16 mEq/LRemisol ChemCalcium [Mass/Vol]9.2 mg/dL Normal8.9 - 11.1 mg/dLRemisol ChemChloride [Moles/Vol]106 mmol/QNhylvk747 - 111 mmol/LRemisol ChemCO2 [Moles/Vol]27 mmol/KDoilop38 - 31 mmol/LRemisol Chem Creatinine [Mass/Vol]0.8 mg/dLNormal0.5 - 1.3 mg/dLRemisol FlpdtWLJ34 mL/min/1.73 m7Nlwczx>=59mL/min/1.73 e9Ftxnubg ChemGlucose [Mass/Vol]79 mg/dL Xwnghs07 - 199 mg/dLRemisol ChemPotassium [Moles/Vol]4.1 mmol/LNormal3.5 - 5.3 mmol/LRemisol ChemSodium [Moles/Vol]138 mmol/CZbqxdl864 - 145 mmol/LRemisol Chem Urea nitrogen [Mass/Vol]11 mg/dLNormal5 - 21 mg/dLRemisol ChemUrea nitrogen/Creatinine [Mass ratio]14 mg/oaWjuutk33 - 20Remisol ChemHEMATOLOGY Ordered By: SYSTEM SYSTEM on 33-83-3881Hjesuulac/100 WBC (Bld)0.6 %Normal0.0 - 2.0 %Remisol HemeBasophils/Leukocytes Auto (Bld) [Pure # fraction]0.0 E9/LNormal 0.0 - 0.2 E9/LRemisol HemeEosinophils (Bld) [#/Vol]0.2 E9/LNormal0.0 - 0.5 E9/L Remisol HemeEosinophils/100 WBC (Bld)2.5 %Normal0.0 - 8.0 %Remisol Heme Erythrocyte distribution width (RBC) [Ratio]13.6 %Cyprna26.9 - 14.2 %Remisol HemeHematocrit (Bld) [Volume fraction]41.6 %Ezjamk91.0 - 46.0 %Remisol Heme Hemoglobin (Bld) [Mass/Vol]13.8 g/tHAkwmna88.0 - 16.0 gm/dLRemisol Heme Lymphocytes (Bld) [#/Vol]2.2 E9/LNormal1.0 - 4.0 E9/LRemisol HemeLymphocytes/100 WBC (Bld)31.2 %Rloswi42.0 - 50.0 %Remisol HemeMCH (RBC) [Entitic mass]28.0 pg Gufvjf57.0 - 34.0 pgRemisol HemeMCHC (RBC) [Mass/Vol]33.1 g/tMQusvlv38.4 - 36.0 gm/dLRemisol HemeMCV (RBC) [Entitic vol]84.6 eCZrczxr90.0 - 100.0 fLRemisol Heme Monocytes (Bld) [#/Vol]0.6 E9/LNormal0.2 - 1.0 E9/LRemisol HemeMonocytes/100 WBC (Bld)9.2 %Normal4.0 - 14.0 %Remisol HemeNeutrophils (Bld) [#/Vol]3.9 E9/LNormal 2.0 - 7.5 E9/LRemisol HemeNeutrophils/100 WBC (Bld)56.5 %Kszkfe29.0 - 75.0 % Remisol HemePlatelet mean volume (Bld) [Entitic vol]7.9 fLNormal6.4 - 10.8 fL Remisol HemePlatelets (Bld) [#/Vol]339.0 E9/KIujlqb039.0 - 500.0 E9/LRemisol HemeRBC (Bld) [#/Vol]4.9 E12/LNormal4.3 - 5.9 E12/LRemisol HemeWBC corrected for nucl RBC Auto (Bld) [#/Vol]6.9 E9/LNormal4.0 - 11.0 E9/LRemisol HemeeGFRon 85-99-0945jNRW15 mL/min/1.73 l0Hydzes>=59L[facility] HospitalComment on above:Order Comment: Order added by Discern Expert.Performed By: #### [id number] #### [facility] [address] [place], [place] [address]OP Pelvis Non-OB Completeon [id number] Pelvis Non-OB Complete Exam Date/Time: 10/21/2023 12:23 [...] KEN Technologist: MCKAYLA Technical Comments Transabdominal Ultrasound PerformedNoTriHealth McCullough-Hyde Memorial HospitalPhysician Orderon [id number] Order [id number]#1.00TIFFMercy Health Fairfield HospitalFS and LHon 25-10-7711Ruyhkuhmxwv Qn12.7 m[IU]/mLInvalid Interpretation [facility] Medical CenterComment on above:Result Comment: Adult Female Range Follicular phase 3.5 - 12.5 Ovulation phase 4.7 - 21.5 Luteal phase 1.7 - 7.7 Postmenopausal 25.8 - 134.8 Performed at: [address] [id number] PhD Ngozi MendozaPerformed By: #### [id number], 85925461, 4153729, 41518514, [id number] #### [facility] [address], [place] [address]Qhqfegiz Qn3.9 m[IU]/mLInvalid Interpretation [facility] Medical CenterComment on above:Result Comment: Adult Female Range Follicular phase 2.4 - 12.6 Ovulation phase 14.0 - 95.6 Luteal phase 1.0 - 11.4 Postmenopausal 7.7 - 58.5Performed By: #### 7416412, 23260524, 5106530, 71959720, 85367715 #### [facility] [address], [place] [address]OMV w/ Auto Diffon 49-48-9008Bdenwpzbf/100 WBC (Bld)0.4 %Normal 0.0-2.0[facility] HospitalComment on above:Performed By: #### 2457856, 57654681, 8681014, 50313736, 26962239 #### [facility] [address], [place] [address]Wkmxzqnyc/Leukocytes Auto (Bld) [Pure # fraction]0.0 E9/LNormal 0.0-0.2[facility] Trauma CenterComment on above:Performed By: #### 2787985, 41587480, 3033289, 76904402, 60336289 #### [facility] [address], [place] [address]Xbfjhodqins (Bld) [#/Vol]0.1 E9/LNormal0.0-0.5FWexner Medical CenterComment on above:Performed By: #### 2287695, 07760459, 6952510, 85009932, 85949600 #### [facility] [address] [place] [address]Qmeygpwbkag/100 WBC (Bld)1.1 %Normal0.0-8.0[facility] HospitalComment on above:Performed By: #### 4860373, 30659170, 7278396, 86438761, 15833774 #### [facility] [address] [place] [address]Xweeqqmvsym distribution width (RBC) [Ratio]15.3 %High10.9-14.2 [facility] HospitalComment on above:Performed By: #### 9430025, 61332684, 7565093, 98848904, 68070499 #### [facility] [address] [place] [address]Vwifgumooj (Bld) [Volume fraction]42.7 %Dzizgf09.0-46.0[facility] HospitalComment on above:Performed By: #### 5622159, 47080335, 3814934, 77798639, 19762427 #### [facility] [address] [place] [address]Ewfipnbnww (Bld) [Mass/Vol]13.6 g/sMGxrtwg22.0-16.0[facility] HospitalComment on above:Performed By: #### 6435003, 06310152, 6189270, 44447447, 52451274 #### [facility] [address] [place] [address]Qmcbcmfrgrw (Bld) [#/Vol]1.9 E9/LNormal1.0-4.0[facility] HospitalComment on above:Performed By: #### 5603275, 34300152, 2618774, 84607399, 07523707 #### [facility] [address] [place] [address]Ixgyrodnvsl/100 WBC (Bld)27.7 %Qmkoyy85.0-50.0[facility] HospitalComment on above:Performed By: #### 7528865, 29780102, 5530187, 22535084, 56486477 #### [facility] [address] [place] [address] 25171XKO (RBC) [Entitic mass]28.1 jkAwdzgk96.0-34.0[facility] HospitalComment on above:Performed By: #### 4737309, 01854123, 6293097, 06455649, 39187708 #### [facility] [address] [place] [address]BUWI (RBC) [Mass/Vol]31.8 g/nVEjzfab30.4-36.0[facility] HospitalComment on above:Performed By: #### 9238236, 85752048, 8107779, 96069346, 66734491 #### [facility] [address] [place] [address] 16852HSF (RBC) [Entitic vol]88.3 pTNbrhei03.0-100.0[facility] HospitalComment on above:Performed By: #### 6204876, 86473416, 6634984, 43620564, 34355915 #### [facility] [address] [place] [address]16[address]Hmxkugfxj (Bld) [#/Vol]0.4 E9/LNormal0.2-1.0[facility] HospitalComment on above:Performed By: #### 1944354, 44582618, 5967099, 63325713, 80055647 #### [facility] [address] [place] [address]Mjottxjxulf (Bld) [#/Vol]4.5 E9/LNormal2.0-7.5FWexner Medical CenterComment on above:Performed By: #### 7050045, 35589690, 6874971, 46078553, 69244787 #### [facility] [address], [place] [address]Uidrolniasw/100 WBC (Bld)65.3 %Ehigdo18.0-75.0[facility] HospitalComment on above:Performed By: #### 4321759, 48164464, 8340586, 47834078, 52543402 #### [facility] [address] [place] [address]Uadaauzb mean volume (Bld) [Entitic vol]8.2 fLNormal6.4-10.8 [facility] HospitalComment on above:Performed By: #### 1652771, 61223874, 3007355, 31593557, 52744992 #### [facility] [address] [place] [address]Oqjepbjbw (Bld) [#/Vol]372.0 E9/PDlmagc393.0-500.0[facility] HospitalComment on above:Performed By: #### 0611163, 30498904, 0219482, 38496004, 65476912 #### [facility] [address] [place] [address] 314[address]YBU (Bld) [#/Vol]4.8 E12/LNormal4.3-5.9[facility] HospitalComment on above:Performed By: #### 6868053, 29877999, 5529566, 69948794, 43386308 #### [facility] [address] [place] [address]JBS corrected for nucl RBC Auto (Bld) [#/Vol]6.9 E9/LNormal 4.0-11.0[facility] HospitalComment on above:Performed By: #### 5072757, 74873883, 0484040, 88422289, 79842820 #### [facility] [address] [place] [address]30[address]BWOqv 84-18-9479Szhaocd [Mass/Vol]4.4 g/dLNormal3.3-5.0[facility] HospitalComment on above:Performed By: #### 4444386, 18315268, 6556895, 88784695, 35147135 #### [facility] [address], [place] [address]Crgvrpl/Globulin (S) [Mass conc ratio]1.5Urjvvv5.1-2.2FWexner Medical CenterComment on above:Performed By: #### 8957595, 50624717, 0209632, 55433759, 05362193 #### [facility] [address], [place] [address]UEB [Catalytic activity/Vol]82 Int._Unit/UNufjky13-55YfqcxpLicking Memorial HospitalComment on above:Performed By: #### 9121532, 29263172, 6051930, 24967442, 93763243 #### [facility] [address] [place] [address]MPV No additional P-5'-P [Catalytic activity/Vol]13 Int._Unit/L Normal6-46[facility] HospitalComment on above:Performed By: #### 7621052, 96445341, 9000880, 72307017, 62658133 #### [facility] [address] [place] [address]Ywvyx gap [Moles/Vol]12 mmol/LNormal6-16[facility] HospitalComment on above:Performed By: #### 1707419, 93820529, 0286438, 20247966, 36287717 #### [facility] [address], [place] [address]LKZ [Catalytic activity/Vol]14 Int._Unit/LNormal5-43[facility] HospitalComment on above:Performed By: #### 2315755, 12210039, 2833927, 30928699, 14678567 #### [facility] [address] [place] [address]Vhhxwxieu [Mass/Vol]0.4 mg/dLNormal0.0-1.1FWexner Medical CenterComment on above:Performed By: #### 3417630, 58108503, 0143721, 69358721, 60953110 #### [facility] [address], [place] [address]Nggbzga [Mass/Vol]9.4 mg/dLNormal8.9-11.1FWexner Medical CenterComment on above:Performed By: #### 4309038, 16490729, 4740940, 33706950, 35078370 #### [facility] [address], [place] [address]Bqjzrrht [Moles/Vol]103 mmol/EYgrwtv647-600UeyldgLicking Memorial HospitalComment on above:Performed By: #### 3810354, 50961148, 5311587, 06778377, 69316512 #### [facility] [address], [place] [address]ES7 [Moles/Vol]27 mmol/RAuizct35-67WfbqkcLicking Memorial Hospital Comment on above:Performed By: #### 4806938, 70066954, 0176095, 58219112, 27877936 #### [facility] [address], [place] [address]Dtjawfcvnl [Mass/Vol]0.8 mg/dLNormal0.5-1.3FWexner Medical CenterComment on above:Performed By: #### 4744104, 93177842, 7808171, 60424631, 20834375 #### [facility] [address], [place] [address]Vmyvmscw (S) [Mass/Vol]2.5 g/dLNormal1.4-4.0[facility] HospitalComment on above:Performed By: #### 7517252, 50066140, 6668785, 69704570, 04535580 #### [facility] [address], [place] [address]Uegcjkx [Mass/Vol]86 mg/wGHfoiyk23-630FkamucLicking Memorial HospitalComment on above:Performed By: #### 4152978, 57422866, 5732156, 40631182, 49982534 #### [facility] [address], [place] [address]Frfasezaj [Moles/Vol]4.6 mmol/LNormal3.5-5.3FWexner Medical CenterComment on above:Performed By: #### 9614868, 77573511, 3874172, 96977166, 80494644 #### [facility] [address], [place] [address]Lshvogy [Mass/Vol]6.9 g/dLNormal6.0-7.8[facility] HospitalComment on above:Performed By: #### 6829500, 83209361, 3086692, 35112074, 49836143 #### [facility] [address] [place] [address]Vmzafx [Moles/Vol]137 mmol/JIawxmj953-387MjbnvwLicking Memorial HospitalComment on above:Performed By: #### 8813732, 59944880, 0316832, 33936376, 27117645 #### [facility] [address], [place] [address]Atjf nitrogen [Mass/Vol]12 mg/dLNormal5-21[facility] HospitalComment on above:Performed By: #### 5212306, 26404518, 8733073, 03011971, 03162146 #### [facility] [address], [place] [address]Oiwq nitrogen/Creatinine [Mass ratio]15 No HvhhxXbsxog30-51 [facility] HospitalComment on above:Performed By: #### 9807912, 88439848, 2469588, 64761134, 07241904 #### [facility] [address] [place] [address]Mxtfcjsev Orderon 90-82-1723Mwfhegbuo Order [id number]#1.00TIFFNormalLicking Memorial HospitalT4 & TSHon 94-86-0640NUB Qn1.72 m[IU]/LNormal0.34-5.60[facility] HospitalComment on above:Performed By: #### 9392884, 68922355, 9256630, 76511631, 03864112 #### [facility] [address], [place] [address]O3 [Mass/Vol]10.1 microgram/dLHigh4.6-9.1[facility] Trauma CenterComment on above:Performed By: #### 5277517, 82100854, 2112627, 46424436, 15876352 #### [facility] [address], [place] [address]kGAQuh 68-63-3085yRQL81 mL/min/1.73 y4Lhkegs>=59[facility] HospitalComment on above:Order Comment: Order added by Discern Expert. Performed By: #### 1248149, 57740272, 4762842, 84598369, 64952359 #### [facility] [address], [place] [address]EFKQR + FLU Quick Testingon 72-63-9241UQWO-CoV-2 (COVID-19) RNA YOUSUF+probe Ql (Unsp spec)NegativeMaben NOSTROMO ICT Other COVID + FLU Quick TestingPositiveMaben NOSTROMO ICT Other COVID + FLU Quick TestingNegativeMaben NOSTROMO ICT Other Urinalysis - AUTOMATEDon 70-30-3705Fuvedquojy (U) cloudyNprogress [facility] NOSTROMO ICT Other Bilirubin Ql (U)NegativeMoreMagic Solutions NOSTROMO ICT Other Color (U)dark yellowMaben NOSTROMO ICT Other Glucose Ql (U)NegativeMaben NOSTROMO ICT Other Hemoglobin Ql (U)moderateNosaint john's hospital NOSTROMO ICT Other Ketones Ql (U)NegativeMaben NOSTROMO ICT Other Leukocyte esterase Test strip Ql (U)traceMaben NOSTROMO ICT Other Nitrite Ql (U)NegativeMaben NOSTROMO ICT Other pH (U)6.0 [pH]Maben NOSTROMO ICT Other Protein Ql (U)NegativeMaben NOSTROMO ICT Other Specific gravity (U) [Rel density]1.025Maben NOSTROMO ICT Other Urobilinogen (U) [Mass/Vol]1.0 mg/dLMaben NOSTROMO ICT Other Urinalysis - AUTOMATEDMaben NOSTROMO ICT Other CULTURE URINEon 19-42-1426TFOIVUZ URINEIsolate 1 Escherichia coli >100,000 cfu/mL of ORGANISM 1 Escherichia coli ANTIBIOTIC M.I.C RX STATUS Ampicillin 4 S F Ampicillin/Sulbactam <=2 S F Piperacillin/Tazobactam <=4 S F Cefazolin <=4 S F Ceftazidime <=1 S F Ceftriaxone <=1 S F Ertapenem <=0.5 S F Imipenem <=0.25 S F Amikacin <=2 S F Gentamicin <=1 S F Tobramycin <=1 S F Ciprofloxacin <=0.25 S F Levofloxacin <=0.12 S F Nitrofurantoin <=16 S F Trimethoprim/Sulfamethoxazole <=20 S FNormalThe Middletown HospitalComment on above:Performed By: #### URCX #### [facility] [address] [place] [address] Dr. Joalnta Nevarez ABD/PELVIS WO CONon 98-10-6660IF ABD/PELVIS WO CONEXAMINATION: CT ABD/PELVIS WO CON, 10/04/2021 9:17 PM [...] and tiny adjacent free fluid, suggestive of inflammatory/infectious process and right ureteritis. Punctate calculus is [...] and tiny adjacent free fluid, suggestive of inflammatory/infectious process and right ureteritis. Punctate nonobstructive left renal calculus. Normal-appearing appendix is visualized. Electronically authenticated by: CHET HARP Date: 2021-10-04 22:37NormAvita Health [facility] URINE PROFILEon 28-58-5949Zusqsmhca Ql (U)NegativeNormal NEGATIVEThe Middletown HospitalComment on above:Performed By: #### TEJAS PATE PREGU #### [facility] [address] [place], [place] [address] Dr. Jolanta Bain (U) CLOUDYAbnormalCLEARThOhioHealth Hardin Memorial HospitalComment on above:Performed By: #### TEJAS PATE PREGU #### [facility] [address] [place] [address] [address] Jolanta Kingsley (U)YELLOWNormalYELLOWThe Jewish HospitalComment on above: Performed By: #### UMICRO, ERUR, PREGU #### [facility] [address] [address] [address] Jolanta Gaming micrscopic examination will be performed if indicated. NormalThe Middletown HospitalComment on above:Performed By: #### UMICRO, ERUR, PREGU #### [facility] [address] [address] [address] Jolanta AlvaradoGlucose Ql (U)NegativeNormalNEGATIVEThe Jewish HospitalComment on above:Performed By: #### UMICRO, ERUR, PREGU #### [facility] [address] [place] [address] Dr. Jolanta AlvaradoHemoglobin Ql (U)LARGEAbnormalNEGATIVEThe [facility] Hospital Comment on above:Performed By: #### UMICRO, ERUR, PREGU #### [facility] [address] [place] [address] Dr. Jolanta AlvaradoKetones Ql (U)TRACEAbnormalNEGATIVEThe Jewish HospitalComment on above:Performed By: #### UMICRO, ERUR, PREGU #### [facility] [address] [place] [address] Dr. Jolanta AlvaradoLEUKOCYTESNegativeNormalNEGATIVEThe Jewish HospitalComment on above:Performed By: #### UMICRO, ERUR, PREGU #### [facility] [address] [place] [address] Dr. Jolanta AlvaradoNitrite Ql (U)PositiveAbnormalNEGOhioHealth Hardin Memorial Hospital Comment on above:Performed By: #### UMICRO, ERUR, PREGU #### [facility] [address] [place] [address] Dr. Jolanta AlvaradopH (U)5.5 [pH]Normal5-9The Jewish HospitalComment on above: Performed By: #### UMICRO, ERUR, PREGU #### [facility] [address] [address] [address] Jolanta AlvaradoSPEC GRAVITY>=1.538Dqfimnmc2.005-<=1.025The [facility] Comment on above:Performed By: #### UMICRO, ERUR, PREGU #### [facility] [address] [address] [address] Jolanta Blanchard PROTEINTRACENormalNEGATIVE/ TRACEThe [facility]own HospitalComment on above:Performed By: #### UMICRO, ERUR, PREGU #### [facility] [address] [address] [address] Jolanta Paulino MICRO INDINDICATEDGrand Lake Joint Township District Memorial HospitalComment on above: Performed By: #### UMICRO, ERUR, PREGU #### [facility] [address] [place] [address] Dr. Jolanta Kerrgen Qn (U)0.2 {Loyd'U}/dLNormal0.2 - 1.0The [facility]own HospitalComment on above:Performed By: #### UMICRO, ERUR, PREGU #### [facility] [address] [place] [address] Dr. Jolanta HeckGNANCY URon 88-07-6408HTKMVVGYC, QUALNegativeNormalNEGATIVEThe [facility]own HospitalComment on above:Performed By: #### UMICRO, ERUR, PREGU #### [facility] [address] [place] [address] Dr. Jolanta Ho MICROSCOPIC ONLYon 58-60-9884CVUFSERXEAMCDEvajgibrBNEX SEEN The [facility] HospitalComment on above:Performed By: #### UMICRO, ERUR, PREGU #### [facility] [address] [place] [address] Dr. Jolanta Fair identified Cx Nom (U)INDICATEDGrand Lake Joint Township District Memorial HospitalComment on above:Performed By: #### UMICRO, ERUR, PREGU #### [facility] [address] [place] [address] Dr. Yilan ChangCASTNONE SEENNormalNONE SEENThe Jewish HospitalComment on above:Performed By: #### UMICRO, ERUR, PREGU #### [facility] [address] [place] [address] Dr. Jolanta Ferrer LM Nom (Urine sed)NONE SEENNormalNONE SEENThe [facility]own HospitalComment on above:Performed By: #### UMICRO, ERUR, PREGU #### [facility] [address] [place] [address] Dr. Jolanta Hopepithelial cells LM Ql (Urine sed)FEWAbnormalNONE SEEN /RAREThe [facility]own HospitalComment on above:Performed By: #### UMICRO, ERUR, PREGU #### [facility] [address] [place] [address] Dr. Jolanta UrbinaMALLAbnormalNONE SEENThe [facility] on above:Performed By: #### UMICRO, ERUR, PREGU #### [facility] [address] [place] [address] Dr. Jolanta Booth (U) [#/Vol]/uLAbnormal0-2The [facility] HospitalCommclaren [place] on above:Performed By: #### UMICRO, ERUR, PREGU #### [facility] [address] [place] [address] Dr. Jolanta TimmonsNvfylQBO02-60MmtguakxNVWL SEENThe Jewish HospitalCommclaren northern [place] on above: Performed By: #### UMICRO, ERUR, PREGU #### [facility] [address] [place] [address] Dr. Jolanta Herrera Quick Testingon 83-37-4632IctzqfRircarxsIvmws NOSTROMO ICT Other Quick Fluon 81-58-2880DMRIG Ab CF (S) [Titer]Negative Qivivo Other FLUBV Ab CF (S) [Titer]NegativeMaben NOSTROMO ICT Other FREE T4on 61-58-2815Knfy T4 [Mass/Vol]0.81 ng/dLNormal 0.78-2.19The [facility] HospitalComment on above:Performed By: #### FT4 #### [facility] [address] [address] Jojo KarenGLYCOHEMOGLOBIN A1Con 91-87-0077PYA RECOMMENDATIONADA THERAPEUTIC TARGET 6.0 - 7.0 ACTION SUGGESTED > 7.0NoGerman HospitalComment on above:Performed By: #### A1C #### [facility] [address] [address] Jojo KarenGlucose [Mass/Vol]105 mg/dLNoGerman HospitalComment on above:Performed By: #### A1C #### [facility] [address] [place] [address] Jojo ZqshoHuC4o (Bld) [Mass fraction]5.3 %Normal<=6.0[facility] Comment on above:Performed By: #### A1C #### [facility] [address] [address] Jojo KarenLIPID PROFILEon 96-26-4831WVDF-HDL RATIO NORMSEE BELOWGrand Lake Joint Township District Memorial HospitalComment on above:Result Comment: 3.3 - 4.4 LOW RISK 4.4 - 7.1 AVERAGE RISK 7.1 - 11.0 MODERATE RISK >11.0 HIGH RISKPerformed By: #### CMP, LIPID, TSH #### [facility] [address] [address] Jojo KarenCholesterol [Mass/Vol]165 mg/dLNormal<=200[facility] Comment on above:Performed By: #### CMP, LIPID, TSH #### [facility] [address] [address] Jojo KarenCholesterol in HDL [Mass/Vol]42 mg/dLGrand Lake Joint Township District Memorial Hospital Comment on above:Performed By: #### CMP, LIPID, TSH #### [facility] [address] [address] Jojo KarenCholesterol in LDL [Mass/Vol]109.6 mg/dLGrand Lake Joint Township District Memorial Hospital Comment on above:Performed By: #### CMP, LIPID, TSH #### [facility] [address] [id number] Jojo KarenCholesterol.total/Cholesterol in HDL [Mass ratio]3.9 {ratio}Normal The [facility]own HospitalComment on above:Performed By: #### CMP, LIPID, TSH #### [facility] [address] [address] Jojo KarenHDL NORMAL> or = 60 mg/dl - LOW CARDIOVASCULAR RISK <40 mg/dl - HIGH CARDIOVASCULAR RISKGrand Lake Joint Township District Memorial HospitalComment on above:Performed By: #### CMP, LIPID, TSH #### [facility] [address] [place] [address] Jojo KarenLDL CALC NORMALSEE BELOWGrand Lake Joint Township District Memorial HospitalComment on above: Result Comment: <100 mg/dl OPTIMAL 100 - 129 mg/dl NEAR OR ABOVE OPTIMAL 130 - 159 mg/dl BORDERLINE HIGH 160 - 189 mg/dl HIGH >190 mg/dl VERY HIGHPerformed By: #### CMP, LIPID, TSH #### [facility] [address] [place] [address] Jojo KarenTriglyceride [Mass/Vol]67 mg/dLNormal<=150[facility] Comment on above:Performed By: #### CMP, LIPID, TSH #### [facility] [address] [place] [address] Jojo KarenVLDL CALC13.4 mg/dLNoGerman HospitalComment on above: Performed By: #### CMP, LIPID, TSH #### [facility] [address] [place] [address] Jojo KarenPROF 14(COMP METB)on 88-21-3396Clhnwcv [Mass/Vol]3.7 g/dLNormal 3.5-5.0The Jewish HospitalCommclaren northern [place] on above:Performed By: #### CMP, LIPID, TSH #### [facility] [address] [place] [address] Jojo KarenAlbumin/Globulin [Mass ratio]1.0 {ratio}NormalThe [facility] Hospital Comment on above:Performed By: #### CMP, LIPID, TSH #### [facility] [address] [place], [place] [address] Jojo KarenALP [Catalytic activity/Vol]102 U/QDsdmuq83-852Hgu [facility] Comment on above:Performed By: #### CMP, LIPID, TSH #### [facility] [address] [place], [place] [address] Jojo KarenALT [Catalytic activity/Vol]33 U/LNormal9-52The [facility] Comment on above:Performed By: #### CMP, LIPID, TSH #### [facility] [address] [place], [place] [address] Jojo KarenAnion gap [Moles/Vol]11.7 mmol/LNormalThe [facility]own HospitalComment on above:Performed By: #### CMP, LIPID, TSH #### [facility] [address] [id number] Jojo KarenAST [Catalytic activity/Vol]24 U/AAqowmp84-74Yjx [facility] Comment on above:Performed By: #### CMP, LIPID, TSH #### [facility] [address] [place], [place] [address] Jojo KarenBilirubin [Mass/Vol]0.4 mg/dLNormal0.2-1.3TToledo Hospital Comment on above:Performed By: #### CMP, LIPID, TSH #### [facility] [address] [place], [place] [address] Jojo KarenCalcium [Mass/Vol]8.9 mg/dLNormal8.4-10.2[facility] Comment on above:Performed By: #### CMP, LIPID, TSH #### [facility] [address] [place], [place] [address] Jojo KarenChloride [Moles/Vol]103 mmol/GWcsxyx90-489AqiThe Jewish Hospital Comment on above:Performed By: #### CMP, LIPID, TSH #### [facility] [address] [place], [place] [address] Jojo KarenCO2 [Moles/Vol]29.2 mmol/OHlpjlh25.0-30.0The [facility] Comment on above:Performed By: #### CMP, LIPID, TSH #### [facility] [address] [address] Jojo KarenCreatinine [Mass/Vol]0.89 mg/dLNormal0.52-1.04[facility] Comment on above:Performed By: #### CMP, LIPID, TSH #### [facility] [address] [address] Jojo KarenEGFR-AF CUBAN>60Normal>=60The [facility]own HospitalComment on above: Performed By: #### CMP, LIPID, TSH #### [facility] [address] [address] Jojo KarenEGFR-NON AF CUBAN>60Normal>=60[facility] HospitalComment on above:Performed By: #### CMP, LIPID, TSH #### [facility] [address] [address] Jojo KarenGlobulin (S) [Mass/Vol]3.7 g/dLNormalThe [facility]letown HospitalComment on above:Performed By: #### CMP, LIPID, TSH #### [facility] [address] [place] [address] Jojo KarenGlucose [Mass/Vol]108 mg/dLCritically hrfw62-181TdaThe Jewish HospitalComment on above:Performed By: #### CMP, LIPID, TSH #### [facility] [address] [address] Jojo KarenPotassium [Moles/Vol]3.9 mmol/LNormal3.4-5.0[facility] Comment on above:Performed By: #### CMP, LIPID, TSH #### [facility] [address] [place] [address] Jojo KarenProtein [Mass/Vol]7.4 g/dLNormal6.1-8.2The [facility] HospitalComment on above:Performed By: #### CMP, LIPID, TSH #### [facility] [address] [place] [address] Jojo KarenSodium [Moles/Vol]140 mmol/GEczwwi370-987WzbThe [facility] Comment on above:Performed By: #### CMP, LIPID, TSH #### [facility] [address] [address] Jojo SimonenUrea nitrogen [Mass/Vol]12.0 mg/dLNormal7.0-17.0The [facility] HospitalComment on above:Performed By: #### CMP, LIPID, TSH #### [facility] [address] [place] [address] Jojo KarenUrea nitrogen/Creatinine [Mass ratio]13.5 mg/mgNoGerman HospitalComment on above:Performed By: #### CMP, LIPID, TSH #### [facility] [address] [place] [address] Jojo LechugaHon 74-37-9037MQA9.654 uIU/mLNormal0.470-4.680The [facility] HospitalComment on above:Performed By: #### CMP, LIPID, TSH #### [facility] [address] [place] [address] Jojo LechugaH RANGESEE BELOWGrand Lake Joint Township District Memorial HospitalComment on above:Result Comment: <0.34 UIU/ml HYPERTHYROID 0.34-5.60 UIU/ml EUTHYROID >5.60 UIU/ml HYPOTHYROIDPerformed By: #### CMP, LIPID, TSH #### [facility] [address] [place] [address] Jojo Gracia Vital Signs Date TimeVital SignValuePerforming XeoibmvheKodxhvjg15-07-0577 13:52-0400Body mass index (BMI) [Ratio]46.78 kg/m2Candy AMAYA Work Phone: noUniversity [facility] Health CareZurklhlpvx18-18-7472 13:52-0400Body tfexxk758.01 kgCandy AMAYA Work Phone: [facility] HealthcareAfqqiwreso95-55-4878 13:52-0400Diastolic blood mm[Hg]Candy AMAYA Work Phone: no[facility] CareOxhcndictw81-68-6022 13:52-0400Systolic blood fwxdlopf860 mm[Hg]Candy Sanchez PA Work Phone: [facility] HealthcarePlhxmrdiza79-35-3046 15:12-0400Body ldtvef853.5 Raghugemma Rosalia PA Work Phone: [facility] HealthcareZuzytmcdzv00-48-2352 15:12-0400Body mass index (BMI) [Ratio]47.19 kg/m2Candy Rosalia PA Work Phone: [facility] HealthcareFecdtsdfet46-13-0444 15:12-0400Body aacbft352.03 kgCandy Sanchezey PA Work Phone: [facility] HealthcareJpyxbrxdmq75-98-3533 15:12-0400Diastolic blood iwstrbcj74 mm[Hg]Candy Sanchez PA Work Phone: [facility] HealthcareYfbpyyxblt96-90-4774 15:12-0400Systolic blood kpzrrjom069 mm[Hg]Candy Sanchez PA Work Phone: [phone] [place], [place] [address]Rbwimwjybi28-46-4803 15:47-0400Body mass index (BMI) [Ratio]47.39 kg/f4Foprv Keyshawn DO Work Phone: [phone] [place], [place] [address]Wpefcpcbqg00-77-7843 15:47-0400Body moozgf077.54 kgCorey Keyshawn DO Work Phone: [phone]-[facility] HealthcareZgdmhxuykm17-37-6812 15:47-0400Diastolic blood iszwushm41 mm[Hg]Misael Keyshawn DO Work Phone: 1([phone])274-[facility] HealthcareItzeytdvul74-22-5332 15:47-0400Systolic blood gakbjdwl596 mm[Hg]Misael Keyshawn DO Work Phone: [facility] HealthcareBxjvcnxfmk26-34-7682 13:36-0400Body uadtgi826.5 cmCorey Keyshawn DO Work Phone: [phone] [place], [place] [address]Egeelmloyt40-75-5593 13:36-0400Body mass index (BMI) [Ratio]48.43 kg/v2Bdjws Keyshawn DO Work Phone: [facility] HealthcareZvnwencrbk22-86-2620 13:36-0400Body dgvuqw456.11 kgCorey Keyshawn DO Work Phone: [facility] HealthcareUxwvhmtzhq77-81-6309 13:36-0400Diastolic blood mm[Hg]Misael Keyshawn DO Work Phone: [facility] HealthcareLfapfjuduy83-77-1629 13:36-0400Systolic blood xvothdac573 mm[Hg]Misael Keyshawn DO Work Phone: [facility] HealthcareQtpbikaksj20-69-6765 16:03-0500Body temperature 98.71 [degF]Sy Hallman REAL ESTATE ASSISTANT Work Phone: [facility] HealthcareFadnbkjqlr09-02-4538 16:03-0500Body beihqr975.31 kgSy Hallman REAL ESTATE ASSISTANT Work Phone: [facility] HealthcareRuuugbrpwl48-45-7198 16:03-0500Heart rate88 /min Sy Hallman REAL ESTATE ASSISTANT Work Phone: [facility] HealthcareYooviqaaeh06-73-0288 16:03-9643NcP9% (BldA) [Mass fraction]98 %Sy Hallman REAL ESTATE ASSISTANT Work Phone: [facility] HealthcareHhcanrexhb55-33-6917 08:38-0400Blood Pressure LocationMona Nataprawira [facility]09-05-2024 08:38-0400 Diastolic blood eohsdbag87 mm[Hg]Teagan Nataprawira [facility]09-05-2024 08:38-0400Heart rate80 /minMona Nataprawira [facility]09-05-2024 08:38-0400Mean blood rxsggedc110 mm[Hg]Teagan Nataprawira [facility]09-05-2024 08:38-0400 Systolic blood dthayswl276 mm[Hg]Teagan Nataprawira [facility]09-05-2024 08:37-0400Heart rate80 /minMona Nataprawira [facility]09-05-2024 08:37-5585IuU5% (BldA) [Mass fraction]98 %Teagan Campoverdera [facility]09-05-2024 08:37-0400 Respiratory rate18 /minTeagan Campoverdera [address] [place], [place] [address]09-05-2024 08:37-0400Blood Pressure LocationMauricioa Gillesra [facility]09-05-2024 08:37-0400 Diastolic blood owrhkcqk00 mm[Hg]Teagan Campoverdera [address] [place], [place] [address]09-05-2024 08:37-0400Mean blood klyjqayn374 mm[Hg]Teagan Campoverdera [address] [place], [place] [address]09-05-2024 08:37-0400 Systolic blood mfdxhqua390 mm[Hg]Teagan Campoverdera [facility]09-05-2024 08:36-0400Body eljbqdwmpne63.88 [degF]Teagan Campoverdera [facility]09-03-2024 08:34-0400Body .77 kgTeagan Campoverdera DO Work Phone: no[facility] Health CareOitypycyoa13-02-2792 08:34-0400Diastolic blood tpqhpavd10 mm[Hg]Teagan Nataprawira DO Work Phone: noUniversity [facility] CareOtrvnpdxpn34-62-4802 08:34-0400Systolic blood jkkabedi077 mm[Hg]Teagan Nataprawira DO Work Phone: noUniversity [facility] Health CareSwlzmbbyhb14-63-5826 17:30-0500Body dttdot247.94 Milady Cordova Other [employer] [facility] Other 12-20-2022 17:30-0500Body mass index (BMI) [Ratio] 40.62 kg/f3Dqgekxgof Dorian Other [employer] Other 12-20-2022 17:30-0500Body jvezfqhpoef01.6 [degF] Ana Dorian Other [employer] Other 12-20-2022 17:30-0500Body .52 kgSttorrieberniceelian Dorian Other [employer] Other 12-20-2022 17:30-0500Respiratory rate18 /minSantonialex Cordova Other [employer] Other 12-20-2022 17:30-0427RgK4% (BldA) [Mass fraction]100 % Anaalex Cordova Other [employer] Other 03-07-2022 14:00-0500Body ehvasc820.94 cmSantoniberniceelian Dorian Other [employer] Other 03-07-2022 14:00-0500Body mass index (BMI) [Ratio] 43.83 kg/t0Jnpuaxkva Dorian Other [employer] Other 03-07-2022 14:00-0500Body nfuizalxnfr53.2 [degF] Ana Dorian Other [employer] Other 03-07-2022 14:00-0500Body .24 kgSttorrieberniceelian Dorian Other [employer] Other 03-07-2022 14:00-0500Diastolic blood gldqpbip09 mm[Hg] Ana Wallaceault Other [address] Other 03-07-2022 14:00-0500Respiratory rate18 /minSmeghan Dorian Other [employer] Other 03-07-2022 14:00-9718TzG5% (BldA) [Mass fraction]100 % Ana Dorian Other [employer] Other 03-07-2022 14:00-0500Systolic blood dvfokhly490 mm[Hg] Ana Wallaceault Other [employer] Other 02-10-2022 11:30-0500Body .94 cmSmeghan Dorian Other [employer] Other 02-10-2022 11:30-0500Body mass index (BMI) [Ratio] 45.34 kg/v7Rjkufvcih Dorian Other [employer] Other 02-10-2022 11:30-0500Body vhsvoddtyie19.8 [degF] Ana Dorian Other [employer] Other 02-10-2022 11:30-0500Body kuehqu280.86 kgStchidi Wallaceault Other [employer] Other 02-10-2022 11:30-0500Diastolic blood xpkhdzbi14 mm[Hg] Ana Dorian Other [employer] Other 02-10-2022 11:30-0500Respiratory rate20 /minSmeghan Dorian Other [employer] Other 02-10-2022 11:30-3321XfL2% (BldA) [Mass fraction]99 % Ana Wallaceault Other [employer] Other 02-10-2022 11:30-0500Systolic blood mm[Hg] Ana Dorian Other [employer] Other 01-22-2022 14:15-0500Body udjwap484.94 cmPamela Iwona Other [employer] Other 01-22-2022 14:15-0500Body mass index (BMI) [Ratio] 45.91 kg/k9Hltlwj Iwona Other [employer] Other 01-22-2022 14:15-0500Body uuurkiqtckb98.7 [degF]Sheba Faithmond Other [employer] Other 01-22-2022 14:15-0500Body gjcmib209.22 kgPasondra Bustillo Other [employer] Other 01-22-2022 14:15-0500Respiratory rate18 /minPamela Iwona Other [employer] Other 01-22-2022 14:15-3376QgY3% (BldA) [Mass fraction]98 % Sheba Faithmond Other [employer] Other 11-09-2021 12:30-0500Body rvuqqz846.94 cmSmeghan Cordova Other [employer] Other 11-09-2021 12:30-0500Body mass index (BMI) [Ratio] 45.91 kg/i4Dxsqhgwktchidi Cordoav [facility] Other 11-09-2021 12:30-0500Body avnfrtubtif56.5 [degF] Ana Wallaceault [facility] Other 11-09-2021 12:30-0500Body .22 kgStchidi Cordova Other [facility] Other 11-09-2021 12:30-0500Diastolic blood mm[Hg] Ana Wallaceault [facility] Other 11-09-2021 12:30-0500Respiratory rate18 /minSmeghan Cordova Other [facility] Other 11-09-2021 12:30-8028ZyP4% (BldA) [Mass fraction]99 % Ana Wallaceault [facility] Other 11-09-2021 12:30-0500Systolic blood oggmuccn098 mm[Hg] Ana Wallaceault Other [address] Other Encounters Encounter DateEncounter TypeCare ProviderFacilityStart: 06-01-2025 End: 11-30-3912Lgecoh Miranda AMAYA Work Phone: [facility] OBGYNStart: 06-01-2025 End: 92-44-6437Svaylpjagruti AMAYA Work Phone: [facility] OBGYNStart: 06-01-2025 End: 49-88-4538Yjsqrrn encounter procedureCandy Rosalia AMAYA Work Phone: NOYV HealthcareStart: 06-01-2025 End: 37-14-6097Sjhwzzzl preventive med est patient 40-64yrsAgemma Rosalia AMAYA Work Phone: NO David OBGYNComment on above:Well woman exam with routine gynecological exam; Encounter for screening mammogram for malignant neoplasm of breastStart: 03-15-2025 End: 66-25-3516Ogajog follow up visit related to original pxCandy Rosalia AMAYA Work Phone: [facility] David OBGYNComment on above:Postoperative visit; S/P endometrial ablationStart: 03-15-2025 End: 13-24-3455phxdljdppvMKJ RAMEYNot AvailableStart: 03-15-2025 End: 01-04-4415Kqgwjg flowsheetCandy AMAYA Work Phone: NOQW David OBGYNStart: 03-15-2025 End: 51-37-4953Wgirkx flowskeithCandy AMAYA Work Phone: NONR David OBGYNStart: 02-26-2025 End: 41-94-6792Oifunvprk Result EncounterCorey Keyshawn DO Work Phone: noms External Department UnsolicitedStart: 02-26-2025 End: 36-24-7332Oqkmckwqr Result EncounterCorey Keyshawn DO Work Phone: NONI External Department UnsolicitedStart: 02-18-2025 End: 01-61-0411Uoafnlshk Result EncounterCorey Keyshawn DO Work Phone: noms External Department UnsolicitedStart: 02-18-2025 End: 12-01-2226Ncoehubqu Result EncounterCorey Keyshawn DO Work Phone: noms External Department UnsolicitedStart: 02-01-2025 End: 89-47-5484Igmotk outpatient visit 15 minutesCorey Keyshawn DO Work Phone: noms BCP OBComment on above:Pre-op examination; Menorrhagia with regular cycle; Pelvic pain; Abnormal uterine bleeding (AUB)Start: 02-01-2025 End: 13-55-4885Fgzcrlzxltptf examination doneCorey Keyshawn DO Work Phone: NOHZ HealthcareStart: 02-01-2025 End: 75-82-8187Wyiavidf Result EncounterCorey Keyshawn DO Work Phone: noMS External Department UnsolicitedStart: 02-01-2025 End: 58-80-4253Qrrnqisl Result EncounterCorey Keyshawn DO Work Phone: noms External Department UnsolicitedStart: 02-01-2025 End: 88-89-6603mtbcsbylwxOxkal FaziK[facility] Health [facility] Work Phone: Start: 02-01-2025 End: 65-32-1564Cnuemfal ReferredCorey Keyshawn-LAB Path Spec David HospStart: 12-23-2024 End: 95-27-6326Ttzqxo flowsheetCorey Keyshawn DO Work Phone: noms BCP OBStart: 12-23-2024 End: 64-79-8110Zdmabx flowsheetCorey Keyshawn DO Work Phone: noms BCP OBStart: 12-23-2024 End: 36-93-7357zabebhhwqxRFMCH FAZIONot AvailableStart: 12-23-2024 End: 47-37-3612Cjtens outpatient visit 15 minutesCorey Keyshawn DO Work Phone: noms BCP OBComment on above:Menorrhagia with irregular cycleStart: 10-06-2024 End: 86-20-9792Dbsigt outpatient visit 25 minutesLinalo Hallman REAL ESTATE ASSISTANT Work Phone: noms SWS UCComment on above:Sinus pressure (Primary Dx); Acute non-recurrent maxillary sinusitisStart: 10-06-2024 End: 22-53-4322fkeupxjkjlIEJRLVS N AUSTINNot AvailableStart: 04-09-2024 End: 92-90-8262wrgzrregnaPZ Teagan JoaquinKallie GamezFacility:FTMCStart: 04-09-2024 End: 91-57-1443Yquqnbl encounter procedureMauricioleatha JoaquinKallie Gamez [facility] Start: 04-07-2024 End: 97-46-5856Rroeci outpatient visit 25 minutesTeagan Gamez DO Work Phone: NOWW OBComment on above:Menorrhagia with regular cycle (Primary Dx); Dysmenorrhea; Pelvic pain in female; History of tubal ligationStart: 04-07-2024 End: 00-32-7372bcyxdpnyumJQAWAnnia Xiong AvailableStart: 02-19-2024 End: 30-78-5689Sgf-admission assessmentTeagan Gamez [facility] Start: 10-21-2023 End: 06-91-0680wrpevwawwlUCAFIBMMG DORIANFacility:FTMCStart: 10-21-2023 End: 72-91-8551Ayuiqah encounter procedureSMEGHAN CORDOVA [facility] Start: 10-08-2023 End: 29-71-2083cghgltzwdsLIAJKUCUE DORIANFacility:FTMCStart: 07-24-2022 End: 52-41-3350gtmiwitsdbQjptubtav Dorian Other [employer] [facility] Other Start: 24-06-7114Jznaju outpatient visit 15 minutes [facility]deStart: 10-09-2021 End: 81-45-0474pmrdzcfikjGrsyzfywq Breault Other [employer] [facility] Other Start: 57-13-9817Thjzvv outpatient visit 15 minutes [facility]deStart: 10-04-2021 End: 38-24-3898ugwzvgayikWLIIQTYDN BREAULTFacility:S1Cvfxl: 09-14-2021 End: 87-70-5170nvanvawjyrRdnekogng Dorian Other [employer] Other Start: 03-72-5807Skwxrh outpatient visit 15 minutes [facility] ClydeStart: 08-26-2021(URG) Urgent Care VisitPamela DymondFPG Urgent Care ClydeStart: 08-26-2021 End: 71-06-0342corauqiadkJhftqv Iwona Other [employer] Other Start: 06-13-2021 End: 99-71-3938umobmrvibqZfxjuidaq Dorian Other [employer] Other Start: 59-80-7080Uivzbe outpatient visit 15 minutes [facility] ClydeStart: 09-72-9611Rektavxzf for gynecological examination (general) (routine) without abnormal findingsSTEPHANIE Karime [facility]ak HospitalStart: 03-21-2021 End: 15-74-3669yeswarhwurYKWJZSMAM BREAULTFacility:Y5Eodab: 03-21-2021 End: 35-82-3460Mwqttynal for gynecological examination (general) (routine) without abnormal findingsSTEPHANIE BREAULTFacility:H1 Procedures DateProcedureProcedure DetailPerforming ClinicianStart: 41-97-4437BLX CBC WITH AUTO DIFFCorey Keyshawn DO Work Phone: Start: 13-22-9991TR CHEST 2VCorey Keyshawn DO Work Phone: Start: 22-52-0753YYC BASIC METABOLIC PANELCorey Keyshawn DO Work Phone: Start: 27-35-6990FAD 12-LEADCorey Keyshawn DO Work Phone: Start: 77-81-6698Acwbe test visual color cmprsn methsCorey Keyshawn DO Work Phone: Start: 48-19-7460DQTBYZGKO REQUEST FOR LAB CORPCorey Keyshawn DO Work Phone: Start: 37-30-9942Ryqcq dip stick/tablet rgnt non-auto w/o micrscpCorey Keyshawn DO Work Phone: Start: 39-76-6655Cwymfzxbbrk observation [Identifier] in Cervix by Cyto stainMona Nataprawira DO Work Phone: bilateral tubal ligationMona Nataprawira H/O: tubal ligationHistory of tubal ligationMona J Nataprawira DO Work Phone: Plan of Treatment DateCare ActivityDetailAuthorStart: 03-13-3329Ogepjggze for malignant neoplasm of cervixNOMS HealthcareStart: 06-01-2025 End: 50-04-3258BQ Breast - bilateral ScreeningBilateral screening mammogram Imaging Routine Encounter for screening mammogram for malignant neoplasm of breast Expected: 06/01/2025 (Approximate), Expires: 08/01/2026[facility] Work Phone: comment on above:Expected: 06/01/2025 (Approximate), Expires: 08/01/2026Start: 06-01-2025 End: 40-01-2480Iusebdu encounter tokquovnz00/28/2025 2:00 PM EDT Procedure Visit [facility] David OBPARTHN [address] [place] [address] Candy Sanchez PA [address] [place] [address] ArrivedNOMS Hernandez OBGYNComment on above:ArrivedStart: 04-15-2025 End: 11-76-2138Rispiha encounter rzujqxbnq73/06/2025 2:30 PM EDT Procedure Visit [facility] [address] [place] [place] [address] Candy Sanchez PA [address] [place] [address] [facility] David OBGYNStart: 58-21-3088XVDUE- 19 Vaccine ( season)COVID-19 Vaccine ( season)[facility] HealthcareStart: 64-12-0061Xadfpwqbe vaccinationNOMS HealthcareStart: 03-15-2025 End: 13-61-9546Cfkfrhk encounter procedureNOMS BCP OBComment on above:Arrived Start: 02-01-2025 End: 30-11-8512Ztjroaa encounter xjslakoiy23/30/2025 3:30 PM EDT Procedure Visit [facility]CP OB [address] [place] [place] [phone] Misael Mahajan DO [address] [place] [address] [facility] BCP OBStart: 50-33-6535OkfeemjeyClinton Memorial Hospitaltart: 05-28-2024 End: 99-33-0194Dujiqsy encounter /24/2024 3:15 PM EDT Office Visit [facility] SAULO OB [address] [phone] Teagan Gamez DO [address] [address] [facility] NB OBStart: 04-23-2024 End: 81-12-4070Bxgfxhq encounter /19/2024 9:00 AM EDT Procedure Visit [facility] EXT DEP Teagan Gamez DO [address] [address] [facility] EXT DEPStart: 75-52-5781Wywlkxqfq vaccinationInfluenza Vaccine (#1)[facility] HealthcareStart: 85-94-2942Emdjztzon for malignant neoplasm of breastMammogramBRIGHAM CITY COMMUNITY [facility] Healthcare Start: 45-26-7700Raixxguex for malignant neoplasm of cervixHPV/CotestNOMS HealthcareStart: 45-46-1433YLZ Vaccines (1 - 3-dose SCDM series)HPV Vaccines (1 - 3-dose SCDM series)[facility] HealthcareStart: 11-00-4853Mybpwlgpv B Vaccines (1 of 3 - 19+ 3-dose series)Hepatitis B Vaccines (1 of 3 - 19+ 3-dose series)[facility] HealthcareStart: 58-42-4410Vqnywnu of varicella vaccinationVaricella Vaccines (1 of 2 - 13+ 2-dose series)[facility] HealthcareStart: 17-95-0823IEpZ/Tdap/Td Vaccines (1 - Tdap)DTaP/Tdap/Td Vaccines (1 - Tdap)[facility] HealthcareStart: 81-80-9129QIL Vaccines (1 of 1 - Standard series)MMR Vaccines (1 of 1 - Standard series)[facility] HealthcareBiopsy endometriumBiopsy endometrium Procedures Routine Menorrhagia with regular cycle Pelvic pain Abnormal uterine bleeding (AUB) Ordered: 02/01/2025[facility] Work Phone: comment on above:Ordered: 02/01/2025THIN PREP TIS PAP AND HR HPV DNATHIN PREP TIS PAP AND HR HPV DNA Pathology and Cytology Routine Well woman exam with routine gynecological exam Ordered: 06/01/2025[facility] HealthcareComment on above:Ordered: 06/01/2025 Immunizations Immunization DateImmunizationNotesCare SzlpidpgQqutgkae34-60-1681zxpeqwhuf virus vaccine, unspecified formulationMona Gillesra DO Work Phone: [facility] Payers DatePayer CategoryPayerPolicy ID2024[place]icaid[place] [employer] [place] [id number] 2024-Present [address] [place] [id number] 2024Medicaid (Managed Care)[employer] Member Subscriber Plan / Payer (Effective 2024-Present) Name: Naye Reed Relation to Subscriber: Self Name: Naye Reed Payer ID: Not on file Group ID: Not on file Type: Not on file Address: [address] [id number] 2024Medicaid [id number] 2..1.906117.3.57[id number] 2..1.860408.3.57[id number] 2..1.693995.3.57[id number] 2..1.976798.3.57[id number] 2..1.878432.3.57[id number] 2..1.642471.3.57[id number] 2.0.1.302783.3.579.[id number] 2..1.715170.3.579.2.[id number] 2..1.772894.3.579.2.[id number] 2..840.1.744304.3.57[id number] 2..840.1.048720.3.579.[id number] 2..840.1.871017.3.579.2.531 Social History DateTypeDetailFacilityStart: 02-04-2024 End: 96-16-1172Lpv Assigned [facility] CampusTobacco smoking statusNo Smoking Status EnteredPremier HealthTobaccoCurrent vaping or e-cigarette use Smokeless Tobacco Use:. [facility] Start: 56-93-9634Lnjbsrs smoking status NHISEx-smoker [facility] HealthcareStart: 17-33-0175Kqkmoda of tobacco useCurrent smokerNOMS HealthcareStart: 44-31-7619Uwjkhnx of tobacco useCigarette SmokerNOWV Healthcare Start: 01-13-2024 End: 00-81-7715Eipwpcgcxt smoked current (pack per day) - Kitjubrk9NFVO HealthcareStart: 28-30-7063Jdnidms use and exposureSmokeless tobacco non-user [facility] HealthcareStart: 04-07-2024 End: 18-66-0470Atedaistg beverage intakeCurrent drinker of alcohol (finding)[facility] HealthcareStart: 51-69-0729Djn assigned at [facility] HealthcareStart: 51-38-6656Gxkeqi identityIdentifies as female gender (finding)[facility] Tobacco smoking status NHISUnknown if ever smokedFayette County Memorial Hospital Work Phone: SexFemale (finding)[facility] Start: 07-73-0147CkbTatxleMXSL Healthcare Functional Status OsauOonnfnrtbrIhkvmfUgczrmnr01-27-8577Omhebgfmbe StatusLutheran [facility] Clinical Notes 06-13-2021 to 06-01-2025 Note Date & WdeaEodfBucjsnto09-97-9611 History of Present illness Narrative* Grazyna Duffy, REAL ESTATE ASSISTANT - 06/01/2025 2:00 PM EDT Reason for Appointment: Patient ID: Naye Reed is a 44 y.o. female who presents for Well Women Visit Patient presents today for Return OB appointment. MEDICATIONS Current Outpatient Medications Medication Instructions DULoxetine (Cymbalta) [address] capsule 1 capsule, Every 24 hours ergocalciferol (Vitamin D-2) 1.25 MG (30960 UT) capsule hydrOXYzine HCl (Atarax) 25 MG [...] nursing note reviewed. Exam conducted with a inspector bullet slugs present. Vitals: Estimated body mass index is 46.78 kg/m as calculated from the following: Height [...] of: JOSE LUIS Thakur documented in this encounterThree Rivers HealthcareNenortogbf90-88-2995 History of Present illness Narrative* JOSE LUIS Thakur - 03/15/2025 3:30 PM EDT Reason for Appointment: Patient ID: Naye Reed is a 44 y.o. female who presents for Post-op Visit (Pt present today for post operative visit. Pt had an Joycelyn ablation w/hysteroscopy on 02/26/2025.) Patient presents today for 2 Week Post Op Follow Up appointment. MEDICATIONS Current Outpatient Medications Medication Instructions DULoxetine (Cymbalta) [address] capsule 1 capsule, Every 24 hours ergocalciferol (Vitamin D-2) 1.25 MG (21187 UT) capsule hydrOXYzine HCl (Atarax) 25 MG [...] packs/day: 2.00 Average packs/day: 2.0 packs/day for 24.3 years (48.5 ttl pk-yrs) Types: Cigarettes Start date: 2000 [...] Exam Constitutional: Appearance: Normal appearance. She is normal weight. HENT: Head: Normocephalic. Cardiovascular: Rate and Rhythm: Normal rate. Pulses: Normal pulses. Pulmonary: Effort: Pulmonary effort is normal. Breath sounds: Normal breath sounds. Abdominal: Palpations: Abdomen is soft. Musculoskeletal: General: Normal range of motion. Neurological: General: No focal deficit present. Mental Status: She is alert and oriented to person, place, and time. Psychiatric: Mood and Affect: Mood normal. Behavior: Behavior normal. Thought Content: Thought content normal. Judgment: Judgment normal. Vitals and nursing note reviewed. Vitals: Estimated body mass index is 47.39 kg/m as calculated from the following: Height as of 12/23/24: 5' 2 . Weight as of 02/01/25: 259 lb 1.9 oz. BP: No LMP recorded. ASSESSMENT & PLAN ICD-10-CM 1. Postoperative visit Z48.89 2. S/P endometrial ablation Z98.890 Patient presents for post op ablation, doing well. Denies any pain or dysuria. No pathology sent. Patient will follow up with annual. All restrictions lifted Documented by Esperanza Harkins MA on behalf of: JOSE LUIS Thakur documented in this encounterThree Rivers [id number] History of Present illness Narrative* María Valery - 02/01/2025 3:30 PM EDT Reason for Appointment: Patient ID: Naye Reed is a 44 y.o. female who presents for Pre-op Visit and EMBX Patient presents today for Pre Op/Endometrial Biopsy appointment. Patient is scheduled to undergo Endometrial Ablation with Joycelyn on 02-26-[address] Mahajan at [facility]. MEDICATIONS Current Outpatient Medications Medication Instructions DULoxetine (Cymbalta) [address] capsule 1 capsule, Every 24 hours ergocalciferol (Vitamin D-2) 1.25 MG (34225 UT) capsule hydrOXYzine HCl (Atarax) 25 MG [...] of: Misael Mahajan DO documented in this encounterThree Rivers [id number] History of Present illness Narrative* Samia Clancy LPN - 12/23/2024 1:10 PM EDT Reason for Appointment: Patient ID: Naye Reed is a 44 y.o. female who presents for Menstrual Problem Patient presents today for Acute Visit. and Consult appointment. MEDICATIONS Current Outpatient Medications Medication Instructions DULoxetine (Cymbalta) [address] capsule 1 capsule, Every 24 hours ergocalciferol (Vitamin D-2) 1.25 MG (63663 UT) capsule hydrOXYzine HCl (Atarax) 25 MG [...] nursing note reviewed. Exam conducted with a inspector bullet slugs present. Vitals: Estimated body mass index is [...] of: Misael Mahajan DO documented in this encounterThree Rivers [id number] History of Present illness Narrative* Sy Hallman NP - 10/06/2024 4:00 PM EST Images from the original note were not included. [address] [facility], [address] P: [phone] F: [phone] HPI Historian of HPI: patient Naye Reed is a 43 y.o. female who [...] 20 tablet; Refill: 0 documented in this encounterThree Rivers [id number] History of Present illness Narrative* Teagan Gamez, DO - 04/07/2024 8:30 AM EDT Images from the original note were not included. Subjective Naye Reed is a 43 y.o. female HPI [...] bowel habits. Pelvic ultrasound done 10/21/23 at [facility] revealed uterus measuring 9.8x5.5x3.7cm. Endometrial [...] Name Age of Onset Migraines Mother Jigna eRed Cancer Father Adam Reed Social History Tobacco [...] same time ergocalciferol (Vitamin D-2) 1.25 MG (44871 UT) capsule hydrOXYzine HCl (Atarax) 25 MG [...] bleeding, infections, and injury to surrounding structures (bladder,bowel, ureter, vagina, etc.) discussed. Patient voiced understanding and informed consent signed 2. Dysmenorrhea 3. Pelvic pain in female 4. History of tubal ligation documented in this encounterThree Rivers [id number] Evaluation note* Encounter Date Diagnosis Assessment Notes Treatment Notes Treatment Clinical Notes Jul, Contact with and (smith spected) exposure to other viral communicable diseases (ICD-10 - Z20.828) Jul,Influenza A (ICD-10 - J10.1)Symptoms presented today are related to the Flu. May use OTC medications such as Mucinex DM, Flu meds, etc. Kids can use Dimatapp or Delsym. Continue tylenol/ibu for general discomfort. Encourage flui ds. Antibiotics will not treat the flu. Symptoms should improve within the next 4-7 days., Influenza material was printed Jul,ronchitis (ICD-10 - J40)Take medications as directed. Rest and increase fluid [...] weeks for the cough to go away [facility] Other 03-07-2022 Evaluation note* Encounter Date Diagnosis Assessment Notes Treatment Notes Treatment Clinical Notes Oct, Dysuria (ICD-10 - R30.0) Oct,cute cystitis with hematuria (ICD-10 - N30.01) UA in office appears improved from ER visit. Patient states symptoms have greatly improved. Oct,H/O renal calculi (ICD-10 - Z87.442) Symptoms of pain have decreased greatly. Patient should contact office or seek emergency treatment of symptoms of pain, unable to urinate were to return [facility] Other 02-10-2022 Evaluation note* Encounter Date Diagnosis Assessment Notes Treatment Notes Treatment Clinical Notes Sep, YAMINI (generalized anxiety disorde r) (ICD-10 - F41.1) Today during the appointment we discussed depression and emotions. We talked about treatment options that include both counseling and medication interventions. When we first start treatment, it is common to have to be seen more frequently as we figure out the best treatment regimen that fits you asan individual. We will be able to space out appointments more once we find what works for you. If at any time you feel like your symptoms have increased in severity or you want to hurt yourself, please never hesitate to contact us and we will get you in to be seen. Also always know the [facility] Emergency Number is 24 hours a day available, even on holidays there is someone you can reach out to. Also we will check other labs yearly to screen for other health issues. Please remember we are a team and your opinion is very important in all of your healthcare decisions Sep,Vitamin D deficiency (ICD-10 - E55.9) Sep,sychophysiological insomnia (ICD-10 - F51.04) [facility] Other 11-09-2021 Evaluation note* Encounter Date Diagnosis Assessment Notes Treatment Notes Treatment Clinical Notes Jun, Vitamin D deficiency (ICD-10 - E 55.9) Jun,Insomnia, unspecified type (ICD-10 - G47.00) Jun,GAD (generalized anxiety disorder) (ICD-10 - F41.1) Today during the appointment we discussed depression and emotions. We talked about treatment options that include both counseling and medication interventions. When we first start treatment, it is common to have to be seen more frequently as we figure out the best treatment regimen that fits you asan individual. We will be able to space out appointments more once we find what works for you. If at any time you feel like your symptoms have increased in severity or you want to hurt yourself, please never hesitate to contact us and we will get you in to be seen. Also always know the [facility] Emergency Number is 24 hours a day available, even on holidays there is someone you can reach out to. Also we will check other labs yearly to screen for other health issues. Please remember we are a team and your opinion is very important in all of your healthcare decisions [facility] Other Evaluation + Plan note No data available for this section [facility] Future Appointments Appointment Date:04/23/2024 09:00:00 AM Scheduled Provider: Location:[facility] Appointment Type:[facility]gery [facility] Other Evaluation note* Diagnosis Menorrhagia with regular cycle- Primary Dysmenorrhea Pelvic pain in female Unspecified symptom associated with female genital organs History of tubal ligation Tubal ligation status documented in this encounter [facility] HealthcareEvaluation note* Diagnosis Sinus pressure- Primary Other diseases of nasal cavity and sinuses Acute non-recurrent maxillary sinusitis documented in this encounter [facility] HealthcareEvaluation note* Diagnosis Menorrhagia with irregular cycle documented in this encounter [facility] HealthcareEvaluation noteNo assessment information availableFayette County Memorial Hospital Work Phone: Evaluation note* Diagnosis Pre-op examination Menorrhagia with regular cycle Pelvic pain Abnormal uterine bleeding (AUB) documented in this encounter [facility] HealthcareEvaluation note* Diagnosis Postoperative visit S/P endometrial ablation Other postprocedural status documented in this encounter [facility] HealthcareEvaluation note* Diagnosis Well woman exam with routine gynecological exam Routine gynecological examination Encounter for screening mammogram for malignant neoplasm of breast documented in this encounter [facility] HealthcareHistory general Narrative - Reported* Type Description Date Medical History anxiety Surgical Historytubal ligation [facility] Other History general Narrative - ReportedNortKindred Hospital [facility] Other Hospital Discharge instructions No data available for this section [facility] note No data available for this section [facility] HealthReason for referral (narrative)No reason for referral information availableFayette County Memorial Hospital Work Phone: Summary Purpose Family History Relationship Condition Age at Onset Recorded Date/T bernardo father Hypertension Unknown Advance Directives Advance Directive Response Recorded Date/ Time Advance Directives No October 26 020 9:26am Additional Source Comments INFORMATION SOURCE (unrecogn ized section and content) DATE CREATED AUTHOR 10/07/2021 [facility] DATE CREATED AUTHOR AUTHOR'S ORGANIZ ATION 04/10/2024 [facility] DATE CREATED AUTHOR AUTHOR'S ORGANIZ ATION 04/11/2024 [facility] DATE CREATED AUTHOR AUTHOR'S ORGANIZ ATION 05/10/2024 [facility] DATE CREATED AUTHOR AUTHOR'S ORGANIZ ATION 02/13/2025 [facility] DATE CREATED AUTHOR AUTHOR'S ORGANIZ ATION 03/16/2025 [facility] EPIC REASON FOR VISIT (unrecogniz ed section and content) ReasonCommentsPre-op VisitPatient here for pre-op visit. Patient states that she would like to proceed with definitive surgical management with hysterectomy. Consent form signed and reviewed. LMP 03/20/24.Patient initially reports that she has a period every month lasting 6-7 days with heavy bleeding and severe cramping likelabor pains. Changing tampons every 1-2 hours. Has her tubes tied after her last child. Denies any changes to urinary or bowel habits.Reason CommentsMenstrual ProblemReasonCommentsPre-op VisitEMBXReasonCommentsPost-op VisitPt present today for post operative visit. Pt had an Joycelyn ablation w/hysteroscopy on 02/26/2025.ReasonCommentsWell Women Visit Patient Care team informatio n (unrecognized section and content) Team MemberRelationshipSpecialtyStart DateEnd Date Rudy Taylor MD [address] [place] [address] PCP - GeneralFamily Medicine01/13/24Team MemberRelationshipSpecialtyStart DateEnd Date Rudy Taylor MD [address] [place] [address] PCP - GeneralFamily Medicine01/13/24Team MemberRelationshipSpecialtyStart DateEnd Date Rudy Taylor MD [address] [place] [address] PCP - GeneralFamily Medicine01/13/24Team MemberRelationshipSpecialtyStart DateEnd Date Rudy Taylor MD [address] [place] [address] PCP - Generalmily Medicine01/13/24 Team Status: Inactive Member Role Status Dates Misael Mahajan Attending Provider Active Start : February 01, 2025 End: February 01, 2025Team MemberRelationshipSpecialtyStart DateEnd Date Rudy Taylor MD [address] [place] [address] PCP - [facility]01/13/24Team MemberRelationshipSpecialtyStart DateEnd Date Rudy Taylor MD [address] [place] [address] [facility] - [facility]01/13/24Team MemberRelationshipSpecialtyStart DateEnd Date Rudy Taylor MD [address] [place] [address] [facility] - [facility]01/13/24 Goals (unrecognized section and content) Goals may [...] BE BASED ON THE PRIMARY CLINICAL RECORDS. [facility]. provides no warranty or guarantee of the accuracy or completeness of information in this document.
--- OUTSIDE RECORDS SUMMARY | 2025-06-01 19:22 | XMS_ITS | Encounter Summary ---
Author Organization [facility] Address [address] [place] [address] Care Team Providers Care Cake Puller Name Role Phone Rudy Taylor MD Primary Care Provider [phone] Encounter Details DateTypeDepartmentCare Team (Latest Contact Info)Grdhpgrifey53/28/2025Bamboo flowsheet [facility] [address] [place] [address] Candy Lindsey PA [address] [place], [facility] Social History Tobacco UseTypesPacks/DayYears UsedDateSmoking Tobacco: SkmvgwGcefjzqnie452.5 Started: 2000Smokeless Tobacco: NeverAlcohol UseStandard Drinks/Week CommentsYes1 (1 standard drink = 0.6 oz pure alcohol)PHQ-2AnswerDate Recorded Patient Health Questionnaire-2 [id number] and Gender InformationValueDate RecordedSex Assigned at ApgewDrgqrd69/03/2024 12:12 PM EDT Legal AvdVqowww83/15/2023 10:59 PM EDTGender WfvflljbPvkoyf25/03/2024 12:12 PM EDTSexual OrientationNot on filedocumented as of this encounter Plan of Treatment DateTypeDepartmentCare Team (Latest Contact Info)Gyejcvrjzto43/09/2025 2:00 PM ESTProcedure Visit [facility] [address] [place] [id number] Candy Lindsey PA [address] [place] [address] documented as of this encounter Visit Diagnoses Not on filedocumented in this encounter Care Teams Team MemberRelationshipSpecialtyStart DateEnd Date Rudy Taylor MD [address] [facility] [address] [place] [address] PCP - GeneralFamily Medicine01/13/24documented as of this encounter
--- OUTSIDE RECORDS SUMMARY | 2025-06-01 19:22 | XMS_ITS | Patient Health Record ---
Author Organization [facility] es Address [address] [place] [address] Care Team Providers Care Senior Software Manager Name Role Phone Vernell Hopper Primary Care Provider Ana Rocha Allergies No Known Allergies Results Component Value Reference Range Notes CMP Reviewed date:09/20/2024 09:41:09 AM Interpretation: Performing Lab: Notes/Report: HgbA1c Reviewed date:09/20/2024 09:41:39 AM Interpretation: Performing Lab: Notes/Report: Insulin Lvl Reviewed date:09/20/2024 09:40:24 AM Interpretation: Performing Lab: Notes/Report: Reason For Referral No Information Medications Medication SIG (Take, Route, Frequency, Duration) Notes Start Date End Date Status Spironolactone 100 MG Tablet 1 tablet Orally Onc e a day; Duration: 30 days /5ActiveTrulicity 0.75 MG/0.5ML Solution Auto-injector1 dose Subcutaneous once week; Duration: 28 /5ActiveCortisporin- TC 3.3-3-10-0.5 MG/ML Suspension5 drops into affected ear Otic twice a day; Duration: 5ActiveOLANZapine 2.5 MG Tablet1 tablet Orally Once a day; Duration: 30 5ActiveAlbuterol Sulfate HFA 108 (90 Base) MCG/ACT Aerosol Solution1 puff as needed Inhalation every 4 hrs; Duration: 30 5ActiveDULoxetine HCl 60 MG Capsule Delayed Release Particles1 capsule Orally Twice a day; Duration: 90 daysActiveVitamin D (Ergocalciferol) 1.25 MG (29424 UT) CapsuleTake 1 capsule by mouth once a week; Duration: 28 days ActivehydrOXYzine HCl 25 MG Tablet1-2 tablets as needed Orally twice a day; Duration: 30 days3Active Social History Tobacco Use: Social History Observation Description Date Details (start date - stop date) Unknown Sex Assigned At : Social History Observation Description Sex Assigned At Female Social History GeneralSocial InfoQuestionAnswerNotesTransition of Care:ER/UC/hospital since last office visit?NoSpecialist seen since last office visit?NoSubstance abuse/mental health issues of patient/familyPatient -Caffeine UseAbility to understand healthcare/treatmentPatient:FairSocial/Support Concerns:Patient:No Behaviors affecting healthPoor/Risky Behaviors:Nutrition-, Oral Health-, Physical Activity-, Second Hand Smoke-Communication Barrier:Language Barrier?:No Drug/Alcohol:Social InfoQuestionAnswerNotesAUDIT-C (Standard)Did you have a drink containing alcohol in the past year?MrReuogt5EhdopxcwpbfqhjLjlokqbgAvplamx Use:Social InfoQuestionAnswerNotesTobacco Control (Standard)Tobacco use:Uses tobacco in other formsSection Notes: Vapes. Vapes. Vapes. Vapes. Vapes. Vapes. Vapes. Vapes. Vapes. Vapes. Vapes. Vapes. Problems Problem Type SNOMED Code ICD Code Onset Dates Problem Status W/U Status Risk Notes Problem Tobacco user (402841139) Nicotin e dependence, unspecified, uncomplicated (F17.200) ActiveconfirmedProblemLeft side sciatica (787225746959925)Sciatica, left side (M54.32)ActiveconfirmedProblemDysmenorrhea (522366681)Dysmenorrhea (N94.6)Active confirmedProblemIntermenstrual bleeding - irregular (48697187)Menorrhagia with irregular cycle (N92.1)ActiveconfirmedProblemGeneralized anxiety disorder (08450985)YAMINI (generalized anxiety disorder) (F41.1)ActiveconfirmedProblem Hyperinsulinemia (22402383)Hyperinsulinemia (E16.1)Activeconfirmed Vital Signs Heart Rate 77 /min 03/18/2025 Zkjryixwubo22 degrees Ksvjfydkpc06/14/2025Respiratory Rate20 /min03/18/2025 Mpjkrasl00 %03/18/2025lood pressure zuyixnbnx86 mm Hg03/18/20256055Sungvy13 in 03/18/2025lood pressure vwtnpvbu497 mm Hg03/18/20250636Qeckbt340 lbs03/18/2025MI 47.18 kg/m203/18/2025 Encounters Encounter Location Date Provider Diagnosis [facility] [address] [place] [address] 07/24/2024 Ana Aj YAMINI (generalized anxiety disorder) F41.1 [facility] [address] [place] [address] 07/30/2024 Ana Alliejacobo YAMINI (generalized anxiety disorder) F41.1 [facility] [address] [place] [place] [address] 08/27/2024 Ana Aj [facility] [place] [address]/ Ana rondairisSt[facility] [place] [address]/Granite Fallselian rondairisSt. [facility] Carmel Hospital[address] [place] [address]/01/2025Hanna SchoenGAD (generalized anxiety disorder) F41.1[facility] [address] [place] [address]/Hannah SchoenGAD (generalized anxiety disorder) F41.1[facility] [address] [place] [address]/Hannah SchoenEar itching L29.9[facility] [place] [address] [place] [address]/Hannah SchoenGAD (generalized anxiety disorder) F41.1[facility] [address] [place] [address]/[place] SchoenGAD (generalized anxiety disorder) F41.1[facility] [place] [address]/[place] SchoenGAD (generalized anxiety disorder) F41.1[facility] [address] [place] [address]/ Ana zzzBreaultUnintended weight gain R63.5 ; YAMINI (generalized anxiety disorder) F41.1 and Nicotine dependence, unspecified, uncomplicated F17.200[facility] [address] [place] [address]/Stephanie zzzBreault Nicotine dependence, unspecified, uncomplicated F17.200 ; YAMINI (generalized anxiety disorder) F41.1 ; Menorrhagia with irregular cycle N92.1 ; Dysmenorrhea N94.6 and Hyperinsulinemia E16.1[facility] Yhmawto[address] [facility] [place] [place] [address]/Stephanie zzzBreaultHyperinsulinemia E16.1 ; Menorrhagia with irregular cycle N92.1 and Nicotine dependence, unspecified, uncomplicated F17.200[facility] [address]kwicon[address] [facility] [place] [place] [address]/[place] Ruchi YAMINI (generalized anxiety disorder) F41.1 ; Ear itching L29.9 [address] E[address] [address] 03/18/2025[place] SchoenWheezing R06.2 and History of elevated blood pressure while in hospital Z86.79 Assessments Encounter Date Diagnosis (ICD Code) Assessment Notes Treatment Notes Treatment Clinical Notes Section Notes 03/18/2025 Wheezing (ICD-10 - R06.2) Intermittent wheezing. Discussed importance of smoking cessation, but patient declines at this time. Albuterol inhaler prescribed to use as needed. Patient is instructed to report to the ER if she notices increase SOB, and wheezing not relieved by albuterol.03/18/2025History of elevated blood pressure while in hospital (ICD-10 - Z86.79)Blood pressure WNL in office today. Patient is asymptomatic. Including headache, vision changes, lightheadednesss, dizziness, and chest pain. Discussed elevated blood pressure during surgical procedure was likely related to anxiety as there is no history of elevated blood pressures in the past. Will continue to monitor.03/30/2025GAD (generalized anxiety disorder) (ICD-10 - F41.1)05/03/2025GAD (generalized anxiety disorder) (ICD-10 - F41.1) 01/25/2025GAD (generalized anxiety disorder) (ICD-10 - F41.1)01/26/2025Ear itching (ICD-10 - L29.9)01/29/2025GAD (generalized anxiety disorder) (ICD-10 - F41.1)08/18/2024GAD (generalized anxiety disorder) (ICD-10 - F41.1)Made changes to medications as we discussed to help with increased symptoms. Will have patient follow up in 2-3 months or sooner if she feels needed.08/18/2024 Unintended weight gain (ICD-10 - R63.5)Discussed weigh issues, problems with losing weight, history of diets tried, lifestyle changes thatthey have tried over the years and successful weight loss and how much and how long the weight has stayed off. Discussed tests, treatment options and costs. Patient states understanding. Today we plan on doing labwork here in office as first steps. 10/20/2024Nicotine dependence, unspecified, uncomplicated (ICD-10 - F17.200) 07/24/2024GAD (generalized anxiety disorder) (ICD-10 - F41.1)07/30/2024GAD (generalized anxiety disorder) (ICD-10 - F41.1)10/20/2024GAD (generalized anxiety disorder) (ICD-10 - F41.1)Will continue medications today since patient states that she feels stable on doses12/15/2024Hyperinsulinemia (ICD-10 - E16.1) Continue medication as discussed and making better choices and lifestyle changes. Encouraged to gently push yourself with increasing activity and trying healthy lifestyle options. FOllow up in 3 month as /06/2025GAD (generalized anxiety disorder) (ICD-10 - F41.1)01/22/2025Ear itching (ICD-10 - L29.9)Exam consistent with eczema. Ear drops prescribed and educated to use as directed. Patient verbalized understanding.01/22/2025GAD (generalized anxiety disorder) (ICD-10 - F41.1)Anxiety stable. Will continue current medication. F/U 3 months & PRN01/22/2025Hyperinsulinemia (ICD-10 - E16.1)Continue medication treatment. Follow up in 3 months.08/18/2024Nicotine dependence, unspecified, uncomplicated (ICD-10 - F17.200)10/20/2024Menorrhagia with irregular cycle (ICD- 10 - N92.1)Continue to follow up with EMAIL ENGINEER due to severity of /13/2025 Menorrhagia with irregular cycle (ICD-10 - N92.1)Keep appt with EMAIL ENGINEER as we discussed today in office as they can best discuss the best measures to help with the symptoms you are xgynhyebhsfn97/13/2025Nicotine dependence, unspecified, uncomplicated (ICD-10 - F17.200)10/20/2024Dysmenorrhea (ICD-10 - N94.6)Recommend follow up with cellar supervisor and discussed severity of pain and effect on daily syfqqy0810/20/2024Hyperinsulinemia (ICD-10 - E16.1)Obesity medication as discussed and making better choices and lifestyle changes. Encouraged to gently push yourself with increasing activity and trying healthy lifestyle options. FOllow up in 2 monthas zzshtrujg53/14/2025OtherBody Mass Index: Care Instructions material was ygsavey6210/20/2024OtherBody Mass Index: Care Instructions material was hiqhcra1612/15/2024OtherBody Mass Index: Care Instructions material was printed Plan Of Treatment Pending Test Test Name Order Date Cortisol 08/18/2024 Estradiol 08/18/2024 FSH and LH 08/18/2024 Lipid Panel 08/18/2024 Progesterone 08/18/2024 T3 Total 08/18/2024 T4 & TSH 08/18/2024 Next Appt Details Provider Name:Vernell Hopper, 06/18/2025 11:30:00 AM, [address] [place], [address], Insurance Providers Payer Name Payer Address Payer Phone Subscriber Number Group Number Insured Name Patient Relationship to Insured Coverage Start Date Coverage End Date [employer] [place] Medicaid [address] [place] [address] [id number] Rodrigue REED - patient is the [id number] [place] MedicaidPO [address] [facility] [place] [phone] [id number], LEAHSelf - patient is the frpsavz5104/05/2024[facility] [address] [place] [id number], LEAHSelf - patient is the [id number] [address] [place] [id number] - patient is the cpvqgyx2304/05/2024[place] [address] [place] [phone] [id number], LEAHSelf - patient is the wpfkqao3910/08/2023 Medical (General) History Medical History History ICD Code PANIC ATTACKS dysmenorrheahyperinsulinemiasciaticaanxietySurgical History Surgery Date(Month/Year) TUBAL LIGATION Uterine AblationHospitalization History Reason Date(Month/Year) child x3 see surgical
--- OUTSIDE RECORDS SUMMARY | 2025-06-01 19:22 | XMS_ITS | Clinical Summary ---
Author Organization [facility] Address [address] [facility] [place] [address] Care Team Providers Care Automobile Service Advisor Name Role Phone Rudy Taylor MD Primary Care Provider [phone] Allergies Active AllergyReactionsCriticalityNoted DateCommentsLatexItchingBrooklyn 01/06/2024 Medications MedicationSigDispense QuantityRefillsLast FilledStart DateEnd DateStatus ergocalciferol (Vitamin D-2) 1.25 MG (18081 UT) capsule 01/06/2024ctive DULoxetine (Cymbalta) [address] capsule 1 capsule 1 (one) time each day at the same timeActive hydrOXYzine HCl (Atarax) 25 MG tablet 01/08/2024ctive OLANZapine (ZyPREXA) 2.5 MG tablet 1 (one) time each day at the same time5Active Encounters DateTypeDepartmentCare JutpQwvsvxtyims53/28/2025 2:00 PM EDTProcedure Visit [facility] [address] [place] [address] Candy Lindsey PA Well woman exam with routine gynecological exam; Encounter for screening mammogram for malignant neoplasm of rfzdjb6906/01/2025 Bamboo flowsheet [facility] [address] [place] [address] Candy Lindsey PA 03/15/2025 3:30 PM EDTOffice Visit [facility] [address] [facility] [address] Candy Lindsey PA Postoperative visit; S/P endometrial tckemapg78/11/2025amboo flowsheet [facility] [address] [place] [address] Candy Lindsey PA from Last 3 Months Family History Medical HistoryRelationNameCommentsCancerFatherAlan LaschMigrainesMotherDarlene LaschRelationNameStatusCommentsFatherAlan LaschAliveMotherDarlene LaschAlive Social History Tobacco UseTypesPacks/DayYears UsedDateSmoking Tobacco: YzfaoiAwjrvkinwp536.5 Started: 2000Smokeless Tobacco: Never Tobacco Cessation:Counseling Given: Not Answered Alcohol UseStandard Drinks/WeekCommentsYes1 (1 standard drink = 0.6 oz pure alcohol)PHQ-2AnswerDate RecordedPatient Health Questionnaire-2 Oqcup367 CommentsNoSex and Gender InformationValueDate RecordedSex Assigned at QucjjZhvkck14/03/2024 12:12 PM EDTLegal AqhBtzqpy20/15/2023 10:59 PM EDTGender WgsrnvbcEsrgrg00/03/2024 12:12 PM EDTSexual OrientationNot on file Last Filed Vital Signs Vital SignReadingTime TakenCommentsBlood Mlarxyti312/8010 1:52 PM EDT Nhwxj081110/06/2024 4:03 PM WWBRyeqtdrumbe43.1 ??C (98.7 ??F)10/06/2024 4:03 PM ESTRespiratory Rate--Oxygen Ehnbzfbwzn41%10/06/2024 4:03 PM ESTInhaled Oxygen Concentration--Vutzoz837 kg (255 lb 12 oz)06/01/2025 1:52 PM YVXPdwjuc808.5 cm (5' 2 )03/15/2025 3:12 PM EDTBody Mass Index46.78003/15/2025 3:12 PM EDT Plan of Treatment DateTypeDepartmentCare Team (Latest Contact Info)Nreeksrfdsu52/02/2026 2:00 PM ESTProcedure Visit [facility] [address] [facility] [address] Candy Lindsey PA [address] [place] [address] Health MaintenanceDue DateLast DoneCommentsMMR Vaccines (1 of 1 - Standard series)1982DTaP/Tdap/Td Vaccines (1 - Tdap)1988Varicella Vaccines (1 of 2 - 13+ 2-dose series)1994Hepatitis B Vaccines (1 of 3 - 19+ 3-dose series)2000HPV Vaccines (1 - 3-dose SCDM series)2008HPV/Cotest 12/08/20115296Mqdeleqcf39/05/2022COVID-19 Vaccine (3 - 2024- season)2025 11/24/2020, 11/03/2020Influenza Vaccine (#1)Cervical Cancer Rvcqtsafp28/10/2027Pap SmearHIB VaccinesAged OutNo longer eligible based on patient's age to complete this topicHepatitis A VaccinesAged OutNo longer eligible based on patient's age to complete this topicIPV Vaccines Aged OutNo longer eligible based on patient's age to complete this topic Meningococcal B VaccineAged OutNo longer eligible based on patient's age to complete this topicMeningococcal VaccineAged OutNo longer eligible based on patient's age to complete this topicPneumococcal Vaccine: Pediatrics (0 to 5 Years) and At-Risk Patients (6 to 64 Years)Aged OutNo longer eligible based on patient's age to complete this topicRotavirus VaccinesAged OutNo longer eligible based on patient's age to complete this topic Procedures Procedure NamePriorityDate/TimeAssociated DiagnosisCommentsTHINPREP TIS PAP AND HPV MRNA E6/E7 WITH REFLEX TO HPV 16,18/07Wfyreql58/10/2024 12:00 AM EDT Screening for malignant neoplasm of cervix Encounter for screening for human papillomavirus (HPV) from Last 3 Months or Most Recently Relevant to Health Maintenance Results * THINPREP TIS PAP AND HPV MRNA E6/E7 WITH REFLEX TO HPV 16,18/45 (01/13/2024 12:00 AM EDT)ComponentValueRef RangeTest MethodAnalysis TimePerformed At Pathologist SignatureCLINICAL INFORMATIONQUESTComment:None givenLMPQUEST Comment:None givenPREV. PAPQUESTComment:None givenPREV. BXQUESTComment:None givenSOURCEQUESTComment:None givenSTATEMENT OF ADEQUACYQUESTComment: Satisfactory for evaluation. Endocervical/transformation zone component present. INTERPRETATION/RESULTQUESTComment: Cytology Results: Negative for intraepithelial lesion or malignancy. COMMENTQUESTComment: This Pap test has been evaluated with computer assisted technology. CYTOTECHNOLOGISTQUESTComment: SPS, ??CT(ASCP) CT Screening Location: ??[facility] [place], [address] [place] [address] ??[id number] (ALWAYS MESSAGE)QUESTComment: EXPLANATORY NOTE: The Pap is a screening test for cervical cancer. It is not a diagnostic test and is subject to false negative and false positive results. It is most reliable when a satisfactory sample, regularly obtained, is submitted with relevant clinical findings and history, and when the Pap result is evaluated along with historic and current clinical information. HPV MRNA E6/E7Not DetectedNot DetectedQUESTComment: Methodology: High School Band Director-Mediated Amplification This assay detects E6/E7 viral messenger RNA (mRNA) from 14 high-risk HPV types (16,18,31,33,35,39,45,51,52,56,58,59,66,68). Cervical sources are required for HPV testing. If a vaginal source from a patient who has had a total hysterectomy with removal of cervix was submitted, please contact the testing laboratory for alternative testing options. For additional information, please refer to http://education.YoQueVos/faq/XMY150a7 (This link if provided for information/ educational purposes only.) Specimen (Source)Anatomical Location / LateralityCollection Method / Volume Collection TimeReceived TimeSwab (specimen)/06/2024 2:42 AM EDT Narrative Resulting Agency Comment Performing Organization Information ?Site ID: [id number] ?Name: [facility] ?Address: [address] [place] [address], [address] [place] [address] ?Director: Ranjeet Palumbo MD Authorizing ProviderResult TypeResult StatusMona J Nataprawira DOLAB CYTOLOGY ORDERABLESFinal ResultPerforming OrganizationAddressCity/State/ZIP CodePhone Number [facility] from Last 3 Months or Most Recently Relevant to Health Maintenance Insurance Care Teams Team MemberRelationshipSpecialtyStart DateEnd Date Rudy Taylor MD [address] [facility] [address] [place] [address] PCP - GeneralFamily Medicine01/13/24
[2025-06-04 14:09] LABS: Age Gdln ACOG Testing Note (.); IGP, Aptima HPV, rfx 16/18,45 Note (.)
== END 2025-06-01 19:20 | disposition home or self-care (01) ==
LOC: LAB 19:19
PROVIDERS: PCP Student in an Organized Health Care Education/Training Program; Visit Provider Physician Assistant
DX: Z01.419 Encounter for gynecological examination (general) (routine) without abnormal findings (principal)
CPT/HCPCS: 87624; 88175